=== PATIENT | female | born 1950 | race Caucasian/White ===

== ENCOUNTER → 2016-08-30 | Outpatient (CLI) | payer MEDICARE, BC ==
--- NOTE | 2016-08-30 15:27 | MR ---
EXAMINATION TYPE: MR brain wo con DATE OF EXAM: 08/30/2016 3:17 PM COMPARISON: NONE HISTORY: Lower extremity weakness T1-weighted sagittal, T2, FLAIR, and diffusion axial, and T2 coronal coronal views of the brain are s ubmitted. There is no evidence of acute ischemia. The ventricles, basal cisterns, and sulci overlying the conv exities are consistent with the patient's age. There is no mass effect. Craniocervical junction maintained. Partially empty sella turcica. No cerebellopontine angle mass. Ch anges of mild chronic sinusitis. There are faint areas of abnormal signal the periventricular white m atter nonspecific and most suggestive of minimal remote microvascular ischemia. IMPRESSION: 1. No acute intracranial process. Minimal nonspecific white matter changes.
== END | disposition home or self-care (01) ==
LOC: RADMRIMAIN 14:46
PROVIDERS: ATTEND Family Medicine
DX: R90.82 White matter disease, unspecified (principal); R53.1 Weakness; R53.83 Other fatigue; R41.0 Disorientation, unspecified; F29 Unspecified psychosis not due to a substance or known physiological condition; R41.840 Attention and concentration deficit
CPT/HCPCS: 70551

== ENCOUNTER → 2018-01-05 | Outpatient (CLI) | payer MEDICARE, BC ==
--- NOTE | 2018-01-05 14:35 | MR ---
EXAMINATION TYPE: MR lumbar spine wo con DATE OF EXAM: 01/05/2018 COMPARISON: None HISTORY: Low back pain / Right radiculopathy CONTRAST: 0 mL intravenous Gadavist. TECHNIQUE: Multiplanar, multisequence images of the lumbar spine were acquired. FINDINGS: L5-S1: There is mild narrowing of the disc space. Mild disc bulge is greater centrally and has mild a nterior thecal sac compression. No AP spinal canal stenosis present. Moderate facet hypertrophy is pr esent. Neural foramen are patent. L4-L5: There is loss of disc height. Minimal grade 1 spondylolisthesis of L4 and L5 is present. Disc uncovering is present which has mild anterior thecal sac compression. There is moderate bilateral for aminal stenosis. Moderate to severe bilateral facet hypertrophy is present. This doesn't some posteri or lateral thecal sac compression. L3-L4: Disc space narrowing is present. Mild facet hypertrophy is present. No spinal canal stenosis o r neural foraminal stenosis present. There is some asymmetric disc bulging into the right paracentral region with mild anterior thecal sac contact. This appears larger on the sagittal plane images. L2-L3: No significant disc bulge or disc herniation. No spinal canal stenosis. No foraminal stenosi s. Facet hypertrophy is present. L1-L2: No significant disc bulge or disc herniation. No spinal canal stenosis. No foraminal stenosi s. Some facet degenerative changes present.. T12-L1: No significant disc bulge or disc herniation. No spinal canal stenosis. No foraminal stenos is. . IMPRESSION: 1. Grade 1 spondylolisthesis of L4 anterior and L5. Disc uncovering is present with mild anterior the vel sac flattening. Several hypertrophy and disc uncovering is contributing to moderate bilateral for aminal stenosis. Correlate with radicular symptoms. 2. Central disc bulge present L5-S1 and mild right paracentral disc bulge at L3-4.
== END | disposition home or self-care (01) ==
LOC: RADMRIMAIN 10:27
PROVIDERS: ATTEND Orthopaedic Surgery
DX: M99.73 Connective tissue and disc stenosis of intervertebral foramina of lumbar region (principal); M51.17 Intervertebral disc disorders with radiculopathy, lumbosacral region; M43.16 Spondylolisthesis, lumbar region
CPT/HCPCS: 72148

== ENCOUNTER 2019-04-14 12:19 | Emergency (ER) | payer MEDICARE, BC ==
[2019-04-14 12:40] VITALS: RESP 18
[2019-04-14] MEDS ORDERED: KETOROLAC 30 MG/ML 1 ML VIAL IVP STA (13:10)
[2019-04-14] MEDS ORDERED: SODIUM CHLORIDE 0.9% 500 ML 500 ML IV STA (13:10)
[2019-04-14] MEDS ORDERED: DIAZEPAM 5 MG/ML 2 ML INJ IVP STA (13:11)
--- NOTE | 2019-04-14 13:12 | ED ---
General Adult HPI - General Source: patient, RN notes reviewed Mode of arrival: ambulatory Limitations: no limitations <Mark Figueroa - Last Filed: 04/14/19 15:31> <Julius Camp - Last Filed: 04/14/19 15:36> - General Chief complaint: Back Pain/Injury Stated complaint: Rt lumbar pain Time Seen by Provider: 04/14/19 12:55 - History of Present Illness Initial comments: 69-year-old female with a past medical history of chronic back pain, back surgery presents to the emergency department for acute on chronic back pain. States that her back pain worsened yesterday. States it is to the right side of her lumbar spine. States that lifting her right leg worsens this pain. Patient denies any injuries recently to her back. She states that she has compression deformities in her lumbar spine. Patient states that she has been taking her [place] for pain which she gets from pain management for her chronic back pain but it has not been helping. States that she feels like this could be pancreatitis as it has felt this way in the past. Denies fevers or chills. Denies weakness of the lower extremities. Denies numbness or tingling. Denies radiating back pain. States that the last time she had back injections was in November. No surgeries or injections since that time.Patient has no other complaints at this time including shortness of breath, chest pain, abdominal pain, nausea or vomiting, headache, or visual changes. (Mark Figueroa) - Related Data Home Medications Medication Instructions Recorded Confirmed ALPRAZolam [Xanax] 0.5 mg PO DAILY PRN 01/07/16 01/07/16 Adalimumab [Humira Crohn's] 40 mg SQ WEEKLY 01/07/16 01/07/16 Amitriptyline HCl [Elavil] 25 mg PO HS 01/07/16 01/07/16 Cetirizine HCl [Zyrtec] 10 mg PO DAILY 01/07/16 01/07/16 Cyclobenzaprine [Flexeril] 10 mg PO TID 01/07/16 01/07/16 Estrogens, Conjugated [Premarin] 0.625 mg PO DAILY 01/07/16 01/07/16 Folic Acid 5 mg PO DAILY 01/07/16 01/07/16 Hydrochlorothiazide [Hydrodiuril] 25 mg PO DAILY 01/07/16 01/07/16 Ibuprofen [Motrin] 800 mg PO PRN 01/07/16 Losartan Potassium 100 mg PO DAILY 01/07/16 01/07/16 Methotrexate Sodium [Methotrexate] 6 tab PO WEEKLY 01/07/16 01/07/16 Metoprolol Succinate (ER) [Toprol 100 mg PO DAILY 01/07/16 01/07/16 Xl] Pantoprazole Sodium [Protonix] 40 mg PO DAILY 01/07/16 01/07/16 Sertraline [Zoloft] 100 mg PO DAILY 01/07/16 01/07/16 Previous Rx's Medication Instructions Recorded Hydrocodone/Acetaminophen [[place] 1 each PO Q6HR PRN #30 tab 01/07/16 5-325] Allergies Allergy/AdvReac Type Severity Reaction Status Date / Time No Known Allergies Allergy Verified 04/14/19 12:40 Review of Systems ROS Other: All systems not noted in ROS Statement are negative. <Mark Figueroa - Last Filed: 04/14/19 15:31> ROS Other: All systems not noted in ROS Statement are negative. <Julius Camp - Last Filed: 04/14/19 15:36> ROS Statement: Those systems with pertinent positive or pertinent negative responses have been documented in the HPI. Past Medical History Past Medical History: Hypertension History of Any Multi-Drug Resistant Organisms: None Reported Past Surgical History: Appendectomy, Back Surgery, Bladder Surgery, Chol ecystectomy, Hysterectomy, Orthopedic Surgery Additional Past Surgical History / Comment(s): vein stripping Past Psychological History: Anxiety, Depression Smoking Status: Never smoker Past Alcohol Use History: None Reported Past Drug Use History: None Reported <Mark Figueroa - Last Filed: 04/14/19 15:31> General Exam Limitations: no limitations General appearance: alert, in no apparent distress Head exam: Present: atraumatic, normocephalic, normal inspection Eye exam: Present: normal appearance, PERRL, EOMI. Absent: scleral icterus, conjunctival injection, periorbital swelling ENT exam: Present: normal exam, mucous membranes moist Neck exam: Present: normal inspection. Absent: tenderness, meningismus, lymphadenopathy Respiratory exam: Present: normal lung sounds bilaterally. Absent: respiratory distress, wheezes, rales, rhonchi, stridor Cardiovascular Exam: Present: regular rate, normal rhythm, normal heart sounds. Absent: systolic murmur, diastolic murmur, rubs, gallop, clicks GI/Abdominal exam: Present: soft, normal bowel sounds. Absent: distended, tenderness, guarding, rebound, rigid Extremities exam: Present: normal capillary refill (cap refill less than 2 seconds, DP pulse 2+ in lower extremities bilaterally) <Mark Figueroa - Last Filed: 04/14/19 15:31> Course <Julius Camp - Last Filed: 04/14/19 15:36> Vital Signs 04/14/19 04/14/19 04/14/19 12:33 14:30 15:00 Temperature 97.5 F L Pulse Rate 59 L 74 89 Respiratory 18 18 18 Rate Blood Pressure 166/85 147/81 157/74 O2 Sat by Pulse 99 97 96 Oximetry - Reevaluation(s) Reevaluation #1: 04/14/19 15:36 PA supervision: I proceeded [id number] evaluation the patient did present with complaints of low back pain. She is feeling improved labs and imaging are unremarkable patient will be discharged I do agree with the assessment and plan. (Julius Camp) Medical Decision Making - Lab Data Result diagrams: 04/14/19 14:55 04/14/19 14:55 <Mark Figueroa - Last Filed: 04/14/19 15:31> - Lab Data Result diagrams: 04/14/19 14:55 04/14/19 14:55 <Julius Camp - Last Filed: 04/14/19 15:36> - Medical Decision Making Vitals are stable, neurovascular status intact in RLE. no red flag symptoms. CBC and CMP are unremarkable. Urine is negative for infection. Lumbar spine x- ray shows moderate to advanced degenerative disc disease without vertebral compression collapse. Grade 1 anterior listhesis at L4-L5 noted. Patient was given Toradol and Valium and had significant improvement in pain. She states she feels much better at this time. Patient will be discharged home to follow up with primary care. She will follow-up with pain management as well. She will also talk with her doctor about possibly starting Motrin. She'll return if she has any worsening symptoms. (Mark Figueroa) - Lab Data Lab Results 04/14/19 04/14/19 04/14/19 Range/Units 13:47 14:55 14:55 WBC 5.5 (3.8-10.6) k/uL RBC 4.37 (3.80-5.40) m/uL Hgb 13.7 (11.4-16.0) gm/dL Hct 41.4 (34.0-46.0) % MCV 94.7 (80.0-100.0) fL MCH 31.3 (25.0-35.0) pg MCHC 33.0 (31.0-37.0) g/dL RDW 15.5 (11.5-15.5) % Plt Count 245 (150-450) k/uL Neutrophils % 54 % Lymphocytes % 29 % Monocytes % 8 % Eosinophils % 4 % Basophils % 1 % Neutrophils # 3.0 (1.3-7.7) k/uL Lymphocytes # 1.6 (1.0-4.8) k/uL Monocytes # 0.5 (0-1.0) k/uL Eosinophils # 0.2 (0-0.7) k/uL Basophils # 0.0 (0-0.2) k/uL Sodium 141 (137-145) mmol/L Potassium 3.9 (3.5-5.1) mmol/L Chloride 105 (98-107) mmol/L Carbon Dioxide 27 (22-30) mmol/L Anion Gap 9 mmol/L BUN 18 H (7-17) mg/dL Creatinine 0.90 (0.52-1.04) mg/dL Est GFR (CKD-EPI)AfAm 75 (>60 ml/min/1.73 sqM) Est GFR (CKD-EPI)NonAf 65 (>60 ml/min/1.73 sqM) Glucose 78 (74-99) mg/dL Calcium 9.6 (8.4-10.2) mg/dL Total Bilirubin 0.5 (0.2-1.3) mg/dL AST 31 (14-36) U/L ALT 24 (4-34) U/L Alkaline Phosphatase 66 (38-126) U/L Total Protein 7.3 (6.3-8.2) g/dL Albumin 4.2 (3.5-5.0) g/dL Amylase 76 (30-110) U/L Lipase 206 (23-300) U/L Urine Color Light Yellow Urine Appearance Clear (Clear) Urine pH 7.0 (5.0-8.0) Ur Specific [place] 1.008 (1.001-1.035) Urine Protein Negative (Negative) Urine Glucose (UA) Negative (Negative) Urine Ketones Negative (Negative) Urine Blood Negative (Negative) Urine Nitrite Negative (Negative) Urine Bilirubin Negative (Negative) Urine Urobilinogen <2.0 (<2.0) mg/dL Ur Leukocyte Esterase Negative (Negative) Disposition Is patient prescribed a controlled substance at d/c from ED?: No Time of Disposition: 15:32 <Mark Figueroa - Last Filed: 04/14/19 15:31> <Julius Camp - Last Filed: 04/14/19 15:36> Clinical Impression: Mechanical back pain Disposition: HOME SELF-CARE Condition: Good Instructions (If sedation given, give patient instructions): Acute Low Back Pain (ED) Additional Instructions: Please continue to take her medications for pain. Please follow-up with your doctor in one to 2 days. Follow-up with pain management as well. Return to the emergency department if you have any worsening symptoms such as leg weakness, numbness or tingling in the lower extremities, difficulty walking, bladder or bowel changes, or fevers. Referrals: Marlon Eugene DO [Primary Care Provider] - 1-2 days
[2019-04-14] MEDS ORDERED: ONDANSETRON 4 MG/2 ML VIAL IVP STA (13:49)
--- NOTE | 2019-04-14 14:30 | XR ---
EXAMINATION TYPE: XR lumbar spine 2 or 3V DATE OF EXAM: 04/14/2019 Comparison: None Clinical History: 69-year-old female with pain Findings: Advanced hypertrophic facet arthropathy mid to lower lumbar spine. Degenerative thinning of the inter spinous ligaments with abutment near abutment of the spinous processes compatible with [place]'s dis ease. Moderate to advanced disc degenerative change particularly at L4-L5 and L5-S1. Vertebral body h eights are preserved. Grade 1 anterolisthesis at L4-L5. Impression: Advanced hypertrophic facet arthropathy with grade 1 anterolisthesis at L4-L5. Moderate to advanced d egenerative disc disease L4-L5 and L5-S1. No vertebral compression collapse.
[2019-04-14 14:34] LABS: Appearance,Urine Clear (Clear); Bilirubin,Urine Negative (Negative); Blood,Urine Negative (Negative); Color,Urine Light Yellow; Glucose,Urine (UA) Negative (Negative); Ketones,Urine Negative (Negative); Leukocyte Esterase,Urine Negative (Negative); Nitrite,Urine Negative (Negative); Protein,Urine Negative (Negative); Specific Gravity,Urine 1.008 (1.001-1.035); Urobilinogen,Urine <2.0 mg/dL (<2.0)
[2019-04-14 15:21] LABS: Basophils % (A) 1 %; Eosinophils # (A) 0.2 k/uL (0-0.7); Eosinophils % (A) 4 %; HCT 41.4 % (34.0-46.0); HGB 13.7 gm/dL (11.4-16.0); Lymphocytes # (A) 1.6 k/uL (1.0-4.8); Lymphocytes % (A) 29 %; MCH 31.3 pg (25.0-35.0); MCV 94.7 fL (80.0-100.0); Mean Platelet Volume 7.8; Monocytes # (A) 0.5 k/uL (0-1.0); Monocytes % (A) 8 %; Neutrophils % (A) 54 %; Platelet Count 245 k/uL (150-450); RBC 4.37 m/uL (3.80-5.40); RDW 15.5 % (11.5-15.5); WBC 5.5 k/uL (3.8-10.6)
[2019-04-14 15:24] LABS: Albumin 4.2 g/dL (3.5-5.0); Calcium 9.6 mg/dL (8.4-10.2); Potassium 3.9 mmol/L (3.5-5.1); Total Bilirubin 0.5 mg/dL (0.2-1.3); Total Protein 7.3 g/dL (6.3-8.2)
[2019-04-14 15:45] VITALS: BP 150/76; PULSE 71; TEMP 98.2
== END 2019-04-14 15:42 | disposition home or self-care (01) ==
LOC: EC 12:19
DX: M54.5 Low back pain (principal); M51.36 Other intervertebral disc degeneration, lumbar region; M43.16 Spondylolisthesis, lumbar region; M51.37 Other intervertebral disc degeneration, lumbosacral region; F41.9 Anxiety disorder, unspecified; F32.9 Major depressive disorder, single episode, unspecified; I10 Essential (primary) hypertension; Z79.899 Other long term (current) drug therapy
CPT/HCPCS: 36415; 72100; 80053; 81003; 82150; 83690; 85025; 96374; 96375; 99283

== ENCOUNTER → 2021-02-16 | Outpatient (CLI) | payer MEDICARE, BC ==
[~2021-02-16] MED LIST: REGADENOSON 0.4 MG/5 ML SYRINGE IV PRN
[2021-02-16 13:52] LABS: Anisocytosis Slight; HCT 38.7 % (34.0-46.0); HGB 11.7 gm/dL (11.4-16.0); Hypochromasia Moderate; MCHC 30.4 g/dL (31.0-37.0); MCV 92.4 fL (80.0-100.0); Mean Platelet Volume 7.4; Platelet Count 335 k/uL (150-450); RBC 4.18 m/uL (3.80-5.40); RDW 17.6 % (11.5-15.5); WBC 7.6 k/uL (3.8-10.6)
[2021-02-16 14:04] LABS: Calcium 9.5 mg/dL (8.4-10.2); Potassium 4.4 mmol/L (3.5-5.1)
--- NOTE | 2021-02-16 14:12 | NM ---
EXAMINATION TYPE: NM stress lexiscan cardiolite DATE OF EXAM: 02/16/2021 COMPARISON: NONE HISTORY: Dyspnea on exertion TECHNIQUE: After the intravenous administration of 9.8 mCi Tc 99m Sestamibi - Cardiolite resting SPE CT images acquired 45 minutes post injection. At peak stress 24.2 mCi Tc 99m Sestamibi - Stress images obtained 30 minutes post injection The patient was stressed with 0.4mg Lexiscan. FINDINGS: There is a moderate sized fixed defect along the lateral wall extending to the cardiac apex. This duyen ears matched between resting and stress SPECT images. Polar maps however suggest large degree of reve rsibility. Wall motion appears normal Ejection fraction is calculated to be 62 %. IMPRESSION: 1. Moderate to large defect along the lateral wall appears fixed on SPECT imaging but reversible on p olar maps. Correlate with EKG changes.
[2021-02-16 14:18] LABS: T4, Free (Free Thyroxine) 1.11 ng/dL (0.78-2.19)
--- NOTE | 2021-02-16 14:49 | EST ---
EXERCISE STRESS AGE: 71 SEX: F HT: 5'3" WT: 267 lbs PROTOCOL: Lexiscan STAGE: NA DURATION OF EXERCISE: NA HEART RATE REST: 66 BLOOD PRESSURE REST: 135/70 MAXIMUM HEART RATE ACHIEVED: 72 MAXIMUM BLOOD PRESSURE: 200/55 85% MPHR: 125 100% MPHR: 147 METS: NA INDICATIONS: Shortness of breath. CLINICAL INFORMATION: Baseline EKG shows atrial fibrillation with nonspecific ST-T wave changes. Patient was given intravenous Lexiscan as per protocol. Did not have chest pain or diagnostic ST- segment depression. CONCLUSIONS: 1. Inconclusive EKG part of the stress test baseline EKG abnormalities. 2. Cardiolite portion of the stress test will be reported separately. MMODL / IJN: [id number] /
== END | disposition home or self-care (01) ==
LOC: RADNMMAIN 09:10
PROVIDERS: ATTEND Family Medicine
DX: R06.02 Shortness of breath (principal); R06.09 Other forms of dyspnea
CPT/HCPCS: 93017; 84439; 80048; 83735; 84443; 85027; 78452; A9500; J2785

== ENCOUNTER 2021-03-01 06:43 | Day surgery (SDC) | payer MEDICARE, BC ==
[~2021-03-01 06:43] MED LIST changes: +ALPRAZolam 0.5 MG TAB PO PRN; +HEPARIN SODIUM,PORCINE 10,000 UNIT in SODIUM CHLORIDE 0.9% 1,000 ML IRRIGATION PRN; +HEPARIN SODIUM,PORCINE 2,500 UNIT in SODIUM CHLORIDE 0.9% 250 ML IRRIGATION PRN; +NITROGLYCERIN SL TABS 0.4 MG TAB SUBLINGUAL PRN; -REGADENOSON 0.4 MG/5 ML SYRINGE IV PRN; +SODIUM CHLORIDE 0.9% 1,000 ML in EMPTY BAG 1 BAG IV SCH
[2021-03-01] MEDS ORDERED: ASPIRIN 325 MG TAB PO ONE (07:00)
[2021-03-01] MEDS ORDERED: ALPRAZolam 0.25 MG TAB PO PRN (07:00)
[2021-03-01] MEDS ORDERED: SODIUM CHLORIDE 0.9% 1,000 ML IV ONE (07:15)
[2021-03-01 07:24] VITALS: TEMP 97.9
[2021-03-01] MEDS ORDERED: LIDOCAINE 1% INJ 10MG/ML (20 ML MDV) SQ ONE (07:44)
[2021-03-01] MEDS: MIDAZOLAM 2 MG/2 ML VIAL IV ONE ×2 (07:48→07:53)
[2021-03-01] MEDS ORDERED: HEPARIN SODIUM 1,000 UN/ML (10ML VL) IV ONE (07:49)
[2021-03-01] MEDS ORDERED: VERAPAMIL SYRINGE (5 MG/10 ML) INTRAARTER ONE (07:49)
[2021-03-01] MEDS ORDERED: fentaNYL (PF) 50 MCG/ML 2 ML AMP IV ONE (07:49)
[2021-03-01] MEDS ORDERED: RX INFO: IV CONTRAST WAS GIVEN 1 EACH MISC MISCELLANE PRN (08:40)
[2021-03-01] MEDS ORDERED: IOPAMIDOL-370 125ML BTL INJ ONE (08:43)
[2021-03-01 09:40] VITALS: RESP 16
--- NOTE | 2021-03-01 10:19 | CC ---
CARDIAC CATHETERIZATION REPORT INDICATION: Abnormal stress test showing ischemia involving the lateral wall. PROCEDURE NOTE: After obtaining informed consent, left heart catheterization and coronary angiogram were performed via the right radial artery using standard Ashley catheters. Left coronary artery was engaged using a size 4 Ashley catheter. Right coronary artery was engaged using an Amplatz 2 catheter. We used a 3 and half Ashley, 4 Ashley and Guillermo posterior unsuccessfully. The patient tolerated the procedure well without any obvious immediate complications. She received moderate conscious sedation. Total sedation time was 35 minutes. The hemostasis was accomplished at the end of the procedure using standard protocol with a TR band. Adequate hemostasis was noted and pulse ox was documented at 100% FINDINGS: HEMODYNAMICS: Left ventricular end-diastolic pressure is 20 mm. There is no significant gradient across the aortic valve. LEFT VENTRICULOGRAM: Left ventriculogram is not performed. ANGIOGRAPHIC DATA: LEFT MAIN CORONARY ARTERY: Left main coronary artery is a normal-sized vessel and is free of stenosis. Divides into left anterior descending coronary artery and circumflex coronary artery. CIRCUMFLEX CORONARY ARTERY is a nondominant vessel and is free of significant disease. LEFT ANTERIOR DESCENDING CORONARY ARTERY: LAD shows a 40-50 percent stenosis in the mid LAD region. RIGHT CORONARY ARTERY: Right coronary artery is a large dominant vessel that is free of significant stenosis. CONCLUSIONS: Right dominant circulation with a 40-50 percent stenosis involving LAD. PLAN: I reviewed angiographic data with the patient and told her that her management is going to be in the form of risk factor modification and optimal medical therapy. She has history of atrial fibrillation, currently in sinus rhythm. We will resume her Eliquis. She will follow up with me in the office in a week's time. MMODL / IJN: [id number] /
[2021-03-01 14:10] VITALS: BP 137/70; PULSE 88
== END 2021-03-01 15:39 | disposition home or self-care (01) ==
LOC: CATHCVL 06:43
PROVIDERS: ATTEND Internal Medicine Cardiovascular Disease
DX: I25.10 Atherosclerotic heart disease of native coronary artery without angina pectoris (principal); I48.91 Unspecified atrial fibrillation; Z20.822 Contact with and (suspected) exposure to COVID-19
CPT/HCPCS: 93458; 87635; J2250; J2001; J3010; J1644; Q9967

== ENCOUNTER → 2021-04-20 | Outpatient (CLI) | payer MEDICARE, BC ==
[2021-04-20 12:02] LABS: Anisocytosis Slight; HGB 10.6 gm/dL (11.4-16.0); Hypochromasia Marked; MCH 27.7 pg (25.0-35.0); MCHC 31.1 g/dL (31.0-37.0); Mean Platelet Volume 7.6; Platelet Count 285 k/uL (150-450); RBC 3.82 m/uL (3.80-5.40); RDW 17.3 % (11.5-15.5); WBC 6.7 k/uL (3.8-10.6)
[2021-04-20 12:14] LABS: Potassium 3.7 mmol/L (3.5-5.1)
== END | disposition home or self-care (01) ==
LOC: LABPAT 11:27
PROVIDERS: ATTEND Internal Medicine
DX: Z01.812 Encounter for preprocedural laboratory examination (principal); R94.39 Abnormal result of other cardiovascular function study
CPT/HCPCS: 80051; 82565; 84520; 85027; 36415; U0003; C9803; U0005

== ENCOUNTER 2021-04-24 05:55 | Day surgery (SDC) | payer MEDICARE, BC ==
[2021-04-19 10:24] VITALS: BMI 47.8
[2021-04-24] MEDS ORDERED: ASPIRIN 325 MG TAB PO STA (06:00)
[2021-04-24] MEDS ORDERED: SODIUM CHLORIDE 0.9% 1,000 ML in EMPTY BAG 1 BAG IV SCH (06:00)
[2021-04-24] MEDS ORDERED: NITROGLYCERIN SL TABS 0.4 MG TAB SUBLINGUAL PRN (06:00)
[2021-04-24] MEDS ORDERED: HEPARIN SODIUM,PORCINE 10,000 UNIT in SODIUM CHLORIDE 0.9% 1,000 ML IRRIGATION PRN (06:00)
[2021-04-24] MEDS ORDERED: ALPRAZolam 0.5 MG TAB PO PRN (06:00)
[2021-04-24] MEDS ORDERED: ALPRAZolam 0.25 MG TAB PO PRN (06:00)
[2021-04-24] MEDS ORDERED: HEPARIN SODIUM,PORCINE 2,500 UNIT in SODIUM CHLORIDE 0.9% 250 ML IRRIGATION PRN (06:00)
[2021-04-24] MEDS ORDERED: SODIUM CHLORIDE 0.9% 1,000 ML in EMPTY BAG 1 BAG IV ONE (06:00)
[2021-04-24 06:42] VITALS: TEMP 97.2
[2021-04-24] MEDS ORDERED: VERAPAMIL 2.5 MG/ML 2 ML AMP ONE (08:36)
[2021-04-24] MEDS ORDERED: LIDOCAINE 1% INJ 10MG/ML (20 ML MDV) ONE (08:36)
[2021-04-24] MEDS ORDERED: fentaNYL (PF) 50 MCG/ML 2 ML AMP ONE (08:37)
[2021-04-24] MEDS: fentaNYL (PF) 50 MCG/ML 2 ML AMP IV ONE ×2 (08:50→09:07)
[2021-04-24] MEDS ORDERED: MIDAZOLAM 2 MG/2 ML VIAL IV ONE ×2 (08:50)
[2021-04-24] MEDS ORDERED: SODIUM CHLORIDE 0.9% 1,000 ML IV ONE (08:51)
[2021-04-24] MEDS ORDERED: HEPARIN SODIUM 1,000 UN/ML (10ML VL) ONE (09:01)
[2021-04-24] MEDS ORDERED: VERAPAMIL SYRINGE (5 MG/10 ML) INTRAARTER ONE (09:05)
[2021-04-24] MEDS ORDERED: HEPARIN SODIUM 1,000 UN/ML (10ML VL) IV ONE (09:05)
[2021-04-24] MEDS ORDERED: IOPAMIDOL-370 125ML BTL INJ ONE (09:24)
--- NOTE | 2021-04-24 12:51 | P.CARDCATH ---
Description of Procedure: PROCEDURES PERFORMED: Left heart catheterization, bilateral coronary angiography, iFR of LAD INDICATION: Abnormal stress test, coronary artery disease, persistent angina- type symptoms HISTORY: Patient is a pleasant 71-year-old female who has been having persistent dyspnea with [id number] activity and had stress test performed which showed lateral ischemia and had a diagnostic heart catheterization which showed moderate LAD 50-60% stenosis however no significant disease in the circumflex or RCA. Given persistent symptoms without any other explanation I was asked to perform iFR of the LAD. CONSENT:I have discussed the risks, benefits and alternative therapies for the above-mentioned procedure and for both sedation/analgesia as well as necessary blood product administration, if indicated, as they pertain to this patient. The patient has indicated understanding and acceptance of the risks and procedures discussed. PROCEDURE: After the risks, benefits and alternatives of the above mentioned procedure explained in detail with the patient, informed consent was obtained. Patient was taken to the catheterization lab and prepped and draped in usual fashion. 1% lidocaine was used to anesthetize the right radial artery. A 6- Mexican sheath was placed in the right radial artery using modified Seldinger technique. Left coronary angiography was performed with a 6-Mexican CLS 4.0 catheter and right coronary angiography was performed with a 6-Mexican AR2 catheter in various views. A 6-Mexican AR2 catheter was inserted into the left ventricle and pressure measurements were obtained. Heparin was given to maintain ACT > 250. The 0.014 iFR wire was advanced into the left main and normalized. Next the iFR wire was advanced into the mid LAD and iFR was performed and was normal at 0.92. The right radial sheath was removed and a TR band was placed with hemostasis achieved. The patient tolerated the procedure well. Patient was transported back to the post catheterization holding area in stable condition. Conscious Sedation: Patient was monitored under the direct supervision of vision of myself for conscious sedation using Versed and fentanyl for a total duration of 30 minutes HEMODYNAMICS: Ao: 143/78 LV: 141/3, LVEDP 20mmHg SELECTIVE CORONARY ARTERIOGRAPHY: LEFT MAIN: The left main is a large caliber vessel which bifurcates into the LAD and circumflex. There is no significant stenosis. LEFT ANTERIOR DESCENDING CORONARY ARTERY: LAD is a large caliber vessel which wraps around to the apex. There is a mid LAD 50-60% stenosis and otherwise apears normal. LEFT CIRCUMFLEX CORONARY ARTERY: Left circumflex is a moderate caliber with mild luminal irregularities. RIGHT CORONARY ARTERY: The right coronary artery is a large caliber vessel which gives off a PDA and PLV branch and is the dominant vessel. There is a mid RCA 10-20% stenosis. FINAL IMPRESSION: 1. Mild to moderate CAD as described above with 10-20% RCA stenosis and 50-60% LAD stenosis, LAD lesion iFR normal at 0.92. 2. Mildly elevated left sided filling pressures PLAN: 1. Aggressive risk factor modification per most recent ACC/AHA guidelines. 2. Consider increasing diurectics and if no improvement would further workup for pulmonary source of GO. 3. Follow-up in the office in 1-2 weeks.
[2021-04-24 14:56] VITALS: BP 149/69; PULSE 74; RESP 18
== END 2021-04-24 13:55 | disposition home or self-care (01) ==
LOC: CATHCVL 05:55
PROVIDERS: ATTEND Internal Medicine
DX: I25.10 Atherosclerotic heart disease of native coronary artery without angina pectoris (principal); R94.39 Abnormal result of other cardiovascular function study; I10 Essential (primary) hypertension; I48.0 Paroxysmal atrial fibrillation; R93.1 Abnormal findings on diagnostic imaging of heart and coronary circulation; F41.9 Anxiety disorder, unspecified; I49.3 Ventricular premature depolarization; I35.1 Nonrheumatic aortic (valve) insufficiency; Z82.49 Family history of ischemic heart disease and other diseases of the circulatory system; Z79.01 Long term (current) use of anticoagulants; Z79.890 Hormone replacement therapy; Z79.899 Other long term (current) drug therapy
CPT/HCPCS: 93571; 93458; C1887; C1894; C1769 ×2; J2250; J3010; J1644; Q9967

== ENCOUNTER → 2021-06-30 | Outpatient (CLI) | payer MEDICARE, BC ==
--- NOTE | 2021-06-30 14:44 | MR ---
EXAMINATION TYPE: MR lumbar spine wo con DATE OF EXAM: 06/30/2021 COMPARISON: 01/05/2018 HISTORY: LBP, radiates down left leg. Multiplanar multiecho imaging of the lumbar spine without contrast. There is a first-degree L4-5 mild spondylolisthesis. There is moderate narrowing at L4-5 disc. There is a minimal spinal stenosis at L4-5 due to the subluxation deformity and facet arthropathy. There is some narrowing of the right-sided L4-5 neural foramen due to the disc space narrowing and subluxatio n. There is mild posterior disc bulging from L1 to L4. No spinal stenosis. There is degenerative disc sp jung narrowing throughout the lumbar spine. There is no lumbar compression fracture. There is no lumbar paraspinal mass. There are sacral cysts a t the S2 level. I see no focal bone destruction. IMPRESSION: Multilevel spondylotic changes. Degenerative first-degree L4-5 spondylolisthesis. There is a minimal relative spinal stenosis at L4-5. No acute bony abnormality. There is mild progression of the right s sarah L4-5 neural foraminal narrowing.
== END | disposition home or self-care (01) ==
LOC: RADMRIMAIN 11:57
PROVIDERS: ATTEND Anesthesiology
DX: M48.061 Spinal stenosis, lumbar region without neurogenic claudication (principal); M43.16 Spondylolisthesis, lumbar region; M99.73 Connective tissue and disc stenosis of intervertebral foramina of lumbar region; M47.26 Other spondylosis with radiculopathy, lumbar region
CPT/HCPCS: 72148

== ENCOUNTER 2021-11-07 16:41 | Emergency (ER) | payer MEDICARE, BC ==
[2021-11-07 17:04] VITALS: TEMP 99.4
[2021-11-07] MEDS ORDERED: HYDROmorphone 1 MG/ML 1 ML SYRINGE IVP STA (18:03)
[2021-11-07] MEDS ORDERED: ONDANSETRON 4 MG/2 ML VIAL IVP STA (18:03)
--- NOTE | 2021-11-07 18:21 | ED ---
General Adult HPI - General Chief complaint: Upper Respiratory Infection Stated complaint: sick Time Seen by Provider: 11/07/21 17:42 Source: patient Mode of arrival: ambulatory Limitations: no limitations - History of Present Illness Initial comments: My patient is 71-year-old female presents to the emergency room with complaints of cough, nausea without vomiting and generalized body aches. Preliminary to testing from triage revealed that she is colored positive. She reports that she has not taken COVID vaccinations due to advice of her primary care provider and her monitor worker as she is on methotrexate along with Humira for psoriatic arthritis. She also reports that she has chronic anemia which she is currently on iron infusions for him was due for her third infusion tomorrow. She denies any high fevers though she does have a low-grade fever here in the emergency room today of 99.4. She denies any shortness of breath, chills, d iarrhea, chest pain, abdominal pain, dizziness, altered mental status or other signs or symptoms of sepsis. She has a past medical history significant for atrial fibrillation, DVT and hypertension in addition to her psoriatic arthritis and chronic anemia. She denies any other complaints or concerns at this time. - Related Data Home Medications Medication Instructions Recorded Confirmed ALPRAZolam [Xanax] 0.5 mg PO DAILY PRN 01/07/16 04/24/21 Adalimumab [Humira Pen 40 mg SQ TU 01/07/16 04/24/21 Crohn's-Uc-Hs] Cetirizine HCl [Zyrtec] 10 mg PO HS 01/07/16 04/24/21 Folic Acid 5 mg PO DAILY 01/07/16 04/24/21 Metoprolol Succinate (ER) [Toprol 50 mg PO BID 01/07/16 04/24/21 XL] Pantoprazole Sodium [Protonix] 40 mg PO QAM 01/07/16 04/24/21 metHOTREXate sodium [Methotrexate] 6 tab PO FR 01/07/16 04/24/21 Apixaban [Eliquis] 5 mg PO BID 02/28/21 04/24/21 Cbd Oil 750 mg PO HS 02/28/21 04/24/21 DULoxetine HCL [Cymbalta] 90 mg PO DAILY 02/28/21 04/24/21 Gabapentin 300 mg PO TID 02/28/21 04/24/21 Multivitamins, Thera [Multivitamin 1 tab PO DAILY 02/28/21 04/24/21 (formulary)] Potassium Gluconate [Potassium 99 mg PO DAILY 02/28/21 04/24/21 Gluconate ER] estradioL [Estrace] 0.5 mg PO DAILY 02/28/21 04/24/21 Betamethasone Dipropionate 1 applic TOPICAL DAILY PRN 04/19/21 04/24/21 [Betamethasone Dipropionate 0.05%] Cholecalciferol (Vitamin D3) 125 mcg PO DAILY 04/19/21 04/24/21 [Vitamin D3 (125 MCG = 5,000 IU)] Hydrocortisone [Anusol-Hc] 1 applic RECTAL QID PRN 04/19/21 04/19/21 Losartan Potassium 50 mg PO BID 04/19/21 04/24/21 buPROPion [Wellbutrin] 75 mg PO DAILY 04/19/21 04/24/21 oxyCODONE HCL/ACETAMINOPHEN 1 tab PO HS 04/19/21 04/24/21 [oxyCODONE HCL/ACETAMINOPHEN 5-325] Previous Rx's Medication Instructions Recorded Furosemide [Lasix] 40 mg PO BID #90 tablet 04/24/21 Ondansetron Odt [Zofran Odt] 8 mg PO Q8HR PRN 7 Days #21 tab 11/07/21 Allergies Allergy/AdvReac Type Severity Reaction Status Date / Time adhesive AdvReac Rash/Hives Verified 11/07/21 17:04 Review of Systems ROS Statement: Those systems with pertinent positive or pertinent negative responses have been documented in the HPI. ROS Other: All systems not noted in ROS Statement are negative. Past Medical History Past Medical History: Atrial Fibrillation, Deep Vein Thrombosis (DVT), GERD/Reflux, Hypertension Additional Past Medical History / Comment(s): PSORIATIC ARTHRITIS. mammogram indicated small cyst to have procedure 05/01/21 History of Any Multi-Drug Resistant Organisms: None Reported Past Surgical History: Appendectomy, Back Surgery, Bladder Surgery, Cholecystectomy, Hysterectomy, Orthopedic Surgery Additional Past Surgical History / Comment(s): vein stripping. ORIF OF RIGHT ANKLE with plate and wire,joint replacement lt great toe with titanium screw . rhizotomy and steroid injections lumbar, millicent knee steroid injection Past Anesthesia/Blood Transfusion Reactions: Previous Problems w/ Anesthesia, Motion Sickness, Postoperative Nausea & Vomiting (PONV) Past Psychological History: Anxiety, Depression Smoking Status: Never smoker Past Alcohol Use History: None Reported Past Drug Use History: None Reported General Exam Limitations: no limitations General appearance: alert, in no apparent distress, obese Head exam: Present: atraumatic, normocephalic, normal inspection Eye exam: Present: normal appearance, PERRL, EOMI. Absent: scleral icterus, conjunctival injection, periorbital swelling ENT exam: Present: normal exam, mucous membranes moist Neck exam: Present: normal inspection. Absent: tenderness, meningismus, ly mphadenopathy Respiratory exam: Present: normal lung sounds bilaterally. Absent: respiratory distress, wheezes, rales, rhonchi, stridor Cardiovascular Exam: Present: regular rate, normal rhythm, normal heart sounds. Absent: systolic murmur, diastolic murmur GI/Abdominal exam: Present: soft, normal bowel sounds. Absent: distended, tenderness, guarding, rebound, rigid Rectal exam: Present: deferred Extremities exam: Present: normal inspection, full ROM, normal capillary refill. Absent: tenderness, pedal edema, joint swelling, calf tenderness Back exam: Present: normal inspection Neurological exam: Present: alert, oriented X3, CN II-XII intact Psychiatric exam: Present: normal affect, normal mood Skin exam: Present: warm, dry, intact, normal color. Absent: rash Course Vital Signs 11/07/21 17:02 Temperature 99.4 F Pulse Rate 116 H Respiratory 22 Rate Blood Pressure 151/66 O2 Sat by Pulse 95 Oximetry Medical Decision Making - Medical Decision Making Will check CBC CMP and lactic acid is lab stable will plan for antibody infusion and discharge home if hemodynamically stable or lab anomalies will plan for admission. Patient continues to remain hemodynamically stable and lab work overall is consistent for her chronic conditions show no reason for admission. Will give mild IV hydration with antibody infusion for slightly elevated BUN in the setting of nausea to prevent need for admission for dehydration at a later point. noted on labs chronic anemia noted. No significant leukocytosis and lactic acid level normal. Pain well controlled with Dilaudid nausea well controlled with Zofran. Patient has [place] to utilize at home for pain management once at home. Will prescribe Zofran ODT to take home for prescription upon discharge. Case discussed with Dr. John. - Lab Data Result diagrams: 11/07/21 18:18 11/07/21 18:18 Lab Results 11/07/21 11/07/21 11/07/21 Range/Units 17:12 17:12 18:18 WBC 4.9 (3.8-10.6) k/uL RBC 3.98 (3.80-5.40) m/uL Hgb 11.0 L (11.4-16.0) gm/dL Hct 35.2 (34.0-46.0) % MCV 88.6 (80.0-100.0) fL MCH 27.7 (25.0-35.0) pg MCHC 31.2 (31.0-37.0) g/dL RDW 22.6 H (11.5-15.5) % Plt Count 219 (150-450) k/uL MPV 7.5 Neutrophils % 72 % Lymphocytes % 9 % Monocytes % 15 % Eosinophils % 1 % Basophils % 0 % Neutrophils # 3.5 (1.3-7.7) k/uL Lymphocytes # 0.4 L (1.0-4.8) k/uL Monocytes # 0.7 (0-1.0) k/uL Eosinophils # 0.1 (0-0.7) k/uL Basophils # 0.0 (0-0.2) k/uL Hypochromasia Moderate Anisocytosis Moderate Macrocytosis Slight Sodium (137-145) mmol/L Potassium (3.5-5.1) mmol/L Chloride (98-107) mmol/L Carbon Dioxide (22-30) mmol/L Anion Gap mmol/L BUN (7-17) mg/dL Creatinine (0.52-1.04) mg/dL Est GFR (CKD-EPI)AfAm (>60 ml/min/1.73 sqM) Est GFR (CKD-EPI)NonAf (>60 ml/min/1.73 sqM) Glucose (74-99) mg/dL Plasma Lactic Acid Juan (0.7-2.0) mmol/L Calcium (8.4-10.2) mg/dL Total Bilirubin (0.2-1.3) mg/dL AST (14-36) U/L ALT (4-34) U/L Alkaline Phosphatase (38-126) U/L Total Protein (6.3-8.2) g/dL Albumin (3.5-5.0) g/dL Coronavirus (PCR) Detected A (Not Detectd) Influenza Type A RNA Not Detected (Not Detectd) Influenza Type B (PCR) Not Detected (Not Detectd) 11/07/21 11/07/21 Range/Units 18:18 18:18 WBC (3.8-10.6) k/uL RBC (3.80-5.40) m/uL Hgb (11.4-16.0) gm/dL Hct (34.0-46.0) % MCV (80.0-100.0) fL MCH (25.0-35.0) pg MCHC (31.0-37.0) g/dL RDW (11.5-15.5) % Plt Count (150-450) k/uL MPV Neutrophils % % Lymphocytes % % Monocytes % % Eosinophils % % Basophils % % Neutrophils # (1.3-7.7) k/uL Lymphocytes # (1.0-4.8) k/uL Monocytes # (0-1.0) k/uL Eosinophils # (0-0.7) k/uL Basophils # (0-0.2) k/uL Hypochromasia Anisocytosis Macrocytosis Sodium 135 L (137-145) mmol/L Potassium 3.8 (3.5-5.1) mmol/L Chloride 101 (98-107) mmol/L Carbon Dioxide 26 (22-30) mmol/L Anion Gap 8 mmol/L BUN 18 H (7-17) mg/dL Creatinine 1.15 H (0.52-1.04) mg/dL Est GFR (CKD-EPI)AfAm 55 (>60 ml/min/1.73 sqM) Est GFR (CKD-EPI)NonAf 47 (>60 ml/min/1.73 sqM) Glucose 107 H (74-99) mg/dL Plasma Lactic Acid Juan 1.2 (0.7-2.0) mmol/L Calcium 9.5 (8.4-10.2) mg/dL Total Bilirubin 0.3 (0.2-1.3) mg/dL AST 42 H (14-36) U/L ALT 30 (4-34) U/L Alkaline Phosphatase 71 (38-126) U/L Total Protein 7.0 (6.3-8.2) g/dL Albumin 4.3 (3.5-5.0) g/dL Coronavirus (PCR) (Not Detectd) Influenza Type A RNA (Not Detectd) Influenza Type B (PCR) (Not Detectd) Disposition Clinical Impression: COVID Disposition: HOME SELF-CARE Condition: Stable Instructions (If sedation given, give patient instructions): Acute Nausea and Vomiting (ED), COVID-19 (Coronavirus Disease 2019) (ED) Additional Instructions: You have received COVID antibody infusion and tested positive for COVID today. Please quarantine for the next 5 days and contact trace with anyone who had known exposure to self over the last 24 hours. Please drink plenty of fluids avoiding caffeine. Please utilize already prescribed pain medication to help with body aches. May alternate with Tylenol as needed. Utilize Zofran as prescribed for any nausea. Please follow-up with your primary care provider after quarantine. Please return to the Emergency Department if symptoms worsen or any other concerns. Prescriptions: Ondansetron Odt [Zofran Odt] 8 mg PO Q8HR PRN 7 Days #21 tab PRN Reason: Nausea Is patient prescribed a controlled substance at d/c from ED?: No Referrals: Marlon Eugene DO [Primary Care Provider] - 1-2 days Time of Disposition: 19:15
[2021-11-07 18:31] LABS: Albumin 4.3 g/dL (3.5-5.0); Calcium 9.5 mg/dL (8.4-10.2); Potassium 3.8 mmol/L (3.5-5.1); Total Bilirubin 0.3 mg/dL (0.2-1.3)
[2021-11-07 18:36] LABS: Anisocytosis Moderate; Basophils % (A) 0 %; Eosinophils # (A) 0.1 k/uL (0-0.7); Eosinophils % (A) 1 %; HCT 35.2 % (34.0-46.0); Hypochromasia Moderate; Lymphocytes # (A) 0.4 k/uL (1.0-4.8); Lymphocytes % (A) 9 %; MCH 27.7 pg (25.0-35.0); MCHC 31.2 g/dL (31.0-37.0); MCV 88.6 fL (80.0-100.0); Macrocytosis Slight; Mean Platelet Volume 7.5; Monocytes # (A) 0.7 k/uL (0-1.0); Monocytes % (A) 15 %; Neutrophils # (A) 3.5 k/uL (1.3-7.7); Neutrophils % (A) 72 %; Platelet Count 219 k/uL (150-450); RBC 3.98 m/uL (3.80-5.40); RDW 22.6 % (11.5-15.5); WBC 4.9 k/uL (3.8-10.6)
[2021-11-07] MEDS ORDERED: SODIUM CHLORIDE 0.9% 500 ML 500 ML IV STA (19:15)
[2021-11-07] MEDS ORDERED: BEBTELOVIMAB (EUA) 175 MG/2 ML VIAL IV ONE (20:00)
[2021-11-07 20:33] VITALS: BP 138/85; PULSE 98; RESP 16
== END 2021-11-07 20:53 | disposition home or self-care (01) ==
LOC: EC 16:41
DX: U07.1 COVID-19 (principal); I10 Essential (primary) hypertension; I48.91 Unspecified atrial fibrillation; K21.9 Gastro-esophageal reflux disease without esophagitis; Z91.09 Other allergy status, other than to drugs and biological substances; Z79.899 Other long term (current) drug therapy; Z79.01 Long term (current) use of anticoagulants
CPT/HCPCS: 36415; 80053; 83605; 85025; 87502; 87635; 99283; 96374; 96375; J2405; J1170; Q0222

== ENCOUNTER → 2022-11-28 | Outpatient (CLI) | payer MEDICARE, BC ==
[2022-11-28 10:36] LABS: African American GFR (CKD) 67 (>60 ml/min/1.73 sqM); Blood Urea Nitrogen 17 mg/dL (7-17); Non-African American GFR(CKD) 59 (>60 ml/min/1.73 sqM)
--- NOTE | 2022-11-29 08:14 | CT ---
EXAMINATION TYPE: CT ChestAbdPelvis w con DATE OF EXAM: 11/28/2022 INDICATION: Anemia COMPARISON: None CT DLP: 2759.80 mGycm CONTRAST: Performed with Oral Contrast and with IV Contrast, patient injected with 100 ml mL of Isovue 300. TECHNIQUE: Axial images at 5 mm thick sections. Reconstructed images in the coronal plane. Delayed images through the kidneys. FINDINGS: CT CHEST: Portion of the thyroid visualized is normal. There is some vague increased density within the posterior right midlung. More focal white density ar eas within the posterior right lung series 4 image 23. Follow-up is recommended. No enlarged mediastinal or hilar adenopathy is evident. Shotty lymphadenopathy is present. The ascending aorta diameter at the level of the main pulmonary artery is 4.0 cm. The main pulmonary artery diameter at the bifurcation is 2.3 cm. There is a large hiatal hernia. CT ABDOMEN: Liver: Moderate fatty infiltration of the liver. No discrete masses are evident. Spleen: Normal Pancreas: Normal Adrenal glands: The adrenal glands are normal. Gallbladder: Surgically absent Kidneys: No masses are evident. No hydronephrosis is present. No cysts are present. Delayed images were obtained through the kidneys, which remain unremarkable. Aorta: Vascular calcification is within the aorta. Inferior vena cava: Normal. CT PELVIS: Minimal enteric fat containing periumbilical hernia with an opening 0.9 cm. Loops of bowel within the abdomen and pelvis are normal. There are loops of bowel which are incom pletely distended or lack oral contrast limiting their evaluation. Appendix: Not visualized. No dilated tubular structure or inflammatory change is evident. Urinary bladder: Normal. Genitourinary structures: Uterus and ovaries are not identified. Osseous structures: No suspicious lytic or sclerotic lesions. IMPRESSIONS: 1. No suspicious acute changes CT Chest Abdomen Pelvis With. 2. Minimal periumbilical hernia with mesenteric fat. 3. Large hiatal hernia. 4. Moderate fatty infiltration liver. 5. Ascending thoracic aortic aneurysm of 4.0 cm. 6. Mild infiltrate posterior right lung. Subtle underlying nodule not excluded. Follow-up chest CT in 6 months recommended.
== END | disposition home or self-care (01) ==
LOC: RADCTMAIN 09:52
PROVIDERS: ATTEND Internal Medicine Hematology & Oncology
DX: I71.21 Aneurysm of the ascending aorta, without rupture (principal); D64.9 Anemia, unspecified; K42.9 Umbilical hernia without obstruction or gangrene; K44.9 Diaphragmatic hernia without obstruction or gangrene; K76.0 Fatty (change of) liver, not elsewhere classified; R91.8 Other nonspecific abnormal finding of lung field
CPT/HCPCS: 82565; 84520; 71260; 74177; 36415; Q9967

== ENCOUNTER 2023-01-07 00:45 | Emergency (ER) | payer MEDICARE, BC ==
[2023-01-07 00:59] VITALS: TEMP 98.1
[2023-01-07] MEDS ORDERED: KETOROLAC 15 MG/ML 1 ML VIAL IM STA (01:05)
[2023-01-07] MEDS ORDERED: LIDOCAINE 5% PATCH TOPICAL ONE (01:05)
[2023-01-07] MEDS ORDERED: MORPHINE SULFATE 4 MG/ML SYRINGE IM STA (01:05)
--- NOTE | 2023-01-07 01:10 | ED ---
Lower Extremity Injury HPI - General Chief Complaint: Extremity Injury, Lower Stated Complaint: RT HIP PAIN Time Seen by Provider: 01/07/23 00:51 Source: patient, family, RN notes reviewed Mode of arrival: wheelchair Limitations: no limitations - History of Present Illness Initial Comments: This is a 72-year-old female who presents to the emergency department for right hip pain. Patient fell from a standing position approximately one week ago and landed on her back and right side. Denies hitting her head or any LOC. She initially had some bruising and followed up with her primary care provider. They obtained x-rays of the back and hip, and no fractures or other irregularities were identified. However, her pain has since continued to worsen and she is now barely able to ambulate or get into the car as a result of her pain. She does take oxycodone, 10 mg 3 times daily at baseline. This has not been effectively helping her pain. She is not taking any additional medications for her symptoms and is unable to take NSAIDs. The pain does not go down the leg and remains localized to the right hip. Family is concerned that there may be fractures that were not identified on the x-ray. Denies any fevers, chills, sore throat, cough, dyspnea, chest pain, palpitations, abdominal pain, nausea, vomiting, diarrhea, or headaches. MD Complaint: hip injury Onset/Timin -: week(s) - Related Data Home Medications Medication Instructions Recorded Confirmed ALPRAZolam [Xanax] 0.5 mg PO DAILY PRN 01/07/16 04/24/21 Adalimumab [Humira Pen 40 mg SQ TU 01/07/16 04/24/21 Crohn's-Uc-Hs] Cetirizine HCl [Zyrtec] 10 mg PO HS 01/07/16 04/24/21 Folic Acid 5 mg PO DAILY 01/07/16 04/24/21 Metoprolol Succinate (ER) [Toprol 50 mg PO BID 01/07/16 04/24/21 XL] Pantoprazole Sodium [Protonix] 40 mg PO QAM 01/07/16 04/24/21 metHOTREXate sodium [Methotrexate] 6 tab PO FR 01/07/16 04/24/21 Apixaban [Eliquis] 5 mg PO BID 02/28/21 04/24/21 Cbd Oil 750 mg PO HS 02/28/21 04/24/21 DULoxetine HCL [Cymbalta] 90 mg PO DAILY 02/28/21 04/24/21 Gabapentin 300 mg PO TID 02/28/21 04/24/21 Multivitamins, Thera [Multivitamin 1 tab PO DAILY 02/28/21 04/24/21 (formulary)] Potassium Gluconate [Potassium 99 mg PO DAILY 02/28/21 04/24/21 Gluconate ER] estradioL [Estrace] 0.5 mg PO DAILY 02/28/21 04/24/21 Betamethasone Dipropionate 1 applic TOPICAL DAILY PRN 04/19/21 04/24/21 [Betamethasone Dipropionate 0.05%] Cholecalciferol (Vitamin D3) 125 mcg PO DAILY 04/19/21 04/24/21 [Vitamin D3 (125 MCG = 5,000 IU)] Hydrocortisone [Anusol-Hc] 1 applic RECTAL QID PRN 04/19/21 04/19/21 Losartan Potassium 50 mg PO BID 04/19/21 04/24/21 buPROPion [Wellbutrin] 75 mg PO DAILY 04/19/21 04/24/21 oxyCODONE HCL/ACETAMINOPHEN 1 tab PO HS 04/19/21 04/24/21 [oxyCODONE HCL/ACETAMINOPHEN 5-325] Previous Rx's Medication Instructions Recorded Furosemide [Lasix] 40 mg PO BID #90 tablet 04/24/21 Ondansetron Odt [Zofran Odt] 8 mg PO Q8HR PRN 7 Days #21 tab 11/07/21 Lidocaine 5% Patch [Lidoderm 5% 1 patch TOPICAL DAILY PRN #30 patch 01/07/23 Patch] methocarbamoL [Robaxin-750] 1,500 mg PO TID PRN #30 tab 01/07/23 predniSONE 50 mg PO DAILY 5 Days #5 tab 01/07/23 Allergies Allergy/AdvReac Type Severity Reaction Status Date / Time adhesive AdvReac Rash/Hives Verified 01/07/23 00:57 Review of Systems ROS Statement: Those systems with pertinent positive or pertinent negative responses have been documented in the HPI. ROS Other: All systems not noted in ROS Statement are negative. Past Medical History Past Medical History: Atrial Fibrillation, Deep Vein Thrombosis (DVT), GERD/Reflux, Hypertension Additional Past Medical History / Comment(s): PSORIATIC ARTHRITIS. mammogram indicated small cyst to have procedure 05/01/21 History of Any Multi-Drug Resistant Organisms: None Reported Past Surgical History: Appendectomy, Back Surgery, Bladder Surgery, Cholecystectomy, Hysterectomy, Orthopedic Surgery Additional Past Surgical History / Comment(s): vein stripping. ORIF OF RIGHT ANKLE with plate and wire,joint replacement lt great toe with titanium screw . rhizotomy and steroid injections lumbar, millicent knee steroid injection Past Anesthesia/Blood Transfusion Reactions: Previous Problems w/ Anesthesia, Motion Sickness, Postoperative Nausea & Vomiting (PONV) Past Psychological History: Anxiety, Depression Smoking Status: Never smoker Past Alcohol Use History: None Reported Past Drug Use History: None Reported General Exam Limitations: no limitations General appearance: alert, in distress Head exam: Present: atraumatic, normocephalic, normal inspection Respiratory exam: Present: normal lung sounds bilaterally. Absent: respiratory distress, wheezes, rales, rhonchi, stridor Cardiovascular Exam: Present: regular rate, normal rhythm, normal heart sounds. Absent: systolic murmur, diastolic murmur, rubs, gallop, clicks Extremities exam: Present: other (Tenderness to palpation over the right greater trochanter. Elevation of the leg induces pain. No overlying deformities. 2+ DP and PT pulses. Capillary refill less than 1 second.) Neurological exam: Present: alert, oriented X3, CN II-XII intact Psychiatric exam: Present: normal affect, normal mood Skin exam: Present: warm, dry, intact, normal color. Absent: rash Course Vital Signs 01/07/23 01/07/23 00:52 03:48 Temperature 98.1 F Pulse Rate 70 68 Respiratory 18 16 Rate Blood Pressure 124/71 93/58 O2 Sat by Pulse 97 96 Oximetry Medical Decision Making - Medical Decision Making This is a 72-year-old female who presents to the emergency department for right hip pain. Was pt. sent in by a medical professional or institution? @ -No Did you speak to anyone other than the patient for history? @ -No Did you review nursing and triage notes? @ -Yes, and I agree, it is accurate with regards to the patient's symptoms. Were old charts reviewed? @ -No Differential Diagnosis? @ -Differential Hip Pain: Fracture, contusion, dislocation, this is not meant to be an all-inclusive list. EKG interpreted by me (3pts min.)? @ -Not obtained X-rays interpreted by me (1pt min.)? @ -Not obtained CT interpreted by me (1pt min.)? @ -Computed tomography scan of the right hip obtained. My interpretation identifies no acute fractures. U/S interpreted by me (1pt. min.)? @ -Not obtained What testing was considered but not performed? (CT, X-rays, U/S, labs)? Why? @ -None What meds were considered but not given? Why? @ -None Did you discuss the management of the patient with other professionals? @ -No Did you reconcile home meds? @ -No Was smoking cessation discussed for >3mins.? @ -No Was critical care preformed (if so, how long)? @ -No Were there social determinants of health that impacted care today? How? (Homelessness, low income, unemployed, alcoholism, drug addiction, transportation, low edu. Level, literacy, decrease access to med. care, half-way, rehab)? @ -No Was there de-escalation of care discussed even if they declined? (Discuss DNR or withdrawal of care, Hospice)? @ -No What co-morbidities impacted this encounter? (DM, HTN, Smoking, COPD, CAD, Cancer, CVA, Hep., AIDS, mental health diagnosis, sleep apnea, morbid obesity)? @ -Morbid obesity Was patient admitted / discharged? @ -Discharged. Given that she had negative outpatient x-rays, we proceeded with a computed tomography scan of the right hip. Computed tomography scan of the hip did not identify any fractures. It did reveal a right perianal soft tissue fluid collection suggestive of hematoma versus phlegmon, with hematoma being favored given the recent injury. Her pain was controlled in the emergency department with Dilaudid and a lidocaine patch. Due to her comorbidities and current medications, patient states that she is unable to take other pain medication in the emergency department. When discussing medication options for disposition, patient is unable to take NSAIDs and is already on opioids. She is able to take steroids, and has not had problems with muscle relaxants in the past. She was subsequently given a prescription for a 5 day course of prednisone along with Robaxin and lidocaine patches. She is otherwise advised to follow up with her primary care provider for reevaluation. Undiagnosed new problem with uncertain prognosis? @ -None Drug Therapy requiring intensive monitoring for toxicity (Heparin, Nitro, Insulin, Cardizem)? @ -None Were any procedures done? @ -None Diagnosis/symptom? @ -Right hip contusion, fall, hematoma Acute, or Chronic, or Acute on Chronic? @ -Acute Uncomplicated (without systemic symptoms) or Complicated (systemic symptoms)? @ -Uncomplicated Side effects of treatment? @ -None Exacerbation, Progression, or Severe Exacerbation] @ -Not applicable Poses a threat to life or bodily function? @ -This is having an impact on her ability to ambulate. Return precautions reviewed in depth, the patient is instructed to return to the emergency department with any new, worsening, or concerning symptoms. Patient verbalized understanding. This case was discussed in detail with the attending ED physician, Dr. Hamilton. Presentation, findings, and treatment plan discussed in detail as well. - Radiology Data Radiology results: report reviewed, image reviewed Disposition Clinical Impression: Contusion of right hip, Hematoma, Fall Disposition: HOME SELF-CARE Instructions (If sedation given, give patient instructions): Hip Contusion (ED) Additional Instructions: Return to the emergency department with any new, worsening, or concerning symptoms. Take the prednisone daily for 5 days. You can use the muscle relaxant up to 3-4 times daily as needed. Be aware that this may make you drowsy. You can also apply the lidocaine patches daily. Follow up with your primary care provider in 1-2 days. Prescriptions: Lidocaine 5% Patch [Lidoderm 5% Patch] 1 patch TOPICAL DAILY PRN #30 patch PRN Reason: Pain predniSONE 50 mg PO DAILY 5 Days #5 tab methocarbamoL [Robaxin-750] 1,500 mg PO TID PRN #30 tab PRN Reason: Pain Is patient prescribed a controlled substance at d/c from ED?: No Referrals: None,Stated [REFERRING] - 1-2 days
[2023-01-07] MEDS ORDERED: HYDROmorphone 1 MG/ML 1 ML SYRINGE IM STA (01:15)
--- NOTE | 2023-01-07 03:00 | CT ---
EXAM: CT Right Lower Extremity Without Intravenous Contrast, Hip CLINICAL HISTORY: ITS.REASON CT Reason: Hip pain after fall TECHNIQUE: Axial computed tomography images of the right hip without intravenous contrast. CTDI is 60.7 mGy and DLP is 2250.6 mGy-cm. This CT exam was performed using one or more of the following dose reduction techniques: automated exposure control, adjustment of the mA and/or kV according to patient size, and/or use of iterative reconstruction technique. COMPARISON: No relevant prior studies available. FINDINGS: Bones/joints: No acute fracture or malalignment. No joint effusion at the right hip. Mild degenerative changes at the hip. Degenerative changes also present within the SI joints and lower lumbar spine. Soft tissues: Right perianal complex collection measuring 4.8 x 3.9 cm. Favored hematoma given indication of trauma. Phlegmon could have a similar appearance. IMPRESSION: No acute fracture or malalignment.
[2023-01-07] MEDS ORDERED: DEXAMETHASONE SOD PHOSPHATE 10 MG/ML 1 ML VIAL IM STA (03:29)
[2023-01-07] MEDS ORDERED: ORPHENADRINE 30 MG/ML 2 ML VIAL IM STA (03:29)
[2023-01-07 03:51] VITALS: BP 93/58; PULSE 68; RESP 16
== END 2023-01-07 03:57 | disposition home or self-care (01) ==
LOC: EC 00:45
DX: S70.01XA Contusion of right hip, initial encounter (principal); I48.91 Unspecified atrial fibrillation; I10 Essential (primary) hypertension; K21.9 Gastro-esophageal reflux disease without esophagitis; F41.9 Anxiety disorder, unspecified; F32.A Depression, unspecified; Z79.01 Long term (current) use of anticoagulants; Z79.899 Other long term (current) drug therapy; Z91.09 Other allergy status, other than to drugs and biological substances; Z90.49 Acquired absence of other specified parts of digestive tract; X58.XXXA Exposure to other specified factors, initial encounter
CPT/HCPCS: 73700; 99284; 96372 ×3; J1100; J2360; J1170

== ENCOUNTER 2023-05-22 12:19 | Emergency (ER) | payer MEDICARE, BC ==
--- NOTE | 2023-05-22 12:51 | ED ---
General Adult HPI - General Chief complaint: Fall Stated complaint: Fall Time Seen by Provider: 05/22/23 12:20 Source: patient, EMS, RN notes reviewed, old records reviewed Mode of arrival: EMS Limitations: no limitations - History of Present Illness Initial comments: This is a 73-year-old female who presents to the emergency department after she fell and hit her head. Patient states she is on Coumadin. Patient states she was walking and lost her balance and this happens often because she has bad knees. Patient states she fell hit her head did not lose consciousness and was not dazed. Patient states her forehead hurts but she denies a headache. Patient denies any neck pain. Patient denies any numbness weakness. Patient has any extremity pain. Patient denies any back or chest pain or abdominal pain. - Related Data Home Medications Medication Instructions Recorded Confirmed ALPRAZolam [Xanax] 0.5 mg PO DAILY PRN 01/07/16 04/24/21 Adalimumab [Humira Pen 40 mg SQ TU 01/07/16 04/24/21 Crohn's-Uc-Hs] Cetirizine HCl [Zyrtec] 10 mg PO HS 01/07/16 04/24/21 Folic Acid 5 mg PO DAILY 01/07/16 04/24/21 Metoprolol Succinate (ER) [Toprol 50 mg PO BID 01/07/16 04/24/21 XL] Pantoprazole Sodium [Protonix] 40 mg PO QAM 01/07/16 04/24/21 metHOTREXate sodium [Methotrexate] 6 tab PO FR 01/07/16 04/24/21 Apixaban [Eliquis] 5 mg PO BID 02/28/21 04/24/21 Cbd Oil 750 mg PO HS 02/28/21 04/24/21 DULoxetine HCL [Cymbalta] 90 mg PO DAILY 02/28/21 04/24/21 Gabapentin 300 mg PO TID 02/28/21 04/24/21 Multivitamins, Thera [Multivitamin 1 tab PO DAILY 02/28/21 04/24/21 (formulary)] Potassium Gluconate [Potassium 99 mg PO DAILY 02/28/21 04/24/21 Gluconate ER] estradioL [Estrace] 0.5 mg PO DAILY 02/28/21 04/24/21 Betamethasone Dipropionate 1 applic TOPICAL DAILY PRN 04/19/21 04/24/21 [Betamethasone Dipropionate 0.05%] Cholecalciferol (Vitamin D3) 125 mcg PO DAILY 04/19/21 04/24/21 [Vitamin D3 (125 MCG = 5,000 IU)] Hydrocortisone [Anusol-Hc] 1 applic RECTAL QID PRN 04/19/21 04/19/21 Losartan Potassium 50 mg PO BID 04/19/21 04/24/21 buPROPion [Wellbutrin] 75 mg PO DAILY 04/19/21 04/24/21 oxyCODONE HCL/ACETAMINOPHEN 1 tab PO HS 04/19/21 04/24/21 [oxyCODONE HCL/ACETAMINOPHEN 5-325] Previous Rx's Medication Instructions Recorded Furosemide [Lasix] 40 mg PO BID #90 tablet 04/24/21 Ondansetron Odt [Zofran Odt] 8 mg PO Q8HR PRN 7 Days #21 tab 11/07/21 Lidocaine 5% Patch [Lidoderm 5% 1 patch TOPICAL DAILY PRN #30 patch 01/07/23 Patch] methocarbamoL [Robaxin-750] 1,500 mg PO TID PRN #30 tab 01/07/23 predniSONE 50 mg PO DAILY 5 Days #5 tab 01/07/23 Allergies Allergy/AdvReac Type Severity Reaction Status Date / Time No Known Allergies Allergy Verified 05/22/23 12:31 Review of Systems ROS Statement: Those systems with pertinent positive or pertinent negative responses have been documented in the HPI. ROS Other: All systems not noted in ROS Statement are negative. Past Medical History Past Medical History: Atrial Fibrillation, Deep Vein Thrombosis (DVT), GERD/Reflux, Hypertension Additional Past Medical History / Comment(s): PSORIATIC ARTHRITIS. mammogram indicated small cyst to have procedure 05/01/21 History of Any Multi-Drug Resistant Organisms: None Reported Past Surgical History: Appendectomy, Back Surgery, Bladder Surgery, Cholecystectomy, Hysterectomy, Orthopedic Surgery Additional Past Surgical History / Comment(s): vein stripping. ORIF OF RIGHT ANKLE with plate and wire,joint replacement lt great toe with titanium screw . rhizotomy and steroid injections lumbar, millicent knee steroid injection Past Anesthesia/Blood Transfusion Reactions: Previous Problems w/ Anesthesia, Motion Sickness, Postoperative Nausea & Vomiting (PONV) Past Psychological History: Anxiety, Depression Smoking Status: Never smoker Past Alcohol Use History: None Reported Past Drug Use History: None Reported General Exam - General Exam Comments Initial Comments: GENERAL: Patient is well-developed and well-nourished. Patient is nontoxic and well- hydrated and is in no acute distress. ENT: Neck is soft and supple. Patient has contusion on the left side of her forehead. No significant lymphadenopathy is noted. Oropharynx is clear. Moist mucous membranes. Neck has full range of motion without eliciting any pain. EYES: The sclera were anicteric and conjunctiva were pink and moist. Extraocular movements were intact and pupils were equal round and reactive to light. Eyelids were unremarkable. PULMONARY: Unlabored respirations. Good breath sounds bilaterally. No audible rales rhonchi or wheezing was noted. CARDIOVASCULAR: There is a regular rate and rhythm without any murmurs gallops or rubs. ABDOMEN: Soft and nontender with normal bowel sounds. No palpable organomegaly was noted. There is no palpable pulsatile mass. SKIN: Skin is clear with no lesions or rashes and otherwise unremarkable. NEUROLOGIC: Patient is alert and oriented x3. Cranial nerves II through XII are grossly intact. Motor and sensory are also intact. Normal speech, volume and content. Symmetrical smile. MUSCULOSKELETAL: Normal extremities with adequate strength and full range of motion. No lower extremity swelling or edema. No calf tenderness. LYMPHATICS: No significant lymphadenopathy is noted PSYCHIATRIC: Normal psychiatric evaluation. Limitations: no limitations Course Vital Signs 05/22/23 12:22 Temperature 97.6 F Pulse Rate 69 Respiratory 18 Rate Blood Pressure 153/66 O2 Sat by Pulse 97 Oximetry Medical Decision Making - Medical Decision Making Was pt. sent in by a medical professional or institution (, PA, SENIOR RESEARCH SCIENTIST, urgent care, hospital, or penitentiary...) When possible be specific @ -No Did you speak to anyone other than the patient for history (EMS, parent, family, police, friend...)? What history was obtained from this source @ -No Did you review nursing and triage notes (agree or disagree)? Why? @ -I reviewed and agree with nursing and triage notes Were old charts reviewed (outside hosp., previous admission, EMS record, old EKG, old radiological studies, urgent care reports/EKG's, penitentiary records)? Report findings @ -No old charts were reviewed Differential Diagnosis (chest pain, altered mental status, abdominal pain women, abdominal pain men, vaginal bleeding, weakness, fever, dyspnea, syncope, headache, dizziness, GI bleed, back pain, seizure, CVA, palpatations, mental health, musculoskeletal)? @ -Cervical spine fracture, subarachnoid hemorrhage, intraparenchymal hemorrhage, skull fracture, subdural hemorrhage, this is not an all-inclusive list X-rays interpreted by me (1pt min.). @ -None done CT interpreted by me (1pt min.). @ -CT of the brain and CT of the C-spine show no acute abnormality U/S interpreted by me (1pt. min.). @ -None done What testing was considered but not performed or refused? (CT, X-rays, U/S, labs)? Why? @ -None What meds were considered but not given or refused? Why? @ -None Did you discuss the management of the patient with other professionals (professionals i.e. , PA, SENIOR RESEARCH SCIENTIST, lab, RT, psych nurse, medical social worker, finance professor, teacher, medical scientific officer, test case developer)? Give summary @ -No Was smoking cessation discussed for >3mins.? @ -No Was critical care preformed (if so, how long)? @ -No Were there social determinants of health that impacted care today? How? (Homelessness, low income, unemployed, alcoholism, drug addiction, transportation, low edu. Level, literacy, decrease access to med. care, correction, rehab)? @ -No Was there de-escalation of care discussed even if they declined (Discuss DNR or withdrawal of care, Hospice)? DNR status @ -No What co-morbidities impacted this encounter? (DM, HTN, Smoking, COPD, CAD, Cancer, CVA, ARF, Chemo, Hep., AIDS, mental health diagnosis, sleep apnea, morbid obesity)? @ -None Was patient admitted / discharged? Hospital course, mention meds given and route, prescriptions, significant lab abnormalities, going to OR and other pertinent info. @ -Patient's head CT and C-spine were normal. Undiagnosed new problem with uncertain prognosis? @ -No Drug Therapy requiring intensive monitoring for toxicity (Heparin, Nitro, Insulin, Cardizem)? @ -No Were any procedures done? @ -No Diagnosis/symptom? @ -Contusion forehead Acute, or Chronic, or Acute on Chronic? @ -Acute Uncomplicated (without systemic symptoms) or Complicated (systemic symptoms)? @ -Complicated Side effects of treatment? @ -No Exacerbation, Progression, or Severe Exacerbation? @ -No Poses a threat to life or bodily function? How? (Chest pain, [place], CA, pneumonia, PE, COPD, DKA, ARF, appy, cholecystitis, CVA, Diverticulitis, Homicidal, Suicidal, threat to staff... and all critical care pts) @ -No - Lab Data Lab Results 05/22/23 Range/Units 13:59 PT 23.7 H (10.0-12.5) sec INR 2.4 H (<1.2) APTT 33.1 H (22.0-30.0) sec Disposition Clinical Impression: Fall, Contusion of forehead Disposition: HOME SELF-CARE Condition: Good Instructions (If sedation given, give patient instructions): Fall Prevention for Older Adults (ED), Head Injury (ED) Is patient prescribed a controlled substance at d/c from ED?: No Referrals: Marlon Eugene DO [Primary Care Provider] - 1-2 days Time of Disposition: 14:38
[2023-05-22 13:01] VITALS: RESP 18
--- NOTE | 2023-05-22 13:30 | CT ---
EXAMINATION TYPE: CT brain melinda wo con DATE OF EXAM: 05/22/2023 COMPARISON: None HISTORY: fell hitting head, on thinners CT DLP: 1636.2 mGycm, Automated exposure control for dose reduction was used. CONTRAST: None CT of the brain is performed utilizing 3 mm thick sections through the posterior fossa and 3 mm thick sections through the remaining calvarium. Study is performed within 24 hours of arrival to the hospital. No abnormal hyperdensity is present to suggest an acute intracranial hemorrhage. No mass lesion is evident. No acute infarcts are evident. Mild hypodensities within the periventricular white matter, likely on the basis of chronic white matter ischemic changes. Ventricles and sulci are appropriate for the patient age. Paranasal sinuses and mastoid air cells within the [id number] are clear. IMPRESSIONS: 1. No acute intracranial process. Follow-up MRI can be performed as clinically indicated. 2. Mild chronic appearing periventricular white matter ischemic changes. CT cervical spine. COMPARISON: None CT of the cervical spine is performed in the axial plane at 2 mm thick sections. Reconstructed image s in the coronal, and sagittal plane are reviewed on the computer. No acute fractures are evident. There is some exaggeration of the cervical lordosis. Possible disc height is present at C3-4 C4-5 C5-6. Vertebral body spurring is present at these levels . Vertebral body heights are preserved. No spinal canal stenosis is evident. Aminal stenosis is present bilaterally C5-C6, C4-5, C3-4. This may be greatest at the left C4-5 level . Endplate spurring has left paracentral thecal sac impression. Correlate with radicular symptoms. IMPRESSION: 1. Endplate spurring left paracentral region C4-5. Correlate for left radicular symptoms. 2. Foraminal stenosis present bilaterally C3-4 through C5-6. Disc space level narrowing is at these l evels. 3. No acute osseous abnormality cervical spine.
[2023-05-22 14:25] LABS: INR 2.4 (<1.2); Partial Thromboplastin Time 33.1 sec (22.0-30.0); Prothrombin Time 23.7 sec (10.0-12.5)
[2023-05-22 15:16] VITALS: BP 149/88; PULSE 60; TEMP 97.5
== END 2023-05-22 15:25 | disposition home or self-care (01) ==
LOC: EC 12:19
DX: S00.83XA Contusion of other part of head, initial encounter (principal); I48.91 Unspecified atrial fibrillation; I10 Essential (primary) hypertension; K21.9 Gastro-esophageal reflux disease without esophagitis; F41.9 Anxiety disorder, unspecified; F32.A Depression, unspecified; Z79.899 Other long term (current) drug therapy; Z79.01 Long term (current) use of anticoagulants; W18.09XA Striking against other object with subsequent fall, initial encounter
CPT/HCPCS: 36415; 70450; 72125; 85610; 85730; 99285

== ENCOUNTER 2023-06-17 07:45 | Observation (INO) | payer MEDICARE, BC ==
--- NOTE | 2023-06-17 08:38 | ED ---
General Adult HPI - General Chief complaint: Weakness Stated complaint: weakness Time Seen by Provider: 06/17/23 08:12 Source: patient, EMS, RN notes reviewed, old records reviewed Mode of arrival: EMS Limitations: no limitations - History of Present Illness Initial comments: Patient is a 73-year-old female who presents with her over concern for altered mentation and confusion. Patient was recently started on Suboxone on Friday. Took Suboxone on Friday and Friday. Was held by her on Friday. Patient is usually performing all of their ADLs, taking care of herself. Was on oxycodone when she was recently weaned off of over the course of a few weeks. Normally pays her own bills, ambulates without issue and she has been more confused unable to take care of herself or eat over the last 2 days. Patient's is confused. She is on Coumadin. Denies any falls or injuries. Patient currently has no acute complaints. She is just slow to respond to some questions and seems conversationally confused at times. She denies any chest pain, abdominal pain, nausea, vomiting, fevers, chills, cough. No other acute complaints at this time. - Related Data Home Medications Medication Instructions Recorded Confirmed ALPRAZolam [Xanax] 0.5 mg PO DAILY PRN 01/07/16 06/17/23 Adalimumab [Humira Pen 40 mg SQ TU 01/07/16 06/17/23 Crohn's-Uc-Hs] Cetirizine HCl [Zyrtec] 10 mg PO HS 01/07/16 06/17/23 Folic Acid 5 mg PO DAILY 01/07/16 06/17/23 Metoprolol Succinate (ER) [Toprol 100 mg PO BID 01/07/16 06/17/23 XL] Pantoprazole Sodium [Protonix] 40 mg PO [id number] 01/07/16 06/17/23 metHOTREXate sodium [Methotrexate] 15 mg PO FR 01/07/16 06/17/23 Cbd Oil 1 dose PO HS 02/28/21 06/17/23 DULoxetine HCL [Cymbalta] 90 mg PO DAILY 02/28/21 06/17/23 Potassium Gluconate [Potassium 99 mg PO DAILY 02/28/21 06/17/23 Gluconate ER] estradioL [Estrace] 0.5 mg PO DAILY 02/28/21 06/17/23 Betamethasone Dipropionate 1 applic TOPICAL DAILY PRN 04/19/21 06/17/23 [Betamethasone Dipropionate 0.05%] Hydrocortisone [Anusol-Hc] 1 applic RECTAL QID PRN 04/19/21 06/17/23 Losartan Potassium 50 mg PO BID 04/19/21 06/17/23 Buprenorphine HCl/Naloxone HCl 1 film SUBLINGUAL BID PRN 06/17/23 06/17/23 [Suboxone 2 mg-0.5 mg Sl Film] Celecoxib [CeleBREX] 200 mg PO DAILY 06/17/23 06/17/23 Furosemide [Lasix] 20 mg PO DAILY 06/17/23 06/17/23 Gabapentin 800 mg PO TID 06/17/23 06/17/23 Lacosamide [Vimpat] 100 mg PO BID 06/17/23 06/17/23 Multivit-Min/FA/Lycopen/Lutein 1 tab PO DAILY 06/17/23 06/17/23 [Centrum Silver Tablet] Warfarin [Coumadin] 5 mg PO HS 06/17/23 06/17/23 Zolpidem Tartrate [Ambien] 5 mg PO HS PRN 06/17/23 06/17/23 buPROPion HCL [Wellbutrin XL] 150 mg PO DAILY 06/17/23 06/17/23 predniSONE See Taper PO DIRECTED 06/17/23 06/17/23 Allergies Allergy/AdvReac Type Severity Reaction Status Date / Time adhesive Allergy Rash/Hives Verified 06/17/23 11:28 Review of Systems ROS Statement: Those systems with pertinent positive or pertinent negative responses have been documented in the HPI. Review of Systems: CONST: Denies fever EYES: Denies blurry vision ENT: Denies nasal congestion C/V: Denies Chest pain RESP: Denies shortness of breath GI: Denies abdominal pain : Denies dysuria SKIN: Denies rash. MSK: Denies joint pain. NEURO: Denies headache ROS Other: All systems not noted in ROS Statement are negative. Past Medical History Past Medical History: Atrial Fibrillation, Deep Vein Thrombosis (DVT), GERD/Reflux, Hypertension Additional Past Medical History / Comment(s): PSORIATIC ARTHRITIS. mammogram indicated small cyst to have procedure 05/01/21 History of Any Multi-Drug Resistant Organisms: None Reported Past Surgical History: Appendectomy, Back Surgery, Bladder Surgery, Cholecystectomy, Hysterectomy, Orthopedic Surgery Additional Past Surgical History / Comment(s): vein stripping. ORIF OF RIGHT ANKLE with plate and wire,joint replacement lt great toe with titanium screw . rhizotomy and steroid injections lumbar, millicent knee steroid injection Past Anesthesia/Blood Transfusion Reactions: Previous Problems w/ Anesthesia, Motion Sickness, Postoperative Nausea & Vomiting (PONV) Past Psychological History: Anxiety, Depression Smoking Status: Never smoker Past Alcohol Use History: None Reported Past Drug Use History: None Reported General Exam - General Exam Comments Initial Comments: General: Appears in no acute distress. HEAD: Normal with no signs of head trauma. EYES: PERRLA, EOMI, conjunctiva normal, no discharge. Pupils are 3 to 4 mm and equal bilaterally. ENT: Hearing grossly intact, normal oropharynx. RESPIRATORY: Clear breath sounds bilaterally. No wheezes, rales, or rhonchi. C/V: Irregular rate and rhythm. S1 and S2 auscultated, peripheral pulses 2+ and intact throughout ABD: Abd is soft, nontender, nondistended EXT: Normal range of motion, no obvious deformity SKIN: No rashes or lesions observed on exposed skin. NEURO: Alert and oriented x 4 with conversational confusion and slow to respond to questions. No focal deficits. Moving all 4 extremities. GCS of 15. Limitations: no limitations Course Vital Signs 06/17/23 06/17/23 06/17/23 07:46 11:03 13:36 Temperature 97.5 F L 97.4 F L Pulse Rate 67 65 Pulse Rate [ 70 Pulse Oximetery ] Respiratory 18 18 18 Rate Blood Pressure 137/77 129/72 Blood Pressure 137/102 [Left Arm] O2 Sat by Pulse 100 100 97 Oximetry Medical Decision Making - Medical Decision Making Was pt. sent in by a medical professional or institution (, PA, AMBULATORY SERVICES REPRESENTATIVE, urgent care, hospital, or penitentiary...) When possible be specific @ -No Did you speak to anyone other than the patient for history (EMS, parent, family, police, friend...)? What history was obtained from this source @ -Patient's provides recent history of present illness Did you review nursing and triage notes (agree or disagree)? Why? @ -I reviewed and agree with nursing and triage notes Were old charts reviewed (outside hosp., previous admission, EMS record, old EKG, old radiological studies, urgent care reports/EKG's, penitentiary records)? Report findings @ -Old charts reviewed Differential Diagnosis (chest pain, altered mental status, abdominal pain women, abdominal pain men, vaginal bleeding, weakness, fever, dyspnea, syncope, headache, dizziness, GI bleed, back pain, seizure, CVA, palpatations, mental health, musculoskeletal)? @ -Differential Altered Mental Status: Hypoglycemia, DKA, hypercapnia, ETOH, overdose, CO poisoning, trauma, myxedema coma, HTN encephalopathy, infection, encephalitis, psychosis, intercranial hemorrhage, hepatic encephalopathy, meningitis, CVA, this is not meant to be an all-inclusive list EKG interpreted by me (3pts min.). @ -As above X-rays interpreted by me (1pt min.). @ -Chest x-ray reveals no obvious acute cardiopulmonary process. CT interpreted by me (1pt min.). @ -CT brain reveals no obvious acute intracranial process. U/S interpreted by me (1pt. min.). @ -None done What testing was considered but not performed or refused? (CT, X-rays, U/S, labs)? Why? @ -None What meds were considered but not given or refused? Why? @ -None Did you discuss the management of the patient with other professionals (nelson lindquist iMimieMimi Yousif, PA, AMBULATORY SERVICES REPRESENTATIVE, lab, RT, psych nurse, medical social worker, awning hanger helper, teacher, workplace rehabilitation officer, senior case manager)? Give summary @ - I spoke with the admitting physician, Dr. Fournier who accepted the admission. Neurology consulted. Was smoking cessation discussed for >3mins.? @ -No Was critical care preformed (if so, how long)? @ -No Were there social determinants of health that impacted care today? How? (Homelessness, low income, unemployed, alcoholism, drug addiction, transportation, low edu. Level, literacy, decrease access to med. care, nursing home, rehab)? @ -No Was there de-escalation of care discussed even if they declined (Discuss DNR or withdrawal of care, Hospice)? DNR status @ -No What co-morbidities impacted this encounter? (DM, HTN, Smoking, COPD, CAD, Cancer, CVA, ARF, Chemo, Hep., AIDS, mental health diagnosis, sleep apnea, morbid obesity)? @ -Recently started Suboxone, history of A-fib on Coumadin Was patient admitted / discharged? Hospital course, mention meds given and rou te, prescriptions, significant lab abnormalities, going to OR and other pertinent info. @ -Based on the patient's presentation and physical exam, she presents for increased altered mental status. Could be related to Suboxone which her suspects but is uncertain. Has no other acute complaints at this time other than some conversational confusion at this time as well as decline in her ADLs at home over the last few days. Recently started Suboxone. Denies taking any extra doses. Will obtain broad altered mental status workup. Vital signs currently within acceptable limits. Patient's in agreement this plan. Patient in agreement this plan. EKG shows known atrial fibrillation that is rate controlled.Imaging unremarkable. Patient's laboratory studies are also within acceptable limits except for lactic acidosis of 3.5 which is likely secondary to dehydration as she did not eat or drink anything yesterday. I discussed with the patient as well as her . She remains having conversational confusion at this time. I did recommend admission. Will hold Suboxone at this time. Patient was in agreement this plan. I spoke with the admitting physician, Dr. Fournier who accepted the admission. Neurology consulted. Undiagnosed new problem with uncertain prognosis? @ -No Drug Therapy requiring intensive monitoring for toxicity (Heparin, Nitro, Insulin, Cardizem)? @ -No Were any procedures done? @ -No Diagnosis/symptom? @ -Dehydration, confusion, possible medication side effect Acute, or Chronic, or Acute on Chronic? @ -Acute Uncomplicated (without systemic symptoms) or Complicated (systemic symptoms)? @ -Complicated Side effects of treatment? @ -None Exacerbation, Progression, or Severe Exacerbation] @ -No Poses a threat to life or bodily function? @ -Yes - Lab Data Result diagrams: 06/17/23 08:23 06/17/23 08:23 Lab Results 06/17/23 06/17/23 06/17/23 Range/Units 08:23 08:23 08:23 WBC 7.2 (3.8-10.6) k/uL RBC 4.35 (3.80-5.40) m/uL Hgb 12.8 (11.4-16.0) gm/dL Hct 40.7 (34.0-46.0) % MCV 93.6 (80.0-100.0) fL MCH 29.3 (25.0-35.0) pg MCHC 31.3 (31.0-37.0) g/dL RDW 17.6 H (11.5-15.5) % Plt Count 290 (150-450) k/uL MPV 7.8 Neutrophils % 74 % Lymphocytes % 17 % Monocytes % 6 % Eosinophils % 2 % Basophils % 0 % Neutrophils # 5.3 (1.3-7.7) k/uL Lymphocytes # 1.2 (1.0-4.8) k/uL Monocytes # 0.4 (0-1.0) k/uL Eosinophils # 0.1 (0-0.7) k/uL Basophils # 0.0 (0-0.2) k/uL Hypochromasia Moderate Anisocytosis Slight PT 17.3 H (10.0-12.5) sec INR 1.7 H (<1.2) APTT 25.6 (22.0-30.0) sec Sodium (137-145) mmol/L Potassium (3.5-5.1) mmol/L Chloride (98-107) mmol/L Carbon Dioxide (22-30) mmol/L Anion Gap mmol/L BUN (7-17) mg/dL Creatinine (0.52-1.04) mg/dL Est GFR (CKD-EPI)AfAm (>60 ml/min/1.73 sqM) Est GFR (CKD-EPI)NonAf (>60 ml/min/1.73 sqM) Glucose (74-99) mg/dL Lactic Ac Sepsis Rflx Plasma Lactic Acid Juan (0.7-2.0) mmol/L Calcium (8.4-10.2) mg/dL Total Bilirubin (0.2-1.3) mg/dL AST (14-36) U/L ALT (4-34) U/L Alkaline Phosphatase (38-126) U/L Ammonia (<30) umol/L Troponin I (0.000-0.034) ng/mL Total Protein (6.3-8.2) g/dL Albumin (3.5-5.0) g/dL Urine Color Colorless Urine Appearance Clear (Clear) Urine pH 6.5 (5.0-8.0) Ur Specific [place] 1.006 (1.001-1.035) Urine Protein Negative (Negative) Urine Glucose (UA) Negative (Negative) Urine Ketones Negative (Negative) Urine Blood Negative (Negative) Urine Nitrite Negative (Negative) Urine Bilirubin Negative (Negative) Urine Urobilinogen <2.0 (<2.0) mg/dL Ur Leukocyte Esterase Negative (Negative) Salicylates mg/dL Urine Opiates Screen (NotDetected) Ur Oxycodone Screen (NotDetected) Urine Methadone Screen (NotDetected) Acetaminophen ug/mL Ur Barbiturates Screen (NotDetected) U Tricyclic Antidepress (NotDetected) Ur Phencyclidine Scrn (NotDetected) Ur Amphetamines Screen (NotDetected) U Methamphetamines Scrn (NotDetected) U Benzodiazepines Scrn (NotDetected) Urine Cocaine Screen (NotDetected) U Marijuana (THC) Screen (NotDetected) Serum Alcohol mg/dL Influenza Type A (PCR) (Not Detectd) Influenza Type B (PCR) (Not Detectd) RSV (PCR) (Not Detectd) SARS-CoV-2 (PCR) (Not Detectd) 06/17/23 06/17/23 06/17/23 Range/Units 08:23 08:23 08:23 WBC (3.8-10.6) k/uL RBC (3.80-5.40) m/uL Hgb (11.4-16.0) gm/dL Hct (34.0-46.0) % MCV (80.0-100.0) fL MCH (25.0-35.0) pg MCHC (31.0-37.0) g/dL RDW (11.5-15.5) % Plt Count (150-450) k/uL MPV Neutrophils % % Lymphocytes % % Monocytes % % Eosinophils % % Basophils % % Neutrophils # (1.3-7.7) k/uL Lymphocytes # (1.0-4.8) k/uL Monocytes # (0-1.0) k/uL Eosinophils # (0-0.7) k/uL Basophils # (0-0.2) k/uL Hypochromasia Anisocytosis PT (10.0-12.5) sec INR (<1.2) APTT (22.0-30.0) sec Sodium 141 (137-145) mmol/L Potassium 4.0 (3.5-5.1) mmol/L Chloride 105 (98-107) mmol/L Carbon Dioxide 29 (22-30) mmol/L Anion Gap 7 mmol/L BUN 26 H (7-17) mg/dL Creatinine 1.06 H (0.52-1.04) mg/dL Est GFR (CKD-EPI)AfAm 60 (>60 ml/min/1.73 sqM) Est GFR (CKD-EPI)NonAf 52 (>60 ml/min/1.73 sqM) Glucose 144 H (74-99) mg/dL Lactic Ac Sepsis Rflx Plasma Lactic Acid Juan 3.5 H* (0.7-2.0) mmol/L Calcium 9.5 (8.4-10.2) mg/dL Total Bilirubin 0.5 (0.2-1.3) mg/dL AST 23 (14-36) U/L ALT 24 (4-34) U/L Alkaline Phosphatase 61 (38-126) U/L Ammonia <9 (<30) umol/L Troponin I <0.012 (0.000-0.034) ng/mL Total Protein 6.1 L (6.3-8.2) g/dL Albumin 3.7 (3.5-5.0) g/dL Urine Color Urine Appearance (Clear) Urine pH (5.0-8.0) Ur Specific [place] (1.001-1.035) Urine Protein (Negative) Urine Glucose (UA) (Negative) Urine Ketones (Negative) Urine Blood (Negative) Urine Nitrite (Negative) Urine Bilirubin (Negative) Urine Urobilinogen (<2.0) mg/dL Ur Leukocyte Esterase (Negative) Salicylates <1.0 mg/dL Urine Opiates Screen (NotDetected) Ur Oxycodone Screen (NotDetected) Urine Methadone Screen (NotDetected) Acetaminophen <10.0 ug/mL Ur Barbiturates Screen (NotDetected) U Tricyclic Antidepress (NotDetected) Ur Phencyclidine Scrn (NotDetected) Ur Amphetamines Screen (NotDetected) U Methamphetamines Scrn (NotDetected) U Benzodiazepines Scrn (NotDetected) Urine Cocaine Screen (NotDetected) U Marijuana (THC) Screen (NotDetected) Serum Alcohol <10 mg/dL Influenza Type A (PCR) (Not Detectd) Influenza Type B (PCR) (Not Detectd) RSV (PCR) (Not Detectd) SARS-CoV-2 (PCR) (Not Detectd) 06/17/23 06/17/23 06/17/23 Range/Units 08:23 08:29 09:19 WBC (3.8-10.6) k/uL RBC (3.80-5.40) m/uL Hgb (11.4-16.0) gm/dL Hct (34.0-46.0) % MCV (80.0-100.0) fL MCH (25.0-35.0) pg MCHC (31.0-37.0) g/dL RDW (11.5-15.5) % Plt Count (150-450) k/uL MPV Neutrophils % % Lymphocytes % % Monocytes % % Eosinophils % % Basophils % % Neutrophils # (1.3-7.7) k/uL Lymphocytes # (1.0-4.8) k/uL Monocytes # (0-1.0) k/uL Eosinophils # (0-0.7) k/uL Basophils # (0-0.2) k/uL Hypochromasia Anisocytosis PT (10.0-12.5) sec INR (<1.2) APTT (22.0-30.0) sec Sodium (137-145) mmol/L Potassium (3.5-5.1) mmol/L Chloride (98-107) mmol/L Carbon Dioxide (22-30) mmol/L Anion Gap mmol/L BUN (7-17) mg/dL Creatinine (0.52-1.04) mg/dL Est GFR (CKD-EPI)AfAm (>60 ml/min/1.73 sqM) Est GFR (CKD-EPI)NonAf (>60 ml/min/1.73 sqM) Glucose (74-99) mg/dL Lactic Ac Sepsis Rflx Y Plasma Lactic Acid Juan (0.7-2.0) mmol/L Calcium (8.4-10.2) mg/dL Total Bilirubin (0.2-1.3) mg/dL AST (14-36) U/L ALT (4-34) U/L Alkaline Phosphatase (38-126) U/L Ammonia (<30) umol/L Troponin I (0.000-0.034) ng/mL Total Protein (6.3-8.2) g/dL Albumin (3.5-5.0) g/dL Urine Color Urine Appearance (Clear) Urine pH (5.0-8.0) Ur Specific [place] (1.001-1.035) Urine Protein (Negative) Urine Glucose (UA) (Negative) Urine Ketones (Negative) Urine Blood (Negative) Urine Nitrite (Negative) Urine Bilirubin (Negative) Urine Urobilinogen (<2.0) mg/dL Ur Leukocyte Esterase (Negative) Salicylates mg/dL Urine Opiates Screen Not Detected (NotDetected) Ur Oxycodone Screen Not Detected (NotDetected) Urine Methadone Screen Not Detected (NotDetected) Acetaminophen ug/mL Ur Barbiturates Screen Not Detected (NotDetected) U Tricyclic Antidepress Not Detected (NotDetected) Ur Phencyclidine Scrn Not Detected (NotDetected) Ur Amphetamines Screen Not Detected (NotDetected) U Methamphetamines Scrn Not Detected (NotDetected) U Benzodiazepines Scrn Not Detected (NotDetected) Urine Cocaine Screen Not Detected (NotDetected) U Marijuana (THC) Screen Not Detected (NotDetected) Serum Alcohol mg/dL Influenza Type A (PCR) Not Detected (Not Detectd) Influenza Type B (PCR) Not Detected (Not Detectd) RSV (PCR) Not Detected (Not Detectd) SARS-CoV-2 (PCR) Not Detected (Not Detectd) - EKG Data -: EKG Interpreted by Me EKG Comments: 12-lead Electrocardiogram Interpretation Note EKG was reviewed and interpreted by myself. 12-lead ECG performed at 0826 is interpreted by me as revealing atrial fibrillation at a rate of 66 beats per minute. Barker is normal. QRS duration is 95 ms, QTc is 413 ms.. There were no ST or T wave abnormalities to suggest myocardial ischemia or injury. R wave progression across the precordium was satisfactory. By my interpretation this EKG is non-diagnostic for acute ischemia. Disposition Clinical Impression: Dehydration, Confusion, Medication side effect Disposition: ADMITTED IP TO THIS HOSP Condition: Stable Is patient prescribed a controlled substance at d/c from ED?: No Time of Disposition: 09:58
[2023-06-17 08:45] LABS: Anisocytosis Slight; Basophils % (A) 0 %; Eosinophils # (A) 0.1 k/uL (0-0.7); Eosinophils % (A) 2 %; HCT 40.7 % (34.0-46.0); HGB 12.8 gm/dL (11.4-16.0); Hypochromasia Moderate; Lymphocytes # (A) 1.2 k/uL (1.0-4.8); Lymphocytes % (A) 17 %; MCH 29.3 pg (25.0-35.0); MCHC 31.3 g/dL (31.0-37.0); MCV 93.6 fL (80.0-100.0); Mean Platelet Volume 7.8; Monocytes # (A) 0.4 k/uL (0-1.0); Monocytes % (A) 6 %; Neutrophils # (A) 5.3 k/uL (1.3-7.7); Neutrophils % (A) 74 %; Platelet Count 290 k/uL (150-450); RBC 4.35 m/uL (3.80-5.40); RDW 17.6 % (11.5-15.5); WBC 7.2 k/uL (3.8-10.6)
[2023-06-17 08:54] LABS: Appearance,Urine Clear (Clear); Bilirubin,Urine Negative (Negative); Blood,Urine Negative (Negative); Color,Urine Colorless; Glucose,Urine (UA) Negative (Negative); Ketones,Urine Negative (Negative); Leukocyte Esterase,Urine Negative (Negative); Nitrite,Urine Negative (Negative); PH, Urine 6.5 (5.0-8.0); Protein,Urine Negative (Negative); Specific Gravity,Urine 1.006 (1.001-1.035); Urobilinogen,Urine <2.0 mg/dL (<2.0)
[2023-06-17 09:00] LABS: INR 1.7 (<1.2); Partial Thromboplastin Time 25.6 sec (22.0-30.0); Prothrombin Time 17.3 sec (10.0-12.5)
[2023-06-17 09:04] LABS: Amphetamine Screen,Urine Not Detected (NotDetected); Barbiturate Screen,Urine Not Detected (NotDetected); Benzodiazepines Screen,Urine Not Detected (NotDetected); Cocaine Screen,Urine Not Detected (NotDetected); Methadone Screen, Urine Not Detected (NotDetected); Opiate Screen,Urine Not Detected (NotDetected); Oxycodone Screen, Urine Not Detected (NotDetected); Phencyclidine Screen,Urine Not Detected (NotDetected); Tricyclic Antidepressant,Urine Not Detected (NotDetected); Urn Cannabinoid Scrn Not Detected (NotDetected)
[2023-06-17 09:12] LABS: ALT 24 U/L (4-34); AST 23 U/L (14-36); Acetaminophen <10.0 ug/mL; African American GFR (CKD) 60 (>60 ml/min/1.73 sqM); Albumin 3.7 g/dL (3.5-5.0); Alcohol <10 mg/dL; Alkaline Phosphatase 61 U/L (38-126); Anion Gap 7 mmol/L; Blood Urea Nitrogen 26 mg/dL (7-17); Calcium 9.5 mg/dL (8.4-10.2); Carbon Dioxide 29 mmol/L (22-30); Chloride 105 mmol/L (98-107); Glucose 144 mg/dL (74-99); Non-African American GFR(CKD) 52 (>60 ml/min/1.73 sqM); Salicylate <1.0 mg/dL; Sodium 141 mmol/L (137-145); Total Bilirubin 0.5 mg/dL (0.2-1.3); Total Protein 6.1 g/dL (6.3-8.2)
--- NOTE | 2023-06-17 09:16 | CT ---
EXAMINATION TYPE: CT brain wo con DATE OF EXAM: 06/17/2023 COMPARISON: To 124 INDICATION: weakness, altered mental status DLP: 1124.4 mGycm, Automated exposure control for dose reduction was used. CONTRAST: None CT of the brain is performed utilizing 3 mm thick sections through the posterior fossa and 3 mm thick sections through the remaining calvarium. Study is performed within 24 hours of arrival to the hosp [place]. No abnormal hyperdensity is present to suggest an acute intracranial hemorrhage. No mass lesion is evident. No acute infarcts are evident. Minimal periventricular white matter hypodensity is present, likely on the basis of chronic white matter ischemic changes. Ventricles and sulci are prominent for the patient age. Paranasal sinuses and mastoid air cells within the [id number] are clear. IMPRESSION: 1. Mild atrophy with chronic appearing periventricular white matter ischemic type changes. 2. No acute intracranial process. Follow-up MRI can be performed as clinically indicated
[2023-06-17 09:19] LABS: Lactic Acid, Venous 3.5 mmol/L (0.7-2.0)
[2023-06-17] MEDS: SODIUM CHLORIDE 0.9% 1,000 ML IV STA ×2 (09:30→11:02)
--- NOTE | 2023-06-17 09:52 | XR ---
EXAMINATION TYPE: XR chest 2V DATE OF EXAM: 06/17/2023 COMPARISON: None HISTORY: 73-year-old female with weakness TECHNIQUE: AP and lateral views FINDINGS: Heart borderline in size. Aorta and pulmonary vasculature within normal limits. Mild interstitial pro minence probably technical related to AP technique and body habitus. Hazy lower lung densities relate d to overlying soft tissue. Accentuated mid thoracic kyphosis. No consolidation or pleural effusion. IMPRESSION: Borderline heart size. No definite acute process.
[2023-06-17] MEDS ORDERED: ACETAMINOPHEN TAB 325 MG TAB PO PRN (10:02)
[2023-06-17] MEDS ORDERED: NALOXONE 0.4 MG/ML 1 ML VIAL IV PRN (10:02)
--- NOTE | 2023-06-17 13:04 | P.CNNES ---
History of Present Illness Consult date: 06/17/23 Requesting physician: Stefan Cardona Reason for Consult: confusion, possible from new suboxone History of Present Illness: This is a 73-year-old woman sent to the emergency department because of the confusion. History was obtained from the patient's . Patient stated that the she's been confused since Friday afternoon. He does not feel she is the same and is very confused. He states that the she is accusing him of telling him that he did not go to work even though he went to work. Also she is accusing him of placing the squirrel and make him do the things to the squirrel in their backyard. He also stated she was on the toilet for a prolonged period time which is unusual for her. It seems the patient has a severe pain in her feet and the she was on Percocet which she was taken off a month ago. This seems on Friday as she was a seen by the pain clinic and she was placed on Suboxone. She was also had her gabapentin increased recently last week from 600 mg 1 tablet 3 times a day to 800 mg 1 tablet 3 times a day. Also last week she was placed on prednisone tapering unsure exact dose of the prednisone. Denies any fever. Denies any sick contacts. Today she recalls the conversation she told her . She denies of any headache. Denies any history of stroke or seizures. She does have history of A. fib on Coumadin and is compliant taking the medication. Denies any nausea any vomiting. Some of the work-up during this hospital visit consisted of: She is afebrile. Possible left acid vein is 3.5 but repeated was 1.1. Serum glucose is 104 4 Creatinine is 1.06 Ammonia is less than 9. CT of the brain is reported as mild atrophy with chronic appearing periventricular white matter ischemic type changes. No acute intracranial processes. Follow-up MRI can be performed as clinically indicated. I personally reviewed the CT head and I agree with the report. EKG is reported as atrial fibrillation. UDS is not detected. Review of Systems Review of system: The 12 point system was reviewed and apparent positive and negative per HPI. Past Medical History Past Medical History: Atrial Fibrillation, Deep Vein Thrombosis (DVT), GERD/Reflux, Hypertension Additional Past Medical History / Comment(s): PSORIATIC ARTHRITIS. mammogram indicated small cyst to have procedure 05/01/21 History of Any Multi-Drug Resistant Organisms: None Reported Past Surgical History: Appendectomy, Back Surgery, Bladder Surgery, Cho lecystectomy, Hysterectomy, Orthopedic Surgery Additional Past Surgical History / Comment(s): vein stripping. ORIF OF RIGHT ANKLE with plate and wire,joint replacement lt great toe with titanium screw . rhizotomy and steroid injections lumbar, millicent knee steroid injection Past Anesthesia/Blood Transfusion Reactions: Previous Problems w/ Anesthesia, Motion Sickness, Postoperative Nausea & Vomiting (PONV) Past Psychological History: Anxiety, Depression Smoking Status: Never smoker Past Alcohol Use History: None Reported Past Drug Use History: None Reported Medications and Allergies Home Medications Medication Instructions Recorded Confirmed Type ALPRAZolam [Xanax] 0.5 mg PO DAILY PRN 01/07/16 06/17/23 History Adalimumab [Humira Pen 40 mg SQ TU 01/07/16 06/17/23 History Crohn's-Uc-Hs] Cetirizine HCl [Zyrtec] 10 mg PO HS 01/07/16 06/17/23 History Folic Acid 5 mg PO DAILY 01/07/16 06/17/23 History Metoprolol Succinate (ER) [Toprol 100 mg PO BID 01/07/16 06/17/23 History XL] Pantoprazole Sodium [Protonix] 40 mg PO AC-BRKFST 01/07/16 06/17/23 History metHOTREXate sodium [Methotrexate] 15 mg PO FR 01/07/16 06/17/23 History Cbd Oil 1 dose PO HS 02/28/21 06/17/23 History DULoxetine HCL [Cymbalta] 90 mg PO DAILY 02/28/21 06/17/23 History Potassium Gluconate [Potassium 99 mg PO DAILY 02/28/21 06/17/23 History Gluconate ER] estradioL [Estrace] 0.5 mg PO DAILY 02/28/21 06/17/23 History Betamethasone Dipropionate 1 applic TOPICAL DAILY PRN 04/19/21 06/17/23 History [Betamethasone Dipropionate 0.05%] Hydrocortisone [Anusol-Hc] 1 applic RECTAL QID PRN 04/19/21 06/17/23 History Losartan Potassium 50 mg PO BID 04/19/21 06/17/23 History Buprenorphine HCl/Naloxone HCl 1 film SUBLINGUAL BID PRN 06/17/23 06/17/23 History [Suboxone 2 mg-0.5 mg Sl Film] Celecoxib [CeleBREX] 200 mg PO DAILY 06/17/23 06/17/23 History Furosemide [Lasix] 20 mg PO DAILY 06/17/23 06/17/23 History Gabapentin 800 mg PO TID 06/17/23 06/17/23 History Lacosamide [Vimpat] 100 mg PO BID 06/17/23 06/17/23 History Multivit-Min/FA/Lycopen/Lutein 1 tab PO DAILY 06/17/23 06/17/23 History [Centrum Silver Tablet] Warfarin [Coumadin] 5 mg PO HS 06/17/23 06/17/23 History Zolpidem Tartrate [Ambien] 5 mg PO HS PRN 06/17/23 06/17/23 History buPROPion HCL [Wellbutrin XL] 150 mg PO DAILY 06/17/23 06/17/23 History predniSONE See Taper PO DIRECTED 06/17/23 06/17/23 History Allergies Allergy/AdvReac Type Severity Reaction Status Date / Time adhesive Allergy Rash/Hives Verified 06/17/23 11:28 Physical Examination - Vital Signs Vital Signs: Vital Signs Temp Pulse Resp BP Pulse Ox 06/17/23 11:03 97.4 F L 65 18 129/72 100 06/17/23 07:46 97.5 F L 67 18 137/77 100 Intake and Output 06/16/23 06/17/23 06/17/23 22:59 06:59 14:59 Other: Weight 117.934 kg GENERAL: The patient is lying in bed and is not in acute distress. NEUROLOGICAL: Higher mental function: The patient is awake, alert, oriented to self, stated she is in [facility] but stated [facility]. She stated the month correctly but stated the year is 2003. She seems a bit agitated. Patient is following commands. No aphasia and no neglect. Cranial nerves: The pupils are round, equal and reactive to light . Visual hathaway are full to confrontation throughout. Extraocular movement is intact no nystagmus is noted. Facial sensation is normal to touch throughout. The facial strength is normal throughout. Hearing is normal bilaterally to hand rub. Tongue is midline and moved [id number] without any difficulty. No dysarthria is noted. Shoulder shrug is normal bilaterally. Motor: The strength is 5 over 5 throughout. Normal tone and bulk. Cerebellum: Normal finger to nose heel to chin bilaterally. Sensation: Sensation is normal to touch throughout. Reflexes (right/left): 2+ in uppers while lowers are 1+ Plantars are downgoing bilaterally. Results - Laboratory Findings CBC and BMP: 06/17/23 08:23 06/17/23 08:23 Abnormal Lab Findings: Abnormal Labs 06/17/23 06/17/23 06/17/23 08:23 08:23 08:23 RDW 17.6 H PT 17.3 H INR 1.7 H BUN 26 H Creatinine 1.06 H Glucose 144 H Plasma Lactic Acid Juan Total Protein 6.1 L 06/17/23 08:23 RDW PT INR BUN Creatinine Glucose Plasma Lactic Acid Juan 3.5 H* Total Protein Assessment and Plan Assessment: This is a 73-year-old women who presented emergency department because of confusion since this past Friday. This seems that she has severe pain in her feet and from the description she likely has neuropathy and she follows up with a assessment clinician as well as a pain specialist and she was a taken off of Percocet about a month ago. But the last week she was laced on Suboxone, gabapentin was increased from 600 the milligram 1 tablet 3 times a day to 800 mg 3 times a day and was placed on prednisone Medrol Dosepak. No fevers no focal weakness no nausea no vomiting and no headache. She recalls the conversation she had with her . Encephalopathy likely due to medication induced (Prednisone, Increase Gabapentin and Suboxone) Peripheral neuropathy History of atrial fibrillation on Coumadin. But INR is subtherapeutic of 1.7 Plan: I ordered a routine EEG to rule out any seizure or discharge which I feel is unlikely I ordered MRI of the brain to rule out any acute or subacute is ischemic stroke especially with a history of atrial fibrillation by feel is unlikely I ordered TSH, vitamin B12 and folate. Recommend if possible going down on gabapentin from 800 mg 1 tablet 3 times a day to her usual dose of 600 mg 1 tablet 3 times a day. If possible recommend avoiding prednisone and Suboxone. For INR recommend INR to be therapeutic within 2-3 for her history of atrial fibrillation to avoid any strokes and we'll defer the management to the primary team. We'll defer the rest of medical measure the primary team. The plan is discussed with patient and her . Thank you for the consultation. Time with Patient: Greater than 30
[2023-06-17] MEDS ORDERED: ALPRAZolam 0.5 MG TAB PO PRN (13:37)
[2023-06-17] MEDS ORDERED: HYDROCORTISONE 2.5% RECTAL CREAM 30 GM TUBE RECTAL PRN (13:37)
--- NOTE | 2023-06-17 14:20 | P.HPIM ---
History of Present Illness H&P Date: 06/17/23 Chief Complaint: Altered mentation This is a pleasant 73-year-old patient who follows with Dr. Roverto Eugene. Chronic stable medical conditions include atrial fibrillation, DVT, GERD, hypertension, psoriatic arthritis, osteoarthritis of multiple joints. Patient does use a cane for better balance. Patient's pain medications have been adjusted recently. On Friday she was started on Suboxone sublingual film. Took it on Friday and Friday. noticed her to be more tired and confused. Did not take the same yesterday. As confusion had only slightly impr poncho decided to bring her to the ER. Also recently patient's Neurontin was increased. Patient's pain is in her toes and other joints 2. Her pain is better controlled today. at the bedside. Denies any fever and chills. Patient is also constipation. In the past patient is also taking CBD oil that has helped her but I decided to stop it. Patient's home medication listed Vimpat but she does not take the same. confirms the same. Patient denied any focal symptoms. No change in speech no focal weakness. No change in swallowing. Review of systems: GEN.: Tired EYES: None HEENT: None NECK: None RESPIRATORY: None CARDIOVASCULAR: None GASTROINTESTINAL: [Constipation GENITOURINARY: None MUSCULOSKELETAL: [Joint pains LYMPHATICS: None HEMATOLOGICAL: None PSYCHIATRY: None NEUROLOGICAL: Does use a cane Social history: . Does not smoke or drink alcohol. Does use a cane Physical examination: VITAL SIGNS: 97.4, 65, 18, 129 x 72, 100% room air GENERAL: BMI 44.6, sitting at the edge of the bed, eating some for lunch. EYES: Pupils equal. Conjunctiva jermaine l. HEENT: External appearance of nose and ears normal, oral cavity grossly normal. NECK: JVD not raised; masses not palpable. HEART: First and second heart sounds are normal; no edema. LUNGS: Respiratory rate normal; clear to auscultation. ABDOMEN: Soft, nontender, liver spleen not palpable, no masses palpable. PSYCH: Patient is able to hold a conversation but intermittently slows down or forgetful l. MUSCULOSKELETAL:No Clubbing/cyanosis;muscles-grossly intact. OA NEUROLOGICAL: Cranial nerves grossly intact; no facial asymmetry, power and sensation grossly intact. LYMPHATICS: No lymph nodes palpable in the axilla and neck INVESTIGATIONS, reviewed in the clinical context: June 17: White count 7.2 hemoglobin 12.8 platelets 290 INR 1.7 sodium 141 potassium 4 BUN 26 creatinine 1.06 UA: Negative Influenza type A, type B, RSV, COVID-19: Negative not detected EKG tracing personally reviewed by me-atrial flutter fibrillation, rate 68 Chest x-ray film personally reviewed by me-borderline cardiomegaly CT brain without contrast: Mild atrophy with chronic changes. Assessment and plan: -Acute metabolic encephalopathy/delirium from patient being started on Suboxone. Also patient's gabapentin was increased very recently. Patient's last Suboxone was over 24 hours. Sensorium is improving. As per the at the bedside. Will keep the patient off Suboxone. -Chronic pain. This morning patient's pain is controlled. Her recent dose of Neurontin was increased. Will keep the same. Suboxone has been discontinued. Other medications to continue. Told the patient to follow-up with her family doctor regarding using CBD oil as needed which has helped the patient before. 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 Coumadin -Psoriatic arthritis Methotrexate. Humira -Chronic anxiety depression Wellbutrin XL. Cymbalta. Xanax as needed. Neurontin -Primary osteoarthritis Pain medications as needed -Peripheral neuropathy Continue Neurontin -GERD Protonix Care was discussed with the patient and at the bedside. Questions answered. Keep the patient off Suboxone. Patient does not take Vimpat at home. Patient was on a tapering dose of prednisone. At 3 mg we will continue the same. Past Medical History Past Medical History: Atrial Fibrillation, Deep Vein Thrombosis (DVT), GERD/Reflux, Hypertension Additional Past Medical History / Comment(s): PSORIATIC ARTHRITIS. mammogram indicated small cyst to have procedure 05/01/21 History of Any Multi-Drug Resistant Organisms: None Reported Past Surgical History: Appendectomy, Back Surgery, Bladder Surgery, Chol ecystectomy, Hysterectomy, Orthopedic Surgery Additional Past Surgical History / Comment(s): vein stripping. ORIF OF RIGHT ANKLE with plate and wire,joint replacement lt great toe with titanium screw . rhizotomy and steroid injections lumbar, millicent knee steroid injection Past Anesthesia/Blood Transfusion Reactions: Previous Problems w/ Anesthesia, M otion Sickness, Postoperative Nausea & Vomiting (PONV) Past Psychological History: Anxiety, Depression Smoking Status: Never smoker Past Alcohol Use History: None Reported Past Drug Use History: None Reported Medications and Allergies Home Medications Medication Instructions Recorded Confirmed Type ALPRAZolam [Xanax] 0.5 mg PO DAILY PRN 01/07/16 06/17/23 History Adalimumab [Humira Pen 40 mg SQ TU 01/07/16 06/17/23 History Crohn's-Uc-Hs] Cetirizine HCl [Zyrtec] 10 mg PO HS 01/07/16 06/17/23 History Folic Acid 5 mg PO DAILY 01/07/16 06/17/23 History Metoprolol Succinate (ER) [Toprol 100 mg PO BID 01/07/16 06/17/23 History XL] Pantoprazole Sodium [Protonix] 40 mg PO AC-BRKFST 01/07/16 06/17/23 History metHOTREXate sodium [Methotrexate] 15 mg PO FR 01/07/16 06/17/23 History Cbd Oil 1 dose PO HS 02/28/21 06/17/23 History DULoxetine HCL [Cymbalta] 90 mg PO DAILY 02/28/21 06/17/23 History Potassium Gluconate [Potassium 99 mg PO DAILY 02/28/21 06/17/23 History Gluconate ER] estradioL [Estrace] 0.5 mg PO DAILY 02/28/21 06/17/23 History Betamethasone Dipropionate 1 applic TOPICAL DAILY PRN 04/19/21 06/17/23 History [Betamethasone Dipropionate 0.05%] Hydrocortisone [Anusol-Hc] 1 applic RECTAL QID PRN 04/19/21 06/17/23 History Losartan Potassium 50 mg PO BID 04/19/21 06/17/23 History Buprenorphine HCl/Naloxone HCl 1 film SUBLINGUAL BID PRN 06/17/23 06/17/23 History [Suboxone 2 mg-0.5 mg Sl Film] Celecoxib [CeleBREX] 200 mg PO DAILY 06/17/23 06/17/23 History Furosemide [Lasix] 20 mg PO DAILY 06/17/23 06/17/23 History Gabapentin 800 mg PO TID 06/17/23 06/17/23 History Lacosamide [Vimpat] 100 mg PO BID 06/17/23 06/17/23 History Multivit-Min/FA/Lycopen/Lutein 1 tab PO DAILY 06/17/23 06/17/23 History [Centrum Silver Tablet] Warfarin [Coumadin] 5 mg PO HS 06/17/23 06/17/23 History Zolpidem Tartrate [Ambien] 5 mg PO HS PRN 06/17/23 06/17/23 History buPROPion HCL [Wellbutrin XL] 150 mg PO DAILY 06/17/23 06/17/23 History predniSONE See Taper PO DIRECTED 06/17/23 06/17/23 History Allergies Allergy/AdvReac Type Severity Reaction Status Date / Time adhesive Allergy Rash/Hives Verified 06/17/23 11:28 Physical Exam Vitals: Vital Signs Temp Pulse Pulse Resp BP BP Pulse Ox 06/17/23 13:36 70 18 137/102 97 06/17/23 11:03 97.4 F L 65 18 129/72 100 06/17/23 07:46 97.5 F L 67 18 137/77 100 Intake and Output 06/16/23 06/17/23 06/17/23 22:59 06:59 14:59 Other: Weight 117.934 kg Results CBC & Chem 7: 06/17/23 08:23 06/17/23 08:23 Labs: Abnormal Lab Results - Last 24 Hours (Table) 06/17/23 06/17/23 06/17/23 Range/Units 08:23 08:23 08:23 RDW 17.6 H (11.5-15.5) % PT 17.3 H (10.0-12.5) sec INR 1.7 H (<1.2) BUN 26 H (7-17) mg/dL Creatinine 1.06 H (0.52-1.04) mg/dL Glucose 144 H (74-99) mg/dL Plasma Lactic Acid Juan (0.7-2.0) mmol/L Total Protein 6.1 L (6.3-8.2) g/dL 06/17/23 Range/Units 08:23 RDW (11.5-15.5) % PT (10.0-12.5) sec INR (<1.2) BUN (7-17) mg/dL Creatinine (0.52-1.04) mg/dL Glucose (74-99) mg/dL Plasma Lactic Acid Juan 3.5 H* (0.7-2.0) mmol/L Total Protein (6.3-8.2) g/dL
[2023-06-17] MEDS: buPROPion XL 150 MG TAB.ER.24H PO SCH (15:24)
[2023-06-17] MEDS: predniSONE 1 MG TAB PO SCH (15:24)
[2023-06-17] MEDS: GABAPENTIN 400 MG CAP PO SCH (15:25)
[2023-06-17] MEDS: LOSARTAN 50 MG TAB PO SCH (20:42)
[2023-06-17] MEDS: METOPROLOL SUCCINATE (ER) 100 MG TAB.ER.24H PO SCH (20:42)
[2023-06-17 20:56] VITALS: RESP 16
[2023-06-17] MEDS: ZOLPIDEM 5 MG TAB PO PRN (21:33)
[2023-06-17] MEDS: WARFARIN 5 MG TAB PO ONE (21:33)
[2023-06-18 03:13] VITALS: TEMP 97.4
[2023-06-18] MEDS: PANTOPRAZOLE 40 MG TABLET PO SCH (06:29)
[2023-06-18 07:39] LABS: INR 1.9 (<1.2); Prothrombin Time 18.7 sec (10.0-12.5)
[2023-06-18 08:47] VITALS: BP 123/70; PULSE 63
[2023-06-18] MEDS: DULoxetine HCL 30 MG CAPSULE.DR PO SCH (10:28)
[2023-06-18] MEDS: FOLIC ACID 1 MG TAB PO SCH (10:31)
[2023-06-18] MEDS: MULTIVITAMINS, THERA 1 EACH TAB PO SCH (10:32)
--- NOTE | 2023-06-18 11:07 | MR ---
EXAMINATION TYPE: MR brain wo con DATE OF EXAM: 06/18/2023 9:24 AM CLINICAL INDICATION:Female, 73 years old with history of encephalopathy of unknown etiology; PHH, Enc ephalopathy of unknown etiology. COMPARISON: 06/17/2023. TECHNIQUE: Multi planar, multi sequence imaging was performed through the brain including: T1, T2, In version recovery, Diffusion weighted imaging, and gradient echo imaging. No gadolinium was given. FINDINGS: The haney-white junctions, ventricular system, basal cisterns appear unremarkable. Scattered foci of high T2 signal intensity are seen within the periventricular white matter. Midline structures show n o abnormality. Diffusion-weighted imaging shows no evidence of restricted diffusion. The susceptibili ty weighted images do not reveal any evidence for micro-hemorrhage. The bone marrow signal is within normal limits. Paranasal sinuses and mastoid air cells: No significant paranasal sinus disease. Visualized orbits: Orbital contents are intact. IMPRESSION: 1. No evidence of intracranial mass or acute/subacute infarct. 2. Nonspecific white matter changes, likely secondary to small vessel ischemic disease.
[2023-06-18 11:25] LABS: Basophils # (A) 0.04 X 10*3/uL (0.00-0.10); Basophils % (A) 0.4 %; Eosinophils # (A) 0.36 X 10*3/uL (0.04-0.35); Eosinophils % (A) 3.4 %; HCT 40.3 % (37.2-46.3); HGB 12.3 g/dL (12.0-15.0); Lymphocytes # (A) 3.45 X 10*3/uL (0.90-5.00); Lymphocytes % (A) 32.5 %; MCH 28.5 pg (27.0-32.0); MCHC 30.5 g/dL (32.0-37.0); MCV 93.5 FL (80.0-97.0); Mean Platelet Volume 10.1 FL (9.5-12.2); Monocytes # (A) 1.23 X 10*3/uL (0.20-1.00); Monocytes % (A) 11.6 %; NRBC Per 100 WBC 0.03 X 10*3/uL (0.00-0.01); Neutrophils # (A) 5.46 X 10*3/uL (1.80-7.70); Neutrophils % (A) 51.5 %; Platelet Count 323 X 10*3/uL (140-440); RBC 4.31 X 10*6/uL (4.10-5.20); RDW 19.2 % (11.5-14.5)
[2023-06-18 11:44] LABS: BUN/Creat Ratio 21.82 Ratio (12.00-20.00); Calcium 9.4 mg/dL (8.7-10.3); Carbon Dioxide 28.5 mmol/L (21.6-31.8); Chloride 105 mmol/L (96-109); Glucose 94 mg/dL (70-110); Potassium 4.1 mmol/L (3.5-5.5); Sodium 144 mmol/L (135-145)
--- NOTE | 2023-06-18 13:04 | P.PN ---
Subjective Progress Note Date: 06/18/23 I am follow-up with the patient and the she feels she is doing drastically better today. Her is at bedside and he feels she is back to baseline. Denies any new neurological issues. Objective - Vital Signs Vital signs: Vital Signs Temp 97.4 F L 06/18/23 07:00 Pulse 63 06/18/23 07:00 Resp 16 06/18/23 07:00 BP 123/70 06/18/23 07:00 Pulse Ox 99 06/18/23 07:00 FiO2 Intake & Output 06/17/23 06/18/23 06/18/23 18:59 06:59 18:59 Intake Total 118 Balance 118 Weight 117.934 kg Intake: Oral 118 Other: Voiding Method External Catheter Toilet # Voids 2 - Exam General: Lying in bed and is not in acute distress. Neuro: The patient is awake alert oriented to self place and time. She is following simple commands. No aphasia and no neglect. Pupils are round equal reactive to light. Pupils are round 3-4 mm bilaterally. Visual hathaway are full to confrontation. Extraocular movement is intact no nystagmus. No facial weakness. No dysarthria. Motor is she's lifting all extremities above gravity and appears symmetrical. Some of the work-up during this hospital visit consisted of: She is afebrile. Possible left acid vein is 3.5 but repeated was 1.1. Serum glucose is 104 4 Creatinine is 1.06 Ammonia is less than 9. Vitamin B12 is [address] of the brain is reported as mild atrophy with chronic appearing periv entricular white matter ischemic type changes. No acute intracranial processes. Follow-up MRI can be performed as clinically indicated. I personally reviewed the CT head and I agree with the report. EKG is reported as atrial fibrillation. UDS is not detected. MR the brain is reported as no evidence of intracranial mass or acute/subacute infarct. Nonspecific white matter changes, likely secondary due to small vessel ischemic disease. - Labs CBC & Chem 7: 06/18/23 06:39 06/18/23 06:39 Labs: Abnormal Lab Results - Last 24 Hours (Table) 06/18/23 06/18/23 06/18/23 Range/Units 06:39 06:39 06:39 WBC 10.60 H (4.50-10.00) X 10*3/uL MCHC 30.5 L (32.0-37.0) g/dL RDW 19.2 H (11.5-14.5) % Immature Gran # 0.06 H (0.00-0.04) X 10*3/uL Monocytes # 1.23 H (0.20-1.00) X 10*3/uL Eosinophils # 0.36 H (0.04-0.35) X 10*3/uL NRBC/100 WBC Diff 0.03 H (0.00-0.01) X 10*3/uL PT 18.7 H (10.0-12.5) sec INR 1.9 H (<1.2) Est GFR (CKD-EPI) 52 L (>=60) BUN/Creatinine Ratio 21.82 H (12.00-20.00) Ratio Assessment and Plan Assessment: This is a 73-year-old women who presented emergency department because of c onfusion since this past Friday. This seems that she has severe pain in her feet and from the description she likely has neuropathy and she follows up with a trench pipe layer helper as well as a pain specialist and she was a taken off of Percocet about a month ago. But the last week she was laced on Suboxone, gabapentin was increased from 600 the milligram 1 tablet 3 times a day to 800 mg 3 times a day and was placed on prednisone Medrol Dosepak. No fevers no focal weakness no nausea no vomiting and no headache. She recalls the conversation she had with her . Encephalopathy likely due to medication induced (Prednisone, Increase Gabapentin and Suboxone)--mentation improved and is back to baseline. MRI Brain is negative for acute/subacute process. Routine EEG is negative for seizure. Peripheral neuropathy History of atrial fibrillation on Coumadin. But INR is subtherapeutic of 1.7 Plan: Preliminary routine EEG is there is no seizure discharges MRI the brain is negative for any acute or subacute process and I personally reviewed the MRI and I agree with the report. Recommend if possible going down on gabapentin from 800 mg 1 tablet 3 times a day to her usual dose of 600 mg 1 tablet 3 times a day. If possible recommend avoiding prednisone and Suboxone. I commended to avoid adding too many medications at one time to assess which medication is a culprit of this. I'll defer that decision to her primary and pain specialist as an outpatient. For INR recommend INR to be therapeutic within 2-3 for her history of atrial fibrillation to avoid any strokes and we'll defer the management to the primary team. We'll defer the rest of medical measure the primary team. The plan is discussed with patient and her . There is no further neurological workup. We'll sign off. Please reconsult if needed. Time with Patient: Less than 30
[2023-06-18] MEDS: MELOXICAM 7.5 MG TAB PO SCH (14:21)
--- NOTE | 2023-06-18 17:31 | P.DS ---
Providers Date of admission: 06/17/23 10:04 Expected date of discharge: 06/18/23 Attending physician: Tom Fournier Consults: 06/17/23 10:02 Consult Physician Routine Consulting Provider: Abdi De Anda Consult Reason/Comments: confusion, possible from new suboxone Do you want consulting provider notified?: Yes Primary care physician: Marlon Eugene [facility] Course: Chief Complaint: Altered mentation This is a pleasant 73-year-old patient who follows with Dr. Roverto Eugene. Chronic stable medical conditions include atrial fibrillation, DVT, GERD, hypertension, psoriatic arthritis, osteoarthritis of multiple joints. Patient does use a cane for better balance. Patient's pain medications have been adjusted recently. On Friday she was started on Suboxone sublingual film. Took it on Friday and Friday. noticed her to be more tired and confused. Did not take the same yesterday. As confusion had only slightly improved decided to bring her to the ER. Also recently patient's Neurontin was increased. Patient's pain is in her toes and other joints 2. Her pain is better controlled today. at the bedside. Denies any fever and chills. Patient is also constipation. In the past patient is also taking CBD oil that has helped her but I decided to stop it. Patient's home medication listed Vimpat but she does not take the same. confirms the same. Patient denied any focal symptoms. No change in speech no focal weakness. No change in swallowing. June 18: MRI of the brain showed nonspecific changes. Patient back to baseline. Pain management discussed in detail with the patient and . Patient not to take Suboxone until follow-up with her pain management physician. Her pain is well-controlled with the current medications. She may consider CBD oil that she has used in the past in conjunction with her pain management team. Patient does not take Vimpat at home. Patient completed prednisone taper for arthritis. Discussion and discharge planning more than 35 minutes Social history: . Does not smoke or drink alcohol. Does use a cane Physical examination: VITAL SIGNS: 97.4, 63, 16, 123 x 70, 99% room air GENERAL: Reclining in bed, comfortable EYES: Pupils equal. Conjunctiva jermaine l. HEENT: External appearance of nose and ears normal, oral cavity grossly normal. NECK: JVD not raised; masses not palpable. HEART: First and second heart sounds are normal; no edema. LUNGS: Respiratory rate normal; clear to auscultation. ABDOMEN: Soft, nontender, liver spleen not palpable, no masses palpable. PSYCH: Patient is able to hold a conversation but intermittently slows down or forgetful l. MUSCULOSKELETAL:No Clubbing/cyanosis;muscles-grossly intact. OA INVESTIGATIONS, reviewed in the clinical context: June 18: White count 10.6 hemoglobin 12.3 INR 1.9 potassium 4.1 creatinine 1.1 June 17: White count 7.2 hemoglobin 12.8 platelets 290 INR 1.7 sodium 141 potassium 4 BUN 26 creatinine 1.06 UA: Negative Influenza type A, type B, RSV, COVID-19: Negative not detected EKG tracing personally reviewed by me-atrial flutter fibrillation, rate 68 Chest x-ray film personally reviewed by me-borderline cardiomegaly CT brain without contrast: Mild atrophy with chronic changes. Assessment and plan: -Acute metabolic encephalopathy/delirium from patient being started on Suboxone. Also patient's gabapentin was increased very recently. Patient's last Suboxone was over 24 hours. Sensorium is improving. As per the at the bedside. Will keep the patient off Suboxone.: Improved -Chronic pain.: Better controlled Continue current dose of medications except Suboxone. Follow-up with the pain specialist. 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 Coumadin -Psoriatic arthritis Methotrexate. Humira -Chronic anxiety depression Wellbutrin XL. Cymbalta. Xanax as needed. Neurontin -Primary osteoarthritis Pain medications as needed -Peripheral neuropathy Continue Neurontin -GERD Protonix Disposition: Home Past Medical History Past Medical History: Atrial Fibrillation, Deep Vein Thrombosis (DVT), GERD/Reflux, Hypertension Additional Past Medical History / Comment(s): PSORIATIC ARTHRITIS. mammogram indicated small cyst to have procedure 05/01/21 History of Any Multi-Drug Resistant Organisms: None Reported Past Surgical History: Appendectomy, Back Surgery, Bladder Surgery, Cholecystectomy, Hysterectomy, Orthopedic Surgery Additional Past Surgical History / Comment(s): vein stripping. ORIF OF RIGHT AN KLE with plate and wire,joint replacement lt great toe with titanium screw . rhizotomy and steroid injections lumbar, millicent knee steroid injection Past Anesthesia/Blood Transfusion Reactions: Previous Problems w/ Anesthesia, Motion Sickness, Postoperative Nausea & Vomiting (PONV) Past Psychological History: Anxiety, Depression Smoking Status: Never smoker Past Alcohol Use History: None Reported Past Drug Use History: None Reported Plan - Discharge Summary New Discharge Prescriptions: Continue ALPRAZolam [Xanax] 0.5 mg PO DAILY PRN PRN Reason: Anxiety Folic Acid 5 mg PO DAILY Metoprolol Succinate (ER) [Toprol XL] 100 mg PO BID Pantoprazole Sodium [Protonix] 40 mg PO AC-BRKFST metHOTREXate sodium [Methotrexate] 15 mg PO FR Adalimumab [Humira Pen Crohn's-Uc-Hs] 40 mg SQ TU estradioL [Estrace] 0.5 mg PO DAILY Potassium Gluconate [Potassium Gluconate ER] 99 mg PO DAILY Hydrocortisone [Anusol-Hc] 1 applic RECTAL QID PRN PRN Reason: Hemorrhoids Multivit-Min/FA/Lycopen/Lutein [Centrum Silver Tablet] 1 tab PO DAILY Gabapentin 800 mg PO TID Celecoxib [CeleBREX] 200 mg PO DAILY Warfarin [Coumadin] 5 mg PO HS DULoxetine HCL [Cymbalta] 90 mg PO DAILY Betamethasone Dipropionate [Betamethasone Dipropionate 0.05%] 1 applic TOPICAL DAILY PRN PRN Reason: psoriasis Losartan Potassium 50 mg PO BID predniSONE See Taper PO DIRECTED Zolpidem Tartrate [Ambien] 5 mg PO HS PRN PRN Reason: Insomnia buPROPion HCL [Wellbutrin XL] 150 mg PO DAILY Furosemide [Lasix] 20 mg PO DAILY Discontinued Cetirizine HCl [Zyrtec] 10 mg PO HS Lacosamide [Vimpat] 100 mg PO BID Buprenorphine HCl/Naloxone HCl [Suboxone 2 mg-0.5 mg Sl Film] 1 film SUBLINGUAL BID PRN PRN Reason: Pain No Action Cbd Oil 1 dose PO HS Discharge Medication List ALPRAZolam [Xanax] 0.5 mg PO DAILY PRN 01/07/16 [History] Adalimumab [Humira Pen Crohn's-Uc-Hs] 40 mg SQ TU 01/07/16 [History] Folic Acid 5 mg PO DAILY 01/07/16 [History] Metoprolol Succinate (ER) [Toprol XL] 100 mg PO BID 01/07/16 [History] Pantoprazole Sodium [Protonix] 40 mg PO AC-BRKFST 01/07/16 [History] metHOTREXate sodium [Methotrexate] 15 mg PO FR 01/07/16 [History] Cbd Oil 1 dose PO HS 02/28/21 [History] DULoxetine HCL [Cymbalta] 90 mg PO DAILY 02/28/21 [History] Potassium Gluconate [Potassium Gluconate ER] 99 mg PO DAILY 02/28/21 [History] estradioL [Estrace] 0.5 mg PO DAILY 02/28/21 [History] Betamethasone Dipropionate [Betamethasone Dipropionate 0.05%] 1 applic TOPICAL DAILY PRN 04/19/21 [History] Hydrocortisone [Anusol-Hc] 1 applic RECTAL QID PRN 04/19/21 [History] Losartan Potassium 50 mg PO BID 04/19/21 [History] Celecoxib [CeleBREX] 200 mg PO DAILY 06/17/23 [History] Furosemide [Lasix] 20 mg PO DAILY 06/17/23 [History] Gabapentin 800 mg PO TID 06/17/23 [History] Multivit-Min/FA/Lycopen/Lutein [Centrum Silver Tablet] 1 tab PO DAILY 06/17/23 [History] Warfarin [Coumadin] 5 mg PO HS 06/17/23 [History] Zolpidem Tartrate [Ambien] 5 mg PO HS PRN 06/17/23 [History] buPROPion HCL [Wellbutrin XL] 150 mg PO DAILY 06/17/23 [History] predniSONE See Taper PO DIRECTED 06/17/23 [History] Follow up Appointment(s)/Referral(s): pain-dr danielle [Other] - 1 Week Marlon Eugene DO [Primary Care Provider] - 1-2 days Patient Instructions/Handouts: Dehydration (DC) Discharge Disposition: HOME SELF-CARE
[2023-06-18] MEDS ORDERED: WARFARIN 5 MG TAB PO SCH (21:00)
--- NOTE | 2023-06-19 01:43 | EEG ---
ELECTROENCEPHALOGRAM REPORT CLINICAL HISTORY: This is a 73-year-old woman with altered mental status. The video EEG is obtained to evaluate for seizure epileptiform activity. RELEVANT MEDICATIONS: Gabapentin, prednisone, Wellbutrin, and Xanax. EEG TYPE: A routine 21-channel EEG with video using the 10/20 electrode placement system. DESCRIPTION: Wakefulness is obtained. The posterior dominant rhythm consists of [id number] voltage of 9 to 9.5 hertz activity that is well modulated, well sustained. There is no physiological stage 2 sleep architecture. There is no focal slowing. Interictal and ictal is none. ACTIVATION PROCEDURE: Photic stimulation did not evoke a posterior driving response. There is no abnormality during the photic stimulation. Hyperventilation is not performed. CLINICAL INTERPRETATION: This is a normal routine EEG. There is no focal slowing, epileptiform discharge, or seizure on the EEG. A normal routine EEG does not rule out underlying epilepsy. Clinical correlation is recommended. GILMAR / MODE: [id number] /
[2023-06-20] MEDS ORDERED: metHOTREXate sodium 2.5 MG TAB PO SCH (09:00)
== END 2023-06-18 15:08 | disposition home or self-care (01) ==
LOC: EC 07:45 → 6NMEDSUR 10:04
PROVIDERS: ADMIT Hospitalist; ATTEND Hospitalist
DX: G92.8 Other toxic encephalopathy (principal); T50.995A Adverse effect of other drugs, medicaments and biological substances, initial encounter; E86.0 Dehydration; G89.29 Other chronic pain; R26.9 Unspecified abnormalities of gait and mobility; L40.50 Arthropathic psoriasis, unspecified; I48.91 Unspecified atrial fibrillation; K21.9 Gastro-esophageal reflux disease without esophagitis; I10 Essential (primary) hypertension; F32.A Depression, unspecified; F41.9 Anxiety disorder, unspecified; G62.9 Polyneuropathy, unspecified; M19.91 Primary osteoarthritis, unspecified site; Z86.718 Personal history of other venous thrombosis and embolism; Z79.1 Long term (current) use of non-steroidal anti-inflammatories (NSAID); Z79.01 Long term (current) use of anticoagulants; Z79.899 Other long term (current) drug therapy
CPT/HCPCS: 96360; 96361; 99285; 36415; 95816; 93005; 80053; 80048; 84443; 82607; 82140; 82746; 83605; 84484; 85025 ×2; 85610 ×2; 85730; 81003; 80306; 80143; 87636; 80179; 71046; 70450; 70551; G0378 ×2; G0480; J7512; 80320

== ENCOUNTER → 2023-07-18 | Outpatient (CLI) | payer MEDICARE, BC ==
[2023-07-18 19:59] LABS: INR 1.65 sec (0.93-1.11); Prothrombin Time 17.2 sec (9.9-11.9)
== END | disposition home or self-care (01) ==
LOC: LABWHC1 11:20
PROVIDERS: ATTEND Internal Medicine Cardiovascular Disease
DX: I48.0 Paroxysmal atrial fibrillation (principal)
CPT/HCPCS: 36415; 85610

== ENCOUNTER → 2023-07-25 | Outpatient (CLI) | payer MEDICARE, BC ==
[2023-07-25 17:39] LABS: African American GFR (CKD) 44 (>60 ml/min/1.73 sqM); Blood Urea Nitrogen 20 mg/dL (7-17); Non-African American GFR(CKD) 38 (>60 ml/min/1.73 sqM)
--- NOTE | 2023-07-27 14:41 | CT ---
EXAMINATION TYPE: CT chest wo con CT DLP: 865.9 mGycm, Automated exposure control for dose reduction was used. DATE OF EXAM: 07/25/2023 6:05 PM COMPARISON: CT chest dated 11/28/2022 CLINICAL INDICATION:Female, 73 years old with history of D64.9 ANEMIA; PHH, anemia and weakness TECHNIQUE: Multiple axial images were obtained through the chest. Sagittal and coronal reformats were created for review. Contrast used: mL of (None if empty) Oral contrast used: (None if empty) FINDINGS: Some limitations by artifacts created by the patient's arms folded over the chest. LUNGS/ PLEURA: Small subpleural infiltrative appearing opacity in the superior segment right lower lo be images 25-27 appears stable from the prior exam. The subtly nodular appearance in this region befo re is not clearly redemonstrated. No new or enlarging nodule, mass, or airspace consolidation seen. M ild bibasilar scarring or atelectasis. No pleural effusion or pneumothorax. AIRWAY: Central airways are patent. Borderline mild bronchiectasis in the lower lobes. LOWER NECK: No significant findings. MEDIASTINUM: No enlarged mediastinal nodes are seen. No hilar adenopathy, in the limits of unenhanced exam. Large hiatal hernia again seen. HEART: Heart size upper normal. Moderate coronary artery calcification and/or stents. Small calcifica tion in the central heart appears likely related to the mitral valve. No pericardial effusion. VASCULATURE: Moderate atherosclerotic calcifications of the aorta and branches. Ascending aorta is s table at 4 CM, descending is 3 CM. Pulmonary trunk measures 2.9 cm, considered normal in size. Vessels otherwise not further assessed wi thout contrast. SOFT TISSUES/LYMPH NODES: Unremarkable soft tissues. No axillary adenopathy. UPPER ABDOMEN: No significant findings. MUSCULOSKELETAL: No acute osseous abnormalities. Moderate disc degeneration changes are present throu ghout the thoracolumbar spine with exaggerated thoracic kyphosis and moderate apex right scoliosis. D egenerative changes of the shoulders also seen. Partially seen right wrist shows degenerative changes greatest at the basal joint of the thumb. IMPRESSION: 1. No acute abnormality in the chest. 2. Unchanged small infiltrative opacity in the superior segment right lower lobe. The previous subtl y nodular appearance is not redemonstrated. For conservative measures, 12 month follow-up CT is recom mended to ensure ongoing stability. 3. Moderate aortic and coronary artery calcifications. 4. Stable 4 cm fusiform dilatation of the ascending aorta.
== END | disposition home or self-care (01) ==
LOC: RADCTMAIN 16:31
PROVIDERS: ATTEND Internal Medicine Hematology & Oncology
DX: I25.10 Atherosclerotic heart disease of native coronary artery without angina pectoris (principal); I77.810 Thoracic aortic ectasia; D64.9 Anemia, unspecified; F32.A Depression, unspecified; R53.1 Weakness; R91.8 Other nonspecific abnormal finding of lung field; Z71.3 Dietary counseling and surveillance
CPT/HCPCS: 36415; 71250; 82565; 84520

== ENCOUNTER 2023-10-23 01:08 | Emergency (ER) | payer MEDICARE, BC ==
[2023-10-23 03:32] LABS: African American GFR (CKD) 48 (>60 ml/min/1.73 sqM); Alcohol <10 mg/dL; Anion Gap 4 mmol/L; Blood Urea Nitrogen 21 mg/dL (7-17); Calcium 9.2 mg/dL (8.4-10.2); Carbon Dioxide 28 mmol/L (22-30); Chloride 105 mmol/L (98-107); Glucose 102 mg/dL (74-99); Non-African American GFR(CKD) 41 (>60 ml/min/1.73 sqM); Potassium 3.5 mmol/L (3.5-5.1); Sodium 137 mmol/L (137-145)
[2023-10-23 03:36] LABS: Anisocytosis Moderate; Basophils % (A) 1 %; Eosinophils # (A) 0.3 k/uL (0-0.7); Eosinophils % (A) 6 %; HCT 35.7 % (34.0-46.0); HGB 10.5 gm/dL (11.4-16.0); Hypochromasia Moderate; Lymphocytes # (A) 1.8 k/uL (1.0-4.8); Lymphocytes % (A) 34 %; MCH 26.3 pg (25.0-35.0); MCHC 29.4 g/dL (31.0-37.0); MCV 89.5 fL (80.0-100.0); Mean Platelet Volume 8.1; Monocytes # (A) 0.6 k/uL (0-1.0); Monocytes % (A) 12 %; Neutrophils # (A) 2.3 k/uL (1.3-7.7); Neutrophils % (A) 44 %; Platelet Count 253 k/uL (150-450); RBC 3.98 m/uL (3.80-5.40); RDW 20.1 % (11.5-15.5); WBC 5.2 k/uL (3.8-10.6)
[2023-10-23 04:36] LABS: Amphetamine Screen,Urine Not Detected (NotDetected); Barbiturate Screen,Urine Not Detected (NotDetected); Benzodiazepines Screen,Urine Detected (NotDetected); Cocaine Screen,Urine Not Detected (NotDetected); Methadone Screen, Urine Not Detected (NotDetected); Opiate Screen,Urine Not Detected (NotDetected); Oxycodone Screen, Urine Not Detected (NotDetected); Phencyclidine Screen,Urine Not Detected (NotDetected); Tricyclic Antidepressant,Urine Not Detected (NotDetected); Urn Cannabinoid Scrn Detected (NotDetected)
--- NOTE | 2023-10-23 04:40 | ED ---
General Adult HPI - General Source: patient, EMS, RN notes reviewed, old records reviewed Mode of arrival: EMS Limitations: no limitations, altered mental status <Stefan Cardona - Last Filed: 10/23/23 04:36> <Julius Jett - Last Filed: 10/23/23 11:43> - General Chief complaint: Psychiatric Symptoms Stated complaint: SI Time Seen by Provider: 10/23/23 03:30 - History of Present Illness Initial comments: Patient is a 73-year-old female who presents emergency department for psychiatric evaluation. She has a history of atrial fibrillation, GERD. Was making statements that were suicidal and homicidal in nature to her . Patient was petition by her . Petition states "was upset, locked herself in the bathroom, threatened to take pills, kill herself, threatened to stab me with a knife. She also admitted to police that she made suicidal statements." Patient currently denies these thoughts but states she was upset earlier due to an argument with her . Has no other acute complaints at this time. Presents for further evaluation. (Stefan Cardona) - Related Data Home Medications Medication Instructions Recorded Confirmed ALPRAZolam [Xanax] 0.5 mg PO DAILY PRN 01/07/16 06/17/23 Adalimumab [Humira Pen 40 mg SQ TU 01/07/16 06/17/23 Crohn's-Uc-Hs] Folic Acid 5 mg PO DAILY 01/07/16 06/17/23 Metoprolol Succinate (ER) [Toprol 100 mg PO BID 01/07/16 06/17/23 XL] Pantoprazole Sodium [Protonix] 40 mg PO AC-BRKFST 01/07/16 06/17/23 metHOTREXate sodium [Methotrexate] 15 mg PO FR 01/07/16 06/17/23 Cbd Oil 1 dose PO HS 02/28/21 06/17/23 DULoxetine HCL [Cymbalta] 90 mg PO DAILY 02/28/21 06/17/23 Potassium Gluconate [Potassium 99 mg PO DAILY 02/28/21 06/17/23 Gluconate ER] estradioL [Estrace] 0.5 mg PO DAILY 02/28/21 06/17/23 Betamethasone Dipropionate 1 applic TOPICAL DAILY PRN 04/19/21 06/17/23 [Betamethasone Dipropionate 0.05%] Hydrocortisone [Anusol-Hc] 1 applic RECTAL QID PRN 04/19/21 06/17/23 Losartan Potassium 50 mg PO BID 04/19/21 06/17/23 Celecoxib [CeleBREX] 200 mg PO DAILY 06/17/23 06/17/23 Furosemide [Lasix] 20 mg PO DAILY 06/17/23 06/17/23 Gabapentin 800 mg PO TID 06/17/23 06/17/23 Multivit-Min/FA/Lycopen/Lutein 1 tab PO DAILY 06/17/23 06/17/23 [Centrum Silver Tablet] Warfarin [Coumadin] 5 mg PO HS 06/17/23 06/17/23 Zolpidem Tartrate [Ambien] 5 mg PO HS PRN 06/17/23 06/17/23 buPROPion HCL [Wellbutrin XL] 150 mg PO DAILY 06/17/23 06/17/23 predniSONE See Taper PO DIRECTED 06/17/23 06/17/23 Allergies Allergy/AdvReac Type Severity Reaction Status Date / Time adhesive Allergy Rash/Hives Verified 06/17/23 11:28 Review of Systems ROS Other: All systems not noted in ROS Statement are negative. <Stefan Cardona - Last Filed: 10/23/23 04:36> ROS Other: All systems not noted in ROS Statement are negative. <Julius Jett - Last Filed: 10/23/23 11:43> ROS Statement: Those systems with pertinent positive or pertinent negative responses have been documented in the HPI. Review of Systems: CONST: Denies fever EYES: Denies blurry vision ENT: Denies nasal congestion C/V: Denies Chest pain RESP: Denies shortness of breath GI: Denies abdominal pain : Denies dysuria SKIN: Denies rash. MSK: Denies joint pain. NEURO: Denies headache (Stefan Cardona) Past Medical History Past Medical History: Atrial Fibrillation, Deep Vein Thrombosis (DVT), GERD/Reflux, Hypertension Additional Past Medical History / Comment(s): PSORIATIC ARTHRITIS. mammogram indicated small cyst to have procedure 05/01/21 History of Any Multi-Drug Resistant Organisms: None Reported Past Surgical History: Appendectomy, Back Surgery, Bladder Surgery, Cholecystectomy, Hysterectomy, Orthopedic Surgery Additional Past Surgical History / Comment(s): vein stripping. ORIF OF RIGHT ANKLE with plate and wire,joint replacement lt great toe with titanium screw . rhizotomy and steroid injections lumbar, millicent knee steroid injection Past Anesthesia/Blood Transfusion Reactions: Previous Problems w/ Anesthesia, Motion Sickness, Postoperative Nausea & Vomiting (PONV) Past Psychological History: Anxiety, Depression Smoking Status: Never smoker Past Alcohol Use History: None Reported Past Drug Use History: None Reported <Stefan Cardona - Last Filed: 10/23/23 04:36> General Exam Limitations: no limitations, altered mental status <Stefan Cardona - Last Filed: 10/23/23 04:36> - General Exam Comments Initial Comments: General: Appears in no acute distress. HEAD: Normal with no signs of head trauma. EYES: PERRLA, EOMI, conjunctiva normal, no discharge. ENT: Hearing grossly intact, normal oropharynx. RESPIRATORY: Clear breath sounds bilaterally. No wheezes, rales, or rhonchi. C/V: Regular rate and rhythm. S1 and S2 auscultated, no edema, peripheral pulses 2+ and intact throughout ABD: Abd is soft, nontender, nondistended EXT: Normal range of motion, no obvious deformity SKIN: No rashes or lesions observed on exposed skin. NEURO: Alert and oriented x 4 (Stefan Cardona) Course Vital Signs 10/23/23 10/23/23 10/23/23 01:12 03:43 10:57 Temperature 97.1 F L Pulse Rate 77 87 67 Respiratory 18 18 18 Rate Blood Pressure 114/104 111/79 134/99 O2 Sat by Pulse 99 96 98 Oximetry Medical Decision Making - Lab Data Result diagrams: 10/23/23 02:33 10/23/23 02:33 - EKG Data -: EKG Interpreted by Me <Stefan Cardona - Last Filed: 10/23/23 04:36> - Lab Data Result diagrams: 10/23/23 02:33 10/23/23 02:33 <Julius Jett - Last Filed: 10/23/23 11:43> - Medical Decision Making Was pt. sent in by a medical professional or institution (, PA, [employer], urgent care, hospital, or half-way...) When possible be specific @ -No Did you speak to anyone other than the patient for history (EMS, parent, family, police, friend...)? What history was obtained from this source @ -No Did you review nursing and triage notes (agree or disagree)? Why? @ -I reviewed and agree with nursing and triage notes Were old charts reviewed (outside hosp., previous admission, EMS record, old EKG, old radiological studies, urgent care reports/EKG's, half-way records)? Report findings @ -Petition reviewed. Per minute the patient suicidal and homicidal statements made at home to her . Differential Diagnosis (chest pain, altered mental status, abdominal pain women, abdominal pain men, vaginal bleeding, weakness, fever, dyspnea, syncope, headache, dizziness, GI bleed, back pain, seizure, CVA, palpatations, mental health, musculoskeletal)? @ -Differential Mental Health Depression, anxiety, bipolar, psychosis, schizophrenia, borderline personality, situational depression, adjustment disorder, behavioral disorder, brain tumor, malingering, substance abuse, encephalopathy, medication reaction, dementia, hypothyroidism, degenerative neurologic disorder, lupus.... This is not meant to be all-inclusive list EKG interpreted by me (3pts min.). @ -As above X-rays interpreted by me (1pt min.). @ -None done CT interpreted by me (1pt min.). @ -None done U/S interpreted by me (1pt. min.). @ -None done What testing was considered but not performed or refused? (CT, X-rays, U/S, labs )? Why? @ -None What meds were considered but not given or refused? Why? @ -None Did you discuss the management of the patient with other professionals (professionals i.e. , PA, [employer], lab, RT, psych nurse, social security benefits interviewer, manager technical training, teacher, radio division officer, sample case porter)? Give summary @ -EPS notified of the consult Was smoking cessation discussed for >3mins.? @ -No Was critical care preformed (if so, how long)? @ -No Were there social determinants of health that impacted care today? How? (Home lessness, low income, unemployed, alcoholism, drug addiction, transportation, low edu. Level, literacy, decrease access to med. care, long term, rehab)? @ -No Was there de-escalation of care discussed even if they declined (Discuss DNR or withdrawal of care, Hospice)? DNR status @ -No What co-morbidities impacted this encounter? (DM, HTN, Smoking, COPD, CAD, Cancer, CVA, ARF, Chemo, Hep., AIDS, mental health diagnosis, sleep apnea, morbid obesity)? @ -None Was patient admitted / discharged? Hospital course, mention meds given and route, prescriptions, significant lab abnormalities, going to OR and other pertinent info. @ -Based on the patient's presentation and physical exam, presents emergency department complaining of being petition for suicidal and homicidal statements. Suicide precautions placed. Sitter ordered. Will obtain basic labs. BAT is 0. Patient was in agreement this plan. [place] studies unremarkable. Vital signs within acceptable limits. EKG shows no signs of acute ischemia. At this time, patient is medically cleared for evaluation by psychiatry. Disposition pending psychiatric evaluation. EPS notified of the consult. Undiagnosed new problem with uncertain prognosis? @ -No Drug Therapy requiring intensive monitoring for toxicity (Heparin, Nitro, Insulin, Cardizem)? @ -No Were any procedures done? @ -No (Stefan Cardona) Patient care was signed out at shift change. Patient was evaluated by EPS and felt to require inpatient psychiatric care. I was able to evaluate the patient. She does appear delusional and has had suicidal thoughts. I feel she will benefit from inpatient psychiatric evaluation and treatment. I completed a clinical certification on this patient. (Julius Jett) - Lab Data Lab Results 10/23/23 10/23/23 10/23/23 Range/Units 02:33 02:33 03:39 WBC 5.2 (3.8-10.6) k/uL RBC 3.98 (3.80-5.40) m/uL Hgb 10.5 L (11.4-16.0) gm/dL Hct 35.7 (34.0-46.0) % MCV 89.5 (80.0-100.0) fL MCH 26.3 (25.0-35.0) pg MCHC 29.4 L (31.0-37.0) g/dL RDW 20.1 H (11.5-15.5) % Plt Count 253 (150-450) k/uL MPV 8.1 Neutrophils % 44 % Lymphocytes % 34 % Monocytes % 12 % Eosinophils % 6 % Basophils % 1 % Neutrophils # 2.3 (1.3-7.7) k/uL Lymphocytes # 1.8 (1.0-4.8) k/uL Monocytes # 0.6 (0-1.0) k/uL Eosinophils # 0.3 (0-0.7) k/uL Basophils # 0.0 (0-0.2) k/uL Hypochromasia Moderate Anisocytosis Moderate Sodium 137 (137-145) mmol/L Potassium 3.5 (3.5-5.1) mmol/L Chloride 105 (98-107) mmol/L Carbon Dioxide 28 (22-30) mmol/L Anion Gap 4 mmol/L BUN 21 H (7-17) mg/dL Creatinine 1.27 H (0.52-1.04) mg/dL Est GFR (CKD-EPI)AfAm 48 (>60 ml/min/1.73 sqM) Est GFR (CKD-EPI)NonAf 41 (>60 ml/min/1.73 sqM) Glucose 102 H (74-99) mg/dL Calcium 9.2 (8.4-10.2) mg/dL Urine Color Urine Appearance (Clear) Urine pH (5.0-8.0) Ur Specific [place] (1.001-1.035) Urine Protein (Negative) Urine Glucose (UA) (Negative) Urine Ketones (Negative) Urine Blood (Negative) Urine Nitrite (Negative) Urine Bilirubin (Negative) Urine Urobilinogen (<2.0) mg/dL Ur Leukocyte Esterase (Negative) Urine Opiates Screen Not Detected (NotDetected) Ur Oxycodone Screen Not Detected (NotDetected) Urine Methadone Screen Not Detected (NotDetected) Ur Barbiturates Screen Not Detected (NotDetected) U Tricyclic Antidepress Not Detected (NotDetected) Ur Phencyclidine Scrn Not Detected (NotDetected) Ur Amphetamines Screen Not Detected (NotDetected) U Methamphetamines Scrn Not Detected (NotDetected) U Benzodiazepines Scrn Detected H (NotDetected) Urine Cocaine Screen Not Detected (NotDetected) U Marijuana (THC) Screen Detected H (NotDetected) Serum Alcohol <10 mg/dL 10/23/23 Range/Units 03:39 WBC (3.8-10.6) k/uL RBC (3.80-5.40) m/uL Hgb (11.4-16.0) gm/dL Hct (34.0-46.0) % MCV (80.0-100.0) fL MCH (25.0-35.0) pg MCHC (31.0-37.0) g/dL RDW (11.5-15.5) % Plt Count (150-450) k/uL MPV Neutrophils % % Lymphocytes % % Monocytes % % Eosinophils % % Basophils % % Neutrophils # (1.3-7.7) k/uL Lymphocytes # (1.0-4.8) k/uL Monocytes # (0-1.0) k/uL Eosinophils # (0-0.7) k/uL Basophils # (0-0.2) k/uL Hypochromasia Anisocytosis Sodium (137-145) mmol/L Potassium (3.5-5.1) mmol/L Chloride (98-107) mmol/L Carbon Dioxide (22-30) mmol/L Anion Gap mmol/L BUN (7-17) mg/dL Creatinine (0.52-1.04) mg/dL Est GFR (CKD-EPI)AfAm (>60 ml/min/1.73 sqM) Est GFR (CKD-EPI)NonAf (>60 ml/min/1.73 sqM) Glucose (74-99) mg/dL Calcium (8.4-10.2) mg/dL Urine Color Colorless Urine Appearance Clear (Clear) Urine pH 6.5 (5.0-8.0) Ur Specific [place] 1.008 (1.001-1.035) Urine Protein Negative (Negative) Urine Glucose (UA) Negative (Negative) Urine Ketones Negative (Negative) Urine Blood Negative (Negative) Urine Nitrite Negative (Negative) Urine Bilirubin Negative (Negative) Urine Urobilinogen <2.0 (<2.0) mg/dL Ur Leukocyte Esterase Negative (Negative) Urine Opiates Screen (NotDetected) Ur Oxycodone Screen (NotDetected) Urine Methadone Screen (NotDetected) Ur Barbiturates Screen (NotDetected) U Tricyclic Antidepress (NotDetected) Ur Phencyclidine Scrn (NotDetected) Ur Amphetamines Screen (NotDetected) U Methamphetamines Scrn (NotDetected) U Benzodiazepines Scrn (NotDetected) Urine Cocaine Screen (NotDetected) U Marijuana (THC) Screen (NotDetected) Serum Alcohol mg/dL - EKG Data EKG Comments: 12-lead Electrocardiogram Interpretation Note EKG was reviewed and interpreted by myself. 12-lead ECG performed at 0232 is interpreted by me as revealing atrial fibrillation at a rate of 80 beats per minute. [place] is normal. QRS duration is 92 ms, QTc is 447 ms.. There were no ST or T wave abnormalities to suggest myocardial ischemia or injury. R wave progression across the precordium was satisfactory. By my interpretation this EKG is non-diagnostic for acute ischemia. (Stefan Cardona) Disposition <Stefan Cardona - Last Filed: 10/23/23 04:36> Is patient prescribed a controlled substance at d/c from ED?: No Time of Disposition: 11:43 - Out of Hospital Transfer - Req. Specs Out of Hospital Transfer - Requested Specifics: Psychiatric Non-ICU (Transferred for geriatric psychiatric care) <Julius Jett - Last Filed: 10/23/23 11:43> Clinical Impression: Psychosis, Suicidal ideation Disposition: OTHER INSTITUTION NOT DEFINED Condition: Stable Referrals: Marlon Eugene DO [Primary Care Provider] - 1-2 days
[2023-10-23 06:04] LABS: Appearance,Urine Clear (Clear); Bilirubin,Urine Negative (Negative); Blood,Urine Negative (Negative); Color,Urine Colorless; Glucose,Urine (UA) Negative (Negative); Ketones,Urine Negative (Negative); Leukocyte Esterase,Urine Negative (Negative); Nitrite,Urine Negative (Negative); PH, Urine 6.5 (5.0-8.0); Protein,Urine Negative (Negative); Specific Gravity,Urine 1.008 (1.001-1.035); Urobilinogen,Urine <2.0 mg/dL (<2.0)
[2023-10-23] MEDS ORDERED: BETAMETHASONE DIPROPIONATE 0.05% OINTMENT 45 GM TUBE TOPICAL PRN (16:32)
[2023-10-23] MEDS: traMADol 50 MG TAB PO PRN (17:48)
[2023-10-23] MEDS: WARFARIN 5 MG TAB PO SCH (17:53)
[2023-10-23 19:03] LABS: Prothrombin Time 29.2 sec (10.0-12.5)
[2023-10-24] MEDS: METOPROLOL SUCCINATE (ER) 100 MG TAB.ER.24H PO SCH (00:16)
[2023-10-24] MEDS: LOSARTAN 50 MG TAB PO SCH (00:17)
[2023-10-24] MEDS: LACOSAMIDE 50 MG TABLET PO SCH (00:17)
[2023-10-24] MEDS: ZOLPIDEM 5 MG TAB PO PRN (00:17)
[2023-10-24] MEDS: GABAPENTIN 400 MG CAP PO SCH (00:17)
[2023-10-24] MEDS: ALPRAZolam 0.5 MG TAB PO PRN (00:18)
[2023-10-24] MEDS: WARFARIN 0.5 MG TAB PO ONE (02:21)
[2023-10-24] MEDS: PANTOPRAZOLE 40 MG TABLET PO SCH (07:33)
[2023-10-24 07:43] VITALS: BP 108/56; PULSE 63; RESP 18; TEMP 97.3
[2023-10-24] MEDS ORDERED: MELOXICAM 7.5 MG TAB PO SCH (09:00)
[2023-10-24] MEDS ORDERED: buPROPion XL 150 MG TAB.ER.24H PO SCH (09:00)
[2023-10-24] MEDS ORDERED: DULoxetine HCL 30 MG CAPSULE.DR PO SCH (09:00)
[2023-10-24] MEDS ORDERED: FUROSEMIDE 20 MG TAB PO SCH (09:00)
[2023-10-24] MEDS ORDERED: LORATADINE 10 MG TAB PO SCH (09:00)
[2023-10-24] MEDS ORDERED: ADALIMUMAB 40 MG/0.8 ML SQ SCH (16:32)
[2023-10-24] MEDS ORDERED: metHOTREXate sodium 2.5 MG TAB PO SCH (16:32)
[2023-10-24] MEDS ORDERED: WARFARIN 5 MG TAB PO SCH (16:32)
== END 2023-10-24 08:09 | disposition other institution (70) ==
LOC: EC 01:08
DX: F29 Unspecified psychosis not due to a substance or known physiological condition (principal); R45.851 Suicidal ideations; Z91.048 Other nonmedicinal substance allergy status; Z90.49 Acquired absence of other specified parts of digestive tract
CPT/HCPCS: 82075; 36415; 93005; 80048; 85025; 85610; 81003; 80306; 87635; 99285; G0480; 80320

== ENCOUNTER 2023-11-05 14:15 | Inpatient (IN) | payer MEDICARE, BC ==
--- NOTE | 2023-11-05 14:55 | XR ---
EXAMINATION TYPE: XR chest 2V DATE OF EXAM: 11/05/2023 COMPARISON: INDICATION: TECHNIQUE: Frontal and lateral views of the chest are obtained. FINDINGS: The heart size is normal. The pulmonary vasculature is normal. The lungs are clear. Moderately large hiatal hernia is present with an air-fluid level. IMPRESSION: 1. No acute pulmonary process. 2. Hiatal hernia
[2023-11-05 15:05] LABS: ALT 19 U/L (4-34); AST 25 U/L (14-36); African American GFR (CKD) 63 (>60 ml/min/1.73 sqM); Albumin 3.3 g/dL (3.5-5.0); Alkaline Phosphatase 40 U/L (38-126); Anion Gap 5 mmol/L; Blood Urea Nitrogen 48 mg/dL (7-17); Calcium 10.3 mg/dL (8.4-10.2); Carbon Dioxide 28 mmol/L (22-30); Chloride 106 mmol/L (98-107); Glucose 106 mg/dL (74-99); Magnesium 1.6 mg/dL (1.6-2.3); Non-African American GFR(CKD) 54 (>60 ml/min/1.73 sqM); Potassium 4.5 mmol/L (3.5-5.1); Sodium 139 mmol/L (137-145); Total Bilirubin 0.3 mg/dL (0.2-1.3); Total Protein 5.5 g/dL (6.3-8.2)
[2023-11-05 15:06] LABS: Anisocytosis Slight; Basophils # (A) 0.1 k/uL (0-0.2); Basophils % (A) 1 %; Eosinophils # (A) 0.2 k/uL (0-0.7); Eosinophils % (A) 3 %; HCT 29.3 % (34.0-46.0); HGB 9.1 gm/dL (11.4-16.0); Hypochromasia Marked; Lymphocytes # (A) 1.2 k/uL (1.0-4.8); Lymphocytes % (A) 16 %; MCH 28.1 pg (25.0-35.0); MCHC 31.1 g/dL (31.0-37.0); MCV 90.6 fL (80.0-100.0); Mean Platelet Volume 8.7; Monocytes # (A) 0.6 k/uL (0-1.0); Monocytes % (A) 8 %; Neutrophils # (A) 5.3 k/uL (1.3-7.7); Neutrophils % (A) 70 %; Platelet Count 293 k/uL (150-450); RBC 3.23 m/uL (3.80-5.40); RDW 19.8 % (11.5-15.5); WBC 7.5 k/uL (3.8-10.6)
[2023-11-05] MEDS: SODIUM CHLORIDE 0.9% 1,000 ML IV ONE (17:01)
[2023-11-05 17:19] LABS: INR 2.6 (<1.2); Prothrombin Time 25.3 sec (10.0-12.5)
[2023-11-05] MEDS: FAMOTIDINE 20 MG/2 ML VIAL IV STA (17:54)
[2023-11-05] MEDS: MORPHINE SULFATE 4 MG/ML SYRINGE IVP STA (17:55)
[2023-11-05] MEDS: MAG HYDROX/AL HYDROX/SIMETH 30 ML, HYOSCYAMINE ELIXIR 10 ML, LIDOCAINE VISCOUS 2% 10 ML PO STA (17:55)
--- NOTE | 2023-11-05 18:05 | CT ---
EXAMINATION TYPE: CT abdomen pelvis w con CT DLP: 2322.6 mGycm, Automated exposure control for dose reduction was used. DATE OF EXAM: 11/05/2023 5:27 PM COMPARISON: CT 11/28/2022 CLINICAL INDICATION:Female, 73 years old with history of abd pain; weakness and back pain TECHNIQUE: Axial CT abdomen pelvis w con;Sagittal and coronal reformats were created on a separate w orkstation. Contrast used:80 mL of Isovue 300 with IV Contrast, (none if empty) Oral contrast used: without Oral Contrast (none if empty) FINDINGS: LOWER CHEST: Unremarkable ABDOMEN LIVER: Unremarkable GALLBLADDER AND BILE DUCTS: The gallbladder is surgically absent. PANCREAS: Unremarkable. SPLEEN: Unremarkable. ADRENAL GLANDS: Unremarkable. KIDNEYS AND URETERS: No evidence of hydronephrosis or renal calculus. The ureters are unremarkable. PELVIS BLADDER: Unremarkable REPRODUCTIVE: The uterus is surgically absent. ABDOMEN & PELVIS STOMACH AND BOWEL: No evidence of bowel obstruction. Large hiatal hernia with ingested contents. PERITONEUM/RETROPERITONEUM: No evidence of pneumoperitoneum or free fluid. Scattered colonic divertic luciana. VASCULATURE: No evidence of aortic aneurysm. MUSCULOSKELETAL: No acute osseous abnormalities. Severe disc degeneration changes are present through out the thoracolumbar spine with grade 1 anterolisthesis of L4 and L5 with facet joint arthropathy, v acuum disc phenomenon and osteophyte formation. This at least moderate L4-L5 spinal canal stenosis. T here is moderate bilateral neural foraminal stenosis also present. Severe atherosclerosis of the spin ous processes. Pseudoarthrosis of the L5 transverse process ligaments to the iliac bones bilaterally LYMPH NODES: No gross evidence for lymphadenopathy. SOFT TISSUE/ABDOMINAL WALL: Fat-containing umbilical hernia. IMPRESSION: 1. No evidence for acute abdominal process. 2. Moderate to severe degeneration changes of the spine with Grade 1 anterolisthesis of L4 on L5 wit h bilateral moderate neural foraminal stenosis and at least moderate spinal canal stenosis. 3. 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 4. Large hiatal hernia with ingested contents. 5. Scattered colonic diverticulosis.
--- NOTE | 2023-11-05 18:09 | ED ---
Weakness HPI - General Chief complaint: Weakness Stated complaint: SOB Time Seen by Provider: 11/05/23 14:22 Source: patient, EMS Mode of arrival: EMS - History of Present Illness Initial comments: 73-year-old female with past medical history of A-fib who presents the emergency department complaining of shortness of breath and generalized weakness. EMS were called to the scene where the patient states that she felt short of breath. Her oxygen was 98%. They did place her on 2 L for comfort. Upon arrival to the hospital the patient states her symptoms have been going on for 2 days. She reports that she felt like she "could not talk". She felt like her reflux was acting up as she has had a "sour stomach". Patient has a history of A-fib and is currently in A-fib with a controlled rate. She denies any sick contacts. No chest pain. Patient does not wear oxygen. She originally denied any abdominal pain but does admit later in the evaluation that she does have some abdominal discomfort. She does admit to low back pain which is also chronic. Patient's is unable to supplement any history. He states that she was complaining of back pain which is chronic. She was just recently hospitalized at a psychiatric facility for homicidal ideations. No reported fevers. No falls. She takes Coumadin for her A-fib. Patient ambulates with a cane. No other alleviating, precipitating or modifying factors - Related Data Home Medications Medication Instructions Recorded Confirmed ALPRAZolam [Xanax] 0.5 mg PO DAILY PRN 01/07/16 11/05/23 Adalimumab [Humira Pen 40 mg SQ TU 01/07/16 11/05/23 Crohn's-Uc-Hs] Folic Acid 1 mg PO DAILY 01/07/16 11/05/23 Metoprolol Succinate (ER) [Toprol 100 mg PO BID 01/07/16 11/05/23 XL] Pantoprazole Sodium [Protonix] 40 mg PO AC-BRKFST 01/07/16 11/05/23 metHOTREXate sodium [Methotrexate] 15 mg PO FR 01/07/16 11/05/23 Cbd Oil 1 dose PO HS 02/28/21 11/05/23 DULoxetine HCL [Cymbalta] 90 mg PO DAILY 02/28/21 11/05/23 Potassium Gluconate [Potassium 99 mg PO DAILY 02/28/21 11/05/23 Gluconate ER] Betamethasone Dipropionate 1 applic TOPICAL BID 04/19/21 11/05/23 [Betamethasone Dipropionate 0.05%] Losartan Potassium 50 mg PO BID 04/19/21 11/05/23 Celecoxib [CeleBREX] 200 mg PO DAILY 06/17/23 11/05/23 Furosemide [Lasix] 20 mg PO DAILY 06/17/23 11/05/23 Gabapentin 800 mg PO TID 06/17/23 11/05/23 Multivit-Min/FA/Lycopen/Lutein 1 tab PO DAILY 06/17/23 11/05/23 [Centrum Silver Tablet] buPROPion HCL [Wellbutrin XL] 150 mg PO DAILY 06/17/23 11/05/23 Cetirizine HCl [Zyrtec] 10 mg PO DAILY 10/23/23 11/05/23 Glycopyrrolate [Robinul Forte] 2 mg PO BID 10/23/23 11/05/23 Warfarin [Coumadin] 5 mg PO HS 10/23/23 11/05/23 Zolpidem [Ambien] 10 mg PO HS 10/23/23 11/05/23 Hydrocortisone [Anusol-Hc] 1 applic RECTAL QID 11/05/23 11/05/23 Ponaris Nasal Emollient 1 - 2 drops EA NOSTRIL BID PRN 11/05/23 11/05/23 Vitamin D3(Unknown Dose) 1 tab PO DAILY 11/05/23 11/05/23 estradioL [Estrace] 0.5 mg PO DAILY 11/05/23 11/05/23 Allergies Allergy/AdvReac Type Severity Reaction Status Date / Time adhesive Allergy Rash/Hives Verified 10/23/23 15:08 Review of Systems ROS Statement: Those systems with pertinent positive or pertinent negative responses have been documented in the HPI. ROS Other: All systems not noted in ROS Statement are negative. Past Medical History Past Medical History: Atrial Fibrillation, Deep Vein Thrombosis (DVT), GERD/Reflux, Hypertension Additional Past Medical History / Comment(s): PSORIATIC ARTHRITIS. mammogram in dicated small cyst to have procedure 05/01/21 History of Any Multi-Drug Resistant Organisms: None Reported Past Surgical History: Appendectomy, Back Surgery, Bladder Surgery, Cholecystectomy, Hysterectomy, Orthopedic Surgery Additional Past Surgical History / Comment(s): vein stripping. ORIF OF RIGHT ANKLE with plate and wire,joint replacement lt great toe with titanium screw . rhizotomy and steroid injections lumbar, millicent knee steroid injection Past Anesthesia/Blood Transfusion Reactions: Previous Problems w/ Anesthesia, Motion Sickness, Postoperative Nausea & Vomiting (PONV) Past Psychological History: Anxiety, Depression Smoking Status: Never smoker Past Alcohol Use History: None Reported Past Drug Use History: None Reported General Exam Limitations: no limitations General appearance: anxious Head exam: Present: atraumatic, normocephalic, normal inspection Eye exam: Present: normal appearance, PERRL, EOMI. Absent: scleral icterus, conjunctival injection, periorbital swelling Respiratory exam: Present: normal lung sounds bilaterally. Absent: respiratory distress, wheezes, rales, rhonchi, stridor Cardiovascular Exam: Present: tachycardia, irregular rhythm GI/Abdominal exam: Present: soft, normal bowel sounds. Absent: distended, tenderness, guarding, rebound, rigid Extremities exam: Present: normal inspection, full ROM, normal capillary refill. Absent: tenderness, pedal edema, joint swelling, calf tenderness Neurological exam: Present: alert, oriented X3, CN II-XII intact Psychiatric exam: Present: anxious Course Vital Signs 11/05/23 11/05/23 11/05/23 14:19 15:46 20:00 Temperature 97.8 F Pulse Rate 82 108 H 100 Respiratory 16 18 18 Rate Blood Pressure 103/67 100/86 133/70 O2 Sat by Pulse 97 98 99 Oximetry 11/05/23 11/06/23 11/06/23 23:03 01:08 04:00 Temperature Pulse Rate 90 82 90 Respiratory 18 18 20 Rate Blood Pressure 116/98 100/80 120/72 O2 Sat by Pulse 96 98 96 Oximetry 11/06/23 11/06/23 11/06/23 07:43 08:54 10:02 Temperature 97.6 F Pulse Rate 89 89 82 Respiratory 20 24 18 Rate Blood Pressure 118/72 109/60 111/71 O2 Sat by Pulse 96 95 96 Oximetry 11/06/23 11/06/23 11/06/23 10:36 12:00 13:48 Temperature 97.6 F Pulse Rate 87 82 91 Respiratory 18 18 26 H Rate Blood Pressure 112/61 130/76 O2 Sat by Pulse 96 95 98 Oximetry 07/18/24 14:25 Temperature Pulse Rate 105 H Respiratory 26 H Rate Blood Pressure 107/73 O2 Sat by Pulse 96 Oximetry Medical Decision Making - Medical Decision Making Was pt. sent in by a medical professional or institution ([facility] Yousif, [employer], urgent care, hospital, or snf...) When possible be specific @ -No Did you speak to anyone other than the patient for history (EMS, parent, family, police, friend...)? What history was obtained from this source @ -I spoke with EMS for history -they state that the patient's oxygen has been 98% Did you review nursing and triage notes (agree or disagree)? Why? @ -I reviewed and agree with nursing and triage notes Were old charts reviewed (outside hosp., previous admission, EMS record, old EKG, old radiological studies, urgent care reports/EKG's, snf records)? Report findings @ -I reviewed patient's ED visit from October 22 when she was hospitalized for homicidal ideations Differential Diagnosis (chest pain, altered mental status, abdominal pain women, abdominal pain men, vaginal bleeding, weakness, fever, dyspnea, syncope, headache, dizziness, GI bleed, back pain, seizure, CVA, palpatations, mental health, musculoskeletal)? @ -Differential Weakness: Hypoglycemia, shock, sepsis, hyponatremia, anemia, infection, [place], ETOH, adverse medicine reaction, overdose, stroke, this is not meant to be an all-inclusive list. EKG interpreted by me (3pts min.). @ -Yes and demonstrates A-fib with rate of 85. QRS 84. QTc 410. No acute ST segment elevations or depressions X-rays interpreted by me (1pt min.). @ -Yes and demonstrates no acute intrathoracic process CT interpreted by me (1pt min.). @ -Yes and does not demonstrate any intra-abdominal process U/S interpreted by me (1pt. min.). @ -None done What testing was considered but not performed or refused? (CT, X-rays, U/S, labs)? Why? @ -None What meds were considered but not given or refused? Why? @ -None Did you discuss the management of the patient with other professionals (professionals i.e. ANDREW Yousif, SH[employer] MECHANIC, lab, RT, psych nurse, secondary social studies teacher, assistant store director, teacher, compliance review officer, case investigator)? Give summary @ -Discussed case with Kailash from [facility] Was smoking cessation discussed for >3mins.? @ -No Was critical care preformed (if so, how long)? @ -No Were there social determinants of health that impacted care today? How? (Homelessness, low income, unemployed, alcoholism, drug addiction, transpor tation, low edu. Level, literacy, decrease access to med. care, half-way, rehab)? @ -No Was there de-escalation of care discussed even if they declined (Discuss DNR or withdrawal of care, Hospice)? DNR status @ -No What co-morbidities impacted this encounter? (DM, HTN, Smoking, COPD, CAD, Cancer, CVA, ARF, Chemo, Hep., AIDS, mental health diagnosis, sleep apnea, morbid obesity)? @ -A-fib Was patient admitted / discharged? Hospital course, mention meds given and route, prescriptions, significant lab abnormalities, going to OR and other pertinent info. @ -Upon arrival patient seen and evaluated in trauma 1. Thorough history and physical exam was obtained from the patient. Patient has stable vital signs. She is on 2 L of oxygen. She originally denies abdominal pain but later on does report to some abdominal pain. Laboratory studies are conducted. Chest x-ray was performed. CT of the patient's abdomen was performed. She remains in stable condition throughout her stay in the emergency department. Patient continues to report to weakness, chronic back pain and "just not feeling right". Patient is unable to get up and ambulate. Due to her reported symptoms I did offer admission for further evaluation of her symptoms for which she was agreeable. Spoke with Kailash from [facility] for admission Undiagnosed new problem with uncertain prognosis? @ -Yes Drug Therapy requiring intensive monitoring for toxicity (Heparin, Nitro, Insulin, Cardizem)? @ -No Were any procedures done? @ -No Diagnosis/symptom? @ -Acute respiratory insufficiency, acute nausea, weakness, chronic back pain Acute, or Chronic, or Acute on Chronic? @ -Acute on chronic Uncomplicated (without systemic symptoms) or Complicated (systemic symptoms)? @ -Complicated Side effects of treatment? @ -No Exacerbation, Progression, or Severe Exacerbation? @ -No Poses a threat to life or bodily function? How? (Chest pain, [place], FL, pneumonia, PE, COPD, DKA, ARF, appy, cholecystitis, CVA, Diverticulitis, Homicidal, Suicidal, threat to staff... and all critical care pts) @ -No - Lab Data Result diagrams: 11/06/23 06:53 11/06/23 06:53 Lab Results 11/05/23 11/05/23 11/05/23 Range/Units 14:32 14:32 14:32 WBC 7.5 (3.8-10.6) k/uL RBC 3.23 L (3.80-5.40) m/uL Hgb 9.1 L (11.4-16.0) gm/dL Hct 29.3 L (34.0-46.0) % MCV 90.6 (80.0-100.0) fL MCH 28.1 (25.0-35.0) pg MCHC 31.1 (31.0-37.0) g/dL RDW 19.8 H (11.5-15.5) % Plt Count 293 (150-450) k/uL MPV 8.7 Neutrophils % 70 % Lymphocytes % 16 % Monocytes % 8 % Eosinophils % 3 % Basophils % 1 % Neutrophils # 5.3 (1.3-7.7) k/uL Lymphocytes # 1.2 (1.0-4.8) k/uL Monocytes # 0.6 (0-1.0) k/uL Eosinophils # 0.2 (0-0.7) k/uL Basophils # 0.1 (0-0.2) k/uL Manual Slide Review Performed Hypochromasia Marked Anisocytosis Slight PT (10.0-12.5) sec INR (<1.2) Sodium 139 (137-145) mmol/L Potassium 4.5 (3.5-5.1) mmol/L Chloride 106 (98-107) mmol/L Carbon Dioxide 28 (22-30) mmol/L Anion Gap 5 mmol/L BUN 48 H (7-17) mg/dL Creatinine 1.02 (0.52-1.04) mg/dL Est GFR (CKD-EPI)AfAm 63 (>60 ml/min/1.73 sqM) Est GFR (CKD-EPI)NonAf 54 (>60 ml/min/1.73 sqM) Glucose 106 H (74-99) mg/dL Plasma Lactic Acid Juan 1.8 (0.7-2.0) mmol/L Calcium 10.3 H (8.4-10.2) mg/dL Magnesium 1.6 (1.6-2.3) mg/dL Total Bilirubin 0.3 (0.2-1.3) mg/dL AST 25 (14-36) U/L ALT 19 (4-34) U/L Alkaline Phosphatase 40 (38-126) U/L Troponin I (0.000-0.034) ng/mL Total Protein 5.5 L (6.3-8.2) g/dL Albumin 3.3 L (3.5-5.0) g/dL Urine Color Urine Appearance (Clear) Urine pH (5.0-8.0) Ur Specific [place] (1.001-1.035) Urine Protein (Negative) Urine Glucose (UA) (Negative) Urine Ketones (Negative) Urine Blood (Negative) Urine Nitrite (Negative) Urine Bilirubin (Negative) Urine Urobilinogen (<2.0) mg/dL Ur Leukocyte Esterase (Negative) Urine RBC (0-5) /hpf Urine WBC (0-5) /hpf Ur Squamous Epith Cells (0-4) /hpf Urine Bacteria (None) /hpf Urine Mucus (None) /hpf Influenza Type A (PCR) (Not Detectd) Influenza Type B (PCR) (Not Detectd) RSV (PCR) (Not Detectd) SARS-CoV-2 (PCR) (Not Detectd) 11/05/23 11/05/23 11/05/23 Range/Units 14:32 14:36 16:58 WBC (3.8-10.6) k/uL RBC (3.80-5.40) m/uL Hgb (11.4-16.0) gm/dL Hct (34.0-46.0) % MCV (80.0-100.0) fL MCH (25.0-35.0) pg MCHC (31.0-37.0) g/dL RDW (11.5-15.5) % Plt Count (150-450) k/uL MPV Neutrophils % % Lymphocytes % % Monocytes % % Eosinophils % % Basophils % % Neutrophils # (1.3-7.7) k/uL Lymphocytes # (1.0-4.8) k/uL Monocytes # (0-1.0) k/uL Eosinophils # (0-0.7) k/uL Basophils # (0-0.2) k/uL Manual Slide Review Hypochromasia Anisocytosis PT 25.3 H (10.0-12.5) sec INR 2.6 H (<1.2) Sodium (137-145) mmol/L Potassium (3.5-5.1) mmol/L Chloride (98-107) mmol/L Carbon Dioxide (22-30) mmol/L Anion Gap mmol/L BUN (7-17) mg/dL Creatinine (0.52-1.04) mg/dL Est GFR (CKD-EPI)AfAm (>60 ml/min/1.73 sqM) Est GFR (CKD-EPI)NonAf (>60 ml/min/1.73 sqM) Glucose (74-99) mg/dL Plasma Lactic Acid Juan (0.7-2.0) mmol/L Calcium (8.4-10.2) mg/dL Magnesium (1.6-2.3) mg/dL Total Bilirubin (0.2-1.3) mg/dL AST (14-36) U/L ALT (4-34) U/L Alkaline Phosphatase (38-126) U/L Troponin I <0.012 (0.000-0.034) ng/mL Total Protein (6.3-8.2) g/dL Albumin (3.5-5.0) g/dL Urine Color Urine Appearance (Clear) Urine pH (5.0-8.0) Ur Specific [place] (1.001-1.035) Urine Protein (Negative) Urine Glucose (UA) (Negative) Urine Ketones (Negative) Urine Blood (Negative) Urine Nitrite (Negative) Urine Bilirubin (Negative) Urine Urobilinogen (<2.0) mg/dL Ur Leukocyte Esterase (Negative) Urine RBC (0-5) /hpf Urine WBC (0-5) /hpf Ur Squamous Epith Cells (0-4) /hpf Urine Bacteria (None) /hpf Urine Mucus (None) /hpf Influenza Type A (PCR) Not Detected (Not Detectd) Influenza Type B (PCR) Not Detected (Not Detectd) RSV (PCR) Not Detected (Not Detectd) SARS-CoV-2 (PCR) Not Detected (Not Detectd) 11/05/23 Range/Units 18:10 WBC (3.8-10.6) k/uL RBC (3.80-5.40) m/uL Hgb (11.4-16.0) gm/dL Hct (34.0-46.0) % MCV (80.0-100.0) fL MCH (25.0-35.0) pg MCHC (31.0-37.0) g/dL RDW (11.5-15.5) % Plt Count (150-450) k/uL MPV Neutrophils % % Lymphocytes % % Monocytes % % Eosinophils % % Basophils % % Neutrophils # (1.3-7.7) k/uL Lymphocytes # (1.0-4.8) k/uL Monocytes # (0-1.0) k/uL Eosinophils # (0-0.7) k/uL Basophils # (0-0.2) k/uL Manual Slide Review Hypochromasia Anisocytosis PT (10.0-12.5) sec INR (<1.2) Sodium (137-145) mmol/L Potassium (3.5-5.1) mmol/L Chloride (98-107) mmol/L Carbon Dioxide (22-30) mmol/L Anion Gap mmol/L BUN (7-17) mg/dL Creatinine (0.52-1.04) mg/dL Est GFR (CKD-EPI)AfAm (>60 ml/min/1.73 sqM) Est GFR (CKD-EPI)NonAf (>60 ml/min/1.73 sqM) Glucose (74-99) mg/dL Plasma Lactic Acid Juan (0.7-2.0) mmol/L Calcium (8.4-10.2) mg/dL Magnesium (1.6-2.3) mg/dL Total Bilirubin (0.2-1.3) mg/dL AST (14-36) U/L ALT (4-34) U/L Alkaline Phosphatase (38-126) U/L Troponin I (0.000-0.034) ng/mL Total Protein (6.3-8.2) g/dL Albumin (3.5-5.0) g/dL Urine Color Colorless Urine Appearance Cloudy H (Clear) Urine pH 7.0 (5.0-8.0) Ur Specific [place]idelity 1.039 H (1.001-1.035) Urine Protein Negative (Negative) Urine Glucose (UA) Negative (Negative) Urine Ketones Trace H (Negative) Urine Blood Negative (Negative) Urine Nitrite Negative (Negative) Urine Bilirubin Negative (Negative) Urine Urobilinogen <2.0 (<2.0) mg/dL Ur Leukocyte Esterase Small H (Negative) Urine RBC <1 (0-5) /hpf Urine WBC 5 (0-5) /hpf Ur Squamous Epith Cells 24 H (0-4) /hpf Urine Bacteria Rare H (None) /hpf Urine Mucus Rare H (None) /hpf Influenza Type A (PCR) (Not Detectd) Influenza Type B (PCR) (Not Detectd) RSV (PCR) (Not Detectd) SARS-CoV-2 (PCR) (Not Detectd) Disposition Clinical Impression: Nausea and vomiting, Abdominal pain, Weakness Disposition: ADMITTED IP TO THIS HOSP Condition: Stable Is patient prescribed a controlled substance at d/c from ED?: No Time of Disposition: 20:37 Decision to Admit Reason: Admit from EC Decision Date: 11/05/23 Decision Time: 20:37
[2023-11-05 18:26] LABS: Appearance,Urine Cloudy (Clear); Bacteria,Urine Rare /hpf; Bilirubin,Urine Negative (Negative); Blood,Urine Negative (Negative); Color,Urine Colorless; Glucose,Urine (UA) Negative (Negative); Ketones,Urine Trace (Negative); Leukocyte Esterase,Urine Small (Negative); Mucus,Urine Rare /hpf; Nitrite,Urine Negative (Negative); Protein,Urine Negative (Negative); RBC,Urine <1 /hpf (0-5); Specific Gravity,Urine 1.039 (1.001-1.035); Squamous Epithelial Cell,Urine 24 /hpf (0-4); Urobilinogen,Urine <2.0 mg/dL (<2.0); WBC,Urine 5 /hpf (0-5)
[2023-11-05] MEDS ORDERED: NALOXONE 0.4 MG/ML 1 ML VIAL IV PRN (20:39)
[2023-11-05] MEDS: SODIUM CHLORIDE 0.9% 1,000 ML IV SCH (21:13)
[2023-11-06] MEDS: GABAPENTIN 400 MG CAP PO SCH ×2 (00:59→10:15)
[2023-11-06] MEDS: ZOLPIDEM 5 MG TAB PO SCH (01:00)
[2023-11-06] MEDS: QUEtiapine 50 MG TAB PO STA (04:01)
[2023-11-06] MEDS ORDERED: ALPRAZolam 0.5 MG TAB PO PRN (08:42)
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
[2023-11-06] MEDS: PANTOPRAZOLE 40 MG/10 ML VIAL IVP SCH (10:03)
[2023-11-06] MEDS: LORATADINE 10 MG TAB PO SCH (10:04)
[2023-11-06] MEDS: DULoxetine HCL 30 MG CAPSULE.DR PO SCH (10:04)
[2023-11-06] MEDS: METOPROLOL SUCCINATE (ER) 100 MG TAB.ER.24H PO SCH (10:04)
[2023-11-06] MEDS: buPROPion XL 150 MG TAB.ER.24H PO SCH (10:04)
[2023-11-06] MEDS: FUROSEMIDE 20 MG TAB PO SCH (10:04)
[2023-11-06] MEDS: FOLIC ACID 1 MG TAB PO SCH (10:04)
--- NOTE | 2023-11-06 10:07 | CT ---
EXAMINATION TYPE: CT brain wo con CT DLP: 1154.4 mGycm, Automated exposure control for dose reduction was used. DATE OF EXAM: 11/06/2023 10:02 AM COMPARISON: MR brain 06/10/2023, CT brain 06/17/2023, 05/22/2023. CLINICAL INDICATION:Female, 73 years old with history of confusion, Confusion, AMS TECHNIQUE: Brain: Multiple axial CT images of the brain were obtained without IV contrast. . Coronal and sagitta l reformats reviewed. FINDINGS: Brain: Extra-axial spaces: No abnormal extra-axial fluid collections. Ventricular system: Within normal limits Cerebral parenchyma: No acute intraparenchymal hemorrhage or mass effect. The haney-white junction is well differentiated. Scattered hypoattenuating areas are seen within the periventricular white matte r. Cerebellum: Unremarkable. Mass effect: No evidence of midline shift. Intracranial vasculature: Atherosclerotic calcifications of the intracranial vessels. Soft tissues: Normal. Calvarium/osseous structures: No depressed skull fracture. Paranasal sinuses and mastoid air cells: Clear Visualized orbits: Orbital contents are intact. IMPRESSION: 1. No acute intracranial process. 2. Nonspecific white matter changes, likely secondary to chronic small vessel ischemic disease.
[2023-11-06 10:29] LABS: INR 2.4 (<1.2); Prothrombin Time 23.7 sec (10.0-12.5)
[2023-11-06 10:32] LABS: Basophils # (A) 0.03 X 10*3/uL (0.00-0.10); Basophils % (A) 0.3 %; Eosinophils # (A) 0.01 X 10*3/uL (0.04-0.35); Eosinophils % (A) 0.1 %; HCT 25.8 % (37.2-46.3); HGB 7.4 g/dL (12.0-15.0); MCH 26.1 pg (27.0-32.0); MCHC 28.7 g/dL (32.0-37.0); MCV 90.8 FL (80.0-97.0); Mean Platelet Volume 10.4 FL (9.5-12.2); Monocytes % (A) 10.3 %; NRBC Per 100 WBC 0.06 X 10*3/uL (0.00-0.01); Neutrophils % (A) 74.9 %; Platelet Count 279 X 10*3/uL (140-440); RBC 2.84 X 10*6/uL (4.10-5.20); RDW 20.9 % (11.5-14.5); WBC 10.68 X 10*3/uL (4.50-10.00)
[2023-11-06 10:43] LABS: BUN/Creat Ratio 58.45 Ratio (12.00-20.00); Blood Urea Nitrogen 64.3 mg/dL (9.0-27.0); Carbon Dioxide 20.6 mmol/L (21.6-31.8); Chloride 108 mmol/L (96-109); Glucose 132 mg/dL (70-110); Potassium 4.5 mmol/L (3.5-5.5); Sodium 139 mmol/L (135-145)
[2023-11-06 13:48] LABS: % Iron Saturation 6.44 (12.00-45.00); Ferritin 22.1 ng/mL (10.0-291.0)
[2023-11-06] MEDS: METOPROLOL TARTRATE 5 MG/5 ML VIAL IVP STA (15:00)
[2023-11-06] MEDS: LORazepam 2 MG/ML INJ IV STA (15:00)
--- NOTE | 2023-11-06 15:12 | P.CONS ---
History of Present Illness - Reason for Consult Consult date: 11/06/23 Anemia, nausea and abdominal pain Requesting physician: Akash E Sheet - Chief Complaint Shortness of breath and generalized weakness - History of Present Illness This is a 73-year-old female who is currently very confused. Gastroenterology consulted for abdominal pain, nausea and anemia. HPI obtained from patient's chart. Apparently patient presented to the emergency department complaining of shortness of breath and generalized weakness, she was brought in by EMS. Also reported that she felt like she could not breathe that she was having some reflux and sour stomach. She has a history of atrial fibrillation on Coumadin, deep vein thrombosis, GERD, hypertension, and psychiatric disorder who was recently hospitalized inpatient psychiatric facility for homicidal ideations. She had a CT of the abdomen and pelvis reporting no evidence for acute abdominal process. There is a large hiatal hernia with ingested contents and scattered colonic diverticulosis. Patient apparently was given Ambien yesterday evening and has been confused since then according to nursing. She has a sitter at the bedside. Patient is unable to answer any questions. On admission had a hemoglobin of 9.9 with a repeat today of 7.4 hematocrit 25 platelet count 279,000 INR 2.4 sodium 139 potassium 4.5 BUN 64 creatinine 1.1 iron 23 TIBC 357 saturation 6.4 ferritin 22 vitamin B12 456 folate 26.90 Review of Systems ROS unobtainable: due to mental status Past Medical History Past Medical History: Atrial Fibrillation, Deep Vein Thrombosis (DVT), GERD/Reflux, Hypertension Additional Past Medical History / Comment(s): PSORIATIC ARTHRITIS. mammogram indicated small cyst to have procedure 05/01/21 History of Any Multi-Drug Resistant Organisms: None Reported Past Surgical History: Appendectomy, Back Surgery, Bladder Surgery, Cholecystectomy, Hysterectomy, Orthopedic Surgery Additional Past Surgical History / Comment(s): vein stripping. ORIF OF RIGHT ANKLE with plate and wire,joint replacement lt great toe with titanium screw . rhizotomy and steroid injections lumbar, millicent knee steroid injection Past Anesthesia/Blood Transfusion Reactions: Previous Problems w/ Anesthesia, Motion Sickness, Postoperative Nausea & Vomiting (PONV) Past Psychological History: Anxiety, Depression Smoking Status: Never smoker Past Alcohol Use History: None Reported Past Drug Use History: None Reported Medications and Allergies Home Medications Medication Instructions Recorded Confirmed Type ALPRAZolam [Xanax] 0.5 mg PO DAILY PRN 01/07/16 11/05/23 History Adalimumab [Humira Pen 40 mg SQ TU 01/07/16 11/05/23 History Crohn's-Uc-Hs] Folic Acid 1 mg PO DAILY 01/07/16 11/05/23 History Metoprolol Succinate (ER) [Toprol 100 mg PO BID 01/07/16 11/05/23 History XL] Pantoprazole Sodium [Protonix] 40 mg PO AC-BRKFST 01/07/16 11/05/23 History metHOTREXate sodium [Methotrexate] 15 mg PO FR 01/07/16 11/05/23 History Cbd Oil 1 dose PO HS 02/28/21 11/05/23 History DULoxetine HCL [Cymbalta] 90 mg PO DAILY 02/28/21 11/05/23 History Potassium Gluconate [Potassium 99 mg PO DAILY 02/28/21 11/05/23 History Gluconate ER] Betamethasone Dipropionate 1 applic TOPICAL BID 04/19/21 11/05/23 History [Betamethasone Dipropionate 0.05%] Losartan Potassium 50 mg PO BID 04/19/21 11/05/23 History Celecoxib [CeleBREX] 200 mg PO DAILY 06/17/23 11/05/23 History Furosemide [Lasix] 20 mg PO DAILY 06/17/23 11/05/23 History Gabapentin 800 mg PO TID 06/17/23 11/05/23 History Multivit-Min/FA/Lycopen/Lutein 1 tab PO DAILY 06/17/23 11/05/23 History [Centrum Silver Tablet] buPROPion HCL [Wellbutrin XL] 150 mg PO DAILY 06/17/23 11/05/23 History Cetirizine HCl [Zyrtec] 10 mg PO DAILY 10/23/23 11/05/23 History Glycopyrrolate [Robinul Forte] 2 mg PO BID 10/23/23 11/05/23 History Warfarin [Coumadin] 5 mg PO HS 10/23/23 11/05/23 History Zolpidem [Ambien] 10 mg PO HS 10/23/23 11/05/23 History Hydrocortisone [Anusol-Hc] 1 applic RECTAL QID 11/05/23 11/05/23 History Ponaris Nasal Emollient 1 - 2 drops EA NOSTRIL BID PRN 11/05/23 11/05/23 History Vitamin D3(Unknown Dose) 1 tab PO DAILY 11/05/23 11/05/23 History estradioL [Estrace] 0.5 mg PO DAILY 11/05/23 11/05/23 History Allergies Allergy/AdvReac Type Severity Reaction Status Date / Time adhesive Allergy Rash/Hives Verified 10/23/23 15:08 Physical Exam Vitals: Vital Signs Temp Pulse Resp BP Pulse Ox 11/06/23 14:25 105 H 26 H 107/73 96 11/06/23 13:48 91 26 H 130/76 98 11/06/23 12:00 97.6 F 82 18 112/61 95 11/06/23 10:36 87 18 96 11/06/23 10:02 82 18 111/71 96 11/06/23 08:54 89 24 109/60 95 11/06/23 07:43 97.6 F 89 20 118/72 96 11/06/23 04:00 90 20 120/72 96 11/06/23 01:08 82 18 100/80 98 11/05/23 23:03 90 18 116/98 96 11/05/23 20:00 100 18 133/70 99 11/05/23 15:46 108 H 18 100/86 98 Intake and Output 11/05/23 11/06/23 11/06/23 22:59 06:59 14:59 Output Total 700 Balance -700 Output: Urine 700 Uretheral ([place]) 700 General appearance: The patient is confused, sitter at bedside. HET: Head is normocephalic and atraumatic. Conjunctiva pink. Sclera anicteric. Neck: Supple without lymphadenopathy. Trachea midline. Heart: Regular. Lungs: Equal expansion, normal respiratory effort. Abdomen: Soft, nontender, nondistended. Skin: No rashes. No jaundice. Extremities: Normal skin color and turgor. No pedal edema. Neurological: Patient alert but confused. Results CBC & Chem 7: 11/06/23 06:53 11/06/23 06:53 Labs: Abnormal Lab Results - Last 24 Hours (Table) 11/05/23 11/05/23 11/05/23 Range/Units 14:32 14:32 16:58 WBC (4.50-10.00) X 10*3/uL RBC 3.23 L (3.80-5.40) m/uL Hgb 9.1 L (11.4-16.0) gm/dL Hct 29.3 L (34.0-46.0) % MCH (27.0-32.0) pg MCHC (32.0-37.0) g/dL RDW 19.8 H (11.5-15.5) % Neutrophils # (1.80-7.70) X 10*3/uL Monocytes # (0.20-1.00) X 10*3/uL Eosinophils # (0.04-0.35) X 10*3/uL NRBC/100 WBC Diff (0.00-0.01) X 10*3/uL PT 25.3 H (10.0-12.5) sec INR 2.6 H (<1.2) Carbon Dioxide (21.6-31.8) mmol/L BUN 48 H (7-17) mg/dL Est GFR (CKD-EPI) (>=60) BUN/Creatinine Ratio (12.00-20.00) Ratio Glucose 106 H (74-99) mg/dL Calcium 10.3 H (8.4-10.2) mg/dL Iron (50-170) UG/DL % Saturation (12.00-45.00) Total Protein 5.5 L (6.3-8.2) g/dL Albumin 3.3 L (3.5-5.0) g/dL Urine Appearance (Clear) Ur Specific [place] (1.001-1.035) Urine Ketones (Negative) Ur Leukocyte Esterase (Negative) Ur Squamous Epith Cells (0-4) /hpf Urine Bacteria (None) /hpf Urine Mucus (None) /hpf 11/05/23 11/06/23 11/06/23 Range/Units 18:10 06:53 06:53 WBC 10.68 H (4.50-10.00) X 10*3/uL RBC 2.84 L (3.80-5.40) m/uL Hgb 7.4 L (11.4-16.0) gm/dL Hct 25.8 L (34.0-46.0) % MCH 26.1 L (27.0-32.0) pg MCHC 28.7 L (32.0-37.0) g/dL RDW 20.9 H (11.5-15.5) % Neutrophils # 8.00 H (1.80-7.70) X 10*3/uL Monocytes # 1.10 H (0.20-1.00) X 10*3/uL Eosinophils # 0.01 L (0.04-0.35) X 10*3/uL NRBC/100 WBC Diff 0.06 H (0.00-0.01) X 10*3/uL PT (10.0-12.5) sec INR (<1.2) Carbon Dioxide 20.6 L (21.6-31.8) mmol/L BUN 64.3 H (7-17) mg/dL Est GFR (CKD-EPI) 52 L (>=60) BUN/Creatinine Ratio 58.45 H (12.00-20.00) Ratio Glucose 132 H (74-99) mg/dL Calcium (8.4-10.2) mg/dL Iron (50-170) UG/DL % Saturation (12.00-45.00) Total Protein (6.3-8.2) g/dL Albumin (3.5-5.0) g/dL Urine Appearance Cloudy H (Clear) Ur Specific [place] 1.039 H (1.001-1.035) Urine Ketones Trace H (Negative) Ur Leukocyte Esterase Small H (Negative) Ur Squamous Epith Cells 24 H (0-4) /hpf Urine Bacteria Rare H (None) /hpf Urine Mucus Rare H (None) /hpf 24 11/06/23 Range/Units 08:45 10:00 WBC (4.50-10.00) X 10*3/uL RBC (3.80-5.40) m/uL Hgb (11.4-16.0) gm/dL Hct (34.0-46.0) % MCH (27.0-32.0) pg MCHC (32.0-37.0) g/dL RDW (11.5-15.5) % Neutrophils # (1.80-7.70) X 10*3/uL Monocytes # (0.20-1.00) X 10*3/uL Eosinophils # (0.04-0.35) X 10*3/uL NRBC/100 WBC Diff (0.00-0.01) X 10*3/uL PT 23.7 H (10.0-12.5) sec INR 2.4 H (<1.2) Carbon Dioxide (21.6-31.8) mmol/L BUN (7-17) mg/dL Est GFR (CKD-EPI) (>=60) BUN/Creatinine Ratio (12.00-20.00) Ratio Glucose (74-99) mg/dL Calcium (8.4-10.2) mg/dL Iron 23 L (50-170) UG/DL % Saturation 6.44 L (12.00-45.00) Total Protein (6.3-8.2) g/dL Albumin (3.5-5.0) g/dL Urine Appearance (Clear) Ur Specific [place] (1.001-1.035) Urine Ketones (Negative) Ur Leukocyte Esterase (Negative) Ur Squamous Epith Cells (0-4) /hpf Urine Bacteria (None) /hpf Urine Mucus (None) /hpf Comments: CT abdomen and pelvis with contrast reports no evidence for acute abdominal process. Moderate to severe degeneration changes of the spine with grade 1 anterolisthesis of L4 on L5 with bilateral moderate neural forearm middle stenosis and at least moderate spinal canal stenosis. 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 Large hiatal hernia with ingested contents. Scattered colonic diverticulosis. Brain CT reports no acute intracranial process. Nonspecific white matter changes, likely secondary to chronic small vessel ischemic disease Assessment and Plan (1) Anemia Narrative/Plan: 73-year-old female with multiple comorbidities including atrial fibrillation and history of DVT on anticoagulation with Coumadin presented reportedly for shortness of breath. Apparently also had some complaints of abdominal pain was noted to have drop in her hemoglobin from previous admission which showed some mild anemia. Unclear etiology, no reported signs of GI bleed However need to consider possible GI bleed especially in setting of chronic anticoagulation use. Iron studies consistent with iron deficiency anemia. Will treat medically at this time as patient is very confused. No records of any EGD or colonoscopy available for review. Recommend holding anticoagulation as patient had 2 g drop in hemoglobin from yesterday although this could be dilutional Current Visit: Yes Status: Acute Code(s): D64.9 - ANEMIA, UNSPECIFIED SNOMED Code(s): 910832389 (2) Abdominal pain Narrative/Plan: Abdominal pain and nausea and vomiting could be secondary to gastroparesis as there was large amount of retained food noted in patient's large hiatal hernia. Recommend small portions, chewing up food really good before swallowing. Current Visit: Yes Status: Acute Code(s): R10.9 - UNSPECIFIED ABDOMINAL PAIN SNOMED Code(s): 10137321 (3) Confusion Current Visit: No Status: Acute Code(s): R41.0 - DISORIENTATION, UNSPECIFIED SNOMED Code(s): 196254066 Plan: 1. Continue symptomatic and supportive care 2. Newly CBC, transfuse for hemoglobin less than 7 3. Hold anticoagulation for now 4. Protonix 40 mg twice daily 5. Parental iron ordered 6. Patient may have regular diet, recommend small portions 7. No plans at this time for endoscopic evaluation due to patient's mentation 8. Rest of medical management per primary medical team Thank you for this consultation, we will continue to follow. Dr. Luigi Junior I agree with the dictator's note, documented as a scribe by Elli Alas.
[2023-11-06] MEDS: HALOPERIDOL LACTATE 5 MG/ML 1 ML VIAL IVP ONE ×2 (15:19→16:18)
[2023-11-06 15:43] LABS: Anisocytosis Moderate; HCT 21.9 % (34.0-46.0); Hypochromasia Marked; MCH 27.8 pg (25.0-35.0); MCHC 31.1 g/dL (31.0-37.0); MCV 89.5 fL (80.0-100.0); Mean Platelet Volume 8.6; Platelet Count 273 k/uL (150-450); RBC 2.45 m/uL (3.80-5.40); RDW 20.9 % (11.5-15.5); WBC 10.1 k/uL (3.8-10.6)
[2023-11-06 15:46] LABS: HGB 6.8 gm/dL (11.4-16.0)
[2023-11-06] MEDS: SODIUM FERRIC GLUCONAT-SUCROSE 125 MG in SODIUM CHLORIDE 0.9% 100 ML IVPB ONE (16:20)
[2023-11-06] MEDS: SODIUM CHLORIDE 0.9% 500 ML 500 ML IV ONE (16:20)
[2023-11-06] MEDS: PHYTONADIONE 2 MG in SODIUM CHLORIDE 0.9% 50 ML IVPB STA (17:58)
[2023-11-06] MEDS: HALOPERIDOL LACTATE 5 MG/ML 1 ML VIAL IVP PRN (18:08)
[2023-11-06 20:13] LABS: Appearance,Urine Clear (Clear); Bilirubin,Urine Negative (Negative); Blood,Urine Small (Negative); Color,Urine Light Yellow; Glucose,Urine (UA) Negative (Negative); Ketones,Urine Negative (Negative); Leukocyte Esterase,Urine Moderate (Negative); Mucus,Urine Rare /hpf; Nitrite,Urine Negative (Negative); Protein,Urine Negative (Negative); RBC,Urine 4 /hpf (0-5); Specific Gravity,Urine 1.025 (1.001-1.035); Urobilinogen,Urine <2.0 mg/dL (<2.0); WBC,Urine 15 /hpf (0-5)
[2023-11-06] MEDS ORDERED: WARFARIN 5 MG TAB PO SCH (21:00)
[2023-11-06] MEDS: HALOPERIDOL LACTATE 5 MG/ML 1 ML VIAL IVP STA (21:06)
[2023-11-07] MEDS: DILTIAZEM 125 MG in SODIUM CHLORIDE 0.9% 100 ML IV SCH (05:49)
[2023-11-07 06:59] LABS: Anisocytosis Moderate; Basophils % (A) 0 %; Eosinophils % (A) 0 %; HCT 24.5 % (34.0-46.0); HGB 7.6 gm/dL (11.4-16.0); Hypochromasia Marked; Lymphocytes % (A) 5 %; MCH 27.7 pg (25.0-35.0); MCHC 30.9 g/dL (31.0-37.0); MCV 89.7 fL (80.0-100.0); Mean Platelet Volume 8.6; Monocytes # (A) 1.3 k/uL (0-1.0); Monocytes % (A) 7 %; Neutrophils # (A) 16.3 k/uL (1.3-7.7); Neutrophils % (A) 86 %; Platelet Count 287 k/uL (150-450); Poikilocytosis Moderate; RBC 2.73 m/uL (3.80-5.40); RDW 20.1 % (11.5-15.5); WBC 18.9 k/uL (3.8-10.6)
[2023-11-07 07:06] LABS: INR 1.6 (<1.2); Prothrombin Time 16.8 sec (10.0-12.5)
[2023-11-07 07:21] LABS: African American GFR (CKD) 59 (>60 ml/min/1.73 sqM); Albumin 2.7 g/dL (3.5-5.0); Anion Gap 4 mmol/L; Blood Urea Nitrogen 64 mg/dL (7-17); Calcium 8.6 mg/dL (8.4-10.2); Carbon Dioxide 20 mmol/L (22-30); Chloride 117 mmol/L (98-107); Glucose 131 mg/dL (74-99); Non-African American GFR(CKD) 51 (>60 ml/min/1.73 sqM); Potassium 3.7 mmol/L (3.5-5.1); Sodium 141 mmol/L (137-145); Total Bilirubin 0.4 mg/dL (0.2-1.3); Total Protein 4.8 g/dL (6.3-8.2)
[2023-11-07 07:23] LABS: ALT 19 U/L (4-34); AST 26 U/L (14-36); Alkaline Phosphatase 41 U/L (38-126); Bilirubin, Delta 0.2 mg/dL (0.0-0.2); Bilirubin,Unconjugated 0.2 mg/dL (0.0-1.1)
[2023-11-07] MEDS: ACETAMINOPHEN TAB 325 MG TAB PO PRN (08:22)
[2023-11-07] MEDS: SODIUM FERRIC GLUCONAT-SUCROSE 125 MG in SODIUM CHLORIDE 0.9% 100 ML IVPB SCH (09:48)
--- NOTE | 2023-11-07 12:11 | P.PN ---
Subjective Progress Note Date: 11/07/23 Principal diagnosis: Anemia This is a 73-year-old female who is currently very confused. Gastroenterology consulted for abdominal pain, nausea and anemia. HPI obtained from patient's chart. Apparently patient presented to the emergency department complaining of shortness of breath and generalized weakness, she was brought in by EMS. Also reported that she felt like she could not breathe that she was having some reflux and sour stomach. She has a history of atrial fibrillation on Coumadin, deep vein thrombosis, GERD, hypertension, and psychiatric disorder who was rece ntly hospitalized inpatient psychiatric facility for homicidal ideations. She had a CT of the abdomen and pelvis reporting no evidence for acute abdominal process. There is a large hiatal hernia with ingested contents and scattered colonic diverticulosis. Patient apparently was given Ambien yesterday evening and has been confused since then according to nursing. She has a sitter at the bedside. Patient is unable to answer any questions. On admission had a hemoglobin of 9.9 with a repeat today of 7.4 hematocrit 25 platelet count 279,000 INR 2.4 sodium 139 potassium 4.5 BUN 64 creatinine 1.1 iron 23 TIBC 357 saturation 6.4 ferritin 22 vitamin B12 456 folate 26.90 11/07/2023 Patient seen and examined today as a follow-up. She remains confused with a sitter at the bedside and is in soft restraints. She states that she has pain everywhere in her body. She keeps stating that she has to go P but she has a [place] catheter in place.she is status post 1 unit of blood transfusion with a repeat hemoglobin today is 7.6. No reported bloody bowel movements, nausea or vomiting. Objective - Vital Signs Vital signs: Vital Signs Temp 97.9 F 11/06/23 23:00 Pulse 139 H 11/07/23 04:00 Resp 20 11/07/23 04:00 BP 139/63 11/07/23 04:00 Pulse Ox 98 11/07/23 04:00 FiO2 Intake & Output 11/06/23 11/07/23 11/07/23 18:59 06:59 18:59 Intake Total 0 550 Output Total 1050 Balance -1050 550 Weight 125 kg Intake: Oral 240 Blood Product 0 310 Rc As-1 Unit 0 310 [id number] Output: Urine 1050 Uretheral ([place]) 1050 Other: Voiding Method Indwelling Catheter - Exam General appearance: The patient is alert, disoriented, confused. HET: Head is normocephalic and atraumatic. Conjunctiva pink. Sclera anicteric. Neck: Supple without lymphadenopathy. Abdomen: Soft,diffuse tenderness, nondistended. Extremities: Normal skin color and turgor. No pedal edema Skin: No rashes, no jaundice Neurological: disoriented and confused. - Labs CBC & Chem 7: 11/07/23 06:44 11/07/23 06:44 Labs: Abnormal Lab Results - Last 24 Hours (Table) 11/06/23 11/06/23 11/06/23 Range/Units 06:53 06:53 08:45 WBC 10.68 H (4.50-10.00) X 10*3/uL RBC 2.84 L (4.10-5.20) X 10*6/uL Hgb 7.4 L (12.0-15.0) g/dL Hct 25.8 L (37.2-46.3) % MCH 26.1 L (27.0-32.0) pg MCHC 28.7 L (32.0-37.0) g/dL RDW 20.9 H (11.5-14.5) % Neutrophils # 8.00 H (1.80-7.70) X 10*3/uL Monocytes # 1.10 H (0.20-1.00) X 10*3/uL Eosinophils # 0.01 L (0.04-0.35) X 10*3/uL NRBC/100 WBC Diff 0.06 H (0.00-0.01) X 10*3/uL PT (10.0-12.5) sec INR (<1.2) Carbon Dioxide 20.6 L (21.6-31.8) mmol/L BUN 64.3 H (9.0-27.0) mg/dL Est GFR (CKD-EPI) 52 L (>=60) BUN/Creatinine Ratio 58.45 H (12.00-20.00) Ratio Glucose 132 H (70-110) mg/dL Iron 23 L (50-170) UG/DL % Saturation 6.44 L (12.00-45.00) Urine Blood (Negative) Ur Leukocyte Esterase (Negative) Urine WBC (0-5) /hpf Urine Mucus (None) /hpf Crossmatch 11/06/23 11/06/23 11/06/23 Range/Units 10:00 15:15 15:20 WBC (4.50-10.00) X 10*3/uL RBC 2.45 L (4.10-5.20) X 10*6/uL Hgb 6.8 L* D (12.0-15.0) g/dL Hct 21.9 L (37.2-46.3) % MCH (27.0-32.0) pg MCHC (32.0-37.0) g/dL RDW 20.9 H (11.5-14.5) % Neutrophils # (1.80-7.70) X 10*3/uL Monocytes # (0.20-1.00) X 10*3/uL Eosinophils # (0.04-0.35) X 10*3/uL NRBC/100 WBC Diff (0.00-0.01) X 10*3/uL PT 23.7 H (10.0-12.5) sec INR 2.4 H (<1.2) Carbon Dioxide (21.6-31.8) mmol/L BUN (9.0-27.0) mg/dL Est GFR (CKD-EPI) (>=60) BUN/Creatinine Ratio (12.00-20.00) Ratio Glucose (70-110) mg/dL Iron (50-170) UG/DL % Saturation (12.00-45.00) Urine Blood (Negative) Ur Leukocyte Esterase (Negative) Urine WBC (0-5) /hpf Urine Mucus (None) /hpf Crossmatch See Detail 11/06/23 11/07/23 11/07/23 Range/Units 19:41 06:44 06:44 WBC 18.9 H (4.50-10.00) X 10*3/uL RBC 2.73 L (4.10-5.20) X 10*6/uL Hgb 7.6 L (12.0-15.0) g/dL Hct 24.5 L (37.2-46.3) % MCH (27.0-32.0) pg MCHC 30.9 L (32.0-37.0) g/dL RDW 20.1 H (11.5-14.5) % Neutrophils # 16.3 H (1.80-7.70) X 10*3/uL Monocytes # 1.3 H (0.20-1.00) X 10*3/uL Eosinophils # (0.04-0.35) X 10*3/uL NRBC/100 WBC Diff (0.00-0.01) X 10*3/uL PT 16.8 H (10.0-12.5) sec INR 1.6 H (<1.2) Carbon Dioxide (21.6-31.8) mmol/L BUN (9.0-27.0) mg/dL Est GFR (CKD-EPI) (>=60) BUN/Creatinine Ratio (12.00-20.00) Ratio Glucose (70-110) mg/dL Iron (50-170) UG/DL % Saturation (12.00-45.00) Urine Blood Small H (Negative) Ur Leukocyte Esterase Moderate H (Negative) Urine WBC 15 H (0-5) /hpf Urine Mucus Rare H (None) /hpf Crossmatch Assessment and Plan (1) Anemia Narrative/Plan: 73-year-old female with multiple comorbidities including atrial fibrillation and history of DVT on anticoagulation with Coumadin presented reportedly for shortness of breath. Apparently also had some complaints of abdominal pain was noted to have drop in her hemoglobin from previous admission which showed some mild anemia. Unclear etiology, no reported signs of GI bleed However need to consider possible GI bleed especially in setting of chronic anticoagulation use. Iron studies consistent with iron deficiency anemia. Will treat medically at this time as patient is very confused. No records of any EGD or colonoscopy available for review. Recommend holding anticoagulation as patient had 2 g drop in hemoglobin from yesterday although this could be dilutional Current Visit: Yes Status: Acute Code(s): D64.9 - ANEMIA, UNSPECIFIED SNOMED Code(s): 590043633 (2) Abdominal pain Narrative/Plan: Abdominal pain and nausea and vomiting could be secondary to gastroparesis as there was large amount of retained food noted in patient's large hiatal hernia. Recommend small portions, chewing up food really good before swallowing. Current Visit: Yes Status: Acute Code(s): R10.9 - UNSPECIFIED ABDOMINAL PAIN SNOMED Code(s): 29809938 (3) Confusion Current Visit: No Status: Acute Code(s): R41.0 - DISORIENTATION, UNSPECIFIED SNOMED Code(s): 667309527 Plan: 1. Continue symptomatic and supportive care 2. May resume anticoagulationat the discretion of primary provider 3. Protonix 40 mg twice daily 4. Parental iron ordered 5. Patient may have regular diet, recommend small portions 6. No plans at this time for endoscopic evaluation. consider outpatient follow- up and possible endoscopic evaluation at that time 7. Rest of medical management per primary medical team Thank you for allowing us to participate in the care of the patient, the GI service will sign off, gastroenterology will not be available at the hospital this weekend and through next week. If further evaluation by gastroenterology is required the patient will need transfer as per the primary team's discretion. Dr. Luigi Junior I agree with the dictator's note, documented as a scribe by Elli Alas.
[2023-11-07 12:39] LABS: Anisocytosis Moderate; HCT 24.1 % (34.0-46.0); HGB 7.2 gm/dL (11.4-16.0); Hypochromasia Marked; MCH 27.6 pg (25.0-35.0); MCHC 29.8 g/dL (31.0-37.0); MCV 92.7 fL (80.0-100.0); Macrocytosis Slight; Mean Platelet Volume 8.5; Platelet Count 279 k/uL (150-450); Poikilocytosis Slight; RDW 20.3 % (11.5-15.5); WBC 25.3 k/uL (3.8-10.6)
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
[2023-11-08 07:55] LABS: Anisocytosis Moderate; HCT 22.2 % (34.0-46.0); Hypochromasia Marked; MCH 29.3 pg (25.0-35.0); MCHC 31.5 g/dL (31.0-37.0); MCV 93.1 fL (80.0-100.0); Macrocytosis Slight; Mean Platelet Volume 10.4; Platelet Count 244 k/uL (150-450); Poikilocytosis Moderate; RBC 2.39 m/uL (3.80-5.40)
[2023-11-08 08:06] LABS: INR 1.2 (<1.2); Prothrombin Time 12.8 sec (10.0-12.5)
[2023-11-08 08:24] LABS: Neutrophils % (M) 87 %; Nucleated Red Blood Cells 1 /100 WBC (0-0); Total Cells Counted 100
[2023-11-08 08:25] LABS: Lymphocytes # (M) 1.75 k/uL (1.0-4.8); Neutrophils # (M) 21.75 k/uL (1.3-7.7); Polychromasia Present
[2023-11-08 08:29] LABS: African American GFR (CKD) 65 (>60 ml/min/1.73 sqM); Anion Gap 4 mmol/L; Blood Urea Nitrogen 53 mg/dL (7-17); Calcium 9.1 mg/dL (8.4-10.2); Carbon Dioxide 18 mmol/L (22-30); Chloride 122 mmol/L (98-107); Glucose 144 mg/dL (74-99); Non-African American GFR(CKD) 57 (>60 ml/min/1.73 sqM); Sodium 144 mmol/L (137-145)
[2023-11-08 08:39] LABS: Potassium 4.5 mmol/L (3.5-5.1)
[2023-11-08] MEDS ORDERED: SODIUM FERRIC GLUCONAT-SUCROSE 125 MG in SODIUM CHLORIDE 0.9% 100 ML IVPB SCH (11:30)
--- NOTE | 2023-11-08 12:51 | P.CRDCN ---
History of Present Illness History of present illness: HISTORY OF PRESENT ILLNESS: This is a 73-year-old female with a past medical history significant for hypertension, mild coronary artery disease, paroxysmal atrial fibrillation, and morbid obesity. Patient follows in the office with Dr. Junior. We have been asked to see the patient in consultation for A-fib with RVR. Patient examined at the bedside. Patient was brought to the emergency room with a reported chief complaint of shortness of breath and generalized weakness. The patient was found to have anemia and was evaluated by GI services with no plans for endoscopy. Hemoglobin today 7.0. Patient was transfused 1 unit packed RBCs during her hospitalization. Patient remains in atrial fibrillation with a heart rate in the 90s. She remains on IV Cardizem at 10 mg an hour. Her anticoagulation has since been discontinued. DIAGNOSTICS: - Laboratory data: WBC 25.0. Hemoglobin 7.0. Platelet count 10.4. Sodium 144. Potassium 4.5. BUN 53. Creatinine 0.98. - Current home cardiac medications include Coumadin 5 mg at night, metoprolol succinate 100 mg twice a day, Lasix 20 mg daily. - Most recent echocardiogram obtained in February 2021 revealed ejection fraction 55%, mild MR, mild TR - Cardiac catheterization history: April 2021 revealed mild to moderate CAD with 10 to 20% RCA stenosis, 50 to 60% LAD stenosis, LAD lesion IFR normal at 0.92. REVIEW OF SYSTEMS: At the time of my exam: CONSTITUTIONAL: Denies fever or chills. HEENT: Denies blurred vision, vision changes, or eye pain. Denies hemoptysis CARDIOVASCULAR: Denies chest pain. Denies orthopnea. Denies PND. Denies palpitations RESPIRATORY: Denies shortness of breath. GASTROINTESTINAL: Denies abdominal pain. Denies nausea or vomiting. HEMATOLOGIC: Denies bleeding disorders. GENITOURINARY: Denies any blood in urine. SKIN: Denies pruitis. Denies rash. PHYSICAL EXAM: VITAL SIGNS: Reviewed. GENERAL: Well-developed in no acute distress. HEENT: Head is normocephalic. Pupils are equal, round. Sclerae anicteric. Mucous membranes of the mouth are moist. Neck supple. No JVD or thyromegaly LUNGS: Respirations even and unlabored. Lungs essentially clear to auscultation bilaterally. HEART: Irregular rate and rhythm. S1 and S2 heard. ABDOMEN: Soft. Nondistended. Nontender. EXTREMITIES: Normal range of motion. No clubbing or cyanosis. Peripheral pulses intact. No lower extremity edema NEUROLOGIC: Lethargic ASSESSMENT: Mental status Anemia, status post 1 unit RBC transfusion Paroxysmal atrial fibrillation, on Coumadin outpatient Hypertension Mild nonobstructive CAD PLAN: Recommend holding anticoagulation at this time. Can be reassessed on an outpatient basis Increase metoprolol succinate to 150 mg twice a day Decrease Cardizem drip 5 mg an hour. Wean off if heart rate will tolerate Continue telemetry monitoring Further recommendations pending patient course Nurse practitioner note has been reviewed by physician. Signing provider agrees with the documented findings, assessment, and plan of care documented by CASH MANAGER as a scribe. Past Medical History Past Medical History: Atrial Fibrillation, Dementia, Deep Vein Thrombosis (DVT), GERD/Reflux, Hypertension Additional Past Medical History / Comment(s): PSORIATIC ARTHRITIS. mammogram indicated small cyst to have procedure 05/01/21 History of Any Multi-Drug Resistant Organisms: None Reported Past Surgical History: Appendectomy, Back Surgery, Bladder Surgery, Cholecystectomy, Hysterectomy, Orthopedic Surgery Additional Past Surgical History / Comment(s): vein stripping. ORIF OF RIGHT ANKLE with plate and wire,joint replacement lt great toe with titanium screw . rhizotomy and steroid injections lumbar, millicent knee steroid injection Past Anesthesia/Blood Transfusion Reactions: Previous Problems w/ Anesthesia, Motion Sickness, Postoperative Nausea & Vomiting (PONV) Past Psychological History: Anxiety, Depression Smoking Status: Never smoker Past Alcohol Use History: None Reported Past Drug Use History: None Reported Additional Drug Use History / Comment(s): cbd oil Medications and Allergies Home Medications Medication Instructions Recorded Confirmed Type ALPRAZolam [Xanax] 0.5 mg PO DAILY PRN 01/07/16 11/05/23 History Adalimumab [Humira Pen 40 mg SQ TU 01/07/16 11/05/23 History Crohn's-Uc-Hs] Folic Acid 1 mg PO DAILY 01/07/16 11/05/23 History Metoprolol Succinate (ER) [Toprol 100 mg PO BID 01/07/16 11/05/23 History XL] Pantoprazole Sodium [Protonix] 40 mg PO [id number] 01/07/16 11/05/23 History metHOTREXate sodium [Methotrexate] 15 mg PO FR 01/07/16 11/05/23 History Cbd Oil 1 dose PO HS 02/28/21 11/05/23 History DULoxetine HCL [Cymbalta] 90 mg PO DAILY 02/28/21 11/05/23 History Potassium Gluconate [Potassium 99 mg PO DAILY 02/28/21 11/05/23 History Gluconate ER] Betamethasone Dipropionate 1 applic TOPICAL BID 04/19/21 11/05/23 History [Betamethasone Dipropionate 0.05%] Losartan Potassium 50 mg PO BID 04/19/21 11/05/23 History Celecoxib [CeleBREX] 200 mg PO DAILY 06/17/23 11/05/23 History Furosemide [Lasix] 20 mg PO DAILY 06/17/23 11/05/23 History Gabapentin 800 mg PO TID 06/17/23 11/05/23 History Multivit-Min/FA/Lycopen/Lutein 1 tab PO DAILY 06/17/23 11/05/23 History [Centrum Silver Tablet] buPROPion HCL [Wellbutrin XL] 150 mg PO DAILY 06/17/23 11/05/23 History Cetirizine HCl [Zyrtec] 10 mg PO DAILY 10/23/23 11/05/23 History Glycopyrrolate [Robinul Forte] 2 mg PO BID 10/23/23 11/05/23 History Warfarin [Coumadin] 5 mg PO HS 10/23/23 11/05/23 History Zolpidem [Ambien] 10 mg PO HS 10/23/23 11/05/23 History Hydrocortisone [Anusol-Hc] 1 applic RECTAL QID 11/05/23 11/05/23 History Ponaris Nasal Emollient 1 - 2 drops EA NOSTRIL BID PRN 11/05/23 11/05/23 History Vitamin D3(Unknown Dose) 1 tab PO DAILY 11/05/23 11/05/23 History estradioL [Estrace] 0.5 mg PO DAILY 11/05/23 11/05/23 History Allergies Allergy/AdvReac Type Severity Reaction Status Date / Time adhesive Allergy Rash/Hives Verified 10/23/23 15:08 Physical Exam Vitals: Vital Signs Temp Pulse Resp BP Pulse Ox 11/08/23 08:15 97.5 F L 91 17 141/65 97 11/08/23 02:00 84 16 137/75 96 11/07/23 20:00 97.4 F L 81 20 134/74 98 11/07/23 15:11 98.2 F 96 18 154/79 97 Intake and Output 11/07/23 11/08/23 11/08/23 22:59 06:59 14:59 Intake Total 696.667 352.167 Output Total 600 250 Balance 96.667 102.167 Intake: Intake, IV Titration 96.667 112.167 Amount Diltiazem 125 mg In 96.667 112.167 Sodium Chloride 0.9% 100 ml @ 10 MG/HR 10 mls/hr IV .[id number] [facility] Rx#: [id number] Oral 600 240 Output: Urine 600 250 Uretheral ([place]) 350 Other: Voiding Method Indwelling Catheter Indwelling Catheter Results 11/08/23 07:46 11/08/23 07:46 Coagulation 11/08/23 Range/Units 07:46 PT 12.8 H (10.0-12.5) sec CBC 11/08/23 Range/Units 07:46 WBC 25.0 H (3.8-10.6) k/uL RBC 2.39 L (3.80-5.40) m/uL Hgb 7.0 L (11.4-16.0) gm/dL Hct 22.2 L (34.0-46.0) % Plt Count 244 (150-450) k/uL Comprehensive Metabolic Panel 11/08/23 Range/Units 07:46 Sodium 144 (137-145) mmol/L Potassium 4.5 (3.5-5.1) mmol/L Chloride 122 H (98-107) mmol/L Carbon Dioxide 18 L (22-30) mmol/L BUN 53 H (7-17) mg/dL Creatinine 0.98 (0.52-1.04) mg/dL Glucose 144 H (74-99) mg/dL Calcium 9.1 (8.4-10.2) mg/dL Current Medications Generic Name Dose Route Start Last Admin Trade Name Freq PRN Reason Stop Dose Admin Acetaminophen 650 mg 11/05/23 20:39 11/08/23 02:41 Acetaminophen Tab 325 Mg Tab PO 650 mg Q6HR PRN Administration Mild Pain or Fever > 100.5 Bupropion HCl 150 mg 11/06/23 09:00 11/06/23 10:14 Bupropion Xl 150 Mg Tab.Er.24h PO Not Given DAILY [facility] Duloxetine HCl 90 mg 11/06/23 09:00 11/08/23 10:10 Duloxetine Hcl 30 Mg Capsule.Dr PO 90 mg DAILY [facility] Administration Folic Acid 1 mg 11/06/23 09:00 11/08/23 10:09 Folic Acid 1 Mg Tab PO 1 mg DAILY [facility] Administration Gabapentin 800 mg 11/06/23 09:00 11/08/23 10:10 Gabapentin 400 Mg Cap PO 800 mg TID [facility] Administration Haloperidol Lactate 2 mg 11/06/23 17:52 11/07/23 17:51 Haloperidol Lactate 5 Mg/Ml 1 Ml Vial IVP 2 mg Q4HR PRN Administration Agitation or Acute Psychosis Sodium Chloride 1,000 mls @ 75 mls/hr 11/05/23 20:45 11/08/23 02:41 Saline 0.9% IV 75 mls/hr .[id number] [facility] Administration Ferric Sodium Gluconate 125 mg 110 mls @ 100 mls/hr 11/07/23 09:00 11/07/23 09:48 / Sodium Chloride IVPB 100 mls/hr DAILY [facility] Administration Ceftriaxone Sodium 2 gm/ 50 mls @ 100 mls/hr 11/06/23 19:30 11/08/23 10:08 Sodium Chloride IVPB 100 mls/hr Q24HR [facility] Administration Protocol Diltiazem HCl 125 mg/ Sodium 125 mls @ 5 mls/hr 11/07/23 06:00 11/08/23 02:42 Chloride IV 10 mg/hr .Q24H [facility] 10 mls/hr Administration 5 MG/HR Loratadine 10 mg 11/06/23 09:00 11/08/23 10:09 Loratadine 10 Mg Tab PO 10 mg DAILY [facility] Administration Metoprolol Succinate 150 mg 11/08/23 21:00 Metoprolol Succinate (Er) 100 Mg Tab.Er.24h PO BID [facility] Naloxone HCl 0.2 mg 11/05/23 20:39 Naloxone 0.4 Mg/Ml 1 Ml Vial IV Q2M PRN Opioid Reversal Pantoprazole Sodium 40 mg 11/06/23 09:00 11/08/23 10:09 Pantoprazole 40 Mg/10 Ml Vial IVP 40 mg BID [facility] Administration Intake and Output 11/07/23 11/08/23 11/08/23 22:59 06:59 14:59 Intake Total 696.667 352.167 Output Total 600 250 Balance 96.667 102.167 Intake: Intake, IV Titration 96.667 112.167 Amount Diltiazem 125 mg In 96.667 112.167 Sodium Chloride 0.9% 100 ml @ 10 MG/HR 10 mls/hr IV .[id number] [facility] Rx#: [id number] Oral 600 240 Output: Urine 600 250 Uretheral ([place]) 350 Other: Voiding Method Indwelling Catheter Indwelling Catheter 11/08/23 07:46 11/08/23 07:46
[2023-11-08] MEDS: METOPROLOL SUCCINATE (ER) 50 MG TAB.ER.24H PO STA (14:31)
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
[2023-11-08] MEDS: PIPERACILLIN-TAZOBACTAM 3.375 GM in SODIUM CHLORIDE 0.9% 100 ML IVPB SCH (18:43)
[2023-11-08] MEDS: METOPROLOL SUCCINATE (ER) 100 MG TAB.ER.24H PO SCH (20:55)
[2023-11-08 22:06] LABS: Glucose,Whole Blood 183 mg/dL (70-110)
[2023-11-08] MEDS: FUROSEMIDE 10 MG/ML 2 ML VIAL IV ONE (22:12)
[2023-11-08 22:43] LABS: Glucose,Whole Blood 233 mg/dL (70-110)
[2023-11-08 23:05] LABS: Glucose,Whole Blood 215 mg/dL (70-110)
--- NOTE | 2023-11-08 23:09 | XR ---
EXAM: XR Chest, 1 View CLINICAL HISTORY: ITS.REASON XR Reason: Respiratory distress TECHNIQUE: Frontal view of the chest. COMPARISON: 11/05/23 FINDINGS: Lungs: Reduced lung volumes. No consolidation. Bibasilar subsegmental atelectasis. Pleural space: Unremarkable. No pleural effusion or pneumothorax. Heart: Unremarkable. No cardiomegaly or pulmonary vascular congestion. Mediastinum: Large hiatal hernia. Bones/joints: No acute fracture. No dislocation. IMPRESSION: 1. Large hiatal hernia. 2. Reduced lung volumes. No consolidation. Bibasilar subsegmental atelectasis.
[2023-11-08 23:16] LABS: ABG Base Excess -10.1 mmol/L; ABG HCO3 16 mmol/L (21-25); ABG Oxygen Saturation 101.1 % (94-97); ABG PCO2 32 mmHg (35-45); ABG PH 7.29 (7.35-7.45); ABG PO2 390 mmHg (83-108); ABG TCO2 17 mmol/L (19-24); Allen Test Performed? Yes
[2023-11-08 23:51] LABS: ALT 21 U/L (4-34); AST 28 U/L (14-36); African American GFR (CKD) 36 (>60 ml/min/1.73 sqM); Albumin 2.8 g/dL (3.5-5.0); Alkaline Phosphatase 46 U/L (38-126); Anion Gap 11 mmol/L; Blood Urea Nitrogen 58 mg/dL (7-17); Calcium 9.2 mg/dL (8.4-10.2); Carbon Dioxide 15 mmol/L (22-30); Chloride 119 mmol/L (98-107); Glucose 170 mg/dL (74-99); Magnesium 2.4 mg/dL (1.6-2.3); Non-African American GFR(CKD) 31 (>60 ml/min/1.73 sqM); Potassium 3.7 mmol/L (3.5-5.1); Sodium 145 mmol/L (137-145); Total Bilirubin 0.3 mg/dL (0.2-1.3); Total Protein 4.8 g/dL (6.3-8.2)
[2023-11-09] MEDS: NOREPINEPHRINE 4 MG in SODIUM CHLORIDE 0.9% 250 ML IV SCH (00:24)
[2023-11-09 00:28] LABS: Anisocytosis Moderate; HCT 21.8 % (34.0-46.0); Hypochromasia Marked; MCH 28.2 pg (25.0-35.0); MCHC 29.2 g/dL (31.0-37.0); MCV 96.9 fL (80.0-100.0); Macrocytosis Moderate; Mean Platelet Volume 9.4; Platelet Count 309 k/uL (150-450); Poikilocytosis Moderate; RBC 2.25 m/uL (3.80-5.40); RDW 22.5 % (11.5-15.5)
[2023-11-09 00:35] LABS: HGB 6.3 gm/dL (11.4-16.0)
[2023-11-09] MEDS ORDERED: Potassium Replacement Protocol 1 EACH MISC MISCELLANE PRN (00:54)
[2023-11-09] MEDS: POTASSIUM CHLORIDE 10 MEQ in WATER FOR INJECTION 1 100ML.BAG IVPB SCH (01:23)
[2023-11-09 01:27] LABS: Metamyelocytes # (M) 0.18 k/uL (0); Metamyelocytes % 1 %; Monocytes # (M) 0.55 k/uL (0-1.0); Myelocytes # (M) 0.18 k/uL (0); Myelocytes % 1 %; Neutrophils # (M) 15.65 k/uL (1.3-7.7); Neutrophils % (M) 86 %; Nucleated Red Blood Cells 19 /100 WBC (0-0); Polychromasia Present; Total Cells Counted 200; WBC 18.2 k/uL (3.8-10.6)
[2023-11-09 06:34] LABS: Anisocytosis Moderate; HCT 26.2 % (34.0-46.0); Hypochromasia Marked; MCH 28.7 pg (25.0-35.0); MCHC 30.2 g/dL (31.0-37.0); Macrocytosis Slight; Mean Platelet Volume 9.3; Platelet Count 324 k/uL (150-450); Poikilocytosis Slight; RBC 2.76 m/uL (3.80-5.40); RDW 20.6 % (11.5-15.5)
[2023-11-09 06:48] LABS: African American GFR (CKD) 28 (>60 ml/min/1.73 sqM); Anion Gap 6 mmol/L; Blood Urea Nitrogen 67 mg/dL (7-17); Calcium 9.2 mg/dL (8.4-10.2); Carbon Dioxide 20 mmol/L (22-30); Chloride 118 mmol/L (98-107); Glucose 103 mg/dL (74-99); Non-African American GFR(CKD) 24 (>60 ml/min/1.73 sqM); Potassium 4.1 mmol/L (3.5-5.1); Sodium 144 mmol/L (137-145)
[2023-11-09 06:58] LABS: INR 1.2 (<1.2); Prothrombin Time 12.4 sec (10.0-12.5)
--- NOTE | 2023-11-09 07:09 | P.CONS ---
History of Present Illness - Reason for Consult Consult date: 11/08/23 Leukocytosis Requesting physician: Kpi Rosa - Chief Complaint Abdominal pain x 2 days on admission - History of Present Illness Patient is a 73-year-old female with a past medical history significant for atrial fibrillation hypertension reflux DVT and dementia patient presenting to the hospital 3 days ago for evaluation of shortness of breath and generalized weakness apparently the patient symptom has been going on for 2 days before presentation the hospital did have complaint of sore stomach no clear documentation of any nausea and vomiting patient on presentation to the hospital was afebrile did have a low-grade fever 100 degrees Fahrenheit yesterday morning, patient did have a normal white count admission however the white count has been trending up and is up to 25.3 this morning that has prompted this consultation patient did have a normal creatinine lactic acid was elevated liver enzymes are normal urine has been negative stool for occult blood was positive influenza RSV COVID testing was negative blood culture has been negative urine so far negative patient did have a chest x-ray which shows no acute pulmonary process and hiatal hernia patient did have a abdominal pelvis CT lower chest was unremarkable no evidence for acute abdominal process moderate to severe degenerative changes of the spine large hiatal hernia with ingested contents patient has been evaluated by admitting and GI services on admission with worsening of the white count infectious disease was consulted today most information has been obtained from review the chart as the patient was unable to provide any history and no family member at the bedside Review of Systems Positive points has been mentioned in HPI complete review could not be obtained because of his underlying mental status Past Medical History Past Medical History: Atrial Fibrillation, Dementia, Deep Vein Thrombosis (DVT), GERD/Reflux, Hypertension Additional Past Medical History / Comment(s): PSORIATIC ARTHRITIS. mammogram indicated small cyst to have procedure 05/01/21 History of Any Multi-Drug Resistant Organisms: None Reported Past Surgical History: Appendectomy, Back Surgery, Bladder Surgery, Cholecystectomy, Hysterectomy, Orthopedic Surgery Additional Past Surgical History / Comment(s): vein stripping. ORIF OF RIGHT ANKLE with plate and wire,joint replacement lt great toe with titanium screw . rhizotomy and steroid injections lumbar, millicent knee steroid injection Past Anesthesia/Blood Transfusion Reactions: Previous Problems w/ Anesthesia, Motion Sickness, Postoperative Nausea & Vomiting (PONV) Past Psychological History: Anxiety, Depression Smoking Status: Never smoker Past Alcohol Use History: None Reported Past Drug Use History: None Reported Additional Drug Use History / Comment(s): cbd oil Medications and Allergies Home Medications Medication Instructions Recorded Confirmed Type ALPRAZolam [Xanax] 0.5 mg PO DAILY PRN 01/07/16 11/05/23 History Adalimumab [Humira Pen 40 mg SQ TU 01/07/16 11/05/23 History Crohn's-Uc-Hs] Folic Acid 1 mg PO DAILY 01/07/16 11/05/23 History Metoprolol Succinate (ER) [Toprol 100 mg PO BID 01/07/16 11/05/23 History XL] Pantoprazole Sodium [Protonix] 40 mg PO AC-BRKFST 01/07/16 11/05/23 History metHOTREXate sodium [Methotrexate] 15 mg PO FR 01/07/16 11/05/23 History Cbd Oil 1 dose PO HS 02/28/21 11/05/23 History DULoxetine HCL [Cymbalta] 90 mg PO DAILY 02/28/21 11/05/23 History Potassium Gluconate [Potassium 99 mg PO DAILY 02/28/21 11/05/23 History Gluconate ER] Betamethasone Dipropionate 1 applic TOPICAL BID 04/19/21 11/05/23 History [Betamethasone Dipropionate 0.05%] Losartan Potassium 50 mg PO BID 04/19/21 11/05/23 History Celecoxib [CeleBREX] 200 mg PO DAILY 06/17/23 11/05/23 History Furosemide [Lasix] 20 mg PO DAILY 06/17/23 11/05/23 History Gabapentin 800 mg PO TID 06/17/23 11/05/23 History Multivit-Min/FA/Lycopen/Lutein 1 tab PO DAILY 06/17/23 11/05/23 History [Centrum Silver Tablet] buPROPion HCL [Wellbutrin XL] 150 mg PO DAILY 06/17/23 11/05/23 History Cetirizine HCl [Zyrtec] 10 mg PO DAILY 10/23/23 11/05/23 History Glycopyrrolate [Robinul Forte] 2 mg PO BID 10/23/23 11/05/23 History Warfarin [Coumadin] 5 mg PO HS 10/23/23 11/05/23 History Zolpidem [Ambien] 10 mg PO HS 10/23/23 11/05/23 History Hydrocortisone [Anusol-Hc] 1 applic RECTAL QID 11/05/23 11/05/23 History Ponaris Nasal Emollient 1 - 2 drops EA NOSTRIL BID PRN 11/05/23 11/05/23 History Vitamin D3(Unknown Dose) 1 tab PO DAILY 11/05/23 11/05/23 History estradioL [Estrace] 0.5 mg PO DAILY 11/05/23 11/05/23 History Allergies Allergy/AdvReac Type Severity Reaction Status Date / Time adhesive Allergy Rash/Hives Verified 10/23/23 15:08 Physical Exam Vitals: Vital Signs Temp Pulse Resp BP Pulse Ox 11/08/23 08:15 97.5 F L 91 17 141/65 97 11/08/23 02:00 84 16 137/75 96 11/07/23 20:00 97.4 F L 81 20 134/74 98 11/07/23 15:11 98.2 F 96 18 154/79 97 Intake and Output 11/07/23 11/08/23 11/08/23 22:59 06:59 14:59 Intake Total 696.667 352.167 Output Total 600 250 Balance 96.667 102.167 Intake: Intake, IV Titration 96.667 112.167 Amount Diltiazem 125 mg In 96.667 112.167 Sodium Chloride 0.9% 100 ml @ 10 MG/HR 10 mls/hr IV .[id number] [facility] Rx#: [id number] Oral 600 240 Output: Urine 600 250 Uretheral (Beach) 350 Other: Voiding Method Indwelling Catheter Indwelling Catheter GENERAL DESCRIPTION: Elderly female sergio in bed, no distress. No tachypnea or accessory muscle of respiration use. HEENT: Shows Pallor , no scleral icterus. Oral mucous membrane is dry. NECK: Trachea central, no thyromegaly. LUNGS: Unlabored breathing. Decreased breath sound the base HEART: S1, S2, regular rate and rhythm. No loud murmur ABDOMEN: Soft, mildly distended EXTREMITIES: No edema of feet. SKIN: No rash, no masses palpable. NEUROLOGICAL: The patient is awake, confused nonverbal mood and affect could not be determined Results CBC & Chem 7: 11/08/23 23:26 11/09/23 05:55 Labs: Abnormal Lab Results - Last 24 Hours (Table) 07/11/07/23 11/07/23 Range/Units 12:08 12:08 15:26 WBC 25.3 H (3.8-10.6) k/uL RBC 2.60 L (3.80-5.40) m/uL Hgb 7.2 L (11.4-16.0) gm/dL Hct 24.1 L (34.0-46.0) % MCHC 29.8 L (31.0-37.0) g/dL RDW 20.3 H (11.5-15.5) % Neutrophils # (Manual) (1.3-7.7) k/uL Monocytes # (Manual) (0-1.0) k/uL Nucleated RBCs (0-0) /100 WBC PT (10.0-12.5) sec INR (<1.2) Chloride (98-107) mmol/L Carbon Dioxide (22-30) mmol/L BUN (7-17) mg/dL Glucose (74-99) mg/dL Plasma Lactic Acid Juan 3.4 H* 2.5 H* (0.7-2.0) mmol/L 11/07/23 11/08/23 11/08/23 Range/Units 18:00 07:46 07:46 WBC 25.0 H (3.8-10.6) k/uL RBC 2.39 L (3.80-5.40) m/uL Hgb 7.0 L (11.4-16.0) gm/dL Hct 22.2 L (34.0-46.0) % MCHC (31.0-37.0) g/dL RDW 22.0 H (11.5-15.5) % Neutrophils # (Manual) 21.75 H (1.3-7.7) k/uL Monocytes # (Manual) 1.50 H (0-1.0) k/uL Nucleated RBCs 1 H (0-0) /100 WBC PT (10.0-12.5) sec INR (<1.2) Chloride 122 H (98-107) mmol/L Carbon Dioxide 18 L (22-30) mmol/L BUN 53 H (7-17) mg/dL Glucose 144 H (74-99) mg/dL Plasma Lactic Acid Juan 2.6 H* (0.7-2.0) mmol/L 07/20/24 Range/Units 07:46 WBC (3.8-10.6) k/uL RBC (3.80-5.40) m/uL Hgb (11.4-16.0) gm/dL Hct (34.0-46.0) % MCHC (31.0-37.0) g/dL RDW (11.5-15.5) % Neutrophils # (Manual) (1.3-7.7) k/uL Monocytes # (Manual) (0-1.0) k/uL Nucleated RBCs (0-0) /100 WBC PT 12.8 H (10.0-12.5) sec INR 1.2 H (<1.2) Chloride (98-107) mmol/L Carbon Dioxide (22-30) mmol/L BUN (7-17) mg/dL Glucose (74-99) mg/dL Plasma Lactic Acid Juan (0.7-2.0) mmol/L Microbiology - Last 24 Hours (Table) 11/06/23 20:50 Blood Culture - Preliminary Blood 11/06/23 19:41 Urine Culture - Final Urine,Voided Assessment and Plan (1) Leukocytosis Current Visit: Yes Status: Acute Code(s): D72.829 - ELEVATED WHITE BLOOD CELL COUNT, UNSPECIFIED SNOMED Code(s): 180814619 Plan: 1patient with elevated white count of 25,000 and this patient presented to the hospital with abdominal pain patient did have a elevated lactic acid CT abdominal pelvis was done but apparently without any oral contrast that will decrease the sensitivity concern is likely for abdominal source with a question of diverticulitis versus ischemic bowel with elevated lactic acid chest x-ray was reported negative however the patient did have a large lateral hernia with gastric content and high risk of aspiration 2-blood cultures will be repeated and check inflammatory markers 3-patient benefit from repeat CT abdominal pelvis with oral contrast for better definition of intra-abdominal organ once the patient is cooperating and will drink contrast 4-discontinue Rocephin 5-start the patient on Zosyn 3.375 g every 8 hours We will follow on clinical condition and cultures to further adjust medication if needed Thank you for this consultation we will follow the patient along with you Dictation was produced using Epic Playgroundation software. please excuse any grammatical, word or spelling errors. Time with Patient: Greater than 30
[2023-11-09 07:14] LABS: HGB 7.9 gm/dL (11.4-16.0)
[2023-11-09 07:43] LABS: Lymphocytes # (M) 2.55 k/uL (1.0-4.8); Monocytes # (M) 1.82 k/uL (0-1.0); Neutrophils # (M) 13.83 k/uL (1.3-7.7); Neutrophils % (M) 76 %; Nucleated Red Blood Cells 14 /100 WBC (0-0); Total Cells Counted 100; WBC 18.2 k/uL (3.8-10.6)
[2023-11-09 07:44] LABS: Polychromasia Present
[2023-11-09 07:45] LABS: Hypersegmented Neutrophils Present
--- NOTE | 2023-11-09 10:25 | P.PN ---
Subjective HISTORY OF PRESENT ILLNESS: This is a 73-year-old female with a past medical history significant for hypertension, mild coronary artery disease, paroxysmal atrial fibrillation, and morbid obesity. Patient follows in the office with Dr. Junior. We have been asked to see the patient in consultation for A-fib with RVR. Patient examined at the bedside. Patient was brought to the emergency room with a reported chief complaint of shortness of breath and generalized weakness. The patient was found to have anemia and was evaluated by GI services with no plans for endoscopy. Hemoglobin today 7.0. Patient was transfused 1 unit packed RBCs during her hospitalization. Patient remains in atrial fibrillation with a heart rate in the 90s. She remains on IV Cardizem at 10 mg an hour. Her anticoagulation has since been discontinued. DIAGNOSTICS: - Laboratory data: WBC 25.0. Hemoglobin 7.0. Platelet count 10.4. Sodium 144. Potassium 4.5. BUN 53. Creatinine 0.98. - Current home cardiac medications include Coumadin 5 mg at night, metoprolol succinate 100 mg twice a day, Lasix 20 mg daily. - Most recent echocardiogram obtained in February 2021 revealed ejection fraction 55%, mild MR, mild TR - Cardiac catheterization history: April 2021 revealed mild to moderate CAD with 10 to 20% RCA stenosis, 50 to 60% LAD stenosis, LAD lesion IFR normal at 0.92. 11/09/2023 Yesterday evening patient developed respiratory distress with decreased level of consciousness. An 18 was called and the patient was transferred to the intensive care unit. Patient is examined this morning in the ICU. She is lethargic at the time of examination. She remains on BiPAP 12/6 with 50% Fio2. Bedside telemetry reveals atrial fibrillation with heart rate in the 80s. Her Cardizem drip has been weaned off. Blood pressure stable. PHYSICAL EXAM: VITAL SIGNS: Reviewed. GENERAL: Well-developed in no acute distress. HEENT: Head is normocephalic. Pupils are equal, round. Sclerae anicteric. Mucous membranes of the mouth are moist. Neck supple. No JVD or thyromegaly LUNGS: Respirations even and unlabored. Lungs with bilateral rhonchi. HEART: Irregular rate and rhythm. S1 and S2 heard. ABDOMEN: Soft. Nondistended. Nontender. EXTREMITIES: Normal range of motion. No clubbing or cyanosis. Peripheral pulses intact. No lower extremity edema NEUROLOGIC: Lethargic ASSESSMENT: Altered mental status Acute hypoxic respiratory failure requiring BiPAP support Anemia, status post 1 unit RBC transfusion Paroxysmal atrial fibrillation, on Coumadin outpatient Hypertension Mild nonobstructive CAD PLAN: Recommend continuing to hold anticoagulation at this time due to anemia. Can be reassessed on an outpatient basis Continue current dose of metoprolol succinate 150 mg twice a day Continue telemetry monitoring Further recommendations pending patient course Nurse practitioner note has been reviewed by physician. Signing provider agrees with the documented findings, assessment, and plan of care documented by [employer] OPERATOR as a scribe. Objective - Vital Signs Vital signs: Vital Signs Temp 97.9 F 11/09/23 08:00 Pulse 78 11/09/23 10:00 Resp 25 H 11/09/23 10:00 BP 123/71 11/09/23 10:00 Pulse Ox 96 11/09/23 10:00 FiO2 4 11/09/23 09:00 Intake & Output 11/08/23 11/09/23 11/09/23 18:59 06:59 18:59 Intake Total 633 2323.333 240 Output Total 400 170 125 Balance 233 2153.333 115 Weight 132.1 kg Intake: IV 380 240 KVO 0.9 NS 80 40 Piperacillin-Tazobactam 3 100 100 .375 gm In Sodium Chloride 0.9% 100 ml @ 25 mls/hr IVPB Q8HR [facility] Rx# :[id number] Potassium Chloride 10 meq 200 In Water For Injection 1 100ml.bag @ 100 mls/hr IVPB Q1H [facility] Rx#: [id number] Sodium Ferric Gluconat- 100 Sucrose 125 mg In Sodium Chloride 0.9% 100 ml @ 100 mls/hr IVPB DAILY [facility] Rx#:[id number] Intake, IV Titration 275 13.333 Amount Diltiazem 125 mg In 125 13.333 Sodium Chloride 0.9% 100 ml @ 5 MG/HR 5 mls/hr IV .Q24H [facility] Rx#:[id number] Sodium Ferric Gluconat- 100 Sucrose 125 mg In Sodium Chloride 0.9% 100 ml @ 100 mls/hr IVPB DAILY [facility] Rx#:[id number] cefTRIAXone 2 gm In 50 Sodium Chloride 0.9% 50 ml @ 100 mls/hr IVPB Q24HR [facility] Rx#:[id number] Oral 358 1620 Blood Product 310 Rc Irr As1 Unit 310 [id number] Output: Urine 400 170 125 Uretheral ([place]ach) 400 Other: Voiding Method Indwelling Catheter Indwelling Catheter Indwelling Catheter - Labs CBC & Chem 7: 11/09/23 05:55 11/09/23 05:55 Labs: Abnormal Lab Results - Last 24 Hours (Table) 11/06/23 11/08/23 11/08/23 Range/Units 15:20 22:05 22:41 WBC (3.8-10.6) k/uL RBC (3.80-5.40) m/uL Hgb (11.4-16.0) gm/dL Hct (34.0-46.0) % MCHC (31.0-37.0) g/dL RDW (11.5-15.5) % Neutrophils # (Manual) (1.3-7.7) k/uL Monocytes # (Manual) (0-1.0) k/uL Metamyelocytes # (Man) (0) k/uL Myelocytes # (Manual) (0) k/uL Nucleated RBCs (0-0) /100 WBC INR (<1.2) ABG pH (7.35-7.45) ABG pCO2 (35-45) mmHg ABG pO2 (83-108) mmHg ABG HCO3 (21-25) mmol/L ABG Total CO2 (19-24) mmol/L ABG O2 Saturation (94-97) % Chloride (98-107) mmol/L Carbon Dioxide (22-30) mmol/L BUN (7-17) mg/dL Creatinine (0.52-1.04) mg/dL Glucose (74-99) mg/dL POC Glucose (mg/dL) 183 H 233 H (70-110) mg/dL Magnesium (1.6-2.3) mg/dL Total Protein (6.3-8.2) g/dL Albumin (3.5-5.0) g/dL Stool Occult Blood (Negative) Crossmatch See Detail 11/08/23 11/08/23 11/08/23 Range/Units 23:04 23:14 23:26 WBC 18.2 H (3.8-10.6) k/uL RBC 2.25 L (3.80-5.40) m/uL Hgb 6.3 L* (11.4-16.0) gm/dL Hct 21.8 L (34.0-46.0) % MCHC 29.2 L (31.0-37.0) g/dL RDW 22.5 H (11.5-15.5) % Neutrophils # (Manual) 15.65 H (1.3-7.7) k/uL Monocytes # (Manual) (0-1.0) k/uL Metamyelocytes # (Man) 0.18 H (0) k/uL Myelocytes # (Manual) 0.18 H (0) k/uL Nucleated RBCs 19 H (0-0) /100 WBC INR (<1.2) ABG pH 7.29 L (7.35-7.45) ABG pCO2 32 L (35-45) mmHg ABG pO2 390 H (83-108) mmHg ABG HCO3 16 L (21-25) mmol/L ABG Total CO2 17 L (19-24) mmol/L ABG O2 Saturation 101.1 H (94-97) % Chloride (98-107) mmol/L Carbon Dioxide (22-30) mmol/L BUN (7-17) mg/dL Creatinine (0.52-1.04) mg/dL Glucose (74-99) mg/dL POC Glucose (mg/dL) 215 H (70-110) mg/dL Magnesium (1.6-2.3) mg/dL Total Protein (6.3-8.2) g/dL Albumin (3.5-5.0) g/dL Stool Occult Blood (Negative) Crossmatch 11/08/23 11/09/23 11/09/23 Range/Units 23:26 04:30 05:55 WBC 18.2 H (3.8-10.6) k/uL RBC 2.76 L (3.80-5.40) m/uL Hgb 7.9 L D (11.4-16.0) gm/dL Hct 26.2 L (34.0-46.0) % MCHC 30.2 L (31.0-37.0) g/dL RDW 20.6 H (11.5-15.5) % Neutrophils # (Manual) 13.83 H (1.3-7.7) k/uL Monocytes # (Manual) 1.82 H (0-1.0) k/uL Metamyelocytes # (Man) (0) k/uL Myelocytes # (Manual) (0) k/uL Nucleated RBCs 14 H (0-0) /100 WBC INR (<1.2) ABG pH (7.35-7.45) ABG pCO2 (35-45) mmHg ABG pO2 (83-108) mmHg ABG HCO3 (21-25) mmol/L ABG Total CO2 (19-24) mmol/L ABG O2 Saturation (94-97) % Chloride 119 H (98-107) mmol/L Carbon Dioxide 15 L (22-30) mmol/L BUN 58 H (7-17) mg/dL Creatinine 1.60 H (0.52-1.04) mg/dL Glucose 170 H (74-99) mg/dL POC Glucose (mg/dL) (70-110) mg/dL Magnesium 2.4 H (1.6-2.3) mg/dL Total Protein 4.8 L (6.3-8.2) g/dL Albumin 2.8 L (3.5-5.0) g/dL Stool Occult Blood Positive H (Negative) Crossmatch 11/09/23 11/09/23 Range/Units 05:55 05:55 WBC (3.8-10.6) k/uL RBC (3.80-5.40) m/uL Hgb (11.4-16.0) gm/dL Hct (34.0-46.0) % MCHC (31.0-37.0) g/dL RDW (11.5-15.5) % Neutrophils # (Manual) (1.3-7.7) k/uL Monocytes # (Manual) (0-1.0) k/uL Metamyelocytes # (Man) (0) k/uL Myelocytes # (Manual) (0) k/uL Nucleated RBCs (0-0) /100 WBC INR 1.2 H (<1.2) ABG pH (7.35-7.45) ABG pCO2 (35-45) mmHg ABG pO2 (83-108) mmHg ABG HCO3 (21-25) mmol/L ABG Total CO2 (19-24) mmol/L ABG O2 Saturation (94-97) % Chloride 118 H (98-107) mmol/L Carbon Dioxide 20 L (22-30) mmol/L BUN 67 H (7-17) mg/dL Creatinine 1.99 H (0.52-1.04) mg/dL Glucose 103 H (74-99) mg/dL POC Glucose (mg/dL) (70-110) mg/dL Magnesium (1.6-2.3) mg/dL Total Protein (6.3-8.2) g/dL Albumin (3.5-5.0) g/dL Stool Occult Blood (Negative) Crossmatch Microbiology - Last 24 Hours (Table) 11/06/23 20:50 Blood Culture - Preliminary Blood 11/07/23 08:11 Blood Culture - Preliminary Blood
--- NOTE | 2023-11-09 10:33 | P.CNPUL ---
History of Present Illness Consult date: 11/09/23 Requesting physician: Akash Spence Reason for consult: hypoxemia, other Chief complaint: Respiratory failure. History of present illness: Pulmonary consult dated November 09, 2023. 73-year-old female brought to the emergency room on November 04 by EMS, for weakness and shortness of breath. The patient apparently had adequate saturations on room air, but was placed on oxygen at 2 L for comfort. He apparently has not been feeling well for about 2 days prior to mission, beginning on November 02. Anyw ay, the patient was admitted to the hospital, with a diagnosis of nausea, respiratory insufficiency, and weakness. Last night, there was a rapid response called on this patient, and I was notified. The patient apparently had some mental status changes, worsening respiratory status, and required BiPAP. We agreed to transfer the patient down to the intensive care unit. In addition, her hemoglobin was 6.3 and she received 1 unit of packed red blood cells. Her hemoglobin this morning was 7.9. She was on norepinephrine for about 30 minutes. She was also on BiPAP for respiratory insufficiency, at 12/6, and 40%. The patient continues on Zosyn. Currently she is on 4 L nasal cannula, and davey ine at 20 cc an hour. According to the nurses, she looks much better this morning than she did look last night. In addition, the nurse that I spoke to her last night thought that we would have to end up intubating this patient, but that never happened. Current labs include a white count 18.2, hemoglobin 7.9, hematocrit 26.2, and a platelet count that is normal. Sodium 144, potassium 4.1, chlorides 118, CO2 20, BUN 67, creatinine 1.99. This electrolyte profile is consistent with a nonanion gap metabolic acidosis. Is a hyperchloremic metabolic acidosis. Blood gases show pO2 of 390, pCO2 of 32, pH of 7.29, again showing the metabolic acidosis. The rest of the labs look okay. Stools were positive for occult blood. Cultures are currently negative. Chest x-ray shows a large hiatal hernia, and bibasilar atelectasis. Review of Systems REVIEW OF SYSTEMS: CONSTITUTIONAL: [Negative.] NEUROLOGIC: [ Negative.] HEENT: [ Negative.] CARDIAC: Transient hypotension. PULMONARY: Respiratory insufficiency. GI: [Negative.] : [Negative.] RHEUMATOLOGIC: [ Negative.] IMMUNOLOGIC: [ Negative.] ENDOCRINE: [Negative. ] DERMATOLOGIC: [Negative.] Past Medical History Past Medical History: Atrial Fibrillation, Dementia, Deep Vein Thrombosis (DVT), GERD/Reflux, Hypertension Additional Past Medical History / Comment(s): PSORIATIC ARTHRITIS. mammogram indicated small cyst to have procedure 05/01/21 History of Any Multi-Drug Resistant Organisms: None Reported Past Surgical History: Appendectomy, Back Surgery, Bladder Surgery, Cholecystectomy, Hysterectomy, Orthopedic Surgery Additional Past Surgical History / Comment(s): vein stripping. ORIF OF RIGHT ANKLE with plate and wire,joint replacement lt great toe with titanium screw . rhizotomy and steroid injections lumbar, millicent knee steroid injection Past Anesthesia/Blood Transfusion Reactions: Previous Problems w/ Anesthesia, Motion Sickness, Postoperative Nausea & Vomiting (PONV) Past Psychological History: Anxiety, Depression Smoking Status: Never smoker Past Alcohol Use History: None Reported Past Drug Use History: None Reported Additional Drug Use History / Comment(s): cbd oil Medications and Allergies Home Medications Medication Instructions Recorded Confirmed Type ALPRAZolam [Xanax] 0.5 mg PO DAILY PRN 01/07/16 11/05/23 History Adalimumab [Humira Pen 40 mg SQ TU 01/07/16 11/05/23 History Crohn's-Uc-Hs] Folic Acid 1 mg PO DAILY 01/07/16 11/05/23 History Metoprolol Succinate (ER) [Toprol 100 mg PO BID 01/07/16 11/05/23 History XL] Pantoprazole Sodium [Protonix] 40 mg PO AC-BRKFST 01/07/16 11/05/23 History metHOTREXate sodium [Methotrexate] 15 mg PO FR 01/07/16 11/05/23 History Cbd Oil 1 dose PO HS 02/28/21 11/05/23 History DULoxetine HCL [Cymbalta] 90 mg PO DAILY 02/28/21 11/05/23 History Potassium Gluconate [Potassium 99 mg PO DAILY 02/28/21 11/05/23 History Gluconate ER] Betamethasone Dipropionate 1 applic TOPICAL BID 04/19/21 11/05/23 History [Betamethasone Dipropionate 0.05%] Losartan Potassium 50 mg PO BID 04/19/21 11/05/23 History Celecoxib [CeleBREX] 200 mg PO DAILY 06/17/23 11/05/23 History Furosemide [Lasix] 20 mg PO DAILY 06/17/23 11/05/23 History Gabapentin 800 mg PO TID 06/17/23 11/05/23 History Multivit-Min/FA/Lycopen/Lutein 1 tab PO DAILY 06/17/23 11/05/23 History [Centrum Silver Tablet] buPROPion HCL [Wellbutrin XL] 150 mg PO DAILY 06/17/23 11/05/23 History Cetirizine HCl [Zyrtec] 10 mg PO DAILY 10/23/23 11/05/23 History Glycopyrrolate [Robinul Forte] 2 mg PO BID 10/23/23 11/05/23 History Warfarin [Coumadin] 5 mg PO HS 10/23/23 11/05/23 History Zolpidem [Ambien] 10 mg PO HS 10/23/23 11/05/23 History Hydrocortisone [Anusol-Hc] 1 applic RECTAL QID 11/05/23 11/05/23 History Ponaris Nasal Emollient 1 - 2 drops EA NOSTRIL BID PRN 11/05/23 11/05/23 History Vitamin D3(Unknown Dose) 1 tab PO DAILY 11/05/23 11/05/23 History estradioL [Estrace] 0.5 mg PO DAILY 11/05/23 11/05/23 History Allergies Allergy/AdvReac Type Severity Reaction Status Date / Time adhesive Allergy Rash/Hives Verified 10/23/23 15:08 Physical Exam Osteopathic Statement: *. No significant issues noted on an osteopathic structural exam other than those noted in the History and Physical/Consult. Vitals: Vital Signs Temp Pulse Pulse Resp BP BP Pulse Ox 11/09/23 10:00 78 25 H 123/71 96 11/09/23 09:00 81 21 129/57 100 11/09/23 08:53 11/09/23 08:00 97.9 F 80 19 132/67 100 11/09/23 07:00 83 18 117/61 100 11/09/23 06:45 80 21 134/67 100 11/09/23 06:30 81 18 117/65 100 11/09/23 06:15 68 20 134/67 100 11/09/23 06:00 74 21 126/68 100 11/09/23 05:45 71 20 129/58 100 07/21/24 05:30 68 22 120/65 100 11/09/23 05:24 78 20 120/65 100 11/09/23 05:15 70 19 132/77 100 11/09/23 05:00 75 20 121/57 100 11/09/23 04:45 78 22 110/78 99 11/09/23 04:30 82 18 112/81 99 11/09/23 04:15 86 30 H 109/70 100 11/09/23 04:05 98.2 F 82 33 H 109/70 100 11/09/23 04:00 98.2 F 84 28 H 95/43 100 11/09/23 03:45 85 30 H 95/43 100 11/09/23 03:37 97.7 F 85 26 H 104/56 100 11/09/23 03:30 86 36 H 104/56 100 11/09/23 03:26 11/09/23 03:15 91 22 115/42 100 11/09/23 03:00 95 32 H 98/52 100 11/09/23 02:45 71 24 114/51 99 11/09/23 02:30 79 23 112/55 98 11/09/23 02:15 80 25 H 111/62 100 11/09/23 02:00 81 26 H 101/52 98 11/09/23 01:45 77 26 H 105/56 100 11/09/23 01:30 85 28 H 101/51 100 11/09/23 01:15 82 27 H 105/55 100 11/09/23 01:00 85 30 H 118/43 100 11/09/23 00:45 90 33 H 115/47 100 11/09/23 00:30 95 36 H 154/112 100 11/09/23 00:15 87 37 H 142/99 100 11/09/23 00:00 89 36 H 120/68 96 11/08/23 23:45 87 35 H 112/75 100 11/08/23 23:30 94 33 H 115/104 99 11/08/23 23:19 11/08/23 23:15 98.5 F 86 30 H 122/82 98 11/08/23 23:05 11/08/23 22:45 58/31 11/08/23 20:00 97.5 F L 112 H 24 122/62 97 11/08/23 16:10 97.7 F 96 20 131/84 97 11/08/23 14:00 91 17 11/08/23 12:10 98.2 F 108 H 19 139/67 97 FiO2 11/09/23 10:00 11/09/23 09:00 4 11/09/23 08:53 40 11/09/23 08:00 50 11/09/23 07:00 11/09/23 06:45 11/09/23 06:30 11/09/23 06:15 11/09/23 06:00 11/09/23 05:45 11/09/23 05:30 11/09/23 05:24 11/09/23 05:15 11/09/23 05:00 11/09/23 04:45 11/09/23 04:30 11/09/23 04:15 11/09/23 04:05 11/09/23 04:00 50 11/09/23 03:45 11/09/23 03:37 11/09/23 03:30 11/09/23 03:26 50 11/09/23 03:15 11/09/23 03:00 11/09/23 02:45 11/09/23 02:30 11/09/23 02:15 11/09/23 02:00 11/09/23 01:45 11/09/23 01:30 11/09/23 01:15 11/09/23 01:00 11/09/23 00:45 11/09/23 00:30 11/09/23 00:15 11/09/23 00:00 11/08/23 23:45 11/08/23 23:30 11/08/23 23:19 50 11/08/23 23:15 50 11/08/23 23:05 100 11/08/23 22:45 11/08/23 20:00 11/08/23 16:10 11/08/23 14:00 11/08/23 12:10 Intake and Output 11/08/23 11/09/23 11/09/23 22:59 06:59 14:59 Intake Total 1876.333 690 240 Output Total 400 170 125 Balance 1476.333 520 115 Intake: IV 380 240 KVO 0.9 NS 80 40 Piperacillin-Tazobactam 3 100 100 .375 gm In Sodium Chloride 0.9% 100 ml @ 25 mls/hr IVPB Q8HR [facility] Rx# :[id number] Potassium Chloride 10 meq 200 In Water For Injection 1 100ml.bag @ 100 mls/hr IVPB Q1H [facility] Rx#: [id number] Sodium Ferric Gluconat- 100 Sucrose 125 mg In Sodium Chloride 0.9% 100 ml @ 100 mls/hr IVPB DAILY [facility] Rx#:[id number] Intake, IV Titration 138.333 Amount Diltiazem 125 mg In 138.333 Sodium Chloride 0.9% 100 ml @ 5 MG/HR 5 mls/hr IV .Q24H [facility] Rx#:[id number] Oral 1738 Blood Product 310 Rc Irr As1 Unit 310 [id number] Output: Urine 400 170 125 Uretheral ([place]) 400 Other: Voiding Method Indwelling Catheter Indwelling Catheter Indwelling Catheter Weight 132.1 kg No acute distress, oriented 3. Currently on 4 L nasal cannula. No respiratory distress. HEENT examination is grossly unremarkable. Mucous membranes are moist. No oral lesions. Neck supple. Full range of motion. No adenopathy thyromegaly or neck vein distention. Cardiovascular examination reveals regular rhythm rate. S1-S2 normal. No S3 or S4. No discernible murmur noted. Heart sounds are distant. Heart rate is 78 bpm. Lungs reveal mild scattered rhonchi. No wheezes or crackles. 4 L saturation is 100%. Breath sounds are equal bilaterally. Abdomen soft bowel sounds are heard. No masses or tenderness. Extremities are intact. No cyanosis clubbing or edema. Skin is without rash or lesion. Neurologic examination is brief but nonfocal. Results - Laboratory Findings CBC and BMP: 11/09/23 05:55 11/09/23 05:55 ABG ABG pH 7.29 (7.35-7.45) L 11/08/23 23:14 ABG pCO2 32 mmHg (35-45) L 11/08/23 23:14 ABG pO2 390 mmHg (83-108) H 11/08/23 23:14 ABG O2 Saturation 101.1 % (94-97) H 11/08/23 23:14 PT/INR, D-dimer PT 12.4 sec (10.0-12.5) 11/09/23 05:55 INR 1.2 (<1.2) H 11/09/23 05:55 Abnormal lab findings: Abnormal Labs 11/05/23 11/05/23 11/05/23 14:32 14:32 16:58 WBC RBC 3.23 L Hgb 9.1 L Hct 29.3 L MCH MCHC RDW 19.8 H Neutrophils # Neutrophils # (Manual) Monocytes # Monocytes # (Manual) Eosinophils # Metamyelocytes # (Man) Myelocytes # (Manual) Nucleated RBCs NRBC/100 WBC Diff PT 25.3 H INR 2.6 H ABG pH ABG pCO2 ABG pO2 ABG HCO3 ABG Total CO2 ABG O2 Saturation Chloride Carbon Dioxide BUN 48 H Creatinine Est GFR (CKD-EPI) BUN/Creatinine Ratio Glucose 106 H POC Glucose (mg/dL) Plasma Lactic Acid Juan Calcium 10.3 H Magnesium Iron % Saturation Total Protein 5.5 L Albumin 3.3 L Procalcitonin Urine Appearance Ur Specific [place] Urine Ketones Urine Blood Ur Leukocyte Esterase Urine WBC Ur Squamous Epith Cells Urine Bacteria Urine Mucus Stool Occult Blood Crossmatch 11/05/23 11/06/23 11/06/23 18:10 06:53 06:53 WBC 10.68 H RBC 2.84 L Hgb 7.4 L Hct 25.8 L MCH 26.1 L MCHC 28.7 L RDW 20.9 H Neutrophils # 8.00 H Neutrophils # (Manual) Monocytes # 1.10 H Monocytes # (Manual) Eosinophils # 0.01 L Metamyelocytes # (Man) Myelocytes # (Manual) Nucleated RBCs NRBC/100 WBC Diff 0.06 H PT INR ABG pH ABG pCO2 ABG pO2 ABG HCO3 ABG Total CO2 ABG O2 Saturation Chloride Carbon Dioxide 20.6 L BUN 64.3 H Creatinine Est GFR (CKD-EPI) 52 L BUN/Creatinine Ratio 58.45 H Glucose 132 H POC Glucose (mg/dL) Plasma Lactic Acid Juan Calcium Magnesium Iron % Saturation Total Protein Albumin Procalcitonin Urine Appearance Cloudy H Ur Specific [place] 1.039 H Urine Ketones Trace H Urine Blood Ur Leukocyte Esterase Small H Urine WBC Ur Squamous Epith Cells 24 H Urine Bacteria Rare H Urine Mucus Rare H Stool Occult Blood Crossmatch 11/06/23 11/06/23 11/06/23 08:45 10:00 15:15 WBC RBC 2.45 L Hgb 6.8 L* D Hct 21.9 L MCH MCHC RDW 20.9 H Neutrophils # Neutrophils # (Manual) Monocytes # Monocytes # (Manual) Eosinophils # Metamyelocytes # (Man) Myelocytes # (Manual) Nucleated RBCs NRBC/100 WBC Diff PT 23.7 H INR 2.4 H ABG pH ABG pCO2 ABG pO2 ABG HCO3 ABG Total CO2 ABG O2 Saturation Chloride Carbon Dioxide BUN Creatinine Est GFR (CKD-EPI) BUN/Creatinine Ratio Glucose POC Glucose (mg/dL) Plasma Lactic Acid Juan Calcium Magnesium Iron 23 L % Saturation 6.44 L Total Protein Albumin Procalcitonin Urine Appearance Ur Specific [place] Urine Ketones Urine Blood Ur Leukocyte Esterase Urine WBC Ur Squamous Epith Cells Urine Bacteria Urine Mucus Stool Occult Blood Crossmatch 11/06/23 11/06/23 11/07/23 15:20 19:41 06:44 WBC RBC Hgb Hct MCH MCHC RDW Neutrophils # Neutrophils # (Manual) Monocytes # Monocytes # (Manual) Eosinophils # Metamyelocytes # (Man) Myelocytes # (Manual) Nucleated RBCs NRBC/100 WBC Diff PT 16.8 H INR 1.6 H ABG pH ABG pCO2 ABG pO2 ABG HCO3 ABG Total CO2 ABG O2 Saturation Chloride Carbon Dioxide BUN Creatinine Est GFR (CKD-EPI) BUN/Creatinine Ratio Glucose POC Glucose (mg/dL) Plasma Lactic Acid Juan Calcium Magnesium Iron % Saturation Total Protein Albumin Procalcitonin Urine Appearance Ur Specific [place] Urine Ketones Urine Blood Small H Ur Leukocyte Esterase Moderate H Urine WBC 15 H Ur Squamous Epith Cells Urine Bacteria Urine Mucus Rare H Stool Occult Blood Crossmatch See Detail 11/07/23 11/07/23 11/07/23 06:44 06:44 06:44 WBC 18.9 H RBC 2.73 L Hgb 7.6 L Hct 24.5 L MCH MCHC 30.9 L RDW 20.1 H Neutrophils # 16.3 H Neutrophils # (Manual) Monocytes # 1.3 H Monocytes # (Manual) Eosinophils # Metamyelocytes # (Man) Myelocytes # (Manual) Nucleated RBCs NRBC/100 WBC Diff PT INR ABG pH ABG pCO2 ABG pO2 ABG HCO3 ABG Total CO2 ABG O2 Saturation Chloride Carbon Dioxide BUN Creatinine Est GFR (CKD-EPI) BUN/Creatinine Ratio Glucose POC Glucose (mg/dL) Plasma Lactic Acid Juan 2.7 H* Calcium Magnesium Iron % Saturation Total Protein Albumin Procalcitonin 0.81 H Urine Appearance Ur Specific [place] Urine Ketones Urine Blood Ur Leukocyte Esterase Urine WBC Ur Squamous Epith Cells Urine Bacteria Urine Mucus Stool Occult Blood Crossmatch 11/07/23 11/07/23 11/07/23 06:44 12:08 12:08 WBC 25.3 H RBC 2.60 L Hgb 7.2 L Hct 24.1 L MCH MCHC 29.8 L RDW 20.3 H Neutrophils # Neutrophils # (Manual) Monocytes # Monocytes # (Manual) Eosinophils # Metamyelocytes # (Man) Myelocytes # (Manual) Nucleated RBCs NRBC/100 WBC Diff PT INR ABG pH ABG pCO2 ABG pO2 ABG HCO3 ABG Total CO2 ABG O2 Saturation Chloride 117 H Carbon Dioxide 20 L BUN 64 H Creatinine 1.07 H Est GFR (CKD-EPI) BUN/Creatinine Ratio Glucose 131 H POC Glucose (mg/dL) Plasma Lactic Acid Juan 3.4 H* Calcium Magnesium Iron % Saturation Total Protein 4.8 L Albumin 2.7 L Procalcitonin Urine Appearance Ur Specific [place] Urine Ketones Urine Blood Ur Leukocyte Esterase Urine WBC Ur Squamous Epith Cells Urine Bacteria Urine Mucus Stool Occult Blood Crossmatch 11/07/23 11/07/23 11/08/23 15:26 18:00 07:46 WBC 25.0 H RBC 2.39 L Hgb 7.0 L Hct 22.2 L MCH MCHC RDW 22.0 H Neutrophils # Neutrophils # (Manual) 21.75 H Monocytes # Monocytes # (Manual) 1.50 H Eosinophils # Metamyelocytes # (Man) Myelocytes # (Manual) Nucleated RBCs 1 H NRBC/100 WBC Diff PT INR ABG pH ABG pCO2 ABG pO2 ABG HCO3 ABG Total CO2 ABG O2 Saturation Chloride Carbon Dioxide BUN Creatinine Est GFR (CKD-EPI) BUN/Creatinine Ratio Glucose POC Glucose (mg/dL) Plasma Lactic Acid Juan 2.5 H* 2.6 H* Calcium Magnesium Iron % Saturation Total Protein Albumin Procalcitonin Urine Appearance Ur Specific [place] Urine Ketones Urine Blood Ur Leukocyte Esterase Urine WBC Ur Squamous Epith Cells Urine Bacteria Urine Mucus Stool Occult Blood Crossmatch 11/08/23 11/08/23 11/08/23 07:46 07:46 22:05 WBC RBC Hgb Hct MCH MCHC RDW Neutrophils # Neutrophils # (Manual) Monocytes # Monocytes # (Manual) Eosinophils # Metamyelocytes # (Man) Myelocytes # (Manual) Nucleated RBCs NRBC/100 WBC Diff PT 12.8 H INR 1.2 H ABG pH ABG pCO2 ABG pO2 ABG HCO3 ABG Total CO2 ABG O2 Saturation Chloride 122 H Carbon Dioxide 18 L BUN 53 H Creatinine Est GFR (CKD-EPI) BUN/Creatinine Ratio Glucose 144 H POC Glucose (mg/dL) 183 H Plasma Lactic Acid Juan Calcium Magnesium Iron % Saturation Total Protein Albumin Procalcitonin Urine Appearance Ur Specific [place] Urine Ketones Urine Blood Ur Leukocyte Esterase Urine WBC Ur Squamous Epith Cells Urine Bacteria Urine Mucus Stool Occult Blood Crossmatch 11/08/23 11/08/23 11/08/23 22:41 23:04 23:14 WBC RBC Hgb Hct MCH MCHC RDW Neutrophils # Neutrophils # (Manual) Monocytes # Monocytes # (Manual) Eosinophils # Metamyelocytes # (Man) Myelocytes # (Manual) Nucleated RBCs NRBC/100 WBC Diff PT INR ABG pH 7.29 L ABG pCO2 32 L ABG pO2 390 H ABG HCO3 16 L ABG Total CO2 17 L ABG O2 Saturation 101.1 H Chloride Carbon Dioxide BUN Creatinine Est GFR (CKD-EPI) BUN/Creatinine Ratio Glucose POC Glucose (mg/dL) 233 H 215 H Plasma Lactic Acid Juan Calcium Magnesium Iron % Saturation Total Protein Albumin Procalcitonin Urine Appearance Ur Specific [place] Urine Ketones Urine Blood Ur Leukocyte Esterase Urine WBC Ur Squamous Epith Cells Urine Bacteria Urine Mucus Stool Occult Blood Crossmatch 11/08/23 11/08/23 11/09/23 23:26 23:26 04:30 WBC 18.2 H RBC 2.25 L Hgb 6.3 L* Hct 21.8 L MCH MCHC 29.2 L RDW 22.5 H Neutrophils # Neutrophils # (Manual) 15.65 H Monocytes # Monocytes # (Manual) Eosinophils # Metamyelocytes # (Man) 0.18 H Myelocytes # (Manual) 0.18 H Nucleated RBCs 19 H NRBC/100 WBC Diff PT INR ABG pH ABG pCO2 ABG pO2 ABG HCO3 ABG Total CO2 ABG O2 Saturation Chloride 119 H Carbon Dioxide 15 L BUN 58 H Creatinine 1.60 H Est GFR (CKD-EPI) BUN/Creatinine Ratio Glucose 170 H POC Glucose (mg/dL) Plasma Lactic Acid Juan Calcium Magnesium 2.4 H Iron % Saturation Total Protein 4.8 L Albumin 2.8 L Procalcitonin Urine Appearance Ur Specific [place] Urine Ketones Urine Blood Ur Leukocyte Esterase Urine WBC Ur Squamous Epith Cells Urine Bacteria Urine Mucus Stool Occult Blood Positive H Crossmatch 11/09/23 11/09/23 11/09/23 05:55 05:55 05:55 WBC 18.2 H RBC 2.76 L Hgb 7.9 L D Hct 26.2 L MCH MCHC 30.2 L RDW 20.6 H Neutrophils # Neutrophils # (Manual) 13.83 H Monocytes # Monocytes # (Manual) 1.82 H Eosinophils # Metamyelocytes # (Man) Myelocytes # (Manual) Nucleated RBCs 14 H NRBC/100 WBC Diff PT INR 1.2 H ABG pH ABG pCO2 ABG pO2 ABG HCO3 ABG Total CO2 ABG O2 Saturation Chloride 118 H Carbon Dioxide 20 L BUN 67 H Creatinine 1.99 H Est GFR (CKD-EPI) BUN/Creatinine Ratio Glucose 103 H POC Glucose (mg/dL) Plasma Lactic Acid Juan Calcium Magnesium Iron % Saturation Total Protein Albumin Procalcitonin Urine Appearance Ur Specific [place] Urine Ketones Urine Blood Ur Leukocyte Esterase Urine WBC Ur Squamous Epith Cells Urine Bacteria Urine Mucus Stool Occult Blood Crossmatch - Diagnostic Findings Chest x-ray: image reviewed Assessment and Plan Assessment: Transient respiratory insufficiency, of unclear etiology, requiring BiPAP, and n ow nasal O2. Transient hypotension, which required epinephrine for a brief period of time. Anemia, S/P 1 unit of blood last night, and 2 units total. History of atrial fibrillation. History of deep vein thrombosis. History of gastroesophageal reflux disease. History of hypertension. History of psoriatic arthritis. Plan: Plan dated November 09, 2023. It is not very clear as to exactly what happened to this patient last night. She apparently was attempting to have a bowel movement, and may have had a vasovagal episode. The patient did not lose consciousness. She was found to be hypotensive, with some respiratory distress. Initially at 1 point, the charge nurse thought that she would have to be intubated. The patient was transferred down to the intensive care unit for further monitoring and management. She was placed on BiPAP, with settings of 12/6 and 40%. In addition, the patient was on norepinephrine for a brief period of time. She also received 1 unit of blood for hemoglobin of 6.3. Today she looks completely back to baseline. She herself does not know exactly what happened. We will continue to monitor the patient closely. Time with Patient: Greater than 30
[2023-11-09 13:20] LABS: % Iron Saturation 26.94 (12.00-45.00)
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
[2023-11-09 17:10] LABS: Glucose,Whole Blood 95 mg/dL (70-110)
[2023-11-09 17:32] LABS: Anisocytosis Moderate; HCT 25.1 % (34.0-46.0); HGB 7.6 gm/dL (11.4-16.0); Hypochromasia Marked; MCH 28.8 pg (25.0-35.0); MCHC 30.4 g/dL (31.0-37.0); Macrocytosis Slight; Mean Platelet Volume 7.7; Platelet Count 291 k/uL (150-450); Poikilocytosis Moderate; RBC 2.64 m/uL (3.80-5.40); RDW 21.4 % (11.5-15.5); WBC 19.6 k/uL (3.8-10.6)
[2023-11-09 17:42] LABS: African American GFR (CKD) 33 (>60 ml/min/1.73 sqM); Anion Gap 8 mmol/L; Blood Urea Nitrogen 62 mg/dL (7-17); Carbon Dioxide 15 mmol/L (22-30); Chloride 120 mmol/L (98-107); Glucose 89 mg/dL (74-99); Non-African American GFR(CKD) 29 (>60 ml/min/1.73 sqM); Potassium 4.1 mmol/L (3.5-5.1); Sodium 143 mmol/L (137-145)
--- NOTE | 2023-11-09 19:58 | P.PN ---
Subjective Progress Note Date: 11/09/23 Principal diagnosis: Reason for follow-up is leukocytosis Patient is a 73-year-old female with a past medical history significant for atrial fibrillation hypertension reflux DVT and dementia with initially presented to the hospital with shortness of breath abdominal pain weakness did have a CT abdominal pelvis reported negative did have worsening of the white prompting this consultation. On today's evaluation that is 11/09/2023,the patient did have less responsiven ess hypotension and drop in hemoglobin prompting transfer to the ICU did require pressor support for short duration currently although pressor patient is more awake and alert today and denies any fever or any chills, patient is breathing comfortably on 4 L nasal oxygen no chest pain no cough and no diarrhea has been reported. Patient white count is down to 18.2 hemoglobin is 7.9 creatinine is 1.99 Objective - Vital Signs Vital signs: Vital Signs Temp 97.9 F 11/09/23 08:00 Pulse 81 11/09/23 09:00 Resp 21 11/09/23 09:00 BP 129/57 11/09/23 09:00 Pulse Ox 100 11/09/23 09:00 FiO2 4 11/09/23 09:00 Intake & Output 11/08/23 11/09/23 11/09/23 18:59 06:59 18:59 Intake Total 633 2323.333 Output Total 400 170 Balance 233 2153.333 Weight 132.1 kg Intake: IV 380 KVO 0.9 NS 80 Piperacillin-Tazobactam 3 100 .375 gm In Sodium Chloride 0.9% 100 ml @ 25 mls/hr IVPB Q8HR [facility] Rx# :[id number] Potassium Chloride 10 meq 200 In Water For Injection 1 100ml.bag @ 100 mls/hr IVPB Q1H [facility] Rx#: [id number] Intake, IV Titration 275 13.333 Amount Diltiazem 125 mg In 125 13.333 Sodium Chloride 0.9% 100 ml @ 5 MG/HR 5 mls/hr IV .Q24H [facility] Rx#:[id number] Sodium Ferric Gluconat- 100 Sucrose 125 mg In Sodium Chloride 0.9% 100 ml @ 100 mls/hr IVPB DAILY [facility] Rx#:[id number] cefTRIAXone 2 gm In 50 Sodium Chloride 0.9% 50 ml @ 100 mls/hr IVPB Q24HR [facility] Rx#:[id number] Oral 358 1620 Blood Product 310 Rc Irr As1 Unit 310 [id number] Output: Urine 400 170 Uretheral ([place]) 400 Other: Voiding Method Indwelling Catheter Indwelling Catheter Indwelling Catheter - Exam GENERAL DESCRIPTION: An elderly female lying in bed in no distress RESPIRATORY SYSTEM: Unlabored breathing , decreased breath sounds at bases HEART: S1 S2 regular rate and rhythm , ABDOMEN: Soft , mild distention but no tenderness EXTREMITIES: No edema feet - Labs CBC & Chem 7: 11/09/23 17:18 11/09/23 17:18 Labs: Abnormal Lab Results - Last 24 Hours (Table) 11/06/23 11/08/23 11/08/23 Range/Units 15:20 22:05 22:41 WBC (3.8-10.6) k/uL RBC (3.80-5.40) m/uL Hgb (11.4-16.0) gm/dL Hct (34.0-46.0) % MCHC (31.0-37.0) g/dL RDW (11.5-15.5) % Neutrophils # (Manual) (1.3-7.7) k/uL Monocytes # (Manual) (0-1.0) k/uL Metamyelocytes # (Man) (0) k/uL Myelocytes # (Manual) (0) k/uL Nucleated RBCs (0-0) /100 WBC INR (<1.2) ABG pH (7.35-7.45) ABG pCO2 (35-45) mmHg ABG pO2 (83-108) mmHg ABG HCO3 (21-25) mmol/L ABG Total CO2 (19-24) mmol/L ABG O2 Saturation (94-97) % Chloride (98-107) mmol/L Carbon Dioxide (22-30) mmol/L BUN (7-17) mg/dL Creatinine (0.52-1.04) mg/dL Glucose (74-99) mg/dL POC Glucose (mg/dL) 183 H 233 H (70-110) mg/dL Magnesium (1.6-2.3) mg/dL Total Protein (6.3-8.2) g/dL Albumin (3.5-5.0) g/dL Stool Occult Blood (Negative) Crossmatch See Detail 11/08/23 11/08/2324 Range/Units 23:04 23:14 23:26 WBC 18.2 H (3.8-10.6) k/uL RBC 2.25 L (3.80-5.40) m/uL Hgb 6.3 L* (11.4-16.0) gm/dL Hct 21.8 L (34.0-46.0) % MCHC 29.2 L (31.0-37.0) g/dL RDW 22.5 H (11.5-15.5) % Neutrophils # (Manual) 15.65 H (1.3-7.7) k/uL Monocytes # (Manual) (0-1.0) k/uL Metamyelocytes # (Man) 0.18 H (0) k/uL Myelocytes # (Manual) 0.18 H (0) k/uL Nucleated RBCs 19 H (0-0) /100 WBC INR (<1.2) ABG pH 7.29 L (7.35-7.45) ABG pCO2 32 L (35-45) mmHg ABG pO2 390 H (83-108) mmHg ABG HCO3 16 L (21-25) mmol/L ABG Total CO2 17 L (19-24) mmol/L ABG O2 Saturation 101.1 H (94-97) % Chloride (98-107) mmol/L Carbon Dioxide (22-30) mmol/L BUN (7-17) mg/dL Creatinine (0.52-1.04) mg/dL Glucose (74-99) mg/dL POC Glucose (mg/dL) 215 H (70-110) mg/dL Magnesium (1.6-2.3) mg/dL Total Protein (6.3-8.2) g/dL Albumin (3.5-5.0) g/dL Stool Occult Blood (Negative) Crossmatch 11/08/23 11/09/23 11/09/23 Range/Units 23:26 04:30 05:55 WBC 18.2 H (3.8-10.6) k/uL RBC 2.76 L (3.80-5.40) m/uL Hgb 7.9 L D (11.4-16.0) gm/dL Hct 26.2 L (34.0-46.0) % MCHC 30.2 L (31.0-37.0) g/dL RDW 20.6 H (11.5-15.5) % Neutrophils # (Manual) 13.83 H (1.3-7.7) k/uL Monocytes # (Manual) 1.82 H (0-1.0) k/uL Metamyelocytes # (Man) (0) k/uL Myelocytes # (Manual) (0) k/uL Nucleated RBCs 14 H (0-0) /100 WBC INR (<1.2) ABG pH (7.35-7.45) ABG pCO2 (35-45) mmHg ABG pO2 (83-108) mmHg ABG HCO3 (21-25) mmol/L ABG Total CO2 (19-24) mmol/L ABG O2 Saturation (94-97) % Chloride 119 H (98-107) mmol/L Carbon Dioxide 15 L (22-30) mmol/L BUN 58 H (7-17) mg/dL Creatinine 1.60 H (0.52-1.04) mg/dL Glucose 170 H (74-99) mg/dL POC Glucose (mg/dL) (70-110) mg/dL Magnesium 2.4 H (1.6-2.3) mg/dL Total Protein 4.8 L (6.3-8.2) g/dL Albumin 2.8 L (3.5-5.0) g/dL Stool Occult Blood Positive H (Negative) Crossmatch 11/09/23 11/09/23 Range/Units 05:55 05:55 WBC (3.8-10.6) k/uL RBC (3.80-5.40) m/uL Hgb (11.4-16.0) gm/dL Hct (34.0-46.0) % MCHC (31.0-37.0) g/dL RDW (11.5-15.5) % Neutrophils # (Manual) (1.3-7.7) k/uL Monocytes # (Manual) (0-1.0) k/uL Metamyelocytes # (Man) (0) k/uL Myelocytes # (Manual) (0) k/uL Nucleated RBCs (0-0) /100 WBC INR 1.2 H (<1.2) ABG pH (7.35-7.45) ABG pCO2 (35-45) mmHg ABG pO2 (83-108) mmHg ABG HCO3 (21-25) mmol/L ABG Total CO2 (19-24) mmol/L ABG O2 Saturation (94-97) % Chloride 118 H (98-107) mmol/L Carbon Dioxide 20 L (22-30) mmol/L BUN 67 H (7-17) mg/dL Creatinine 1.99 H (0.52-1.04) mg/dL Glucose 103 H (74-99) mg/dL POC Glucose (mg/dL) (70-110) mg/dL Magnesium (1.6-2.3) mg/dL Total Protein (6.3-8.2) g/dL Albumin (3.5-5.0) g/dL Stool Occult Blood (Negative) Crossmatch Microbiology - Last 24 Hours (Table) 11/06/23 20:50 Blood Culture - Preliminary Blood 11/07/23 08:11 Blood Culture - Preliminary Blood Assessment and Plan (1) Leukocytosis Current Visit: Yes Status: Acute Code(s): D72.829 - ELEVATED WHITE BLOOD CE LL COUNT, UNSPECIFIED SNOMED Code(s): 296951234 Plan: 1patient with elevated white count of 25,000 and this patient presented to the hospital with abdominal pain patient did have a elevated lactic acid CT abdominal pelvis was done but apparently without any oral contrast that will decrease the sensitivity concern is likely for abdominal source with a question of diverticulitis versus ischemic bowel with elevated lactic acid chest x-ray w as reported negative however the patient did have a large lateral hernia with gastric content and high risk of aspiration 2-blood cultures has been repeated and check inflammatory markers 3-patient seems to be slightly more awake alert today we will order CT abdominal pelvis with oral contrast for better definition of intra-abdominal pathology especially with the drop in hemoglobin 4-patient white count is trending will continue with Zosyn 3.375 g every 8 hours Dictation was produced using [employer] dictation software. please excuse any grammatical, word or spelling errors. Time with Patient: Less than 30
[2023-11-09] MEDS: IOPAMIDOL CONTRAST (ORAL USE) VIAL PO PRN (21:39)
[2023-11-09 23:38] LABS: Anisocytosis Moderate; HCT 22.2 % (34.0-46.0); Hypochromasia Marked; MCHC 30.2 g/dL (31.0-37.0); MCV 95.9 fL (80.0-100.0); Macrocytosis Slight; Mean Platelet Volume 8.6; Platelet Count 299 k/uL (150-450); Poikilocytosis Moderate; RBC 2.31 m/uL (3.80-5.40); RDW 21.5 % (11.5-15.5); WBC 16.1 k/uL (3.8-10.6)
[2023-11-09 23:45] LABS: HGB 6.7 gm/dL (11.4-16.0)
[2023-11-10] MEDS: LACTATED RINGERS 1,000 ML IV SCH (00:50)
--- NOTE | 2023-11-10 07:41 | P.PN ---
Subjective Progress Note Date: 11/10/23 This is a 73-year-old female patient with morbid obesity as well as multiple comorbid conditions who reconsulted for atrial fibrillation with RVR. She was receiving Coumadin as an outpatient. November 10, 2023 The patient was seen and evaluated this morning. She is in atrial fibrillation with controlled heart rate otherwise the pressure has been stable. She did have anemia currently under under investigation and she received 1 unit of packed RBC but the hemoglobin continues to be low at 6.7 but she is in process having another unit of packed RBC. She is on anticoagulation but that is on hold at this point. The examination is remarkable for morbidly obese lady with change in mental status/lethargy as well as bilateral lower extremities edema Assessment Atrial fibrillation with controlled heart rate Anemia currently under investigation Multiple comorbid conditions Plan Continue the current medical regimen Continue the investigation regarding the anemia Blood transfusion Objective - Vital Signs Vital signs: Vital Signs Temp 98.1 F 11/10/23 06:49 Pulse 67 11/10/23 07:00 Resp 15 11/10/23 07:00 BP 122/63 11/10/23 07:00 Pulse Ox 100 11/10/23 07:00 FiO2 40 11/10/23 04:00 Intake & Output 11/09/23 11/10/23 11/10/23 18:59 06:59 18:59 Intake Total 2490 1370 Output Total 475 615 Balance 2014 75 Weight 129.9 kg Intake: IV 490 750 KVO 0.9 NS 190 200 Lactated Ringers 1,000 ml 450 @ 75 mls/hr IV .[id number] [facility] Rx#:[id number] Piperacillin-Tazobactam 3 200 100 .375 gm In Sodium Chloride 0.9% 100 ml @ 25 mls/hr IVPB Q8HR [facility] Rx# :[id number] Sodium Ferric Gluconat- 100 Sucrose 125 mg In Sodium Chloride 0.9% 100 ml @ 100 mls/hr IVPB DAILY [facility] Rx#:[id number] Oral 2000 Blood Product 620 Rc Irr As1 Unit 310 [id number] Output: Urine 475 615 Other: Voiding Method Indwelling Catheter Indwelling Catheter - Labs CBC & Chem 7: 11/09/23 23:12 11/09/23 17:18 Labs: Abnormal Lab Results - Last 24 Hours (Table) 11/06/23 11/09/23 11/09/23 Range/Units 15:20 05:55 17:18 WBC 18.2 H 19.6 H (3.8-10.6) k/uL RBC 2.64 L (3.80-5.40) m/uL Hgb 7.6 L (11.4-16.0) gm/dL Hct 25.1 L (34.0-46.0) % MCHC 30.4 L (31.0-37.0) g/dL RDW 21.4 H (11.5-15.5) % Neutrophils # (Manual) 13.83 H (1.3-7.7) k/uL Monocytes # (Manual) 1.82 H (0-1.0) k/uL Nucleated RBCs 14 H (0-0) /100 WBC Chloride (98-107) mmol/L Carbon Dioxide (22-30) mmol/L BUN (7-17) mg/dL Creatinine (0.52-1.04) mg/dL Crossmatch See Detail 11/09/23 11/09/23 11/10/23 Range/Units 17:18 23:12 02:05 WBC 16.1 H (3.8-10.6) k/uL RBC 2.31 L (3.80-5.40) m/uL Hgb 6.7 L* (11.4-16.0) gm/dL Hct 22.2 L (34.0-46.0) % MCHC 30.2 L (31.0-37.0) g/dL RDW 21.5 H (11.5-15.5) % Neutrophils # (Manual) (1.3-7.7) k/uL Monocytes # (Manual) (0-1.0) k/uL Nucleated RBCs (0-0) /100 WBC Chloride 120 H (98-107) mmol/L Carbon Dioxide 15 L (22-30) mmol/L BUN 62 H (7-17) mg/dL Creatinine 1.71 H (0.52-1.04) mg/dL Crossmatch See Detail Microbiology - Last 24 Hours (Table) 11/06/23 20:50 Blood Culture - Preliminary Blood 11/08/23 14:53 Blood Culture - Preliminary Blood 11/07/23 08:11 Blood Culture - Preliminary Blood
[2023-11-10 08:49] LABS: Anisocytosis Moderate; HCT 23.3 % (34.0-46.0); HGB 7.2 gm/dL (11.4-16.0); Hypochromasia Marked; MCH 28.8 pg (25.0-35.0); MCHC 30.9 g/dL (31.0-37.0); MCV 93.4 fL (80.0-100.0); Macrocytosis Slight; Mean Platelet Volume 8.3; Platelet Count 287 k/uL (150-450); Poikilocytosis Moderate; RDW 21.4 % (11.5-15.5)
--- NOTE | 2023-11-10 08:50 | CT ---
EXAMINATION TYPE: CT abdomen pelvis wo con DATE OF EXAM: 11/10/2023 COMPARISON: 11/05/2023 HISTORY: sepsis , abd pain CT DLP: 1853.9 mGycm Examination of the solid and hollow viscera is limited given the lack of contrast. FINDINGS: LUNG BASES: No evidence for nodule. No evidence for infiltrate. Moderate fixed hiatal hernia noted. M ild left basilar compressive atelectasis. LIVER/GB: The gallbladder surgically absent. No space-occupying hepatic lesion. PANCREAS: No pancreatic mass identified. No inflammatory process seen. SPLEEN: No evidence for splenomegaly. No intrasplenic lesions seen. ADRENALS: No adrenal nodules identified. No evidence for thickening. KIDNEYS: No evidence for renal mass. No nephrolithiasis. No hydronephrosis. BOWEL: Rectal catheter appears to be in place. Correlate clinically. At least moderate fecal stasis r ectosigmoid region and mild wall thickening. Correlate for proctocolitis . Minimal perirectal strandi ng suggested. The remainder of the colon demonstrates distention up to 8 cm with scattered air-fluid level seen. Small bowel is of normal caliber. No evidence for free air or abscess. Lymph nodes: No evidence for adenopathy greater than 1 cm. Abdominal aorta: Atheromatous changes seen. No evidence for aneurysm. Genital organs: No significant abnormality. Other: No significant abnormality. IMPRESSION: 1.At least moderate fecal stasis rectosigmoid region and mild wall thickening. Correlate for proctoco litis. Minimal perirectal stranding suggested. The remainder of the colon demonstrates distention up to 8 cm with scattered air-fluid level seen.
[2023-11-10 08:58] LABS: African American GFR (CKD) 45 (>60 ml/min/1.73 sqM); Anion Gap 2 mmol/L; Blood Urea Nitrogen 50 mg/dL (7-17); Calcium 8.4 mg/dL (8.4-10.2); Carbon Dioxide 20 mmol/L (22-30); Chloride 120 mmol/L (98-107); Glucose 87 mg/dL (74-99); Non-African American GFR(CKD) 39 (>60 ml/min/1.73 sqM); Potassium 3.7 mmol/L (3.5-5.1); Sodium 142 mmol/L (137-145)
[2023-11-10] MEDS: POTASSIUM CHLORIDE 20 MEQ in WATER FOR INJECTION 1 100ML.BAG IVPB STA (09:58)
[2023-11-10 10:16] LABS: Neutrophils % (M) 73 %; Nucleated Red Blood Cells 6 /100 WBC (0-0); Total Cells Counted 200
[2023-11-10 10:17] LABS: Lymphocytes # (M) 2.06 k/uL (1.0-4.8); Monocytes # (M) 1.55 k/uL (0-1.0); Neutrophils # (M) 9.42 k/uL (1.3-7.7); WBC 12.9 k/uL (3.8-10.6)
[2023-11-10 10:18] LABS: Polychromasia Present
--- NOTE | 2023-11-10 11:04 | P.PN ---
Subjective Progress Note Date: 11/10/23 Principal diagnosis: Respiratory distress. Pulmonary consult dated November 09, 2023. 73-year-old female brought to the emergency room on November 04 by EMS, for weakness and shortness of breath. The patient apparently had adequate saturations on room air, but was placed on oxygen at 2 L for comfort. He apparently has not been feeling well for about 2 days prior to mission, beginning on November 02. Anyway, the patient was admitted to the hospital, with a diagnosis of nausea, respiratory insufficiency, and weakness. Last night, there was a rapid response called on this patient, and I was notified. The patient apparently had some mental status changes, worsening respiratory status, and required BiPAP. We agreed to transfer the patient down to the intensive care unit. In addition, her hemoglobin was 6.3 and she received 1 unit of packed red blood cells. Her hemoglobin this morning was 7.9. She was on norepinephrine for about 30 minutes. She was also on BiPAP for respiratory insufficiency, at 12/6, and 40%. The patient continues on Zosyn. Currently she is on 4 L nasal cannula, and saline at 20 cc an hour. According to the nurses, she looks much better this morning than she did look last night. In addition, the nurse that I spoke to her last night thought that we would have to end up intubating this patient, but that never happened. Current labs include a white count 18.2, hemoglobin 7.9, hematocrit 26.2, and a platelet count that is normal. Sodium 144, potassium 4.1, chlorides 118, CO2 20, BUN 67, creatinine 1.99. This electrolyte profile is consistent with a nonanion gap metabolic acidosis. Is a hyperchloremic metabolic acidosis. Blood gases show pO2 of 390, pCO2 of 32, pH of 7.29, again showing the metabolic acidosis. The rest of the labs look okay. Stools were positive for occult blood. Cultures are currently negative. Chest x-ray shows a large hiatal hernia, and bibasilar atelectasis. Progress note dated November 10, 2023. 73-year-old female seen in consultation yesterday. Please see my note above. The patient has a history of multiple medical problems, but was brought to the intensive care unit, because of hypotension, and respiratory failure. She required norepinephrine for short period of time, and BiPAP. Currently she is on 2 L. She did use BiPAP last night with settings of 12/6, and 40%. She is getting lactated Ringer's at 75 cc an hour, and saline at KVO. Clinically, she is feeling much better. White count is 12.9, hemoglobin 7.2, hematocrit 23.3, with a normal platelet count. Sodium 142, potassium 3.7, chlorides 120, CO2 20, BUN 50, and creatinine 1.35. Calcium is 8.4. Glucose is 87. Blood cultures are negative are pending. CT of the abdomen shows evidence of possible proctocolitis, and colonic distention. Objective - Vital Signs Vital signs: Vital Signs Temp 98.1 F 11/10/23 08:00 Pulse 77 11/10/23 10:00 Resp 22 11/10/23 10:00 BP 111/51 11/10/23 10:00 Pulse Ox 93 L 11/10/23 10:00 FiO2 40 11/10/23 07:57 Intake & Output 11/09/23 11/10/23 11/10/23 18:59 06:59 18:59 Intake Total 2490 1370 485 Output Total 475 615 155 Balance 2014 755 330 Weight 129.9 kg Intake: IV 490 750 485 KVO 0.9 NS 190 200 60 Lactated Ringers 1,000 ml 450 225 @ 75 mls/hr IV .[id number] [facility] Rx#:[id number] Piperacillin-Tazobactam 3 200 100 100 .375 gm In Sodium Chloride 0.9% 100 ml @ 25 mls/hr IVPB Q8HR [facility] Rx# :[id number] Sodium Ferric Gluconat- 100 100 Sucrose 125 mg In Sodium Chloride 0.9% 100 ml @ 100 mls/hr IVPB DAILY [facility] Rx#:[id number] Oral 2000 Blood Product 620 Rc Irr As1 Unit 310 [id number] Output: Urine 475 615 155 Other: Voiding Method Indwelling Catheter Indwelling Catheter Indwelling Catheter - Exam No acute distress, oriented 3. Currently on 2 L nasal cannula. No respiratory distress. HEENT examination is grossly unremarkable. Mucous membranes are moist. No oral lesions. Neck supple. Full range of motion. No adenopathy thyromegaly or neck vein distention. Cardiovascular examination reveals regular rhythm rate. S1-S2 normal. No S3 or S4. No discernible murmur noted. Heart sounds are distant. Heart rate is 77 bpm. Lungs reveal mild scattered rhonchi. No wheezes or crackles. 2L saturation is 99%. Breath sounds are equal bilaterally. Abdomen soft bowel sounds are heard. No masses or tenderness. Extremities are intact. No cyanosis clubbing or edema. Skin is without rash or lesion. Neurologic examination is brief but nonfocal. - Labs CBC & Chem 7: 11/10/23 08:41 11/10/23 08:41 Labs: Abnormal Lab Results - Last 24 Hours (Table) 11/06/23 11/09/23 11/09/23 Range/Units 15:20 17:18 17:18 WBC 19.6 H (3.8-10.6) k/uL RBC 2.64 L (3.80-5.40) m/uL Hgb 7.6 L (11.4-16.0) gm/dL Hct 25.1 L (34.0-46.0) % MCHC 30.4 L (31.0-37.0) g/dL RDW 21.4 H (11.5-15.5) % Neutrophils # (Manual) (1.3-7.7) k/uL Monocytes # (Manual) (0-1.0) k/uL Nucleated RBCs (0-0) /100 WBC Chloride 120 H (98-107) mmol/L Carbon Dioxide 15 L (22-30) mmol/L BUN 62 H (7-17) mg/dL Creatinine 1.71 H (0.52-1.04) mg/dL Crossmatch See Detail 11/09/23 11/10/23 11/10/23 Range/Units 23:12 02:05 08:41 WBC 16.1 H 12.9 H (3.8-10.6) k/uL RBC 2.31 L 2.50 L (3.80-5.40) m/uL Hgb 6.7 L* 7.2 L (11.4-16.0) gm/dL Hct 22.2 L 23.3 L (34.0-46.0) % MCHC 30.2 L 30.9 L (31.0-37.0) g/dL RDW 21.5 H 21.4 H (11.5-15.5) % Neutrophils # (Manual) 9.42 H (1.3-7.7) k/uL Monocytes # (Manual) 1.55 H (0-1.0) k/uL Nucleated RBCs 6 H (0-0) /100 WBC Chloride (98-107) mmol/L Carbon Dioxide (22-30) mmol/L BUN (7-17) mg/dL Creatinine (0.52-1.04) mg/dL Crossmatch See Detail 11/10/23 Range/Units 08:41 WBC (3.8-10.6) k/uL RBC (3.80-5.40) m/uL Hgb (11.4-16.0) gm/dL Hct (34.0-46.0) % MCHC (31.0-37.0) g/dL RDW (11.5-15.5) % Neutrophils # (Manual) (1.3-7.7) k/uL Monocytes # (Manual) (0-1.0) k/uL Nucleated RBCs (0-0) /100 WBC Chloride 120 H (98-107) mmol/L Carbon Dioxide 20 L (22-30) mmol/L BUN 50 H (7-17) mg/dL Creatinine 1.35 H (0.52-1.04) mg/dL Crossmatch Microbiology - Last 24 Hours (Table) 11/06/23 20:50 Blood Culture - Preliminary Blood 11/08/23 14:53 Blood Culture - Preliminary Blood 11/07/23 08:11 Blood Culture - Preliminary Blood Assessment and Plan Assessment: Transient respiratory insufficiency, of unclear etiology, requiring BiPAP, and now nasal O2. Transient hypotension, which required norepinephrine for a brief period of time. Anemia, S/P 1 unit of blood last night, and 3 units total. History of atrial fibrillation. History of deep vein thrombosis. History of gastroesophageal reflux disease. History of hypertension. History of psoriatic arthritis. Plan: Plan dated November 09, 2023. It is not very clear as to exactly what happened to this patient last night. She apparently was attempting to have a bowel movement, and may have had a vasovagal episode. The patient did not lose consciousness. She was found to be hypotensive, with some respiratory distress. Initially at 1 point, the charge nurse thought that she would have to be intubated. The patient was transferred down to the intensive care unit for further monitoring and management. She was placed on BiPAP, with settings of 12/6 and 40%. In addition, the patient was on norepinephrine for a brief period of time. She also received 1 unit of blood for hemoglobin of 6.3. Today she looks completely back to baseline. She herself does not know exactly what happened. We will continue to monitor the jesika bautista closely. Plan dated November 10, 2023. The patient is seen today in room 267. She is currently on 2 L of oxygen. The patient did use a BiPAP device last night, with settings of 12/6, 40%. The p atient is getting lactated Ringer's at 75 cc an hour. Labs, x-rays, and all medications are reviewed. We will continue to follow the patient, make recommendations along the way. I told the nurses that if she is stable for the better part of the day, she can be transferred out later today. We will continue to follow make recommendations. Prognosis is guarded. CT scan of the abdomen reveals proctocolitis, and possible bowel obstruction. Time with Patient: Less than 30
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
[2023-11-10 16:09] LABS: Anisocytosis Moderate; HGB 7.5 gm/dL (11.4-16.0); Hypochromasia Marked; MCH 29.5 pg (25.0-35.0); MCHC 30.2 g/dL (31.0-37.0); MCV 97.7 fL (80.0-100.0); Macrocytosis Moderate; Mean Platelet Volume 8.4; Platelet Count 262 k/uL (150-450); Poikilocytosis Moderate; RBC 2.55 m/uL (3.80-5.40); RDW 22.2 % (11.5-15.5)
--- NOTE | 2023-11-11 10:58 | P.PN ---
Subjective Progress Note Date: 11/11/23 Principal diagnosis: Respiratory distress. Pulmonary consult dated November 09, 2023. 73-year-old female brought to the emergency room on November 04 by EMS, for weakness and shortness of breath. The patient apparently had adequate saturations on room air, but was placed on oxygen at 2 L for comfort. He apparently has not been feeling well for about 2 days prior to mission, beginning on November 02. Anyway, the patient was admitted to the hospital, with a diagnosis of nausea, respiratory insufficiency, and weakness. Last night, there was a rapid response called on this patient, and I was notified. The patient apparently had some mental status changes, worsening respiratory status, and required BiPAP. We agreed to transfer the patient down to the intensive care unit. In addition, her hemoglobin was 6.3 and she received 1 unit of packed red blood cells. Her hemoglobin this morning was 7.9. She was on norepinephrine for about 30 minutes. She was also on BiPAP for respiratory insufficiency, at 12/6, and 40%. The patient continues on Zosyn. Currently she is on 4 L nasal cannula, and saline at 20 cc an hour. According to the nurses, she looks much better this morning than she did look last night. In addition, the nurse that I spoke to her last night thought that we would have to end up intubating this patient, but that never happened. Current labs include a white count 18.2, hemoglobin 7.9, hematocrit 26.2, and a platelet count that is normal. Sodium 144, potassium 4.1, chlorides 118, CO2 20, BUN 67, creatinine 1.99. This electrolyte profile is consistent with a nonanion gap metabolic acidosis. Is a hyperchloremic metabolic acidosis. Blood gases show pO2 of 390, pCO2 of 32, pH of 7.29, again showing the metabolic acidosis. The rest of the labs look okay. Stools were positive for occult blood. Cultures are currently negative. Chest x-ray shows a large hiatal hernia, and bibasilar atelectasis. Progress note dated November 10, 2023. 73-year-old female seen in consultation yesterday. Please see my note above. The patient has a history of multiple medical problems, but was brought to the intensive care unit, because of hypotension, and respiratory failure. She required norepinephrine for short period of time, and BiPAP. Currently she is on 2 L. She did use BiPAP last night with settings of 12/6, and 40%. She is getting lactated Ringer's at 75 cc an hour, and saline at KVO. Clinically, she is feeling much better. White count is 12.9, hemoglobin 7.2, hematocrit 23.3, with a normal platelet count. Sodium 142, potassium 3.7, chlorides 120, CO2 20, BUN 50, and creatinine 1.35. Calcium is 8.4. Glucose is 87. Blood cultures are negative are pending. CT of the abdomen shows evidence of possible proctocolitis, and colonic distention. Progress note dated November 11, 2023. 73-year-old female seen in consultation 2 days ago. She was transferred out of the intensive care unit yesterday. She is seen today in room 367. She is on 2 L of oxygen. No IV fluids. She is receiving iron infusion. She is feeling much better. She came to the unit with hypotension, and respiratory distress. For a period of time she did need BiPAP. She is not using it currently. No labs from today as yet. Blood and urine cultures are currently negative or pending. Objective - Vital Signs Vital signs: Vital Signs Temp 97.9 F 11/11/23 04:00 Pulse 60 11/11/23 04:00 Resp 14 11/11/23 04:00 BP 95/64 11/11/23 04:00 Pulse Ox 95 11/11/23 04:00 FiO2 40 11/10/23 07:57 Intake & Output 11/10/23 11/11/23 11/11/23 18:59 06:59 18:59 Intake Total 1345 240 Output Total 655 300 500 Balance 690 -300 -260 Weight 132 kg Intake: IV 1345 KVO 0.9 NS 220 Lactated Ringers 1,000 ml 825 @ 75 mls/hr IV .[id number] [facility] Rx#:[id number] Piperacillin-Tazobactam 3 200 .375 gm In Sodium Chloride 0.9% 100 ml @ 25 mls/hr IVPB Q8HR [facility] Rx# :[id number] Sodium Ferric Gluconat- 100 Sucrose 125 mg In Sodium Chloride 0.9% 100 ml @ 100 mls/hr IVPB DAILY [facility] Rx#:[id number] Oral 240 Output: Urine 655 300 500 Other: Voiding Method Indwelling Catheter Indwelling Catheter # Bowel Movements 1 - Exam No acute distress, oriented 3. Currently on 2 L nasal cannula. No respiratory distress. HEENT examination is grossly unremarkable. Mucous membranes are moist. No oral lesions. Neck supple. Full range of motion. No adenopathy thyromegaly or neck vein distention. Cardiovascular examination reveals regular rhythm rate. S1-S2 normal. No S3 or S4. No discernible murmur noted. Heart sounds are distant. Heart rate is 71 bpm. Lungs reveal mild scattered rhonchi. No wheezes or crackles. 2L saturation is 96 %. Breath sounds are equal bilaterally. Abdomen soft bowel sounds are heard. No masses or tenderness. Extremities are intact. No cyanosis clubbing or edema. Skin is without rash or lesion. Neurologic examination is brief but nonfocal. - Labs CBC & Chem 7: 11/10/23 15:34 11/10/23 08:41 Labs: Abnormal Lab Results - Last 24 Hours (Table) 11/10/23 Range/Units 15:34 WBC 14.0 H (3.8-10.6) k/uL RBC 2.55 L (3.80-5.40) m/uL Hgb 7.5 L (11.4-16.0) gm/dL Hct 25.0 L (34.0-46.0) % MCHC 30.2 L (31.0-37.0) g/dL RDW 22.2 H (11.5-15.5) % Microbiology - Last 24 Hours (Table) 11/08/23 14:53 Blood Culture - Preliminary Blood 11/07/23 08:11 Blood Culture - Preliminary Blood Assessment and Plan Assessment: Transient respiratory insufficiency, of unclear etiology, requiring BiPAP, and now nasal O2. Transient hypotension, which required norepinephrine for a brief period of time. Anemia, S/P 1 unit of blood last night, and 3 units total. History of atrial fibrillation. History of deep vein thrombosis. History of gastroesophageal reflux disease. History of hypertension. History of psoriatic arthritis. Plan: Plan dated November 09, 2023. It is not very clear as to exactly what happened to this patient last night. She apparently was attempting to have a bowel movement, and may have had a vasovagal episode. The patient did not lose consciousness. She was found to be hypotensive, with some respiratory distress. Initially at 1 point, the charge nurse thought that she would have to be intubated. The patient was transferred down to the intensive care unit for further monitoring and management. She was placed on BiPAP, with settings of 12/6 and 40%. In addition, the patient was on norepinephrine for a brief period of time. She also received 1 unit of blood for hemoglobin of 6.3. Today she looks completely back to baseline. She herself does not know exactly what happened. We will continue to monitor the patient closely. Plan dated November 10, 2023. The patient is seen today in room 267. She is currently on 2 L of oxygen. The patient did use a BiPAP device last night, with settings of 12/6, 40%. The patient is getting lactated Ringer's at 75 cc an hour. Labs, x-rays, and all medications are reviewed. We will continue to follow the patient, make recommendations along the way. I told the nurses that if she is stable for the better part of the day, she can be transferred out later today. We will continue to follow make recommendations. Prognosis is guarded. CT scan of the abdomen reveals proctocolitis, and possible bowel obstruction. Plan dated November 11, 2023. The patient was transferred out of the intensive care unit yesterday. She is now seen in room 367. She came to the unit with hypotension and respiratory distress. At one point, my charge nurse thought the patient might need to be intubated. The patient was placed on BiPAP, and the patient did well. The patient is currently on 2 L. No IV fluids are running. Labs, x-rays, medica tions are all reviewed. We will continue to follow for the short-term. Prognosis is guarded. Time with Patient: Less than 30
--- NOTE | 2023-11-11 11:45 | P.PN ---
Subjective HISTORY OF PRESENT ILLNESS: This is a 73-year-old female with a past medical history significant for hypertension, mild coronary artery disease, paroxysmal atrial fibrillation, and morbid obesity. Patient follows in the office with Dr. Junior. We have been asked to see the patient in consultation for A-fib with RVR. Patient examined at the bedside. Patient was brought to the emergency room with a reported chief complaint of shortness of breath and generalized weakness. The patient was found to have anemia and was evaluated by GI services with no plans for endoscopy. Hemoglobin today 7.0. Patient was transfused 1 unit packed RBCs during her hospitalization. Patient remains in atrial fibrillation with a heart rate in the 90s. She remains on IV Cardizem at 10 mg an hour. Her anticoagulation has since been discontinued. DIAGNOSTICS: - Laboratory data: WBC 25.0. Hemoglobin 7.0. Platelet count 10.4. Sodium 144. Potassium 4.5. BUN 53. Creatinine 0.98. - Current home cardiac medications include Coumadin 5 mg at night, metoprolol succinate 100 mg twice a day, Lasix 20 mg daily. - Most recent echocardiogram obtained in February 2021 revealed ejection fraction 55%, mild MR, mild TR - Cardiac catheterization history: April 2021 revealed mild to moderate CAD with 10 to 20% RCA stenosis, 50 to 60% LAD stenosis, LAD lesion IFR normal at 0.92. 11/09/2023 Yesterday evening patient developed respiratory distress with decreased level of consciousness. An 18 was called and the patient was transferred to the intensive care unit. Patient is examined this morning in the ICU. She is lethargic at the time of examination. She remains on BiPAP 03/26 with 50% Fio2. Bedside telemetry reveals atrial fibrillation with heart rate in the 80s. Her Cardizem drip has been weaned off. Blood pressure stable. 11/11/2023 Patient examined this morning at bedside. Patient states she is feeling better this morning. She denies chest pain or pressure. Telemetry reveals atrial fibrillation with controlled ventricular rate. Blood pressure stable. PHYSICAL EXAM: VITAL SIGNS: Reviewed. GENERAL: Well-developed in no acute distress. HEENT: Head is normocephalic. Pupils are equal, round. Sclerae anicteric. Mucous membranes of the mouth are moist. Neck supple. No JVD or thyromegaly LUNGS: Respirations even and unlabored. Lungs with bilateral rhonchi. HEART: Irregular rate and rhythm. S1 and S2 heard. ABDOMEN: Soft. Nondistended. Nontender. EXTREMITIES: Normal range of motion. No clubbing or cyanosis. Peripheral pulses intact. No lower extremity edema NEUROLOGIC: Awake and alert ASSESSMENT: Altered mental status Acute hypoxic respiratory failure requiring BiPAP support Anemia, status post 1 unit RBC transfusion Paroxysmal atrial fibrillation, on Coumadin outpatient Hypertension Mild nonobstructive CAD PLAN: Recommend continuing to hold anticoagulation at this time due to anemia. Can be reassessed on an outpatient basis Continue current dose of metoprolol succinate 150 mg twice a day Continue telemetry monitoring No further inpatient recommendations from a cardiac standpoint We will sign off. Please reconsult if needed. Nurse practitioner note has been reviewed by physician. Signing provider agrees with the documented findings, assessment, and plan of care documented by [employer] as a scribe. Objective - Vital Signs Vital signs: Vital Signs Temp 97.9 F 11/11/23 04:00 Pulse 60 11/11/23 04:00 Resp 14 11/11/23 04:00 BP 95/64 11/11/23 04:00 Pulse Ox 95 11/11/23 04:00 FiO2 40 11/10/23 07:57 Intake & Output 11/10/23 11/11/23 11/11/23 18:59 06:59 18:59 Intake Total 1345 240 Output Total 655 300 500 Balance 690 -300 -260 Weight 132 kg Intake: IV 1345 KVO 0.9 NS 220 Lactated Ringers 1,000 ml 825 @ 75 mls/hr IV .[id number] [facility] Rx#:[id number] Piperacillin-Tazobactam 3 200 .375 gm In Sodium Chloride 0.9% 100 ml @ 25 mls/hr IVPB Q8HR [facility] Rx# :[id number] Sodium Ferric Gluconat- 100 Sucrose 125 mg In Sodium Chloride 0.9% 100 ml @ 100 mls/hr IVPB DAILY [facility] Rx#:[id number] Oral 240 Output: Urine 655 300 500 Other: Voiding Method Indwelling Catheter Indwelling Catheter # Bowel Movements 1 - Labs CBC & Chem 7: 11/10/23 15:34 11/10/23 08:41 Labs: Abnormal Lab Results - Last 24 Hours (Table) 11/10/23 Range/Units 15:34 WBC 14.0 H (3.8-10.6) k/uL RBC 2.55 L (3.80-5.40) m/uL Hgb 7.5 L (11.4-16.0) gm/dL Hct 25.0 L (34.0-46.0) % MCHC 30.2 L (31.0-37.0) g/dL RDW 22.2 H (11.5-15.5) % Microbiology - Last 24 Hours (Table) 11/08/23 14:53 Blood Culture - Preliminary Blood 11/07/23 08:11 Blood Culture - Preliminary Blood
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
--- NOTE | 2023-11-11 15:23 | P.PN ---
Subjective Progress Note Date: 11/10/23 Principal diagnosis: Reason for follow-up is leukocytosis Patient is a 73-year-old female with a past medical history significant for atrial fibrillation hypertension reflux DVT and dementia with initially presented to the hospital with shortness of breath abdominal pain weakness did have a CT abdominal pelvis reported negative did have worsening of the white prompting this consultation. On today's evaluation that is 11/10/2023,the patient remains to be afebrile, p atient is on 2 L nasal cannula supplemental oxygen and denies any shortness of breath no chest pain or cough.Patient denies having any nausea or vomiting, no abdominal pain and no diarrhea has been reported Patient white count is down to 12.9 creatinine is 1.35 blood culture negative Objective - Vital Signs Vital signs: Vital Signs Temp 98.1 F 11/10/23 08:00 Pulse 77 11/10/23 10:00 Resp 22 11/10/23 10:00 BP 111/51 11/10/23 10:00 Pulse Ox 93 L 11/10/23 10:00 FiO2 40 11/10/23 07:57 Intake & Output 11/09/23 11/10/23 11/10/23 18:59 06:59 18:59 Intake Total 2490 1370 485 Output Total 475 615 155 Balance 2014 755 330 Weight 129.9 kg Intake: IV 490 750 485 KVO 0.9 NS 190 200 60 Lactated Ringers 1,000 ml 450 225 @ 75 mls/hr IV .[id number] [facility] Rx#:[id number] Piperacillin-Tazobactam 3 200 100 100 .375 gm In Sodium Chloride 0.9% 100 ml @ 25 mls/hr IVPB Q8HR [facility] Rx# :[id number] Sodium Ferric Gluconat- 100 100 Sucrose 125 mg In Sodium Chloride 0.9% 100 ml @ 100 mls/hr IVPB DAILY [facility] Rx#:[id number] Oral 2000 Blood Product 620 Rc Irr As1 Unit 310 [id number] Output: Urine 475 615 155 Other: Voiding Method Indwelling Catheter Indwelling Catheter Indwelling Catheter - Exam GENERAL DESCRIPTION: An elderly female lying in bed in no distress RESPIRATORY SYSTEM: Unlabored breathing , decreased breath sounds at bases HEART: S1 S2 regular rate and rhythm , ABDOMEN: Soft , mild distention but no tenderness EXTREMITIES: No edema feet - Labs CBC & Chem 7: 11/10/23 15:34 11/10/23 08:41 Labs: Abnormal Lab Results - Last 24 Hours (Table) 11/06/23 11/09/23 11/09/23 Range/Units 15:20 17:18 17:18 WBC 19.6 H (3.8-10.6) k/uL RBC 2.64 L (3.80-5.40) m/uL Hgb 7.6 L (11.4-16.0) gm/dL Hct 25.1 L (34.0-46.0) % MCHC 30.4 L (31.0-37.0) g/dL RDW 21.4 H (11.5-15.5) % Neutrophils # (Manual) (1.3-7.7) k/uL Monocytes # (Manual) (0-1.0) k/uL Nucleated RBCs (0-0) /100 WBC Chloride 120 H (98-107) mmol/L Carbon Dioxide 15 L (22-30) mmol/L BUN 62 H (7-17) mg/dL Creatinine 1.71 H (0.52-1.04) mg/dL Crossmatch See Detail 11/09/23 11/10/23 11/10/23 Range/Units 23:12 02:05 08:41 WBC 16.1 H 12.9 H (3.8-10.6) k/uL RBC 2.31 L 2.50 L (3.80-5.40) m/uL Hgb 6.7 L* 7.2 L (11.4-16.0) gm/dL Hct 22.2 L 23.3 L (34.0-46.0) % MCHC 30.2 L 30.9 L (31.0-37.0) g/dL RDW 21.5 H 21.4 H (11.5-15.5) % Neutrophils # (Manual) 9.42 H (1.3-7.7) k/uL Monocytes # (Manual) 1.55 H (0-1.0) k/uL Nucleated RBCs 6 H (0-0) /100 WBC Chloride (98-107) mmol/L Carbon Dioxide (22-30) mmol/L BUN (7-17) mg/dL Creatinine (0.52-1.04) mg/dL Crossmatch See Detail 11/10/23 Range/Units 08:41 WBC (3.8-10.6) k/uL RBC (3.80-5.40) m/uL Hgb (11.4-16.0) gm/dL Hct (34.0-46.0) % MCHC (31.0-37.0) g/dL RDW (11.5-15.5) % Neutrophils # (Manual) (1.3-7.7) k/uL Monocytes # (Manual) (0-1.0) k/uL Nucleated RBCs (0-0) /100 WBC Chloride 120 H (98-107) mmol/L Carbon Dioxide 20 L (22-30) mmol/L BUN 50 H (7-17) mg/dL Creatinine 1.35 H (0.52-1.04) mg/dL Crossmatch Microbiology - Last 24 Hours (Table) 11/06/23 20:50 Blood Culture - Preliminary Blood 11/08/23 14:53 Blood Culture - Preliminary Blood 11/07/23 08:11 Blood Culture - Preliminary Blood Assessment and Plan (1) Leukocytosis Current Visit: Yes Status: Acute Code(s): D72.829 - ELEVATED WHITE BLOOD CELL COUNT, UNSPECIFIED SNOMED Code(s): 930569197 (2) Proctocolitis Current Visit: Yes Status: Acute Code(s): K52.9 - NONINFECTIVE GASTROENTERITIS AND COLITIS, UNSPECIFIED SNOMED Code(s): 072050274 Plan: 1patient with elevated white count of 25,000 and this patient presented to the hospital with abdominal pain patient did have a elevated lactic acid CT abdominal pelvis was done but apparently without any oral contrast that will decrease the sensitivity concern is likely for abdominal source with a question of diverticulitis versus ischemic bowel with elevated lactic acid chest x-ray was reported negative however the patient did have a large lateral hernia with gastric content and high risk of aspiration 2-blood cultures has been negative so far 3-patient repeat CT did shows evidence of fecal status rectosigmoid region with mild thickening correlate for proctocolitis 4-patient white count is trending will continue with Zosyn 3.375 g every 8 hours and monitor clinical course closely Dictation was produced using [employer] software. please excuse any grammatical, word or spelling errors. Time with Patient: Less than 30
--- NOTE | 2023-11-11 15:24 | P.PN ---
Subjective Progress Note Date: 11/11/23 Principal diagnosis: Reason for follow-up is leukocytosis Patient is a 73-year-old female with a past medical history significant for atrial fibrillation hypertension reflux DVT and dementia with initially presented to the hospital with shortness of breath abdominal pain weakness did have a CT abdominal pelvis reported negative did have worsening of the white prompting this consultation. On today's evaluation that is 11/11/2023, the patient continues to be afebrile, the patient is on 2 L nasal cannula oxygen and breathing comfortably, the Pt denies having any chest pain or cough, the patient denies having any abdominal pain no vomiting or any diarrhea has been reported. Patient did not have any lab draw today Objective - Vital Signs Vital signs: Vital Signs Temp 97.7 F 11/11/23 08:00 Pulse 86 11/11/23 08:00 Resp 20 11/11/23 08:00 BP 130/60 11/11/23 08:00 Pulse Ox 98 11/11/23 08:00 FiO2 40 11/10/23 07:57 Intake & Output 11/10/23 11/11/23 11/11/23 18:59 06:59 18:59 Intake Total 1345 240 Output Total 655 300 500 Balance 690 -300 -260 Weight 132 kg Intake: IV 1345 KVO 0.9 NS 220 Lactated Ringers 1,000 ml 825 @ 75 mls/hr IV .[id number] [facility] Rx#:[id number] Piperacillin-Tazobactam 3 200 .375 gm In Sodium Chloride 0.9% 100 ml @ 25 mls/hr IVPB Q8HR [facility] Rx# :[id number] Sodium Ferric Gluconat- 100 Sucrose 125 mg In Sodium Chloride 0.9% 100 ml @ 100 mls/hr IVPB DAILY [facility] Rx#:[id number] Oral 240 Output: Urine 655 300 500 Other: Voiding Method Indwelling Catheter Indwelling Catheter Indwelling Catheter # Bowel Movements 1 - Exam GENERAL DESCRIPTION: An elderly female lying in bed in no distress RESPIRATORY SYSTEM: Unlabored breathing , decreased breath sounds at bases HEART: S1 S2 regular rate and rhythm , ABDOMEN: Soft , mild distention but no tenderness EXTREMITIES: No edema feet - Labs CBC & Chem 7: 11/10/23 15:34 11/10/23 08:41 Labs: Abnormal Lab Results - Last 24 Hours (Table) 11/10/23 Range/Units 15:34 WBC 14.0 H (3.8-10.6) k/uL RBC 2.55 L (3.80-5.40) m/uL Hgb 7.5 L (11.4-16.0) gm/dL Hct 25.0 L (34.0-46.0) % MCHC 30.2 L (31.0-37.0) g/dL RDW 22.2 H (11.5-15.5) % Microbiology - Last 24 Hours (Table) 11/08/23 14:53 Blood Culture - Preliminary Blood 11/07/23 08:11 Blood Culture - Preliminary Blood Assessment and Plan (1) Leukocytosis Current Visit: Yes Status: Acute Code(s): D72.829 - ELEVATED WHITE BLOOD CELL COUNT, UNSPECIFIED SNOMED Code(s): 364068489 (2) Proctocolitis Current Visit: Yes Status: Acute Code(s): K52.9 - NONINFECTIVE GASTROENTERITIS AND COLITIS, UNSPECIFIED SNOMED Code(s): 178335096 Plan: 1patient with elevated white count of 25,000 and this patient presented to the hospital with abdominal pain patient did have a elevated lactic acid CT abdominal pelvis was done but apparently without any oral contrast that will decrease the sensitivity concern is likely for abdominal source with a question of diverticulitis versus ischemic bowel with elevated lactic acid chest x-ray wa s reported negative however the patient did have a large lateral hernia with gastric content and high risk of aspiration 2-blood cultures has been negative so far 3-patient repeat CT did shows evidence of fecal status rectosigmoid region with mild thickening correlate for proctocolitis 4-patient white count is trending and the patient seem to have some clinical improvement, will continue with Zosyn 3.375 g every 8 hours and transition to oral antibiotics on discharge Dictation was produced using [employer] dictation software. please excuse any grammatical, word or spelling errors. Time with Patient: Less than 30
[2023-11-11 19:53] LABS: Glucose,Whole Blood 121 mg/dL (70-110)
[2023-11-12 06:17] LABS: Glucose,Whole Blood 103 mg/dL (70-110)
[2023-11-12 10:07] LABS: Anisocytosis Moderate; HCT 25.5 % (34.0-46.0); HGB 7.8 gm/dL (11.4-16.0); Hypochromasia Marked; MCH 29.6 pg (25.0-35.0); MCHC 30.5 g/dL (31.0-37.0); MCV 97.2 fL (80.0-100.0); Macrocytosis Moderate; Mean Platelet Volume 7.8; Platelet Count 258 k/uL (150-450); Poikilocytosis Moderate; RBC 2.62 m/uL (3.80-5.40); RDW 23.9 % (11.5-15.5)
[2023-11-12 10:46] LABS: ALT 48 U/L (4-34); AST 49 U/L (14-36); African American GFR (CKD) 63 (>60 ml/min/1.73 sqM); Albumin 2.6 g/dL (3.5-5.0); Alkaline Phosphatase 68 U/L (38-126); Anion Gap 7 mmol/L; Blood Urea Nitrogen 23 mg/dL (7-17); Calcium 8.5 mg/dL (8.4-10.2); Carbon Dioxide 16 mmol/L (22-30); Chloride 119 mmol/L (98-107); Glucose 131 mg/dL (74-99); Non-African American GFR(CKD) 55 (>60 ml/min/1.73 sqM); Potassium 3.6 mmol/L (3.5-5.1); Sodium 142 mmol/L (137-145); Total Bilirubin 0.4 mg/dL (0.2-1.3); Total Protein 4.7 g/dL (6.3-8.2)
--- NOTE | 2023-11-12 11:33 | P.PN ---
Subjective Progress Note Date: 11/12/23 Principal diagnosis: Respiratory distress. Pulmonary consult dated November 09, 2023. 73-year-old female brought to the emergency room on November 04 by EMS, for weakness and shortness of breath. The patient apparently had adequate saturations on room air, but was placed on oxygen at 2 L for comfort. He apparently has not been feeling well for about 2 days prior to mission, beginning on November 02. Anyway, the patient was admitted to the hospital, with a diagnosis of nausea, respiratory insufficiency, and weakness. Last night, there was a rapid response called on this patient, and I was notified. The patient apparently had some mental status changes, worsening respiratory status, and required BiPAP. We agreed to transfer the patient down to the intensive care unit. In addition, her hemoglobin was 6.3 and she received 1 unit of packed red blood cells. Her hemoglobin this morning was 7.9. She was on norepinephrine for about 30 minutes. She was also on BiPAP for respiratory insufficiency, at 12/6, and 40%. The patient continues on Zosyn. Currently she is on 4 L nasal cannula, and saline at 20 cc an hour. According to the nurses, she looks much better this morning than she did look last night. In addition, the nurse that I spoke to her last night thought that we would have to end up intubating this patient, but that never happened. Current labs include a white count 18.2, hemoglobin 7.9, hematocrit 26.2, and a platelet count that is normal. Sodium 144, potassium 4.1, chlorides 118, CO2 20, BUN 67, creatinine 1.99. This electrolyte profile is consistent with a nonanion gap metabolic acidosis. Is a hyperchloremic metabolic acidosis. Blood gases show pO2 of 390, pCO2 of 32, pH of 7.29, again showing the metabolic acidosis. The rest of the labs look okay. Stools were positive for occult blood. Cultures are currently negative. Chest x-ray shows a large hiatal hernia, and bibasilar atelectasis. Progress note dated November 10, 2023. 73-year-old female seen in consultation yesterday. Please see my note above. The patient has a history of multiple medical problems, but was brought to the intensive care unit, because of hypotension, and respiratory failure. She required norepinephrine for short period of time, and BiPAP. Currently she is on 2 L. She did use BiPAP last night with settings of 12/6, and 40%. She is getting lactated Ringer's at 75 cc an hour, and saline at KVO. Clinically, she is feeling much better. White count is 12.9, hemoglobin 7.2, hematocrit 23.3, with a normal platelet count. Sodium 142, potassium 3.7, chlorides 120, CO2 20, BUN 50, and creatinine 1.35. Calcium is 8.4. Glucose is 87. Blood cultures are negative are pending. CT of the abdomen shows evidence of possible proctocolitis, and colonic distention. Progress note dated November 11, 2023. 73-year-old female seen in consultation 2 days ago. She was transferred out of the intensive care unit yesterday. She is seen today in room 367. She is on 2 L of oxygen. No IV fluids. She is receiving iron infusion. She is feeling much better. She came to the unit with hypotension, and respiratory distress. For a period of time she did need BiPAP. She is not using it currently. No labs from today as yet. Blood and urine cultures are currently negative or pending. Progress note dated November 12, 2023. 73-year-old female seen again in room 367. She is sitting in the chair next to her hospital bed. She is very comfortable. She denies any shortness of breath, cough, wheezing, chest tightness or phlegm production. The patient is not rec eiving any supplemental oxygen. The patient is not on any IV fluids. Current labs include a white count 8.1, hemoglobin 7.8, hematocrit 25.5, and a platelet count of 258,000. Sodium 142, potassium 3.6, chlorides 119, CO2 16, BUN 23, and creatinine 1.01. AST is 49. ALT is 48. Culture data so thus far negative. No new x-rays to report. Objective - Vital Signs Vital signs: Vital Signs Temp 97.5 F L 11/12/23 08:00 Pulse 66 11/12/23 08:00 Resp 18 11/12/23 08:00 BP 132/60 11/12/23 08:00 Pulse Ox 97 11/12/23 08:00 FiO2 40 11/10/23 07:57 Intake & Output 11/11/23 11/12/23 11/12/23 18:59 06:59 18:59 Intake Total 240 Output Total 850 250 Balance -610 -250 Weight 137.5 kg Intake: Oral 240 Output: Urine 850 250 Other: Voiding Method Indwelling Catheter Indwelling Catheter Indwelling Catheter # Bowel Movements 1 - Exam No acute distress, oriented 3. Currently on room air. No respiratory dist ress. HEENT examination is grossly unremarkable. Mucous membranes are moist. No oral lesions. Neck supple. Full range of motion. No adenopathy thyromegaly or neck vein distention. Cardiovascular examination reveals regular rhythm rate. S1-S2 normal. No S3 or S4. No discernible murmur noted. Heart sounds are distant. Heart rate is 66 bpm. Lungs reveal mild scattered rhonchi. No wheezes or crackles. Breath sounds are equal bilaterally. Room air saturation is 97%. Abdomen soft bowel sounds are heard. No masses or tenderness. Extremities are intact. No cyanosis clubbing or edema. Skin is without rash or lesion. Neurologic examination is brief but nonfocal. - Labs CBC & Chem 7: 11/12/23 09:18 11/12/23 09:18 Labs: Abnormal Lab Results - Last 24 Hours (Table) 11/11/23 11/12/23 11/12/23 Range/Units 19:52 09:18 09:18 RBC 2.62 L (3.80-5.40) m/uL Hgb 7.8 L (11.4-16.0) gm/dL Hct 25.5 L (34.0-46.0) % MCHC 30.5 L (31.0-37.0) g/dL RDW 23.9 H (11.5-15.5) % Chloride 119 H (98-107) mmol/L Carbon Dioxide 16 L (22-30) mmol/L BUN 23 H (7-17) mg/dL Glucose 131 H (74-99) mg/dL POC Glucose (mg/dL) 121 H (70-110) mg/dL AST 49 H (14-36) U/L ALT 48 H (4-34) U/L Total Protein 4.7 L (6.3-8.2) g/dL Albumin 2.6 L (3.5-5.0) g/dL Microbiology - Last 24 Hours (Table) 11/06/23 20:50 Blood Culture - Final Blood 11/08/23 14:53 Blood Culture - Preliminary Blood Assessment and Plan Assessment: Transient respiratory insufficiency, of unclear etiology, requiring BiPAP, and now nasal O2/room air. Transient hypotension, which required norepinephrine for a brief period of time. Anemia, S/P 1 unit of blood last night, and 3 units total. History of atrial fibrillation. History of deep vein thrombosis. History of gastroesophageal reflux disease. History of hypertension. History of psoriatic arthritis. Plan: Plan dated November 09, 2023. It is not very clear as to exactly what happened to this patient last night. She apparently was attempting to have a bowel movement, and may have had a vasovagal episode. The patient did not lose consciousness. She was found to be hypotensive, with some respiratory distress. Initially at 1 point, the charge nurse thought that she would have to be intubated. The patient was transferred down to the intensive care unit for further monitoring and management. She was placed on BiPAP, with settings of 12/6 and 40%. In addition, the patient was on norepinephrine for a brief period of time. She also received 1 unit of blood for hemoglobin of 6.3. Today she looks completely back to baseline. She herself does not know exactly what happened. We will continue to monitor the patient closely. Plan dated November 10, 2023. The patient is seen today in room 267. She is currently on 2 L of oxygen. The patient did use a BiPAP device last night, with settings of 12/6, 40%. The patient is getting lactated Ringer's at 75 cc an hour. Labs, x-rays, and all medications are reviewed. We will continue to follow the patient, make recommendations along the way. I told the nurses that if she is stable for the better part of the day, she can be transferred out later today. We will continue to follow make recommendations. Prognosis is guarded. CT scan of the abdomen reveals proctocolitis, and possible bowel obstruction. Plan dated November 11, 2023. The patient was transferred out of the intensive care unit yesterday. She is now seen in room 367. She came to the unit with hypotension and respiratory distress. At one point, my charge nurse thought the patient might need to be intubated. The patient was placed on BiPAP, and the patient did well. The patient is currently on 2 L. No IV fluids are running. Labs, x-rays, medications are all reviewed. We will continue to follow for the short-term. Prognosis is guarded. Plan dated November 12, 2023. The patient is seen today in room 367. She is on room air. No IV fluids. Labs, x-rays, and all medications are reviewed. Clinically, she is doing much better. Do not have a clear understanding as to exactly what happened to her during the rapid response team evaluation of this patient. At one point, the ICU charge nurse was thinking that this patient will require intubation and mechanical ventilation. She seemed to turn around with the transient amount of norepinephrine, and BiPAP. Additional recommendations and suggestions are forthcoming. Time with Patient: Less than 30
[2023-11-12 12:01] LABS: Glucose,Whole Blood 118 mg/dL (70-110)
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
[2023-11-12 14:18] LABS: Band Neutrophils % 1 %; Eosinophils # (M) 0.15 k/uL (0-0.7); Metamyelocytes # (M) 0.08 k/uL (0); Metamyelocytes % 1 %; Monocytes # (M) 0.85 k/uL (0-1.0); Myelocytes # (M) 0.08 k/uL (0); Myelocytes % 1 %; Neutrophils % (M) 73 %; Nucleated Red Blood Cells 5 /100 WBC (0-0); Total Cells Counted 200; WBC 7.7 k/uL (3.8-10.6)
[2023-11-12 14:19] LABS: Polychromasia Present
[2023-11-12 16:53] LABS: Glucose,Whole Blood 93 mg/dL (70-110)
[2023-11-12] MEDS: POTASSIUM CHLORIDE ER 20 MEQ TAB.ER PO SCH (17:09)
[2023-11-13 07:42] LABS: African American GFR (CKD) 73 (>60 ml/min/1.73 sqM); Anion Gap 5 mmol/L; Blood Urea Nitrogen 16 mg/dL (7-17); Calcium 8.4 mg/dL (8.4-10.2); Carbon Dioxide 18 mmol/L (22-30); Chloride 120 mmol/L (98-107); Glucose 81 mg/dL (74-99); Non-African American GFR(CKD) 64 (>60 ml/min/1.73 sqM); Potassium 3.8 mmol/L (3.5-5.1); Sodium 143 mmol/L (137-145)
[2023-11-13 07:49] LABS: Anisocytosis Marked; HCT 24.8 % (34.0-46.0); HGB 7.8 gm/dL (11.4-16.0); Hypochromasia Marked; MCH 29.9 pg (25.0-35.0); MCHC 31.5 g/dL (31.0-37.0); MCV 94.9 fL (80.0-100.0); Macrocytosis Moderate; Platelet Count 227 k/uL (150-450); Poikilocytosis Moderate; RBC 2.61 m/uL (3.80-5.40); RDW 24.2 % (11.5-15.5); WBC 7.4 k/uL (3.8-10.6)
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
--- NOTE | 2023-11-13 13:27 | P.PN ---
Subjective Progress Note Date: 11/13/23 Principal diagnosis: Respiratory distress. Pulmonary consult dated November 09, 2023. 73-year-old female brought to the emergency room on November 04 by EMS, for weakness and shortness of breath. The patient apparently had adequate saturations on room air, but was placed on oxygen at 2 L for comfort. He apparently has not been feeling well for about 2 days prior to mission, beginning on November 02. Anyway, the patient was admitted to the hospital, with a diagnosis of nausea, respiratory insufficiency, and weakness. Last night, there was a rapid response called on this patient, and I was notified. The patient apparently had some mental status changes, worsening respiratory status, and required BiPAP. We agreed to transfer the patient down to the intensive care unit. In addition, her hemoglobin was 6.3 and she received 1 unit of packed red blood cells. Her hemoglobin this morning was 7.9. She was on norepinephrine for about 30 minutes. She was also on BiPAP for respiratory insufficiency, at 12/6, and 40%. The patient continues on Zosyn. Currently she is on 4 L nasal cannula, and saline at 20 cc an hour. According to the nurses, she looks much better this morning than she did look last night. In addition, the nurse that I spoke to her last night thought that we would have to end up intubating this patient, but that never happened. Current labs include a white count 18.2, hemoglobin 7.9, hematocrit 26.2, and a platelet count that is normal. Sodium 144, potassium 4.1, chlorides 118, CO2 20, BUN 67, creatinine 1.99. This electrolyte profile is consistent with a nonanion gap metabolic acidosis. Is a hyperchloremic metabolic acidosis. Blood gases show pO2 of 390, pCO2 of 32, pH of 7.29, again showing the metabolic acidosis. The rest of the labs look okay. Stools were positive for occult blood. Cultures are currently negative. Chest x-ray shows a large hiatal hernia, and bibasilar atelectasis. Progress note dated November 10, 2023. 73-year-old female seen in consultation yesterday. Please see my note above. The patient has a history of multiple medical problems, but was brought to the intensive care unit, because of hypotension, and respiratory failure. She required norepinephrine for short period of time, and BiPAP. Currently she is on 2 L. She did use BiPAP last night with settings of 12/6, and 40%. She is getting lactated Ringer's at 75 cc an hour, and saline at KVO. Clinically, she is feeling much better. White count is 12.9, hemoglobin 7.2, hematocrit 23.3, with a normal platelet count. Sodium 142, potassium 3.7, chlorides 120, CO2 20, BUN 50, and creatinine 1.35. Calcium is 8.4. Glucose is 87. Blood cultures are negative are pending. CT of the abdomen shows evidence of possible proctocolitis, and colonic distention. Progress note dated November 11, 2023. 73-year-old female seen in consultation 2 days ago. She was transferred out of the intensive care unit yesterday. She is seen today in room 367. She is on 2 L of oxygen. No IV fluids. She is receiving iron infusion. She is feeling much better. She came to the unit with hypotension, and respiratory distress. For a period of time she did need BiPAP. She is not using it currently. No labs from today as yet. Blood and urine cultures are currently negative or pending. Progress note dated November 12, 2023. 73-year-old female seen again in room 367. She is sitting in the chair next to her hospital bed. She is very comfortable. She denies any shortness of breath, cough, wheezing, chest tightness or phlegm production. The patient is not rec eiving any supplemental oxygen. The patient is not on any IV fluids. Current labs include a white count 8.1, hemoglobin 7.8, hematocrit 25.5, and a platelet count of 258,000. Sodium 142, potassium 3.6, chlorides 119, CO2 16, BUN 23, and creatinine 1.01. AST is 49. ALT is 48. Culture data so thus far negative. No new x-rays to report. Progress note dated November 13, 2023. 73-year-old female seen again in room 367. The patient is on room air. The patient is getting saline at 10 cc an hour. She has no specific complaints. Labs, x-rays, and all medications have been reviewed. White count of 7.4, hemoglobin 7.8, hematocrit 24.8, platelet count 327,000. Sodium 143, potassium 3.8, chlorides 120, CO2 18, BUN 16, creatinine 0.89. Calcium is 8.4. Blood and urine cultures are currently negative. Objective - Vital Signs Vital signs: Vital Signs Temp 97.9 F 11/13/23 12:30 Pulse 83 11/13/23 12:30 Resp 17 11/13/23 12:30 BP 124/53 11/13/23 12:30 Pulse Ox 98 11/13/23 12:30 FiO2 40 11/10/23 07:57 Intake & Output 11/12/23 11/13/23 11/13/23 18:59 06:59 18:59 Intake Total 240 120 Output Total 600 200 Balance -360 -200 120 Weight 137.5 kg Intake: Oral 240 120 Output: Urine 600 200 Other: Voiding Method Indwelling Catheter Indwelling Catheter Indwelling Catheter # Bowel Movements 1 - Exam No acute distress, oriented 3. Currently on room air. No respiratory distress. HEENT examination is grossly unremarkable. Mucous membranes are moist. No oral lesions. Neck supple. Full range of motion. No adenopathy thyromegaly or neck vein distention. Cardiovascular examination reveals regular rhythm rate. S1-S2 normal. No S3 or S4. No discernible murmur noted. Heart sounds are distant. Heart rate is 71 bpm. Lungs reveal mild scattered rhonchi. No wheezes or crackles. Breath sounds are equal bilaterally. Room air saturation is 98%. Abdomen soft bowel sounds are heard. No masses or tenderness. Extremities are intact. No cyanosis clubbing or edema. Skin is without rash or lesion. Neurologic examination is brief but nonfocal. - Labs CBC & Chem 7: 11/13/23 06:32 11/13/23 06:32 Labs: Abnormal Lab Results - Last 24 Hours (Table) 11/12/23 11/13/23 11/13/23 Range/Units 09:18 06:32 06:32 RBC 2.61 L (3.80-5.40) m/uL Hgb 7.8 L (11.4-16.0) gm/dL Hct 24.8 L (34.0-46.0) % RDW 24.2 H (11.5-15.5) % Metamyelocytes # (Man) 0.08 H (0) k/uL Myelocytes # (Manual) 0.08 H (0) k/uL Nucleated RBCs 5 H (0-0) /100 WBC Chloride 120 H (98-107) mmol/L Carbon Dioxide 18 L (22-30) mmol/L Microbiology - Last 24 Hours (Table) 11/07/23 08:11 Blood Culture - Final Blood Assessment and Plan Assessment: Transient respiratory insufficiency, of unclear etiology, requiring BiPAP, and now nasal O2/room air. Transient hypotension, which required norepinephrine for a brief period of time. Anemia, S/P 1 unit of blood last night, and 3 units total. History of atrial fibrillation. History of deep vein thrombosis. History of gastroesophageal reflux disease. History of hypertension. History of psoriatic arthritis. Plan: Plan dated November 09, 2023. It is not very clear as to exactly what happened to this patient last night. She apparently was attempting to have a bowel movement, and may have had a vasovagal episode. The patient did not lose consciousness. She was found to be hypotensive, with some respiratory distress. Initially at 1 point, the charge nurse thought that she would have to be intubated. The patient was transferred down to the intensive care unit for further monitoring and management. She was placed on BiPAP, with settings of 12/6 and 40%. In addition, the patient was on norepinephrine for a brief period of time. She also received 1 unit of blood for hemoglobin of 6.3. Today she looks completely back to baseline. She herself does not know exactly what happened. We will continue to monitor the patient closely. Plan dated November 10, 2023. The patient is seen today in room 267. She is currently on 2 L of oxygen. The patient did use a BiPAP device last night, with settings of 12/6, 40%. The patient is getting lactated Ringer's at 75 cc an hour. Labs, x-rays, and all medications are reviewed. We will continue to follow the patient, make recommendations along the way. I told the nurses that if she is stable for the better part of the day, she can be transferred out later today. We will continue to follow make recommendations. Prognosis is guarded. CT scan of the abdomen reveals proctocolitis, and possible bowel obstruction. Plan dated November 11, 2023. The patient was transferred out of the intensive care unit yesterday. She is now seen in room 367. She came to the unit with hypotension and respiratory distress. At one point, my charge nurse thought the patient might need to be intubated. The patient was placed on BiPAP, and the patient did well. The patient is currently on 2 L. No IV fluids are running. Labs, x-rays, medications are all reviewed. We will continue to follow for the short-term. Prognosis is guarded. Plan dated November 12, 2023. The patient is seen today in room 367. She is on room air. No IV fluids. Labs, x-rays, and all medications are reviewed. Clinically, she is doing much better. Do not have a clear understanding as to exactly what happened to her during the rapid response team evaluation of this patient. At one point, the ICU charge nurse was thinking that this patient will require intubation and mechanical ventilation. She seemed to turn around with the transient amount of norepinephrine, and BiPAP. Additional recommendations and suggestions are forthcoming. Plan dated November 13, 2019. Patient is doing very well. No specific issues overnight. She is on room air. The patient is getting saline at 10 cc an hour. Labs, x-rays, and medications are reviewed. Clinically, the patient is without complaints. She denies any shortness of breath, cough, wheezing, chest tightness, or phlegm production. She also denies any chest pain or pressure. She had an uneventful night. Prognosis is guarded. Time with Patient: Less than 30
--- NOTE | 2023-11-13 16:05 | P.PN ---
Subjective Progress Note Date: 11/12/23 Principal diagnosis: Reason for follow-up is leukocytosis Patient is a 73-year-old female with a past medical history significant for atrial fibrillation hypertension reflux DVT and dementia with initially presented to the hospital with shortness of breath abdominal pain weakness did have a CT abdominal pelvis reported negative did have worsening of the white prompting this consultation. On today's evaluation that is 11/12/2023, Patient is afebrile patient is curre ntly on room air and denies having any shortness of breath, the patient denies any chest pain or cough, the patient denies any nausea vomiting did not have any abdominal pain and no diarrhea, mention feeling better. Patient white count 7.7, creatinine 1.01 Objective - Vital Signs Vital signs: Vital Signs Temp 97.5 F L 11/12/23 08:00 Pulse 66 11/12/23 08:00 Resp 18 11/12/23 08:00 BP 132/60 11/12/23 08:00 Pulse Ox 97 11/12/23 08:00 FiO2 40 11/10/23 07:57 Intake & Output 11/11/23 11/12/23 11/12/23 18:59 06:59 18:59 Intake Total 240 120 Output Total 850 250 Balance -610 -250 120 Weight 137.5 kg Intake: Oral 240 120 Output: Urine 850 250 Other: Voiding Method Indwelling Catheter Indwelling Catheter Indwelling Catheter # Bowel Movements 1 1 - Exam GENERAL DESCRIPTION: An elderly female lying in bed in no distress RESPIRATORY SYSTEM: Unlabored breathing , decreased breath sounds at bases HEART: S1 S2 regular rate and rhythm , ABDOMEN: Soft , mild distention but no tenderness EXTREMITIES: No edema feet - Labs CBC & Chem 7: 11/13/23 06:32 11/13/23 06:32 Labs: Abnormal Lab Results - Last 24 Hours (Table) 11/11/23 11/12/23 11/12/23 Range/Units 19:52 09:18 09:18 RBC 2.62 L (3.80-5.40) m/uL Hgb 7.8 L (11.4-16.0) gm/dL Hct 25.5 L (34.0-46.0) % MCHC 30.5 L (31.0-37.0) g/dL RDW 23.9 H (11.5-15.5) % Chloride 119 H (98-107) mmol/L Carbon Dioxide 16 L (22-30) mmol/L BUN 23 H (7-17) mg/dL Glucose 131 H (74-99) mg/dL POC Glucose (mg/dL) 121 H (70-110) mg/dL AST 49 H (14-36) U/L ALT 48 H (4-34) U/L Total Protein 4.7 L (6.3-8.2) g/dL Albumin 2.6 L (3.5-5.0) g/dL 11/12/23 Range/Units 11:59 RBC (3.80-5.40) m/uL Hgb (11.4-16.0) gm/dL Hct (34.0-46.0) % MCHC (31.0-37.0) g/dL RDW (11.5-15.5) % Chloride (98-107) mmol/L Carbon Dioxide (22-30) mmol/L BUN (7-17) mg/dL Glucose (74-99) mg/dL POC Glucose (mg/dL) 118 H (70-110) mg/dL AST (14-36) U/L ALT (4-34) U/L Total Protein (6.3-8.2) g/dL Albumin (3.5-5.0) g/dL Microbiology - Last 24 Hours (Table) 11/06/23 20:50 Blood Culture - Final Blood 11/08/23 14:53 Blood Culture - Preliminary Blood Assessment and Plan (1) Leukocytosis Current Visit: Yes Status: Acute Code(s): D72.829 - ELEVATED WHITE BLOOD CELL COUNT, UNSPECIFIED SNOMED Code(s): 444106921 (2) Proctocolitis Current Visit: Yes Status: Acute Code(s): K52.9 - NONINFECTIVE GASTROENTERITIS AND COLITIS, UNSPECIFIED SNOMED Code(s): 650000922 Plan: 1patient with elevated white count of 25,000 and this patient presented to the hospital with abdominal pain patient did have a elevated lactic acid CT abdominal pelvis was done but apparently without any oral contrast that will decrease the sensitivity concern is likely for abdominal source with a question of diverticulitis versus ischemic bowel with elevated lactic acid chest x-ray was reported negative however the patient did have a large lateral hernia with gastric content and high risk of aspiration 2-blood cultures has been negative so far 3-patient repeat CT did shows evidence of fecal status rectosigmoid region with mild thickening correlate for proctocolitis 4-patient white count has normalized and blood culture has been negative so far, patient to Zosyn 3.375 g every 8 hours and monitor clinical course closely Dictation was produced using [employer] dictation software. please excuse any grammatical, word or spelling errors. Time with Patient: Less than 30
--- NOTE | 2023-11-13 16:06 | P.PN ---
Subjective Progress Note Date: 11/13/23 Principal diagnosis: Reason for follow-up is leukocytosis Patient is a 73-year-old female with a past medical history significant for atrial fibrillation hypertension reflux DVT and dementia with initially presented to the hospital with shortness of breath abdominal pain weakness did have a CT abdominal pelvis reported negative did have worsening of the white prompting this consultation. On today's evaluation that is 11/13/2023, patient has been afebrile, patient is breathing comfortably and is currently on room air, patient denies having any significant cough no chest pain shortness of breath, patient denies nausea vomiting or abdominal pain, did have some dark tarry slightly loose stool as reported by the nursing staff. Patient white count is 7.4, creatinine 0.89 Objective - Vital Signs Vital signs: Vital Signs Temp 97.8 F 11/13/23 14:00 Pulse 70 11/13/23 14:00 Resp 17 11/13/23 14:17 BP 107/69 11/13/23 14:00 Pulse Ox 99 11/13/23 14:00 FiO2 40 11/10/23 07:57 Intake & Output 11/12/23 11/13/23 11/13/23 18:59 06:59 18:59 Intake Total 240 120 Output Total 600 200 Balance -360 -200 120 Weight 137.5 kg Intake: Oral 240 120 Output: Urine 600 200 Other: Voiding Method Indwelling Catheter Indwelling Catheter Indwelling Catheter # Bowel Movements 1 - Exam GENERAL DESCRIPTION: An elderly female lying in bed in no distress RESPIRATORY SYSTEM: Unlabored breathing , decreased breath sounds at bases HEART: S1 S2 regular rate and rhythm , ABDOMEN: Soft , mild distention but no tenderness EXTREMITIES: No edema feet - Labs CBC & Chem 7: 11/13/23 06:32 11/13/23 06:32 Labs: Abnormal Lab Results - Last 24 Hours (Table) 11/13/23 11/13/23 Range/Units 06:32 06:32 RBC 2.61 L (3.80-5.40) m/uL Hgb 7.8 L (11.4-16.0) gm/dL Hct 24.8 L (34.0-46.0) % RDW 24.2 H (11.5-15.5) % Chloride 120 H (98-107) mmol/L Carbon Dioxide 18 L (22-30) mmol/L Microbiology - Last 24 Hours (Table) 11/07/23 08:11 Blood Culture - Final Blood Assessment and Plan (1) Leukocytosis Current Visit: Yes Status: Acute Code(s): D72.829 - ELEVATED WHITE BLOOD CELL COUNT, UNSPECIFIED SNOMED Code(s): 713715804 (2) Proctocolitis Current Visit: Yes Status: Acute Code(s): K52.9 - NONINFECTIVE GASTROENTERITIS AND COLITIS, UNSPECIFIED SNOMED Code(s): 239383353 Plan: 1patient with elevated white count of 25,000 and this patient presented to the hospital with abdominal pain patient did have a elevated lactic acid CT abdominal pelvis was done but apparently without any oral contrast that will decrease the sensitivity concern is likely for abdominal source with a question of diverticulitis versus ischemic bowel with elevated lactic acid chest x-ray was reported negative however the patient did have a large lateral hernia with gastric content and high risk of aspiration 2-blood cultures has been negative so far 3-patient repeat CT did shows evidence of fecal status rectosigmoid region with mild thickening correlate for proctocolitis 4-patient white count has normalized and blood culture has been negative so far, 5-patient to Zosyn 3.375 g every 8 hours and monitor clinical course closely Dictation was produced using [employer] dictation software. please excuse any grammatical, word or spelling errors. Time with Patient: Less than 30
[2023-11-13] MEDS: PIPERACILLIN-TAZOBACTAM 3.375 GM in SODIUM CHLORIDE 0.9% 100 ML IVPB SCH (18:12)
[2023-11-14] MEDS ORDERED: PIPERACILLIN-TAZOBACTAM 3.375 GM in SODIUM CHLORIDE 0.9% 100 ML IVPB SCH
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
--- NOTE | 2023-11-14 11:58 | P.PN ---
Subjective Progress Note Date: 11/14/23 73-year-old female brought to the emergency room on November 04 by EMS, for weakness and shortness of breath. The patient apparently had adequate saturations on room air, but was placed on oxygen at 2 L for comfort. He apparently has not been feeling well for about 2 days prior to mission, beginning on November 02. Anyway, the patient was admitted to the hospital, with a diagnosis of nausea, respiratory insufficiency, and weakness. Last night, there was a rapid response called on this patient, and I was notified. The patient apparently had some mental status changes, worsening respiratory status, and required BiPAP. We agreed to transfer the patient down to the intensive care unit. In addition, her hemoglobin was 6.3 and she received 1 unit of packed red blood cells. Her hemoglobin this morning was 7.9. She was on norepinephrine for about 30 minutes. She was also on BiPAP for respiratory insufficiency, at 12/6, and 40%. The patient continues on Zosyn. Currently she is on 4 L nasal cannula, and saline at 20 cc an hour. According to the nurses, she looks much better this morning than she did look last night. In addition, the nurse that I spoke to her last night thought that we would have to end up intubating this patient, but that never happened. Current labs include a white count 18.2, hemoglobin 7.9, hematocrit 26.2, and a platelet count that is normal. Sodium 144, potassium 4.1, chlorides 118, CO2 20, BUN 67, creatinine 1.99. This electrolyte profile is consistent with a nonanion gap metabolic acidosis. Is a hyperchloremic metabolic acidosis. Blood gases show pO2 of 390, pCO2 of 32, pH of 7.29, again showing the metabolic acidosis. The rest of the labs look okay. Stools were positive for occult blood. Cultures are currently negative. Chest x-ray shows a large hiatal hernia, and bibasilar atelectasis. Progress note dated November 10, 2023. 73-year-old female seen in consultation yesterday. Please see my note above. The patient has a history of multiple medical problems, but was brought to the intensive care unit, because of hypotension, and respiratory failure. She required norepinephrine for short period of time, and BiPAP. Currently she is on 2 L. She did use BiPAP last night with settings of 12/6, and 40%. She is getting lactated Ringer's at 75 cc an hour, and saline at KVO. Clinically, she is feeling much better. White count is 12.9, hemoglobin 7.2, hematocrit 23.3, with a normal platelet count. Sodium 142, potassium 3.7, chlorides 120, CO2 20, BUN 50, and creatinine 1.35. Calcium is 8.4. Glucose is 87. Blood cultures are negative are pending. CT of the abdomen shows evidence of possible proctocolitis, and colonic distention. Progress note dated November 11, 2023. 73-year-old female seen in consultation 2 days ago. She was transferred out of the intensive care unit yesterday. She is seen today in room 367. She is on 2 L of oxygen. No IV fluids. She is receiving iron infusion. She is feeling much better. She came to the unit with hypotension, and respiratory distress. For a period of time she did need BiPAP. She is not using it currently. No labs from today as yet. Blood and urine cultures are currently negative or pending. Progress note dated November 12, 2023. 73-year-old female seen again in room 367. She is sitting in the chair next to her hospital bed. She is very comfortable. She denies any shortness of breath, cough, wheezing, chest tightness or phlegm production. The patient is not receiving any supplemental oxygen. The patient is not on any IV fluids. Current labs include a white count 8.1, hemoglobin 7.8, hematocrit 25.5, and a platelet count of 258,000. Sodium 142, potassium 3.6, chlorides 119, CO2 16, BUN 23, and creatinine 1.01. AST is 49. ALT is 48. Culture data so thus far negative. No new x-rays to report. Progress note dated November 13, 2023. 73-year-old female seen again in room 367. The patient is on room air. The patient is getting saline at 10 cc an hour. She has no specific complaints. Labs, x-rays, and all medications have been reviewed. White count of 7.4, hemoglobin 7.8, hematocrit 24.8, platelet count 327,000. Sodium 143, potassium 3.8, chlorides 120, CO2 18, BUN 16, creatinine 0.89. Calcium is 8.4. Blood and urine cultures are currently negative. The patient is seen today November 14, 2023 in follow-up on the regular medical floor. She is currently sitting up in a chair at the bedside. Awake and alert in no acute distress. Maintaining O2 saturations in the 90s on room air. Normal saline at KVO. She is status post 3 units of packed red blood cells this admission. Current hemoglobin 7.8. She is continued on iron supplements. Antibiotics in the form of Zosyn. Objective - Vital Signs Vital signs: Vital Signs Temp 97.7 F 11/14/23 07:36 Pulse 87 11/14/23 07:36 Resp 18 11/14/23 07:36 BP 119/78 11/14/23 07:36 Pulse Ox 100 11/14/23 08:28 FiO2 40 11/10/23 07:57 Intake & Output 11/13/23 11/14/23 11/14/23 18:59 06:59 18:59 Intake Total 120 Output Total 300 200 Balance -180 -200 Weight 137.5 kg Intake: Oral 120 Output: Urine 300 200 Uretheral (Beach) 200 Other: Voiding Method Indwelling Catheter Indwelling Catheter # Bowel Movements 1 - Exam GENERAL EXAM: Alert, pleasant 73-year-old obese female, up in a chair, on room air, comfortable in no apparent distress. HEAD: Normocephalic. EYES: Normal reaction of pupils, equal size. NOSE: Clear with pink turbinates. THROAT: No erythema or exudates. NECK: No masses, no JVD. CHEST: No chest wall deformity. LUNGS: Equal air entry with no crackles, wheeze, rhonchi or dullness. CVS: S1 and S2 normal with no audible murmur, regular rhythm. ABDOMEN: No hepatosplenomegaly, normal bowel sounds, no guarding or rigidity. SPINE: No scoliosis or deformity SKIN: No rashes CENTRAL NERVOUS SYSTEM: No focal deficits, tone is normal in all 4 extremities. EXTREMITIES: There is no peripheral edema. No clubbing, no cyanosis. Peripheral pulses are intact. - Labs CBC & Chem 7: 11/13/23 06:32 11/13/23 06:32 Labs: Microbiology - Last 24 Hours (Table) 11/08/23 14:53 Blood Culture - Final Blood Assessment and Plan Assessment: Transient respiratory insufficiency, of unclear etiology, requiring BiPAP, recovered and on room air Transient hypotension, which required norepinephrine for a brief period of time Anemia, S/P 3 units total, current hemoglobin 7.8 History of atrial fibrillation, warfarin on hold due to anemia History of deep vein thrombosis History of gastroesophageal reflux disease History of hypertension History of psoriatic arthritis Plan: The patient was seen and evaluated Medications reviewed Stable and on room air We will see as needed Plan is for [facility] at discharge I have personally seen and examined the patient, performed the documentation and the assessment and plan as written. Number of minutes spent on the visit: 10.
--- NOTE | 2023-11-14 15:53 | P.PN ---
Subjective Progress Note Date: 11/14/23 Principal diagnosis: Reason for follow-up is leukocytosis Patient is a 73-year-old female with a past medical history significant for atrial fibrillation hypertension reflux DVT and dementia with initially presented to the hospital with shortness of breath abdominal pain weakness did have a CT abdominal pelvis reported negative did have worsening of the white prompting this consultation. On today's evaluation that is 11/14/2023, Patient is afebrile this morning pat ient denies having any chest pain shortness of breath or cough, the patient is breathing comfortably and currently on room air, patient denies any abdominal pain no diarrhea no nausea no vomiting mention feeling better. Patient white count 7.4, creatinine 0.89 Objective - Vital Signs Vital signs: Vital Signs Temp 97.7 F 11/14/23 07:36 Pulse 87 11/14/23 07:36 Resp 18 11/14/23 07:36 BP 119/78 11/14/23 07:36 Pulse Ox 100 11/14/23 08:28 FiO2 40 11/10/23 07:57 Intake & Output 11/13/23 11/14/23 11/14/23 18:59 06:59 18:59 Intake Total 120 Output Total 300 200 Balance -180 -200 Weight 137.5 kg Intake: Oral 120 Output: Urine 300 200 Uretheral (Beach) 200 Other: Voiding Method Indwelling Catheter Indwelling Catheter # Bowel Movements 1 - Exam GENERAL DESCRIPTION: An elderly female lying in bed in no distress RESPIRATORY SYSTEM: Unlabored breathing , decreased breath sounds at bases HEART: S1 S2 regular rate and rhythm , ABDOMEN: Soft , mild distention but no tenderness EXTREMITIES: No edema feet - Labs CBC & Chem 7: 11/13/23 06:32 11/13/23 06:32 Labs: Microbiology - Last 24 Hours (Table) 11/08/23 14:53 Blood Culture - Final Blood Assessment and Plan (1) Leukocytosis Current Visit: Yes Status: Acute Code(s): D72.829 - ELEVATED WHITE BLOOD CELL COUNT, UNSPECIFIED SNOMED Code(s): 562674857 (2) Proctocolitis Current Visit: Yes Status: Acute Code(s): K52.9 - NONINFECTIVE GASTROEN TERITIS AND COLITIS, UNSPECIFIED SNOMED Code(s): 216631994 Plan: 1patient with elevated white count of 25,000 and this patient presented to the hospital with abdominal pain patient did have a elevated lactic acid CT abdominal pelvis was done but apparently without any oral contrast that will decrease the sensitivity concern is likely for abdominal source with a question of diverticulitis versus ischemic bowel with elevated lactic acid chest x-ray was reported negative however the patient did have a large lateral hernia with gastric content and high risk of aspiration 2-blood cultures has been negative so far 3-patient repeat CT did shows evidence of fecal status rectosigmoid region with mild thickening correlate for proctocolitis 4-patient white count has normalized and blood culture has been negative so far, patient is currently covered with Zosyn will transition to oral antibiotic on discharge Dictation was produced using [employer] dictation software. please excuse any grammatical, word or spelling errors. Time with Patient: Less than 30
--- NOTE | 2023-11-15 15:14 | P.PN ---
Subjective Progress Note Date: 11/15/23 Principal diagnosis: Reason for follow-up is leukocytosis Patient is a 73-year-old female with a past medical history significant for atrial fibrillation hypertension reflux DVT and dementia with initially presented to the hospital with shortness of breath abdominal pain weakness did have a CT abdominal pelvis reported negative did have worsening of the white prompting this consultation. On today's evaluation that is 11/15/2023,the patient denies any fever or any c hills, patient is breathing comfortably on room air, the patient denies chest pain shortness of breath and no significant cough, patient still has some crampy abdominal pain when having a bowel movement denies any loose stools no nausea no vomiting. No new labs were obtained today Objective - Vital Signs Vital signs: Vital Signs Temp 97.9 F 11/15/23 07:02 Pulse 60 11/15/23 07:02 Resp 19 11/15/23 07:02 BP 106/65 11/15/23 07:02 Pulse Ox 97 11/15/23 07:02 FiO2 40 11/10/23 07:57 Intake & Output 11/14/23 11/15/23 11/15/23 18:59 06:59 18:59 Output Total 600 375 510 Balance -600 -375 -510 Weight 135 kg Output: Urine 600 375 510 Other: Voiding Method Indwelling Catheter Indwelling Catheter Indwelling Catheter # Bowel Movements 1 - Exam GENERAL DESCRIPTION: An elderly female lying in bed in no distress RESPIRATORY SYSTEM: Unlabored breathing , decreased breath sounds at bases HEART: S1 S2 regular rate and rhythm , ABDOMEN: Soft , mild distention but no tenderness EXTREMITIES: No edema feet - Labs CBC & Chem 7: 11/13/23 06:32 11/13/23 06:32 Assessment and Plan (1) Leukocytosis Current Visit: Yes Status: Acute Code(s): D72.829 - ELEVATED WHITE BLOOD CELL COUNT, UNSPECIFIED SNOMED Code(s): 339318637 (2) Proctocolitis Current Visit: Yes Status: Acute Code(s): K52.9 - NONINFECTIVE GASTROENTERITIS AND COLITIS, UNSPECIFIED SNOMED Code(s): 782151769 Plan: 1patient with elevated white count of 25,000 and this patient presented to the hospital with abdominal pain patient did have a elevated lactic acid CT abdominal pelvis was done but apparently without any oral contrast that will de crease the sensitivity concern is likely for abdominal source with a question of diverticulitis versus ischemic bowel with elevated lactic acid chest x-ray was reported negative however the patient did have a large lateral hernia with gastric content and high risk of aspiration 2-blood cultures has been negative so far 3-patient repeat CT did shows evidence of fecal status rectosigmoid region with mild thickening correlate for proctocolitis 4-patient white count has normalized and blood culture has been negative so far, 5-patient is currently covered with Zosyn will transition to oral antibiotic on discharge Dictation was produced using [employer] dictation software. please excuse any grammatical, word or spelling errors. Time with Patient: Less than 30
[2023-11-15] MEDS: FERROUS SULFATE 325 MG TAB PO SCH (19:49)
[2023-11-15] MEDS: WARFARIN 3 MG TAB PO ONE (19:49)
[2023-11-16 10:18] LABS: INR 1.01 sec (0.93-1.11); Prothrombin Time 10.9 sec (9.9-11.9)
[2023-11-16 10:23] LABS: HCT 23.6 % (37.2-46.3); HGB 6.7 g/dL (12.0-15.0); MCH 29.3 pg (27.0-32.0); MCHC 28.4 g/dL (32.0-37.0); MCV 103.1 FL (80.0-97.0); Mean Platelet Volume 10.6 FL (9.5-12.2); Platelet Count 241 X 10*3/uL (140-440); RBC 2.29 X 10*6/uL (4.10-5.20); RDW 25.8 % (11.5-14.5); WBC 5.28 X 10*3/uL (4.50-10.00)
[2023-11-16 10:44] LABS: Anisocytosis (M) 2+; Basophils # (A) 0.03 X 10*3/uL (0.00-0.10); Basophils % (A) 0.6 %; Eosinophils # (A) 0.24 X 10*3/uL (0.04-0.35); Eosinophils % (A) 4.5 %; Lymphocytes # (A) 1.32 X 10*3/uL (0.90-5.00); Monocytes # (A) 0.91 X 10*3/uL (0.20-1.00); Monocytes % (A) 17.2 %; Neutrophils % (A) 51.2 %; Polychromasia 2+
--- NOTE | 2023-11-16 13:20 | P.GSCN ---
History of Present Illness Consult date: 11/16/23 History of present illness: CHIEF COMPLAINT: Acute blood loss anemia HISTORY OF PRESENT ILLNESS: The patient is a 73-year-old female being followed for acute blood loss anemia. She has been here at least prior assessment for anemia 10 days ago with GI team who reported outpatient endoscopies. During the hospitalization, her blood count dropped to 6.7 now she receiving 1 unit of blood. Healthcare team including nurse and aide reports that patient has dark stools. Her Coumadin has now been discontinued. Patient reports no prior upper endoscopy. Last colonoscopy over 1 year ago to the best of her recollection. She reports getting yearly blood transfusions. She denies acute abdominal pain. PAST MEDICAL HISTORY: See list and reviewed PAST SURGICAL HISTORY: See list and reviewed MEDICATIONS: See list and reviewed ALLERGIES: See list and reviewed SOCIAL HISTORY: See list and reviewed FAMILY HISTORY: See list and reviewed REVIEW OF ORGAN SYSTEMS: CONSTITUTIONAL: No fevers or chills. Morbid obesity due to excess calories, BMI 51.6. EYES: Denies any trouble with vision. No glasses. HEENT: No difficulties with hearing. No nosebleeds. No difficulty swallowing. RESPIRATORY: Denies pneumonia. Denies any troubles with breathing or dyspnea on exertion. CARDIOVASCULAR: Denies any chest pain, palpitations, or recent heart attacks. Has hypertensive heart disease with cardiomyopathy. GASTROINTESTINAL: Denies fatty food intolerance. Has dark stools. Has gastroesophageal reflux disease. GENITOURINARY: Denies any blood in urine or increased urinary frequency. NEUROLOGICAL: Denies any numbness or tingling along the distal extremities. No seizure disorders or headaches. MUSCULOSKELETAL: Has back pain, stiffness or joint arthritis. On methotrexate psoriatic arthritis. On Celebrex. On Humira. SKIN: No current skin cancer. No rash. PSYCHIATRIC: Has depression or suicidal thoughts. Dementia. ENDOCRINE: Denies current thyroid disorders. Denies any blood sugar glucose intolerance. HEME/LYMPHATIC: Denies any lumps and bumps around the neck. Past deep venous thrombosis. Multiple blood transfusions, yearly. On chronic anticoagulation. ALLERGY/IMMUNOLOGY: No immunoglobulin therapy. No immune deficiencies. BREAST: Denies current breast lumps, pain or nipple discharge. PHYSICAL EXAM: VITALS: Reviewed CONSTITUTIONAL: Well developed and in no acute distress. EYES: Conjuctivae without sclera icterus. Extraocular movements grossly intact. HEAD, EARS, NOSE, THROAT: Moist buccal mucosa. Head is atraumatic, normocepha lic. Hears conversational speech. No nasal drainage. NECK: Supple. No JV distention. No thyroidomegaly. RESPIRATORY: Non-labored respirations and equal bilateral excursions. No gross wheezes. CARDIOVASCULAR: Palpable 2+ radial pulses. ABDOMEN: Obese, no peritonitis. LYMPH: No neck lymphadenopathy. MUSCULOSKELETAL: No clubbing cyanosis or edema SKIN: Warm and well perfused with good skin turgor. NEUROLOGIC: Cranial nerves II through XII grossly intact. No focal or lateralizing signs. PSYCH: Appropriate affect. Alert and oriented to person CLINCAL LABS: Reviewed. Hemoglobin down 7.6-6.7, acute blood loss anemia from admission hemoglobin 9.1. WBC normal 5.8. IMAGING: Independently reviewed. CT of the abdomen pelvis from 11/10/2023 reviewed demonstrates paraesophageal hiatal hernia with edema and thickening of the stomach. Thickening of the sigmoid colon with large stool with colitis. Presence of colonic distention. This is my independent interpretation. RADIOLOGY: Report reviewed of CT abdomen pelvis demonstrates proctocolitis. ASSESSMENT: 1. Acute blood loss anemia 2. Adverse reaction from methotrexate, Celebrex, Humira with high risk of GI bleed 3. Paraesophageal hiatal hernia 4. Chronic anticoagulation 5. Proctocolitis 6. Morbid obesity due to excess calories 7. Psoriatic arthritis 8. History of deep venous thrombosis PLAN: 1. She is taking Humira, Celebrex, methotrexate all of which increased risk for gastritis including upper GI bleed in the presence of a hiatal hernia. Recommend upper endoscopy. 2. CT scan demonstrates also proctocolitis and may benefit from colonoscopy while inpatient. 3. Hold all ulcerogenic medications including methotrexate, Celebrex, Humira including blood thinners. ADVANCE DIRECTIVE: CODE STATUS in chart Thank you for this kind consultation. Past Medical History Past Medical History: Atrial Fibrillation, Dementia, Deep Vein Thrombosis (DVT), GERD/Reflux, Hypertension Additional Past Medical History / Comment(s): PSORIATIC ARTHRITIS. mammogram indicated small cyst to have procedure 05/01/21 History of Any Multi-Drug Resistant Organisms: None Reported Past Surgical History: Appendectomy, Back Surgery, Bladder Surgery, Cholecystectomy, Hysterectomy, Orthopedic Surgery Additional Past Surgical History / Comment(s): vein stripping. ORIF OF RIGHT ANKLE with plate and wire,joint replacement lt great toe with titanium screw . rhizotomy and steroid injections lumbar, millicent knee steroid injection Past Anesthesia/Blood Transfusion Reactions: Previous Problems w/ Anesthesia, Motion Sickness, Postoperative Nausea & Vomiting (PONV) Past Psychological History: Anxiety, Depression Smoking Status: Never smoker Past Alcohol Use History: None Reported Past Drug Use History: None Reported Additional Drug Use History / Comment(s): cbd oil Medications and Allergies Home Medications Medication Instructions Recorded Confirmed Type ALPRAZolam [Xanax] 0.5 mg PO DAILY PRN 01/07/16 11/05/23 History Adalimumab [Humira Pen 40 mg SQ TU 01/07/16 11/05/23 History Crohn's-Uc-Hs] Folic Acid 1 mg PO DAILY 01/07/16 11/05/23 History Metoprolol Succinate (ER) [Toprol 100 mg PO BID 01/07/16 11/05/23 History XL] Pantoprazole Sodium [Protonix] 40 mg PO AC-BRKFST 01/07/16 11/05/23 History metHOTREXate sodium [Methotrexate] 15 mg PO FR 01/07/16 11/05/23 History Cbd Oil 1 dose PO HS 02/28/21 11/05/23 History DULoxetine HCL [Cymbalta] 90 mg PO DAILY 02/28/21 11/05/23 History Potassium Gluconate [Potassium 99 mg PO DAILY 02/28/21 11/05/23 History Gluconate ER] Betamethasone Dipropionate 1 applic TOPICAL BID 04/19/21 11/05/23 History [Betamethasone Dipropionate 0.05%] Losartan Potassium 50 mg PO BID 04/19/21 11/05/23 History Celecoxib [CeleBREX] 200 mg PO DAILY 06/17/23 11/05/23 History Furosemide [Lasix] 20 mg PO DAILY 06/17/23 11/05/23 History Gabapentin 800 mg PO TID 06/17/23 11/05/23 History Multivit-Min/FA/Lycopen/Lutein 1 tab PO DAILY 06/17/23 11/05/23 History [Centrum Silver Tablet] buPROPion HCL [Wellbutrin XL] 150 mg PO DAILY 06/17/23 11/05/23 History Cetirizine HCl [Zyrtec] 10 mg PO DAILY 10/23/23 11/05/23 History Glycopyrrolate [Robinul Forte] 2 mg PO BID 10/23/23 11/05/23 History Warfarin [Coumadin] 5 mg PO HS 10/23/23 11/05/23 History Zolpidem [Ambien] 10 mg PO HS 10/23/23 11/05/23 History Hydrocortisone [Anusol-Hc] 1 applic RECTAL QID 11/05/23 11/05/23 History Ponaris Nasal Emollient 1 - 2 drops EA NOSTRIL BID PRN 11/05/23 11/05/23 History Vitamin D3(Unknown Dose) 1 tab PO DAILY 11/05/23 11/05/23 History estradioL [Estrace] 0.5 mg PO DAILY 11/05/23 11/05/23 History Allergies Allergy/AdvReac Type Severity Reaction Status Date / Time adhesive Allergy Rash/Hives Verified 10/23/23 15:08 Surgical - Exam Vital Signs Temp Pulse Resp BP Pulse Ox 97.8 F 82 16 103/67 97 11/05/23 14:19 11/05/23 14:19 11/05/23 14:19 11/05/23 14:19 11/05/23 14:19 Results - Labs 11/16/23 04:14 11/13/23 06:32 Abnormal Lab Results - Last 24 Hours (Table) 11/16/23 11/16/23 Range/Units 04:14 10:43 RBC 2.29 L (4.10-5.20) X 10*6/uL Hgb 6.7 A* (12.0-15.0) g/dL Hct 23.6 L (37.2-46.3) % MCV 103.1 H (80.0-97.0) FL MCHC 28.4 L (32.0-37.0) g/dL RDW 25.8 H (11.5-14.5) % Immature Gran # 0.08 H (0.00-0.04) X 10*3/uL NRBC/100 WBC Diff 0.10 H (0.00-0.01) X 10*3/uL Polychromasia 2+ A Anisocytosis (manual) 2+ A Crossmatch See Detail
--- NOTE | 2023-11-16 17:26 | P.PN ---
Subjective Progress Note Date: 11/16/23 Principal diagnosis: Reason for follow-up is leukocytosis Patient is a 73-year-old female with a past medical history significant for atrial fibrillation hypertension reflux DVT and dementia with initially presented to the hospital with shortness of breath abdominal pain weakness did have a CT abdominal pelvis reported negative did have worsening of the white prompting this consultation. On today's evaluation that is 11/16/2023,the patient remains to be afebrile, p atient is on room air not requiring supplemental oxygen and denies any shortness of breath no chest pain or cough.Patient has been complaining of feeling nauseated with the smell of the food but no vomiting no abdominal pain and no diarrhea. Patient white count is 5.28 hemoglobin was down to 6.7 creatinine 0.89 Objective - Vital Signs Vital signs: Vital Signs Temp 97.7 F 11/16/23 16:10 Pulse 53 L 11/16/23 16:10 Resp 16 11/16/23 16:10 BP 130/66 11/16/23 16:10 Pulse Ox 98 11/16/23 16:10 FiO2 40 11/10/23 07:57 Intake & Output 11/15/23 11/16/23 11/16/23 18:59 06:59 18:59 Intake Total 310 Output Total 510 1100 501 Balance -510 -1100 -191 Weight 132.2 kg Intake: Blood Product 310 Rc As-1 Unit 310 [id number] Output: Urine 510 1100 500 Stool 1 Other: Voiding Method Indwelling Catheter Indwelling Catheter Indwelling Catheter # Bowel Movements 1 4 1 - Exam GENERAL DESCRIPTION: An elderly female lying in bed in no distress RESPIRATORY SYSTEM: Unlabored breathing , decreased breath sounds at bases HEART: S1 S2 regular rate and rhythm , ABDOMEN: Soft , mild distention but no tenderness EXTREMITIES: No edema feet - Labs CBC & Chem 7: 11/16/23 04:14 11/13/23 06:32 Labs: Abnormal Lab Results - Last 24 Hours (Table) 11/16/23 11/16/23 Range/Units 04:14 10:43 RBC 2.29 L (4.10-5.20) X 10*6/uL Hgb 6.7 A* (12.0-15.0) g/dL Hct 23.6 L (37.2-46.3) % MCV 103.1 H (80.0-97.0) FL MCHC 28.4 L (32.0-37.0) g/dL RDW 25.8 H (11.5-14.5) % Immature Gran # 0.08 H (0.00-0.04) X 10*3/uL NRBC/100 WBC Diff 0.10 H (0.00-0.01) X 10*3/uL Polychromasia 2+ A Anisocytosis (manual) 2+ A Crossmatch See Detail Assessment and Plan (1) Leukocytosis Current Visit: Yes Status: Acute Code(s): D72.829 - ELEVATED WHITE BLOOD CELL COUNT, UNSPECIFIED SNOMED Code(s): 465893260 (2) Proctocolitis Current Visit: Yes Status: Acute Code(s): K52.9 - NONINFECTIVE GASTROENTERITIS AND COLITIS, UNSPECIFIED SNOMED Code(s): 028370659 Plan: 1patient with elevated white count of 25,000 and this patient presented to the hospital with abdominal pain patient did have a elevated lactic acid CT abdominal pelvis was done but apparently without any oral contrast that will decrease the sensitivity concern is likely for abdominal source with a question of diverticulitis versus ischemic bowel with elevated lactic acid chest x-ray was reported negative however the patient did have a large lateral hernia with gastric content and high risk of aspiration 2-blood cultures has been negative so far 3-patient repeat CT did shows evidence of fecal status rectosigmoid region with mild thickening correlate for proctocolitis 4-patient white count has normalized and blood culture has been negative so far, noticed to have drop in hemoglobin General surgery has been consulted will continue Zosyn at this point Dictation was produced using [employer] dictation software. please excuse any grammatical, word or spelling errors.
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
[2023-11-17 04:49] LABS: INR 1.1 (<1.2); Prothrombin Time 11.5 sec (10.0-12.5)
[2023-11-17 08:45] LABS: Basophils # (A) 0.03 X 10*3/uL (0.00-0.10); Basophils % (A) 0.7 %; Eosinophils % (A) 4.5 %; HCT 27.7 % (37.2-46.3); HGB 8.1 g/dL (12.0-15.0); Lymphocytes # (A) 1.24 X 10*3/uL (0.90-5.00); Lymphocytes % (A) 27.7 %; MCH 29.8 pg (27.0-32.0); MCHC 29.2 g/dL (32.0-37.0); MCV 101.8 FL (80.0-97.0); Mean Platelet Volume 10.8 FL (9.5-12.2); Monocytes # (A) 0.78 X 10*3/uL (0.20-1.00); Monocytes % (A) 17.4 %; NRBC Per 100 WBC 0.02 X 10*3/uL (0.00-0.01); Neutrophils # (A) 2.19 X 10*3/uL (1.80-7.70); Platelet Count 236 X 10*3/uL (140-440); RBC 2.72 X 10*6/uL (4.10-5.20); RDW 24.6 % (11.5-14.5); WBC 4.47 X 10*3/uL (4.50-10.00)
[2023-11-17 08:59] LABS: BUN/Creat Ratio 6.22 Ratio (12.00-20.00); Blood Urea Nitrogen 5.6 mg/dL (9.0-27.0); Calcium 8.2 mg/dL (8.7-10.3); Carbon Dioxide 20.1 mmol/L (21.6-31.8); Chloride 115 mmol/L (96-109); Glucose 90 mg/dL (70-110); Potassium 3.5 mmol/L (3.5-5.5); Sodium 145 mmol/L (135-145)
[2023-11-17] MEDS ORDERED: PROPOFOL 10 MG/ML 20 ML VIAL IV ONE (09:49)
[2023-11-17] MEDS: IV FLUID CONTINUATION 1,000 ML IV ONE ×2 (09:52→10:20)
--- NOTE | 2023-11-17 10:24 | P.PCN ---
Date of Procedure: 11/17/23 Description of Procedure: PREOPERATIVE DIAGNOSIS: Acute gastrointestinal bleeding Status post blood transfusions POSTOPERATIVE DIAGNOSIS: Acute gastrointestinal bleeding Bleeding gastric tubular adenoma Multiple gastric polyps Diaphragmatic hiatal hernia OPERATION: Esophagogastroduodenoscopy with hot snare polypectomy bleeding gastric polyp SURGEON: Abigail Bautista MD ANESTHESIA: MAC. INDICATIONS: The patient is a 73-year-old female who presents with gastrointestinal bleeding. Benefits and risks of the procedure were described. Informed consent was obtained. DESCRIPTION: The patient was brought into the endoscopy suite and laid in the left lateral decubitus position. An Olympus gastroscope was passed along the posterior oropharynx down to the distal esophagus where the squamocolumnar junction was encountered at 36 cm from the incisors. The stomach was entered and no bile reflux was found. Additional findings are listed below. The first through third portion of the duodenum was examined and unremarkable. Retroflexion of the scope confirmed Hill grade 3 lower esophageal valve. The squamocolumnar junction demonstrated LA grade B erosive esophagitis. The stomach was desufflated. The patient tolerated the procedure well. FINDINGS: Squamocolumnar junction 36 cm from the incisors. Diaphragmatic hiatus at 41 cm. Hiatal hernia, 5 cm, sliding to Hill grade 3 lower esophageal valve. LA grade B erosive esophagitis. No active duodenitis. Active stigmata from bleeding from large gastric polyp, resected by hot snare RECOMMENDATIONS: 1. Diet as tolerated 2. Upper endoscopy as needed 3. May benefit from lower endoscopy
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
[2023-11-18 08:43] LABS: Basophils # (A) 0.01 X 10*3/uL (0.00-0.10); Basophils % (A) 0.2 %; Eosinophils # (A) 0.16 X 10*3/uL (0.04-0.35); Eosinophils % (A) 3.4 %; HCT 30.3 % (37.2-46.3); HGB 8.9 g/dL (12.0-15.0); Lymphocytes # (A) 1.28 X 10*3/uL (0.90-5.00); Lymphocytes % (A) 27.2 %; MCH 29.9 pg (27.0-32.0); MCHC 29.4 g/dL (32.0-37.0); MCV 101.7 FL (80.0-97.0); Mean Platelet Volume 10.7 FL (9.5-12.2); Monocytes # (A) 0.78 X 10*3/uL (0.20-1.00); Monocytes % (A) 16.6 %; NRBC Per 100 WBC 0 X 10*3/uL (0.00-0.01); Neutrophils # (A) 2.46 X 10*3/uL (1.80-7.70); Neutrophils % (A) 52.2 %; Platelet Count 265 X 10*3/uL (140-440); RBC 2.98 X 10*6/uL (4.10-5.20); RDW 24.4 % (11.5-14.5); WBC 4.71 X 10*3/uL (4.50-10.00)
[2023-11-18 09:04] LABS: BUN/Creat Ratio 5.56 Ratio (12.00-20.00); Calcium 8.4 mg/dL (8.7-10.3); Chloride 113 mmol/L (96-109); Glucose 86 mg/dL (70-110); Potassium 3.3 mmol/L (3.5-5.5); Sodium 144 mmol/L (135-145)
--- NOTE | 2023-11-18 14:38 | P.PN ---
Subjective Progress Note Date: 11/18/23 CHIEF COMPLAINT: Acute blood loss anemia HISTORY OF PRESENT ILLNESS: Patient is status post EGD yesterday with results reporting bleeding gastric tubular adenoma, multiple gastric polyps and diaphragmatic hiatal hernia. Nursing staff reports that patient's stools are still dark. Patient denies any abdominal pain. Denies any nausea or vomiting. Hemoglobin stable at 8.9 potassium 3.3 and being replaced PHYSICAL EXAM: VITAL SIGNS: Reviewed GENERAL: Well-developed in no acute distress. HEENT: No sclera icterus. Extraocular movements grossly intact. Moist buccal mucosa. Head is atraumatic, normocephalic. Hears conversational speech. No nasal drainage. NECK: Supple without lymphadenopathy. CHEST: Non-labored respirations and equal bilateral excursions. CARDIOVASCULAR: Palpable 2+ radial pulses. ABDOMEN: Soft. Nondistended. Nontender. MUSCULOSKELETAL: No clubbing or cyanosis. NEUROLOGIC: No focal or lateralizing signs. Cranial nerves II through XII grossly intact. PSYCH: Appropriate affect. Alert and oriented to person, place and time. SKIN: Well perfused. Good skin turgor. ASSESSMENT: 1. Acute blood loss anemia 2. Bleeding gastric tubular adenoma, multiple gastric polyps and diaphragmatic hiatal hernia noted on EGD PLAN: -Patient scheduled for colonoscopy tomorrow with Dr. Bautista -Clear liquid diet today -Start GoLytely bowel prep with lactulose -N.p.o. after midnight -Replace potassium -Repeat labs in a.m. -Continue to monitor for any signs or symptoms of bleeding Physician [employer] Employee note has been reviewed by physician. Signing provider agrees with the documented findings, assessment, and plan of care. Objective - Vital Signs Vital signs: Vital Signs Temp 97.8 F 11/18/23 07:00 Pulse 76 11/18/23 07:00 Resp 16 11/18/23 07:00 BP 153/98 11/18/23 07:00 Pulse Ox 97 11/18/23 07:00 FiO2 40 11/10/23 07:57 Intake & Output 11/17/23 11/18/23 11/18/23 18:59 06:59 18:59 Intake Total 200 Output Total 1100 Balance -900 Weight 129 kg Intake: IV 200 Output: Urine 1100 Uretheral (Beach) 300 Other: Voiding Method Indwelling Catheter Toilet Toilet Incontinent # Voids 1 4 1 # Bowel Movements 3 4 1 - Labs CBC & Chem 7: 11/18/23 04:08 11/18/23 04:08 Labs: Abnormal Lab Results - Last 24 Hours (Table) 11/18/23 11/18/23 Range/Units 04:08 04:08 RBC 2.98 L (4.10-5.20) X 10*6/uL Hgb 8.9 L (12.0-15.0) g/dL Hct 30.3 L (37.2-46.3) % MCV 101.7 H (80.0-97.0) FL MCHC 29.4 L (32.0-37.0) g/dL RDW 24.4 H (11.5-14.5) % Potassium 3.3 L (3.5-5.5) mmol/L Chloride 113 H (96-109) mmol/L Carbon Dioxide 20.0 L (21.6-31.8) mmol/L BUN 5.0 L (9.0-27.0) mg/dL BUN/Creatinine Ratio 5.56 L (12.00-20.00) Ratio Calcium 8.4 L (8.7-10.3) mg/dL
--- NOTE | 2023-11-18 14:50 | P.PN ---
Subjective Progress Note Date: 11/18/23 Principal diagnosis: Reason for follow-up is leukocytosis Patient is a 73-year-old female with a past medical history significant for atrial fibrillation hypertension reflux DVT and dementia with initially presented to the hospital with shortness of breath abdominal pain weakness did have a CT abdominal pelvis reported negative did have worsening of the white prompting this consultation. On today's evaluation that is 11/18/2023, Patient is afebrile patient is curre ntly on room air and denies having any shortness of breath, the patient denies any chest pain or cough, the patient denies any nausea vomiting did not have any abdominal pain and no diarrhea mention overall decreased appetite. Patient white count is 4.71, creatinine 0.9 Objective - Vital Signs Vital signs: Vital Signs Temp 97.8 F 11/18/23 07:00 Pulse 76 11/18/23 07:00 Resp 16 11/18/23 07:00 BP 153/98 11/18/23 07:00 Pulse Ox 97 11/18/23 07:00 FiO2 40 11/10/23 07:57 Intake & Output 11/17/23 11/18/23 11/18/23 18:59 06:59 18:59 Intake Total 200 Output Total 1100 Balance -900 Weight 129 kg Intake: IV 200 Output: Urine 1100 Uretheral ([place]) 300 Other: Voiding Method Indwelling Catheter Toilet Toilet Incontinent # Voids 1 4 1 # Bowel Movements 3 4 1 - Exam GENERAL DESCRIPTION: An elderly female lying in bed in no distress RESPIRATORY SYSTEM: Unlabored breathing , decreased breath sounds at bases HEART: S1 S2 regular rate and rhythm , ABDOMEN: Soft , mild distention but no tenderness EXTREMITIES: No edema feet - Labs CBC & Chem 7: 11/18/23 04:08 11/18/23 04:08 Labs: Abnormal Lab Results - Last 24 Hours (Table) 11/18/23 11/18/23 Range/Units 04:08 04:08 RBC 2.98 L (4.10-5.20) X 10*6/uL Hgb 8.9 L (12.0-15.0) g/dL Hct 30.3 L (37.2-46.3) % MCV 101.7 H (80.0-97.0) FL MCHC 29.4 L (32.0-37.0) g/dL RDW 24.4 H (11.5-14.5) % Potassium 3.3 L (3.5-5.5) mmol/L Chloride 113 H (96-109) mmol/L Carbon Dioxide 20.0 L (21.6-31.8) mmol/L BUN 5.0 L (9.0-27.0) mg/dL BUN/Creatinine Ratio 5.56 L (12.00-20.00) Ratio Calcium 8.4 L (8.7-10.3) mg/dL Assessment and Plan (1) Leukocytosis Current Visit: Yes Status: Acute Code(s): D72.829 - ELEVATED WHITE BLOOD CELL COUNT, UNSPECIFIED SNOMED Code(s): 510820673 (2) Proctocolitis Current Visit: Yes Status: Acute Code(s): K52.9 - NONINFECTIVE GASTROENTERITIS AND COLITIS, UNSPECIFIED SNOMED Code(s): 883487264 Plan: 1patient with elevated white count of 25,000 and this patient presented to the hospital with abdominal pain patient did have a elevated lactic acid CT abdominal pelvis was done but apparently without any oral contrast that will decrease the sensitivity concern is likely for abdominal source with a question of diverticulitis versus ischemic bowel with elevated lactic acid chest x-ray was reported negative however the patient did have a large lateral hernia with gastric content and high risk of aspiration 2-blood cultures has been negative so far 3-patient repeat CT did shows evidence of fecal status rectosigmoid region with mild thickening correlate for proctocolitis 4-patient white count has normalized and blood culture has been negative so far, 5-patient to continue with Zosyn while inpatient, will transition to oral antibiotics on discharge Dictation was produced using [employer] dictation software. please excuse any grammatical, word or spelling errors. Time with Patient: Less than 30
--- NOTE | 2023-11-18 14:50 | P.PN ---
Subjective Progress Note Date: 11/17/23 Principal diagnosis: Reason for follow-up is leukocytosis Patient is a 73-year-old female with a past medical history significant for atrial fibrillation hypertension reflux DVT and dementia with initially presented to the hospital with shortness of breath abdominal pain weakness did have a CT abdominal pelvis reported negative did have worsening of the white prompting this consultation. On today's evaluation that is 11/17/2023, the patient continues to be afebrile, the patient is on room air and breathing comfortably, the Pt denies having any chest pain or cough, the patient denies having any abdominal pain did have some nausea but no vomiting or any diarrhea has been reported by the nursing staff Patient white count is 4.47 creatinine 0.9 blood culture has been negative Objective - Vital Signs Vital signs: Vital Signs Temp 98.9 F 11/17/23 10:41 Pulse 70 11/17/23 10:41 Resp 18 11/17/23 10:41 BP 139/82 11/17/23 10:41 Pulse Ox 100 11/17/23 10:41 FiO2 40 11/10/23 07:57 Intake & Output 11/16/23 11/17/23 11/17/23 18:59 06:59 18:59 Intake Total 310 200 Output Total 826 600 Balance -516 -600 200 Weight 130.2 kg Intake: IV 200 Blood Product 310 Rc As-1 Unit 310 [id number] Output: Urine 825 600 Stool 1 Other: Voiding Method Indwelling Catheter Indwelling Catheter # Bowel Movements 1 2 - Exam GENERAL DESCRIPTION: An elderly female lying in bed in no distress RESPIRATORY SYSTEM: Unlabored breathing , decreased breath sounds at bases HEART: S1 S2 regular rate and rhythm , ABDOMEN: Soft , mild distention but no tenderness EXTREMITIES: No edema feet - Labs CBC & Chem 7: 11/18/23 04:08 11/18/23 04:08 Labs: Abnormal Lab Results - Last 24 Hours (Table) 11/16/23 11/17/23 11/17/23 Range/Units 10:43 04:01 04:01 WBC 4.47 L (4.50-10.00) X 10*3/uL RBC 2.72 L (4.10-5.20) X 10*6/uL Hgb 8.1 L (12.0-15.0) g/dL Hct 27.7 L (37.2-46.3) % MCV 101.8 H (80.0-97.0) FL MCHC 29.2 L (32.0-37.0) g/dL RDW 24.6 H (11.5-14.5) % NRBC/100 WBC Diff 0.02 H (0.00-0.01) X 10*3/uL Chloride 115 H (96-109) mmol/L Carbon Dioxide 20.1 L (21.6-31.8) mmol/L BUN 5.6 L (9.0-27.0) mg/dL BUN/Creatinine Ratio 6.22 L (12.00-20.00) Ratio Calcium 8.2 L (8.7-10.3) mg/dL Crossmatch See Detail Assessment and Plan (1) Leukocytosis Current Visit: Yes Status: Acute Code(s): D72.829 - ELEVATED WHITE BLOOD CELL COUNT, UNSPECIFIED SNOMED Code(s): 980226080 (2) Proctocolitis Current Visit: Yes Status: Acute Code(s): K52.9 - NONINFECTIVE GASTROENTERITIS AND COLITIS, UNSPECIFIED SNOMED Code(s): 295142200 Plan: 1patient with elevated white count of 25,000 and this patient presented to the hospital with abdominal pain patient did have a elevated lactic acid CT abdominal pelvis was done but apparently without any oral contrast that will decrease the sensitivity concern is likely for abdominal source with a question of diverticulitis versus ischemic bowel with elevated lactic acid chest x-ray was reported negative however the patient did have a large lateral hernia with gastric content and high risk of aspiration 2-blood cultures has been negative so far 3-patient repeat CT did shows evidence of fecal status rectosigmoid region with mild thickening correlate for proctocolitis 4-patient white count has normalized and blood culture has been negative so far, 5-patient to continue with Zosyn while waiting for completion of GI workup by surgery Dictation was produced using [employer] dictation software. please excuse any grammatical, word or spelling errors. Time with Patient: Less than 30
[2023-11-18] MEDS: PEG 3350 (236 GM/BTL) + LYTES 4,000 ML BOTTLE PO ONE (15:18)
[2023-11-18] MEDS: LACTULOSE 20 GM/30 ML CUP PO ONE (17:20)
[2023-11-18] MEDS: POTASSIUM CHLORIDE ER 20 MEQ TAB.ER PO STA (17:21)
[2023-11-19 07:44] LABS: African American GFR (CKD) >90 (>60 ml/min/1.73 sqM); Anion Gap 4 mmol/L; Blood Urea Nitrogen 3 mg/dL (7-17); Calcium 8.5 mg/dL (8.4-10.2); Carbon Dioxide 21 mmol/L (22-30); Chloride 113 mmol/L (98-107); Glucose 83 mg/dL (74-99); Non-African American GFR(CKD) 80 (>60 ml/min/1.73 sqM); Potassium 3.4 mmol/L (3.5-5.1); Sodium 138 mmol/L (137-145)
[2023-11-19 07:49] LABS: Anisocytosis Moderate; HCT 29.7 % (34.0-46.0); HGB 8.9 gm/dL (11.4-16.0); Hypochromasia Marked; MCHC 30.1 g/dL (31.0-37.0); MCV 99.5 fL (80.0-100.0); Macrocytosis Moderate; Mean Platelet Volume 8.2; Platelet Count 278 k/uL (150-450); Poikilocytosis Moderate; RBC 2.98 m/uL (3.80-5.40); RDW 21.5 % (11.5-15.5); WBC 3.5 k/uL (3.8-10.6)
--- NOTE | 2023-11-19 15:09 | P.PN ---
Subjective Progress Note Date: 11/19/23 CHIEF COMPLAINT: Acute blood loss anemia HISTORY OF PRESENT ILLNESS: Patient is status post EGD yesterday with results reporting bleeding gastric tubular adenoma, multiple gastric polyps and diaphragmatic hiatal hernia. Patient refused the colonoscopy prep yesterday. Therefore colonoscopy for today was canceled. Per nursing staff stools are brown and liquidy. Patient has eaten regular food for breakfast and lunch. Afebrile. WBC 3.5 Hgb stable 8.9 platelets 278 potassium 3.4 creatinine 0.74 PHYSICAL EXAM: VITAL SIGNS: Reviewed GENERAL: Well-developed in no acute distress. HEENT: No sclera icterus. Extraocular movements grossly intact. Moist buccal mucosa. Head is atraumatic, normocephalic. Hears conversational speech. No nasal drainage. NECK: Supple without lymphadenopathy. CHEST: Non-labored respirations and equal bilateral excursions. CARDIOVASCULAR: Palpable 2+ radial pulses. ABDOMEN: Soft. Nondistended. Nontender. MUSCULOSKELETAL: No clubbing or cyanosis. NEUROLOGIC: No focal or lateralizing signs. Cranial nerves II through XII grossly intact. PSYCH: Appropriate affect. Alert and oriented to person, place and time. SKIN: Well perfused. Good skin turgor. ASSESSMENT: 1. Acute blood loss anemia 2. Bleeding gastric tubular adenoma, multiple gastric polyps and diaphragmatic hiatal hernia noted on EGD PLAN: -Patient refused bowel prep. Colonoscopy canceled for today -Colonoscopy is not recommended. Unfortunately patient cannot tolerate the bowel prep. Will await medicine services recommendations if they want a colonoscopy to be completed during her admission. -Replace potassium -Continue to monitor for any signs or symptoms of bleeding Physician [employer] Equipment Operator note has been reviewed by physician. Signing provider agrees with the documented findings, assessment, and plan of care. Objective - Vital Signs Vital signs: Vital Signs Temp 98.1 F 11/19/23 14:14 Pulse 74 11/19/23 14:14 Resp 16 11/19/23 14:14 BP 144/62 11/19/23 14:14 Pulse Ox 99 11/19/23 14:14 FiO2 40 11/10/23 07:57 Intake & Output 11/18/23 11/19/23 11/19/23 18:59 06:59 18:59 Weight 129 kg 128.5 kg Other: Voiding Method Toilet Toilet Toilet Incontinent Incontinent # Voids 1 6 # Bowel Movements 1 2 2 - Labs CBC & Chem 7: 11/19/23 06:29 11/19/23 06:29 Labs: Abnormal Lab Results - Last 24 Hours (Table) 11/19/23 11/19/23 Range/Units 06:29 06:29 WBC 3.5 L (3.8-10.6) k/uL RBC 2.98 L (3.80-5.40) m/uL Hgb 8.9 L (11.4-16.0) gm/dL Hct 29.7 L (34.0-46.0) % MCHC 30.1 L (31.0-37.0) g/dL RDW 21.5 H (11.5-15.5) % Potassium 3.4 L (3.5-5.1) mmol/L Chloride 113 H (98-107) mmol/L Carbon Dioxide 21 L (22-30) mmol/L BUN 3 L (7-17) mg/dL
[2023-11-19] MEDS: POTASSIUM CHLORIDE ER 20 MEQ TAB.ER PO STA (15:11)
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
[2023-11-20 09:16] LABS: Basophils # (A) 0.03 X 10*3/uL (0.00-0.10); Basophils % (A) 0.8 %; Eosinophils # (A) 0.14 X 10*3/uL (0.04-0.35); Eosinophils % (A) 3.8 %; HCT 31.1 % (37.2-46.3); HGB 9.1 g/dL (12.0-15.0); Lymphocytes # (A) 1.14 X 10*3/uL (0.90-5.00); Lymphocytes % (A) 31.1 %; MCH 29.6 pg (27.0-32.0); MCHC 29.3 g/dL (32.0-37.0); MCV 101.3 FL (80.0-97.0); Mean Platelet Volume 10.3 FL (9.5-12.2); Monocytes % (A) 19.1 %; NRBC Per 100 WBC 0 X 10*3/uL (0.00-0.01); Neutrophils # (A) 1.65 X 10*3/uL (1.80-7.70); Neutrophils % (A) 44.9 %; Platelet Count 271 X 10*3/uL (140-440); RBC 3.07 X 10*6/uL (4.10-5.20); RDW 23.9 % (11.5-14.5); WBC 3.67 X 10*3/uL (4.50-10.00)
[2023-11-20 10:57] LABS: Blood Urea Nitrogen 3.6 mg/dL (9.0-27.0); Calcium 8.4 mg/dL (8.7-10.3); Carbon Dioxide 20.9 mmol/L (21.6-31.8); Chloride 113 mmol/L (96-109); Glucose 95 mg/dL (70-110); Potassium 3.6 mmol/L (3.5-5.5); Sodium 145 mmol/L (135-145)
--- NOTE | 2023-11-20 12:25 | P.PN ---
Subjective Progress Note Date: 11/19/23 Principal diagnosis: Reason for follow-up is leukocytosis Patient is a 73-year-old female with a past medical history significant for atrial fibrillation hypertension reflux DVT and dementia with initially presented to the hospital with shortness of breath abdominal pain weakness did have a CT abdominal pelvis reported negative did have worsening of the white prompting this consultation. On today's evaluation that is 11/19/2023, patient has been afebrile, patient is breathing comfortably and is currently on room air, patient denies having any significant cough no chest pain shortness of breath, patient did have decreased oral intake but no vomiting or diarrhea and no abdominal pain Patient white count is 3.5, creatinine 0.74 Objective - Vital Signs Vital signs: Vital Signs Temp 98.0 F 11/19/23 07:28 Pulse 69 11/19/23 07:28 Resp 16 11/19/23 07:28 BP 151/71 11/19/23 07:28 Pulse Ox 97 11/19/23 07:28 FiO2 40 11/10/23 07:57 Intake & Output 11/18/23 11/19/23 11/19/23 18:59 06:59 18:59 Weight 129 kg 128.5 kg Other: Voiding Method Toilet Toilet Toilet Incontinent Incontinent # Voids 1 6 # Bowel Movements 1 2 2 - Exam GENERAL DESCRIPTION: An elderly female lying in bed in no distress RESPIRATORY SYSTEM: Unlabored breathing , decreased breath sounds at bases HEART: S1 S2 regular rate and rhythm , ABDOMEN: Soft , mild distention but no tenderness EXTREMITIES: Diffuse swelling bilateral lower extremity no redness - Labs CBC & Chem 7: 11/20/23 05:36 11/20/23 05:32 Labs: Abnormal Lab Results - Last 24 Hours (Table) 11/19/23 11/19/23 Range/Units 06:29 06:29 WBC 3.5 L (3.8-10.6) k/uL RBC 2.98 L (3.80-5.40) m/uL Hgb 8.9 L (11.4-16.0) gm/dL Hct 29.7 L (34.0-46.0) % MCHC 30.1 L (31.0-37.0) g/dL RDW 21.5 H (11.5-15.5) % Potassium 3.4 L (3.5-5.1) mmol/L Chloride 113 H (98-107) mmol/L Carbon Dioxide 21 L (22-30) mmol/L BUN 3 L (7-17) mg/dL Assessment and Plan (1) Leukocytosis Current Visit: Yes Status: Acute Code(s): D72.829 - ELEVATED WHITE BLOOD CELL COUNT, UNSPECIFIED SNOMED Code(s): 603911967 (2) Proctocolitis Current Visit: Yes Status: Acute Code(s): K52.9 - NONINFECTIVE GASTROENTERITIS AND COLITIS, UNSPECIFIED SNOMED Code(s): 722226456 Plan: 1patient with elevated white count of 25,000 and this patient presented to the hospital with abdominal pain patient did have a elevated lactic acid CT abdominal pelvis was done but apparently without any oral contrast that will decrease the sensitivity concern is likely for abdominal source with a question of diverticulitis versus ischemic bowel with elevated lactic acid chest x-ray was reported negative however the patient did have a large lateral hernia with gastric content and high risk of aspiration 2-blood cultures has been negative so far 3-patient repeat CT did shows evidence of fecal status rectosigmoid region with mild thickening correlate for proctocolitis 4-patient white count has normalized and blood culture has been negative so far, 5-patient to continue with Zosyn while inpatient, awaiting completion of her GI workup when the patient supposed to go for colonoscopy the patient seem to have refused bowel prep Dictation was produced using [employer] dictation software. please excuse any grammatical, word or spelling errors. Time with Patient: Less than 30
--- NOTE | 2023-11-20 12:26 | P.PN ---
Subjective Progress Note Date: 11/20/23 Principal diagnosis: Reason for follow-up is leukocytosis Patient is a 73-year-old female with a past medical history significant for atrial fibrillation hypertension reflux DVT and dementia with initially presented to the hospital with shortness of breath abdominal pain weakness did have a CT abdominal pelvis reported negative did have worsening of the white prompting this consultation. On today's evaluation that is 11/20/2023, Patient is afebrile this morning pat ient denies having any chest pain shortness of breath or cough, the patient is breathing comfortably and currently on room air, patient denies any abdominal pain no diarrhea no nausea no vomiting, no new symptoms. Patient white count is 3.67, creatinine 0.9 Objective - Vital Signs Vital signs: Vital Signs Temp 98.1 F 11/20/23 07:28 Pulse 72 11/20/23 07:28 Resp 16 11/20/23 07:28 BP 169/84 11/20/23 07:28 Pulse Ox 96 11/20/23 07:28 FiO2 40 11/10/23 07:57 Intake & Output 11/19/23 11/20/23 11/20/23 18:59 06:59 18:59 Weight 129.6 kg Other: Voiding Method Toilet Toilet Toilet # Voids 2 3 1 # Bowel Movements 4 1 1 - Exam GENERAL DESCRIPTION: An elderly female lying in bed in no distress RESPIRATORY SYSTEM: Unlabored breathing , decreased breath sounds at bases HEART: S1 S2 regular rate and rhythm , ABDOMEN: Soft , mild distention but no tenderness EXTREMITIES: Diffuse swelling bilateral lower extremity no redness - Labs CBC & Chem 7: 11/20/23 05:36 11/20/23 05:32 Labs: Abnormal Lab Results - Last 24 Hours (Table) 11/20/23 11/20/23 Range/Units 05:32 05:36 WBC 3.67 L (4.50-10.00) X 10*3/uL RBC 3.07 L (4.10-5.20) X 10*6/uL Hgb 9.1 L (12.0-15.0) g/dL Hct 31.1 L (37.2-46.3) % MCV 101.3 H (80.0-97.0) FL MCHC 29.3 L (32.0-37.0) g/dL RDW 23.9 H (11.5-14.5) % Neutrophils # 1.65 L (1.80-7.70) X 10*3/uL Chloride 113 H (96-109) mmol/L Carbon Dioxide 20.9 L (21.6-31.8) mmol/L BUN 3.6 L (9.0-27.0) mg/dL BUN/Creatinine Ratio 4.00 L (12.00-20.00) Ratio Calcium 8.4 L (8.7-10.3) mg/dL Assessment and Plan (1) Leukocytosis Current Visit: Yes Status: Acute Code(s): D72.829 - ELEVATED WHITE BLOOD CELL COUNT, UNSPECIFIED SNOMED Code(s): 094010813 (2) Proctocolitis Current Visit: Yes Status: Acute Code(s): K52.9 - NONINFECTIVE GASTROENTERITIS AND COLITIS, UNSPECIFIED SNOMED Code(s): 759045555 Plan: 1patient with elevated white count of 25,000 and this patient presented to the hospital with abdominal pain patient did have a elevated lactic acid CT abdominal pelvis was done but apparently without any oral contrast that will decrease the sensitivity concern is likely for abdominal source with a question of diverticulitis versus ischemic bowel with elevated lactic acid chest x-ray was reported negative however the patient did have a large lateral hernia with gastric content and high risk of aspiration 2-blood cultures has been negative so far 3-patient repeat CT did shows evidence of fecal status rectosigmoid region with mild thickening correlate for proctocolitis 4-patient white count has normalized and blood culture has been negative so far, 5-patient apparently has refused prep for colonoscopy has been canceled as no further GI workup we will switch antibiotic repeat oral Ceftin and Flagyl and discontinue Zosyn Dictation was produced using [employer] dictation software. please excuse any grammatical, word or spelling errors. Time with Patient: Less than 30
--- NOTE | 2023-11-20 15:23 | P.PN ---
Subjective Progress Note Date: 11/20/23 CHIEF COMPLAINT: Acute blood loss anemia HISTORY OF PRESENT ILLNESS: Patient is status post EGD yesterday with results reporting bleeding gastric tubular adenoma, multiple gastric polyps and diaphragmatic hiatal hernia. Patient refused the colonoscopy prep and colonoscopy canceled. Hemoglobin i has been trending up at 9.1. Patient reports her stools are becoming less dark. Denies any abdominal pain. PHYSICAL EXAM: VITAL SIGNS: Reviewed GENERAL: Well-developed in no acute distress. HEENT: No sclera icterus. Extraocular movements grossly intact. Moist buccal mucosa. Head is atraumatic, normocephalic. Hears conversational speech. No nasal drainage. NECK: Supple without lymphadenopathy. CHEST: Non-labored respirations and equal bilateral excursions. CARDIOVASCULAR: Palpable 2+ radial pulses. ABDOMEN: Soft. Nondistended. Nontender. MUSCULOSKELETAL: No clubbing or cyanosis. NEUROLOGIC: No focal or lateralizing signs. Cranial nerves II through XII grossly intact. PSYCH: Appropriate affect. Alert and oriented to person, place and time. SKIN: Well perfused. Good skin turgor. ASSESSMENT: 1. Acute blood loss anemia 2. Bleeding gastric tubular adenoma, multiple gastric polyps and diaphragmatic hiatal hernia noted on EGD PLAN: -Recommend outpatient colonoscopy. Patient is stable for discharge from surgical standpoint when medically cleared. Physician Account Service Representative note has been reviewed by physician. Signing provider agrees with the documented findings, assessment, and plan of care. Objective - Vital Signs Vital signs: Vital Signs Temp 98.4 F 11/20/23 14:00 Pulse 70 11/20/23 14:00 Resp 15 11/20/23 14:00 BP 141/66 11/20/23 14:00 Pulse Ox 96 11/20/23 14:00 FiO2 40 11/10/23 07:57 Intake & Output 11/19/23 11/20/23 11/20/23 18:59 06:59 18:59 Weight 129.6 kg Other: Voiding Method Toilet Toilet Toilet # Voids 2 3 2 # Bowel Movements 4 1 2 - Labs CBC & Chem 7: 11/20/23 05:36 11/20/23 05:32 Labs: Abnormal Lab Results - Last 24 Hours (Table) 11/20/23 11/20/23 Range/Units 05:32 05:36 WBC 3.67 L (4.50-10.00) X 10*3/uL RBC 3.07 L (4.10-5.20) X 10*6/uL Hgb 9.1 L (12.0-15.0) g/dL Hct 31.1 L (37.2-46.3) % MCV 101.3 H (80.0-97.0) FL MCHC 29.3 L (32.0-37.0) g/dL RDW 23.9 H (11.5-14.5) % Neutrophils # 1.65 L (1.80-7.70) X 10*3/uL Chloride 113 H (96-109) mmol/L Carbon Dioxide 20.9 L (21.6-31.8) mmol/L BUN 3.6 L (9.0-27.0) mg/dL BUN/Creatinine Ratio 4.00 L (12.00-20.00) Ratio Calcium 8.4 L (8.7-10.3) mg/dL
[2023-11-20] MEDS: metroNIDAZOLE 500 MG TAB PO SCH (16:18)
[2023-11-20] MEDS: CEFDINIR 300 MG CAP PO SCH (21:02)
[2023-11-21 07:44] VITALS: BP 161/93; PULSE 75; RESP 16; TEMP 98.4
[2023-11-21 08:34] LABS: Basophils # (A) 0.03 X 10*3/uL (0.00-0.10); Basophils % (A) 0.8 %; Eosinophils # (A) 0.14 X 10*3/uL (0.04-0.35); Eosinophils % (A) 3.6 %; HCT 30.3 % (37.2-46.3); Immature Grans, Automated 0 %; Lymphocytes # (A) 1.24 X 10*3/uL (0.90-5.00); Lymphocytes % (A) 31.7 %; MCHC 29.7 g/dL (32.0-37.0); Mean Platelet Volume 10.4 FL (9.5-12.2); Monocytes # (A) 0.81 X 10*3/uL (0.20-1.00); Monocytes % (A) 20.7 %; NRBC Per 100 WBC 0 X 10*3/uL (0.00-0.01); Neutrophils # (A) 1.69 X 10*3/uL (1.80-7.70); Neutrophils % (A) 43.2 %; Platelet Count 272 X 10*3/uL (140-440); RDW 22.9 % (11.5-14.5); WBC 3.91 X 10*3/uL (4.50-10.00)
[2023-11-21 09:24] LABS: BUN/Creat Ratio 4.67 Ratio (12.00-20.00); Blood Urea Nitrogen 4.2 mg/dL (9.0-27.0); Glucose 93 mg/dL (70-110)
[2023-11-21 09:25] LABS: Calcium 8.4 mg/dL (8.7-10.3); Carbon Dioxide 22.8 mmol/L (21.6-31.8); Chloride 111 mmol/L (96-109); Potassium 3.3 mmol/L (3.5-5.5); Sodium 144 mmol/L (135-145)
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
[2023-11-21 14:05] VITALS: BMI 50.5
[2023-11-21] MEDS: POTASSIUM CHLORIDE ER 20 MEQ TAB.ER PO STA (14:11)
[2023-11-21] MEDS: POTASSIUM CHLORIDE ER 20 MEQ TAB.ER PO SCH (16:24)
--- NOTE | 2023-11-21 17:10 | P.PN ---
Subjective Progress Note Date: 11/21/23 Principal diagnosis: Reason for follow-up is leukocytosis Patient is a 73-year-old female with a past medical history significant for atrial fibrillation hypertension reflux DVT and dementia with initially presented to the hospital with shortness of breath abdominal pain weakness did have a CT abdominal pelvis reported negative did have worsening of the white prompting this consultation. On today's evaluation that is 11/21/2023,the patient denies any fever or any c hills, patient is breathing comfortably on room air, the patient denies chest pain shortness of breath and no significant cough, patient denies abdominal pain, no nausea vomiting or diarrhea. Patient mention feeling better. Patient white count 3.91, creatinine 0.9 Objective - Vital Signs Vital signs: Vital Signs Temp 98.4 F 11/21/23 07:44 Pulse 75 11/21/23 07:44 Resp 16 11/21/23 07:44 BP 161/93 11/21/23 07:44 Pulse Ox 96 11/21/23 07:44 FiO2 40 11/10/23 07:57 Intake & Output 11/20/23 11/21/23 11/21/23 18:59 06:59 18:59 Output Total 1 Balance -1 Weight 129.5 kg 129.5 kg Output: Stool 1 Other: Voiding Method Toilet Toilet # Voids 3 6 # Bowel Movements 2 3 - Exam GENERAL DESCRIPTION: An elderly female lying in bed in no distress RESPIRATORY SYSTEM: Unlabored breathing , decreased breath sounds at bases HEART: S1 S2 regular rate and rhythm , ABDOMEN: Soft , mild distention but no tenderness EXTREMITIES: Diffuse swelling bilateral lower extremity no redness - Labs CBC & Chem 7: 11/21/23 04:00 11/21/23 04:00 Labs: Abnormal Lab Results - Last 24 Hours (Table) 11/21/23 11/21/23 Range/Units 04:00 04:00 WBC 3.91 L (4.50-10.00) X 10*3/uL RBC 3.00 L (4.10-5.20) X 10*6/uL Hgb 9.0 L (12.0-15.0) g/dL Hct 30.3 L (37.2-46.3) % MCV 101.0 H (80.0-97.0) FL MCHC 29.7 L (32.0-37.0) g/dL RDW 22.9 H (11.5-14.5) % Neutrophils # 1.69 L (1.80-7.70) X 10*3/uL Potassium 3.3 L (3.5-5.5) mmol/L Chloride 111 H (96-109) mmol/L BUN 4.2 L (9.0-27.0) mg/dL BUN/Creatinine Ratio 4.67 L (12.00-20.00) Ratio Calcium 8.4 L (8.7-10.3) mg/dL Assessment and Plan (1) Leukocytosis Current Visit: Yes Status: Acute Code(s): D72.829 - ELEVATED WHITE BLOOD CELL COUNT, UNSPECIFIED SNOMED Code(s): 137702709 (2) Proctocolitis Current Visit: Yes Status: Acute Code(s): K52.9 - NONINFECTIVE GASTROENTERITIS AND COLITIS, UNSPECIFIED SNOMED Code(s): 677931237 Plan: 1patient with elevated white count of 25,000 and this patient presented to the hospital with abdominal pain patient did have a elevated lactic acid CT abdominal pelvis was done but apparently without any oral contrast that will decrease the sensitivity concern is likely for abdominal source with a question of diverticulitis versus ischemic bowel with elevated lactic acid chest x-ray was reported negative however the patient did have a large lateral hernia with gastric content and high risk of aspiration 2-blood cultures has been negative so far 3-patient repeat CT did shows evidence of fecal status rectosigmoid region with mild thickening correlate for proctocolitis 4-patient white count has normalized and blood culture has been negative so far, 5-patient patient to finish therapy with a short course of oral Ceftin and Flagyl on discharge and close outpatient follow-up Dictation was produced using [employer] dictation software. please excuse any grammatical, word or spelling errors. Time with Patient: Less than 30
--- NOTE | 2023-12-15 18:37 | CDI ---
Documentation Clarification Form Date: 12/15/2023 06:28:25 PM From: Luh Schmidt Phone: Admit Date: 11/07/2023 08:33:00 AM Patient Name: Jessi Skinner Visit Number: [id number] Discharge Date: 11/21/2023 06:27:00 PM ATTENTION: The Clinical Documentation Specialists (CDI) and [facility] Coding Staff appreciate your assistance in clarifying documentation. Please respond to the clarification below the line at the bottom and electronically sign. The CDI & [facility] Coding staff will review the response and follow-up if needed. Please note: Queries are made part of the Legal Health Record. If you have any questions, please contact the author of this message via ITS. Doctor/Provider: Benjamín Hollingsworth There is documentation of Acute Proctocolitis per Progress Note 11/09. Additional clarification is requested. History/Risk Factors: 73yo F, acuteproctocolitis, ABLA, bleedinggastrictubular adenoma, multiplegastric polyps, diaphragmatichiatal hernia, dementia, tox/met encephalopathy, A Fib, diverticulosis, Hx DVT, morbid obesitywithBMI of 50.6 Clinical Indicators: RepeatCT abd/pelvis done showed fecalstasis rectosigmoid region and mild wallthickeningcorrelate forproctocolitis Treatment: antibiotics Can you please clarify cause of proctocolitis? [ ] Food induced Proctocolitis [ ] Mucosal Proctocolitis [ x ] Other Proctocolitis, please specify possible infectious [ ] Unable to determine (Template Last Revised: June 2020) MTDD
--- NOTE | 2023-12-16 15:46 | CDI ---
Documentation Clarification Form Date: 12/16/2023 03:32:50 PM From: Luh Schmidt Phone: Admit Date: 11/07/2023 08:33:00 AM Patient Name: Jessi Skinner Visit Number: [id number] Discharge Date: 11/21/2023 06:27:00 PM ATTENTION: The Clinical Documentation Specialists (CDI) and [facility] Coding Staff appreciate your assistance in clarifying documentation. Please respond to the clarification below the line at the bottom and electronically sign. The CDI & [facility] Coding staff will review the response and follow-up if needed. Please note: Queries are made part of the Legal Health Record. If you have any questions, please contact the author of this message via ITS. Doctor/Provider: Abigail Bautista There is documentation of adverse reactionfrom methotrexate, Celebrex, Humira with high risk ofGI bleed. Based on this information and the findings below, is there an additional diagnosis that is clinically appropriate for this patient? History/Risk Factors: 73yo F, ABLA, adverse reactionfrom methotrexate, Celebrex, Humira with high risk ofGI bleed, paraesophagealhiatal hernia, chronic anticoagulation, infectious proctocolitis, morbid obesity, psoriatic arthritis, Hx DVT, PAF on Warfarin [Coumadin] 5 mg PO HS Clinical Indicators: INR: 11/04 2.6 11/05 2.4 11/06 1.6 11/07 1.2 Occult blood in stool. Treatment: Give a bolus of 500 cc continue with IV fluids. [id number] PRBC. GI consult. Monitor warfarin. Continue with warfarin for now withclosemonitoringof INR, if more evidence of activebleedingthen we may consider holding it. IV Protonix. Hold Celebrex and NSAIDs Is there an additional diagnosis that is clinically appropriate for this patient? [ X] Hemorrhage due to Warfarin [ ] Coagulopathy due to Warfarin [ ] Abnormal coagulation profile [ ] Other, please specify [ ] Unable to determine (Template Last Revised: January 2022) MTDD
--- NOTE | 2023-12-31 16:21 | CDI ---
Documentation Clarification Form Date: 12/31/2023 03:48:37 PM From: Stacey Maria RN, CCDS Phone: [phone] Admit Date: 11/07/2023 08:33:00 AM Patient Name: Jessi Skinner Visit Number: [id number] Discharge Date: 11/21/2023 06:27:00 PM ATTENTION: The Clinical Documentation Specialists (CDI) and [facility] Coding Staff appreciate your assistance in clarifying documentation. Please respond to the clarification below the line at the bottom and electronically sign. The CDI & [facility] Coding staff will review the response and follow-up if needed. Please note: Queries are made part of the Legal Health Record. If you have any questions, please contact the author of this message via ITS. Doctor Akash E Sheet The patient had acute proctocolitis, leukocytosis, lactic acidosis and low-grade fever. Based on this information and the findings below, is there an additional diagnosis that is clinically appropriate for this patient? History/Risk Factors: Atrial Fibrillation, Deep Vein Thrombosis (DVT), GERD/Reflux, Hypertension and psyche. Presented with AMS, abdominal pain and nausea. Admitted with proctocolitis. Clinical Indicators: 11/04-11/20 WBC: 7.5-10.68-18.9-25.3-19.6-12.9-7.4-3.5 11/04-11/06 Lactic acid: 1.8-2.7-3.4-2.5-2.6-1.8 11/04-11/20 Cr: 1.02-1.60-1.99-1.71-1.35-0.9 11/06 Procalcitonin: 0.81 11/06 Temp: 100.0, HR 139 11/04 HR 108 11/05 RR 26, BP 91/60 11/04 CT A/P: Scattered colonic diverticulosis. 11/09 CT A/P: At least moderate fecal stasis rectosigmoid region and mild wall thickening. Correlate for proctocolitis. Discharge summary: "Acute proctocolitis patient is on antibiotics. Altered mental status possible metabolic encephalopathy. Patient is back to baseline." Treatment: 11/07 ID Consult: "Leukocytosis. Patient with elevated white count of 25,000 and this patient presented to the hospital with abdominal pain patient did have an elevated lactic acid CT abdominal pelvis was done but apparently without any oral contrast that will decrease the sensitivity concern is likely for abdominal source with a question of diverticulitis versus ischemic bowel with elevated lactic acid." Antibiotics: IV Zosyn 3.375 gm Q8H 11/07-11/19; IV Rocephin 2gm Q24H 11/05-11/07; Flagyl 500mg po TID 11/19-11/20 IV Bolus: 1L 0.9 NS IV bolus x1 on 11/04; 1L 0.9 NS IV bolus x1 on 11/05 Is there an additional diagnosis that is clinically appropriate for this patient? [ x] Sepsis, present on admission [ ] Sepsis, developed during stay, not present on admission [ ] Severe Sepsis with organ failure [ ] SIRS, without underlying infectious process with acute organ dysfunction [ ] No additional diagnosis/not clinically significant [ ] Other, please specify [ ] Unable to determine SIRS Criteria: 2 or more of the following may indicate SIRS Temperature < 96.8F (36C) or > 101.0F (38.3C) Heart Rate > 90 bpm Respiratory Rate > 20 breaths/min or PaCO2 < 32 mmHg White Blood Cell Count > 12,000 or < 4,000 cells/mm3 or > 10% bands MTDD
== END 2023-11-21 18:27 | DRG 871 ==
LOC: EC 14:15 → 6NMEDSUR 20:39 → 4SSUR 21:57 → 6NMEDSUR 22:05 → 3SCARD 11-06 16:16 → OBSVTOIN 11-07 08:33 → 2SICU 11-08 22:58 → 3SCARD 11-10 21:57 → 4SSUR 11-13 13:52
PROVIDERS: ADMIT Internal Medicine; ATTEND Internal Medicine
PROC: 30233N1 Transfusion of Nonautologous Red Blood Cells into Peripheral Vein, Percutaneous Approach (ICD-10-PCS; 2023-11-06)
PROC: 5A09357 Assistance with Respiratory Ventilation, Less than 24 Consecutive Hours, Continuous Positive Airway Pressure (ICD-10-PCS; 2023-11-09)
PROC: 3E033XZ Introduction of Vasopressor into Peripheral Vein, Percutaneous Approach (ICD-10-PCS; 2023-11-09)
PROC: 0DB68ZZ Excision of Stomach, Via Natural or Artificial Opening Endoscopic (ICD-10-PCS; principal; 2023-11-17 07:30)
DX: A41.9 Sepsis, unspecified organism (principal); G92.8 Other toxic encephalopathy; J96.01 Acute respiratory failure with hypoxia; K22.11 Ulcer of esophagus with bleeding; K92.1 Melena; I42.9 Cardiomyopathy, unspecified; Z68.43 Body mass index [BMI] 50.0-59.9, adult; F03.94 Unspecified dementia, unspecified severity, with anxiety; F03.93 Unspecified dementia, unspecified severity, with mood disturbance; E87.29 Other acidosis; D62 Acute posthemorrhagic anemia; M96.0 Pseudarthrosis after fusion or arthrodesis; A09 Infectious gastroenteritis and colitis, unspecified; D68.32 Hemorrhagic disorder due to extrinsic circulating anticoagulants; D13.1 Benign neoplasm of stomach; L40.50 Arthropathic psoriasis, unspecified; I48.0 Paroxysmal atrial fibrillation; E66.01 Morbid (severe) obesity due to excess calories; I95.89 Other hypotension; E87.8 Other disorders of electrolyte and fluid balance, not elsewhere classified; I11.9 Hypertensive heart disease without heart failure; G89.29 Other chronic pain; T45.1X5A Adverse effect of antineoplastic and immunosuppressive drugs, initial encounter; T45.515A Adverse effect of anticoagulants, initial encounter; Z79.1 Long term (current) use of non-steroidal anti-inflammatories (NSAID); Z79.01 Long term (current) use of anticoagulants; T39.395A Adverse effect of other nonsteroidal anti-inflammatory drugs [NSAID], initial encounter; T39.4X5A Adverse effect of antirheumatics, not elsewhere classified, initial encounter; K44.9 Diaphragmatic hernia without obstruction or gangrene; I25.10 Atherosclerotic heart disease of native coronary artery without angina pectoris; K21.9 Gastro-esophageal reflux disease without esophagitis; D72.829 Elevated white blood cell count, unspecified; M51.36 Other intervertebral disc degeneration, lumbar region; K57.30 Diverticulosis of large intestine without perforation or abscess without bleeding; Z96.60 Presence of unspecified orthopedic joint implant; Z91.81 History of falling; Z86.718 Personal history of other venous thrombosis and embolism; Z79.899 Other long term (current) drug therapy; Z91.048 Other nonmedicinal substance allergy status; Z78.1 Physical restraint status; Z91.89 Other specified personal risk factors, not elsewhere classified
CPT/HCPCS: 36410; 36415; 36430; 43251; 51702; 70450; 71045; 71046; 74176; 74177; 80048; 80053; 80076; 81001; 82272; 82607; 82728; 82746; 82805; 83540; 83550; 83605; 83735; 84145; 84484; 85025; 85027; 85610; 86850; 86900; 86901; 86920; 87040; 87086; 87636; 88305; 93005; 94660; 94760; 96361; 96365; 96366; 96367; 96375; 96376; 99285

== ENCOUNTER 2023-12-20 21:08 | Emergency (ER) | payer MEDICARE, BC ==
--- NOTE | 2023-12-20 22:13 | ED ---
Psych HPI - General Stated Complaint: Mental health Time Seen by Provider: 12/20/23 21:12 Source: patient Mode of arrival: EMS Limitations: no limitations - History of Present Illness Initial Comments: Patient is a 73-year-old woman who is brought by ambulance to have evaluation for possible suicidal ideation. The patient states that she had been arguing with her and then the next thing that she knew police were entering the home and she was brought here against her will. The patient does appear angry and she is not forthcoming about the episode. Complaint: other -: hour(s) Associated Psychiatric Symptoms: suicidal ideation Improves With: none Worsens With: none Associated Symptoms: denies other symptoms - Related Data Home Medications Medication Instructions Recorded Confirmed Adalimumab [Humira Pen 40 mg SQ TU 01/07/16 12/21/23 Crohn's-Uc-Hs] Folic Acid 1 mg PO DAILY 01/07/16 12/21/23 metHOTREXate sodium [Methotrexate] 15 mg PO FR 01/07/16 12/21/23 Betamethasone Dipropionate 1 applic TOPICAL BID 04/19/21 12/21/23 [Betamethasone Dipropionate 0.05%] Losartan Potassium 50 mg PO BID 04/19/21 12/21/23 buPROPion HCL [Wellbutrin XL] 150 mg PO DAILY 06/17/23 12/21/23 Glycopyrrolate [Robinul Forte] 2 mg PO BID 10/23/23 12/21/23 Warfarin [Coumadin] 7.5 mg PO MOFR@2100 10/23/23 12/21/23 estradioL [Estrace] 0.5 mg PO DAILY 11/05/23 12/21/23 DULoxetine HCL [Cymbalta] 60 mg PO DAILY 12/21/23 12/21/23 Furosemide [Lasix] 40 mg PO DAILY 12/21/23 12/21/23 Metoprolol Succinate [Toprol XL] 50 mg PO DAILY 12/21/23 12/21/23 Pregabalin [Lyrica] 75 mg PO BID 12/21/23 12/21/23 Warfarin [Coumadin] 5 mg PO SUTUWETHSA@2100 12/21/23 12/21/23 Zolpidem [Ambien] 10 mg PO HS 12/21/23 12/21/23 Previous Rx's Medication Instructions Recorded Pantoprazole Sodium [Protonix] 40 mg PO BID #60 tab 11/21/23 Potassium Chloride [Klor-Con M10] 10 meq PO DAILY #30 tab 11/21/23 Allergies Allergy/AdvReac Type Severity Reaction Status Date / Time adhesive Allergy Rash/Hives Verified 12/21/23 12:11 Review of Systems ROS Statement: Those systems with pertinent positive or pertinent negative responses have been documented in the HPI. ROS Other: All systems not noted in ROS Statement are negative. Constitutional: Denies: fever Respiratory: Denies: cough, dyspnea Cardiovascular: Denies: chest pain Gastrointestinal: Denies: abdominal pain, vomiting, diarrhea Genitourinary: Denies: dysuria Musculoskeletal: Denies: back pain Neurological: Denies: headache Psychiatric: Reports: as per HPI Past Medical History Past Medical History: Atrial Fibrillation, Dementia, Deep Vein Thrombosis (DVT), GERD/Reflux, Hypertension Additional Past Medical History / Comment(s): PSORIATIC ARTHRITIS. mammogram indicated small cyst to have procedure 05/01/21 History of Any Multi-Drug Resistant Organisms: None Reported Past Surgical History: Appendectomy, Back Surgery, Bladder Surgery, Cholecystectomy, Hysterectomy, Orthopedic Surgery Additional Past Surgical History / Comment(s): vein stripping. ORIF OF RIGHT ANKLE with plate and wire,joint replacement lt great toe with titanium screw . rhizotomy and steroid injections lumbar, millicent knee steroid injection Past Anesthesia/Blood Transfusion Reactions: Previous Problems w/ Anesthesia, Motion Sickness, Postoperative Nausea & Vomiting (PONV) Past Psychological History: Anxiety, Depression Smoking Status: Never smoker Past Alcohol Use History: None Reported Past Drug Use History: None Reported Additional Drug Use History / Comment(s): cbd oil General Exam General appearance: alert, in no apparent distress Head exam: Present: atraumatic, normocephalic Eye exam: Present: normal appearance. Absent: scleral icterus, conjunctival injection Neck exam: Present: normal inspection, full ROM Respiratory exam: Present: normal lung sounds bilaterally. Absent: respiratory distress, wheezes, rales, rhonchi, stridor, accessory muscle use Cardiovascular Exam: Present: regular rate, normal rhythm, normal heart sounds. Absent: systolic murmur, diastolic murmur, rubs, gallop GI/Abdominal exam: Present: soft. Absent: distended, tenderness, guarding, rebound, rigid, mass Extremities exam: Present: normal inspection, normal capillary refill. Absent: pedal edema, calf tenderness Back exam: Present: normal inspection. Absent: CVA tenderness (R), CVA tenderness (L) Neurological exam: Present: alert Psychiatric exam: Present: agitated Skin exam: Present: warm, dry, intact, normal color. Absent: rash Course Vital Signs 12/20/23 12/20/23 12/21/23 21:46 23:12 00:00 Temperature 98.3 F Pulse Rate 85 90 Respiratory 20 20 20 Rate Blood Pressure 121/85 140/86 O2 Sat by Pulse 97 98 Oximetry 12/21/23 12/21/23 12/21/23 07:57 10:50 11:49 Temperature 98.4 F Pulse Rate 87 86 83 Respiratory 15 16 16 Rate Blood Pressure 158/90 149/72 O2 Sat by Pulse 96 97 96 Oximetry 12/21/23 12/21/23 15:02 19:22 Temperature 98.4 F 97.9 F Pulse Rate 94 76 Respiratory 18 16 Rate Blood Pressure 142/66 117/57 O2 Sat by Pulse 93 L 97 Oximetry Medical Decision Making - Medical Decision Making Was pt. sent in by a medical professional or institution (, PA, CIVIL PROCESS SERVER, urgent care, hospital, or fci...) When possible be specific @ -[No] Did you speak to anyone other than the patient for history (EMS, parent, family, police, friend...)? What history was obtained from this source @ -[No] Did you review nursing and triage notes (agree or disagree)? Why? @ -[I reviewed and agree with nursing and triage notes] Were old charts reviewed (outside hosp., previous admission, EMS record, old EKG, old radiological studies, urgent care reports/EKG's, fci records)? Report findings @ -[No old charts were reviewed] Differential Diagnosis (chest pain, altered mental status, abdominal pain women, abdominal pain men, vaginal bleeding, weakness, fever, dyspnea, syncope, headache, dizziness, GI bleed, back pain, seizure, CVA, palpatations, mental health, musculoskeletal)? @ -[Differential Mental Health Depression, anxiety, bipolar, psychosis, schizophrenia, borderline personality, situational depression, adjustment disorder, behavioral disorder, brain tumor, malingering, substance abuse, encephalopathy, medication reaction, dementia, hypothyroidism, degenerative neurologic disorder, lupus.... This is not meant to be all-inclusive list EKG interpreted by me (3pts min.). @ -[As above] X-rays interpreted by me (1pt min.). @ -[None done] CT interpreted by me (1pt min.). @ -[None done] U/S interpreted by me (1pt. min.). @ -[None done] What testing was considered but not performed or refused? (CT, X-rays, U/S, labs)? Why? @ -[None] What meds were considered but not given or refused? Why? @ -[None] Did you discuss the management of the patient with other professionals (marilu dawson i.e. , PA, CIVIL PROCESS SERVER, lab, RT, psych nurse, pediatric social worker, near [place] [employer] lecturer, teacher, policy officer, case worker)? Give summary @ -[Case was discussed with EPS Was smoking cessation discussed for >3mins.? @ -[No] Was critical care preformed (if so, how long)? @ -[No] Were there social determinants of health that impacted care today? How? (Homelessness, low income, unemployed, alcoholism, drug addiction, transportation, low edu. Level, literacy, decrease access to med. care, alf, rehab)? @ -[No] Was there de-escalation of care discussed even if they declined (Discuss DNR or withdrawal of care, Hospice)? DNR status @ -[No] What co-morbidities impacted this encounter? (DM, HTN, Smoking, COPD, CAD, Cancer, CVA, ARF, Chemo, Hep., AIDS, mental health diagnosis, sleep apnea, morbid obesity)? @ -[None] Was patient admitted / discharged? Hospital course, mention meds given and route, prescriptions, significant lab abnormalities, going to OR and other pertinent info. @ -[This patient is a 73-year-old woman here for psychiatric evaluation. She is seen by EPS and after they staffed with psychiatrist, the patient will be transferred to have further inpatient psychiatric care Undiagnosed new problem with uncertain prognosis? @ -[No] Drug Therapy requiring intensive monitoring for toxicity (Heparin, Nitro, Insulin, Cardizem)? @ -[No] Were any procedures done? @ -[No] Diagnosis/symptom? @ -[Acute mood disorder Acute, or Chronic, or Acute on Chronic? @ -[Acute Uncomplicated (without systemic symptoms) or Complicated (systemic symptoms)? @ -[default] Side effects of treatment? @ -[No] Exacerbation, Progression, or Severe Exacerbation? @ -[No] Poses a threat to life or bodily function? How? (Chest pain, USA, NC, pneumonia, PE, COPD, DKA, ARF, appy, cholecystitis, CVA, Diverticulitis, Homicidal, Suicidal, threat to staff... and all critical care pts) @ -[Yes - Lab Data Result diagrams: 12/21/23 00:43 12/21/23 11:30 Lab Results 12/21/23 12/21/23 12/21/23 Range/Units 00:43 00:43 00:43 WBC 5.7 (3.8-10.6) k/uL RBC 4.36 (3.80-5.40) m/uL Hgb 13.0 D (11.4-16.0) gm/dL Hct 41.1 (34.0-46.0) % MCV 94.2 D (80.0-100.0) fL MCH 29.9 (25.0-35.0) pg MCHC 31.8 (31.0-37.0) g/dL RDW 16.7 H (11.5-15.5) % Plt Count 234 (150-450) k/uL MPV 8.3 Neutrophils % 41 % Lymphocytes % 42 % Monocytes % 10 % Eosinophils % 4 % Basophils % 1 % Neutrophils # 2.3 (1.3-7.7) k/uL Lymphocytes # 2.4 (1.0-4.8) k/uL Monocytes # 0.6 (0-1.0) k/uL Eosinophils # 0.2 (0-0.7) k/uL Basophils # 0.0 (0-0.2) k/uL Anisocytosis Slight PT (10.0-12.5) sec INR (<1.2) Sodium 138 (137-145) mmol/L Potassium 5.8 H (3.5-5.1) mmol/L Chloride 107 (98-107) mmol/L Carbon Dioxide 27 (22-30) mmol/L Anion Gap 4 mmol/L BUN 15 (7-17) mg/dL Creatinine 0.94 (0.52-1.04) mg/dL Est GFR (CKD-EPI)AfAm 69 (>60 ml/min/1.73 sqM) Est GFR (CKD-EPI)NonAf 60 (>60 ml/min/1.73 sqM) Glucose 82 (74-99) mg/dL Calcium 9.4 (8.4-10.2) mg/dL Total Bilirubin 1.4 H (0.2-1.3) mg/dL AST 71 H (14-36) U/L ALT 19 (4-34) U/L Alkaline Phosphatase 33 L (38-126) U/L Total Protein 6.8 (6.3-8.2) g/dL Albumin 3.9 (3.5-5.0) g/dL TSH 0.017 L (0.465-4.680) mIU/L Urine Color Urine Appearance (Clear) Urine pH (5.0-8.0) Ur Specific Imperial (1.001-1.035) Urine Protein (Negative) Urine Glucose (UA) (Negative) Urine Ketones (Negative) Urine Blood (Negative) Urine Nitrite (Negative) Urine Bilirubin (Negative) Urine Urobilinogen (<2.0) mg/dL Ur Leukocyte Esterase (Negative) Urine Opiates Screen Not Detected (NotDetected) Ur Oxycodone Screen Not Detected (NotDetected) Urine Methadone Screen Not Detected (NotDetected) Ur Barbiturates Screen Not Detected (NotDetected) U Tricyclic Antidepress Not Detected (NotDetected) Ur Phencyclidine Scrn Not Detected (NotDetected) Ur Amphetamines Screen Not Detected (NotDetected) U Methamphetamines Scrn Not Detected (NotDetected) U Benzodiazepines Scrn Detected H (NotDetected) Urine Cocaine Screen Not Detected (NotDetected) U Marijuana (THC) Screen Not Detected (NotDetected) Influenza Type A (PCR) (Not Detectd) Influenza Type B (PCR) (Not Detectd) RSV (PCR) (Not Detectd) SARS-CoV-2 (PCR) (Not Detectd) 12/21/23 12/21/23 12/21/23 Range/Units 00:43 00:53 11:30 WBC (3.8-10.6) k/uL RBC (3.80-5.40) m/uL Hgb (11.4-16.0) gm/dL Hct (34.0-46.0) % MCV (80.0-100.0) fL MCH (25.0-35.0) pg MCHC (31.0-37.0) g/dL RDW (11.5-15.5) % Plt Count (150-450) k/uL MPV Neutrophils % % Lymphocytes % % Monocytes % % Eosinophils % % Basophils % % Neutrophils # (1.3-7.7) k/uL Lymphocytes # (1.0-4.8) k/uL Monocytes # (0-1.0) k/uL Eosinophils # (0-0.7) k/uL Basophils # (0-0.2) k/uL Anisocytosis PT (10.0-12.5) sec INR (<1.2) Sodium (137-145) mmol/L Potassium 4.0 (3.5-5.1) mmol/L Chloride (98-107) mmol/L Carbon Dioxide (22-30) mmol/L Anion Gap mmol/L BUN (7-17) mg/dL Creatinine (0.52-1.04) mg/dL Est GFR (CKD-EPI)AfAm (>60 ml/min/1.73 sqM) Est GFR (CKD-EPI)NonAf (>60 ml/min/1.73 sqM) Glucose (74-99) mg/dL Calcium (8.4-10.2) mg/dL Total Bilirubin (0.2-1.3) mg/dL AST (14-36) U/L ALT (4-34) U/L Alkaline Phosphatase (38-126) U/L Total Protein (6.3-8.2) g/dL Albumin (3.5-5.0) g/dL TSH (0.465-4.680) mIU/L Urine Color Colorless Urine Appearance Clear (Clear) Urine pH 6.5 (5.0-8.0) Ur Specific [place] 1.011 (1.001-1.035) Urine Protein Negative (Negative) Urine Glucose (UA) Negative (Negative) Urine Ketones Negative (Negative) Urine Blood Negative (Negative) Urine Nitrite Negative (Negative) Urine Bilirubin Negative (Negative) Urine Urobilinogen <2.0 (<2.0) mg/dL Ur Leukocyte Esterase Negative (Negative) Urine Opiates Screen (NotDetected) Ur Oxycodone Screen (NotDetected) Urine Methadone Screen (NotDetected) Ur Barbiturates Screen (NotDetected) U Tricyclic Antidepress (NotDetected) Ur Phencyclidine Scrn (NotDetected) Ur Amphetamines Screen (NotDetected) U Methamphetamines Scrn (NotDetected) U Benzodiazepines Scrn (NotDetected) Urine Cocaine Screen (NotDetected) U Marijuana (THC) Screen (NotDetected) Influenza Type A (PCR) Not Detected (Not Detectd) Influenza Type B (PCR) Not Detected (Not Detectd) RSV (PCR) Not Detected (Not Detectd) SARS-CoV-2 (PCR) Not Detected (Not Detectd) 12/21/23 Range/Units 15:14 WBC (3.8-10.6) k/uL RBC (3.80-5.40) m/uL Hgb (11.4-16.0) gm/dL Hct (34.0-46.0) % MCV (80.0-100.0) fL MCH (25.0-35.0) pg MCHC (31.0-37.0) g/dL RDW (11.5-15.5) % Plt Count (150-450) k/uL MPV Neutrophils % % Lymphocytes % % Monocytes % % Eosinophils % % Basophils % % Neutrophils # (1.3-7.7) k/uL Lymphocytes # (1.0-4.8) k/uL Monocytes # (0-1.0) k/uL Eosinophils # (0-0.7) k/uL Basophils # (0-0.2) k/uL Anisocytosis PT 23.8 H (10.0-12.5) sec INR 2.4 H (<1.2) Sodium (137-145) mmol/L Potassium (3.5-5.1) mmol/L Chloride (98-107) mmol/L Carbon Dioxide (22-30) mmol/L Anion Gap mmol/L BUN (7-17) mg/dL Creatinine (0.52-1.04) mg/dL Est GFR (CKD-EPI)AfAm (>60 ml/min/1.73 sqM) Est GFR (CKD-EPI)NonAf (>60 ml/min/1.73 sqM) Glucose (74-99) mg/dL Calcium (8.4-10.2) mg/dL Total Bilirubin (0.2-1.3) mg/dL AST (14-36) U/L ALT (4-34) U/L Alkaline Phosphatase (38-126) U/L Total Protein (6.3-8.2) g/dL Albumin (3.5-5.0) g/dL TSH (0.465-4.680) mIU/L Urine Color Urine Appearance (Clear) Urine pH (5.0-8.0) Ur Specific [place] (1.001-1.035) Urine Protein (Negative) Urine Glucose (UA) (Negative) Urine Ketones (Negative) Urine Blood (Negative) Urine Nitrite (Negative) Urine Bilirubin (Negative) Urine Urobilinogen (<2.0) mg/dL Ur Leukocyte Esterase (Negative) Urine Opiates Screen (NotDetected) Ur Oxycodone Screen (NotDetected) Urine Methadone Screen (NotDetected) Ur Barbiturates Screen (NotDetected) U Tricyclic Antidepress (NotDetected) Ur Phencyclidine Scrn (NotDetected) Ur Amphetamines Screen (NotDetected) U Methamphetamines Scrn (NotDetected) U Benzodiazepines Scrn (NotDetected) Urine Cocaine Screen (NotDetected) U Marijuana (THC) Screen (NotDetected) Influenza Type A (PCR) (Not Detectd) Influenza Type B (PCR) (Not Detectd) RSV (PCR) (Not Detectd) SARS-CoV-2 (PCR) (Not Detectd) Disposition Clinical Impression: Mood disorder Disposition: TRANSFER TO PSYCH HOSP/UNIT Condition: Fair Referrals: Marlon Eugene DO [Primary Care Provider] - 1-2 days - Out of Hospital Transfer - Req. Specs Out of Hospital Transfer - Requested Specifics: Psychiatric Non-ICU
[2023-12-21 00:54] LABS: Anisocytosis Slight; Basophils % (A) 1 %; Eosinophils # (A) 0.2 k/uL (0-0.7); Eosinophils % (A) 4 %; HCT 41.1 % (34.0-46.0); Lymphocytes # (A) 2.4 k/uL (1.0-4.8); Lymphocytes % (A) 42 %; MCH 29.9 pg (25.0-35.0); MCHC 31.8 g/dL (31.0-37.0); Mean Platelet Volume 8.3; Monocytes # (A) 0.6 k/uL (0-1.0); Monocytes % (A) 10 %; Neutrophils # (A) 2.3 k/uL (1.3-7.7); Neutrophils % (A) 41 %; Platelet Count 234 k/uL (150-450); RBC 4.36 m/uL (3.80-5.40); RDW 16.7 % (11.5-15.5); WBC 5.7 k/uL (3.8-10.6)
[2023-12-21 01:05] LABS: ALT 19 U/L (4-34); AST 71 U/L (14-36); African American GFR (CKD) 69 (>60 ml/min/1.73 sqM); Albumin 3.9 g/dL (3.5-5.0); Alkaline Phosphatase 33 U/L (38-126); Anion Gap 4 mmol/L; Blood Urea Nitrogen 15 mg/dL (7-17); Calcium 9.4 mg/dL (8.4-10.2); Carbon Dioxide 27 mmol/L (22-30); Chloride 107 mmol/L (98-107); Glucose 82 mg/dL (74-99); Non-African American GFR(CKD) 60 (>60 ml/min/1.73 sqM); Sodium 138 mmol/L (137-145); Total Bilirubin 1.4 mg/dL (0.2-1.3); Total Protein 6.8 g/dL (6.3-8.2)
[2023-12-21 01:07] LABS: MCV 94.2 fL (80.0-100.0)
[2023-12-21 01:50] LABS: Appearance,Urine Clear (Clear); Bilirubin,Urine Negative (Negative); Blood,Urine Negative (Negative); Color,Urine Colorless; Glucose,Urine (UA) Negative (Negative); Ketones,Urine Negative (Negative); Leukocyte Esterase,Urine Negative (Negative); Nitrite,Urine Negative (Negative); PH, Urine 6.5 (5.0-8.0); Protein,Urine Negative (Negative); Specific Gravity,Urine 1.011 (1.001-1.035); Urobilinogen,Urine <2.0 mg/dL (<2.0)
[2023-12-21 01:53] LABS: Potassium 5.8 mmol/L (3.5-5.1)
[2023-12-21 01:58] LABS: Amphetamine Screen,Urine Not Detected (NotDetected); Barbiturate Screen,Urine Not Detected (NotDetected); Benzodiazepines Screen,Urine Detected (NotDetected); Cocaine Screen,Urine Not Detected (NotDetected); Methadone Screen, Urine Not Detected (NotDetected); Opiate Screen,Urine Not Detected (NotDetected); Oxycodone Screen, Urine Not Detected (NotDetected); Phencyclidine Screen,Urine Not Detected (NotDetected); Tricyclic Antidepressant,Urine Not Detected (NotDetected); Urn Cannabinoid Scrn Not Detected (NotDetected)
[2023-12-21] MEDS: PREGABALIN 75 MG CAP PO STA (03:51)
[2023-12-21] MEDS: HYDROmorphone 0.5 MG/0.5 ML SYRINGE IVP STA (10:55)
[2023-12-21] MEDS: ONDANSETRON 4 MG/2 ML VIAL IVP STA (12:30)
[2023-12-21] MEDS: METOPROLOL SUCCINATE (ER) 50 MG TAB.ER.24H PO SCH (15:04)
[2023-12-21] MEDS: PREGABALIN 75 MG CAP PO SCH (15:05)
[2023-12-21] MEDS: LOSARTAN 50 MG TAB PO SCH (15:05)
[2023-12-21] MEDS: FUROSEMIDE 40 MG TAB PO SCH (15:05)
[2023-12-21 15:39] LABS: INR 2.4 (<1.2); Prothrombin Time 23.8 sec (10.0-12.5)
[2023-12-21] MEDS: buPROPion XL 150 MG TAB.ER.24H PO SCH (16:54)
[2023-12-21] MEDS: DULoxetine HCL 60 MG CAPSULE.DR PO SCH (16:54)
[2023-12-21] MEDS: WARFARIN 5 MG TAB PO ONE (18:01)
[2023-12-21 19:22] VITALS: BP 117/57; PULSE 76; RESP 16; TEMP 97.9
[2023-12-21] MEDS ORDERED: ZOLPIDEM 5 MG TAB PO SCH (21:00)
[2023-12-23] MEDS ORDERED: ADALIMUMAB 40 MG/0.8 ML SQ SCH (09:00)
[2023-12-26] MEDS ORDERED: metHOTREXate sodium 2.5 MG TAB PO SCH (09:00)
== END 2023-12-21 20:40 ==
LOC: EC 21:08
DX: F39 Unspecified mood [affective] disorder (principal); Z11.52 Encounter for screening for COVID-19; Z91.048 Other nonmedicinal substance allergy status
CPT/HCPCS: 82075; 36415; 93005; 80053; 84132; 84443; 85025; 85610; 81003; 80306; 87636; 99285; 96374; 96375; J2405; J1170

== ENCOUNTER 2024-01-13 14:56 | Observation (INO) | payer MEDICARE, BC ==
--- NOTE | 2024-01-13 15:30 | ED ---
Chest Pain HPI - General Source: patient, family, RN notes reviewed Mode of arrival: wheelchair Limitations: no limitations <Maggy Adrian - Last Filed: 01/13/24 15:30> - General Source: patient, family, RN notes reviewed Mode of arrival: ambulatory Limitations: no limitations <Charly Chaudhari - Last Filed: 01/13/24 18:21> - General Chief Complaint: Chest Pain Stated Complaint: Shoulder Pain Time Seen by Provider: 01/13/24 15:30 - History of Present Illness Initial Comments: Quick note: 71-year-old female presented to the ER with a chief complaint of chest discomfort. She also reports radiation to bilateral shoulder blades. She describes the pain as sharp and stabbing. Worse with movement. Patient also is reporting shortness of breath. History of A-fib and hypertension. (Maggy Pitts) 71-year-old female presents emergency department complaint of chest pain, pain in her shoulder blades. Patient states it is worse with movement in her back but states her chest pain is persistent pressure type pain. Patient states that she also has some shortness of breath she has a history of A-fib and hypertension on Coumadin. Patient states she has no leg pain or leg swelling. No abdominal pain. Patient states that she had a tumor removed here 6 weeks ago. (Charly Chaudhari) - Related Data Home Medications Medication Instructions Recorded Confirmed Adalimumab [Humira Pen 40 mg SQ TU 01/07/16 12/21/23 Crohn's-Uc-Hs] Folic Acid 1 mg PO DAILY 01/07/16 12/21/23 metHOTREXate sodium [Methotrexate] 15 mg PO FR 01/07/16 12/21/23 Betamethasone Dipropionate 1 applic TOPICAL BID 04/19/21 12/21/23 [Betamethasone Dipropionate 0.05%] Losartan Potassium 50 mg PO BID 04/19/21 12/21/23 buPROPion HCL [Wellbutrin XL] 150 mg PO DAILY 06/17/23 12/21/23 Glycopyrrolate [Robinul Forte] 2 mg PO BID 10/23/23 12/21/23 Warfarin [Coumadin] 7.5 mg PO MOFR@2100 10/23/23 12/21/23 estradioL [Estrace] 0.5 mg PO DAILY 11/05/23 12/21/23 DULoxetine HCL [Cymbalta] 60 mg PO DAILY 12/21/23 12/21/23 Furosemide [Lasix] 40 mg PO DAILY 12/21/23 12/21/23 Metoprolol Succinate [Toprol XL] 50 mg PO DAILY 12/21/23 12/21/23 Pregabalin [Lyrica] 75 mg PO BID 12/21/23 12/21/23 Warfarin [Coumadin] 5 mg PO SUTUWETHSA@2100 12/21/23 12/21/23 Zolpidem [Ambien] 10 mg PO HS 12/21/23 12/21/23 Previous Rx's Medication Instructions Recorded Pantoprazole Sodium [Protonix] 40 mg PO BID #60 tab 11/21/23 Potassium Chloride [Klor-Con M10] 10 meq PO DAILY #30 tab 11/21/23 Allergies Allergy/AdvReac Type Severity Reaction Status Date / Time adhesive Allergy Rash/Hives Verified 01/13/24 15:25 Review of Systems ROS Other: All systems not noted in ROS Statement are negative. <Maggy Adrian - Last Filed: 01/13/24 15:30> ROS Other: All systems not noted in ROS Statement are negative. <Charly Chaudhari - Last Filed: 01/13/24 18:21> ROS Statement: Those systems with pertinent positive or pertinent negative responses have been documented in the HPI. EKG Findings - EKG Comments: EKG Findings:: EKG performed at 15: 50 A-fib with a rate of 86 QRS 93 QT/QTc 3 89/433 - EKG Results: EKG: interpreted by ERMD <Charly Chaudhari - Last Filed: 01/13/24 18:21> Past Medical History Past Medical History: Atrial Fibrillation, Dementia, Deep Vein Thrombosis (DVT), GERD/Reflux, Hypertension Additional Past Medical History / Comment(s): PSORIATIC ARTHRITIS. mammogram indicated small cyst to have procedure 05/01/21 History of Any Multi-Drug Resistant Organisms: None Reported Past Surgical History: Appendectomy, Back Surgery, Bladder Surgery, Cholecystectomy, Hysterectomy, Orthopedic Surgery Additional Past Surgical History / Comment(s): vein stripping. ORIF OF RIGHT ANKLE with plate and wire,joint replacement lt great toe with titanium screw . rhizotomy and steroid injections lumbar, millicent knee steroid injection Past Anesthesia/Blood Transfusion Reactions: Previous Problems w/ Anesthesia, Motion Sickness, Postoperative Nausea & Vomiting (PONV) Past Psychological History: Anxiety, Depression Smoking Status: Never smoker Past Alcohol Use History: None Reported Past Drug Use History: None Reported <Maggy Adrian - Last Filed: 01/13/24 15:30> General Exam Limitations: no limitations <Maggy Adrian - Last Filed: 01/13/24 15:30> General appearance: alert, in no apparent distress Head exam: Present: atraumatic, normocephalic, normal inspection Eye exam: Present: normal appearance, PERRL, EOMI. Absent: scleral icterus, conjunctival injection, periorbital swelling ENT exam: Present: normal exam, mucous membranes moist Neck exam: Present: normal inspection. Absent: tenderness, meningismus, lymphadenopathy Respiratory exam: Present: normal lung sounds bilaterally. Absent: respiratory distress, wheezes, rales, rhonchi, stridor Cardiovascular Exam: Present: irregular rhythm, normal heart sounds. Absent: regular rate, systolic murmur, diastolic murmur, rubs, gallop, clicks GI/Abdominal exam: Present: soft, normal bowel sounds. Absent: distended, tenderness, guarding, rebound, rigid <Charly Chaudhari - Last Filed: 01/13/24 18:21> - General Exam Comments Initial Comments: Visual Physical Exam Vital signs reviewed General: Well-appearing, nontoxic, no acute distress. Head: Normocephalic, atraumatic Eyes: PERRLA, EOMI ENT: Airway patent Chest: Nonlabored breathing Skin: No visual rash, normal skin tone Neuro: Alert and oriented 3 Musculoskeletal: No gross abnormalities (Maggy Adrian) Course Vital Signs 01/13/24 01/13/24 15:22 17:49 Temperature 97.9 F Pulse Rate 83 83 Pulse Rate [ 83 Media Relations Intern ] Respiratory 18 18 Rate Blood Pressure 131/67 124/77 O2 Sat by Pulse 93 L 98 Oximetry Chest Pain [facility] <Maggy Adrian - Last Filed: 01/13/24 15:30> <Charly Chaudhari - Last Filed: 01/13/24 18:21> - [facility] I performed the quick note portion of this chart. Electronically signed by Maggy Adrian PA-C (Maggy Adrian) Was pt. sent in by a medical professional or institution (, [facility], [employer]IN [employer], urgent care, hospital, or skilled nursing...) When possible be specific @ -No Did you speak to anyone other than the patient for history (EMS, parent, family, police, friend...)? What history was obtained from this source @ -No Did you review nursing and triage notes (agree or disagree)? Why? @ -I reviewed and agree with nursing and triage notes Were old charts reviewed (outside hosp., previous admission, EMS record, old EKG, old radiological studies, urgent care reports/EKG's, skilled nursing records)? Report findings @ -Prior EKG, CBC and CMP Differential Diagnosis (chest pain, altered mental status, abdominal pain women, abdominal pain men, vaginal bleeding, weakness, fever, dyspnea, syncope, headache, dizziness, GI bleed, back pain, seizure, CVA, palpatations, mental health, musculoskeletal)? @ -Differential Chest Pain: Stable Angina, Unstable Angina, STEMI, NSTEMI Aortic Dissection, Pneumothorax, Musculoskeletal, Esophageal Spasm GERD, Cholecystitis, Pancreatitis, Zoster, this is not meant to be an all-inclusive list. EKG interpreted by me (3pts min.). @ -As above X-rays interpreted by me (1pt min.). @ -X-ray shows no acute cardiopulmonary process. CT interpreted by me (1pt min.). @ -None done U/S interpreted by me (1pt. min.). @ -None done What testing was considered but not performed or refused? (CT, X-rays, U/S, labs)? Why? @ -None What meds were considered but not given or refused? Why? @ -None Did you discuss the management of the patient with other professionals (professionals i.e. , [facility], BASIN TENDER, lab, RT, psych nurse, pediatric social worker, traveling secretary, teacher, medical laboratory technical officer, therapeutic case manager)? Give summary @ -EMH for admission Was smoking cessation discussed for >3mins.? @ -No Was critical care preformed (if so, how long)? @ -No Were there social determinants of health that impacted care today? How? (Homelessness, low income, unemployed, alcoholism, drug addiction, transportation, low edu. Level, literacy, decrease access to med. care, custodial, rehab)? @ -No Was there de-escalation of care discussed even if they declined (Discuss DNR or withdrawal of care, Hospice)? DNR status @ -No What co-morbidities impacted this encounter? (DM, HTN, Smoking, COPD, CAD, Cancer, CVA, ARF, Chemo, Hep., AIDS, mental health diagnosis, sleep apnea, morbid obesity)? @ -[A-fib hypertension Was patient admitted / discharged? Hospital course, mention meds given and route, prescriptions, significant lab abnormalities, going to OR and other pertinent info. @ -Admitted patient presented for chest pain, shoulder pain. There is some reproducible pain but concerning for ACS symptoms. Patient will be admitted for cardiac rule out Undiagnosed new problem with uncertain prognosis? @ -No Drug Therapy requiring intensive monitoring for toxicity (Heparin, Nitro, Insulin, Cardizem)? @ -No Were any procedures done? @ -No Diagnosis/symptom? @ -Chest pain Acute, or Chronic, or Acute on Chronic? @ -Acute Uncomplicated (without systemic symptoms) or Complicated (systemic symptoms)? @ -Complicated Side effects of treatment? @ -No Exacerbation, Progression, or Severe Exacerbation? @ -No Poses a threat to life or bodily function? How? (Chest pain, [place], [place], pneumonia, PE, COPD, DKA, ARF, appy, cholecystitis, CVA, Diverticulitis, Homicidal, Suicidal, threat to staff... and all critical care pts) @ - yes Possible ACS, cardiac arrest (Charly Chaudhari) Disposition <Maggy Adrian - Last Filed: 01/13/24 15:30> Time of Disposition: 18:19 <Charly Chaudhari - Last Filed: 01/13/24 18:21> Clinical Impression: Chest pain Disposition: ADMITTED IP TO THIS HOSP Condition: Fair Referrals: None,Stated [Primary Care Provider] - 1-2 days
[2024-01-13 16:25] LABS: Anisocytosis Slight; Basophils % (A) 0 %; Eosinophils # (A) 0.3 k/uL (0-0.7); Eosinophils % (A) 2 %; HCT 41.9 % (34.0-46.0); HGB 13.3 gm/dL (11.4-16.0); Hypochromasia Moderate; Lymphocytes # (A) 1.3 k/uL (1.0-4.8); Lymphocytes % (A) 13 %; MCH 30.2 pg (25.0-35.0); MCHC 31.8 g/dL (31.0-37.0); Mean Platelet Volume 7.9; Monocytes # (A) 0.7 k/uL (0-1.0); Monocytes % (A) 7 %; Neutrophils # (A) 7.9 k/uL (1.3-7.7); Neutrophils % (A) 76 %; Platelet Count 265 k/uL (150-450); RBC 4.41 m/uL (3.80-5.40); RDW 16.7 % (11.5-15.5); WBC 10.3 k/uL (3.8-10.6)
[2024-01-13 16:36] LABS: INR 2.3 (<1.2); Partial Thromboplastin Time 25.4 sec (22.0-30.0); Prothrombin Time 22.5 sec (10.0-12.5)
[2024-01-13 16:41] LABS: ALT 19 U/L (4-34); African American GFR (CKD) 70 (>60 ml/min/1.73 sqM); Anion Gap 8 mmol/L; Blood Urea Nitrogen 17 mg/dL (7-17); Calcium 9.5 mg/dL (8.4-10.2); Carbon Dioxide 28 mmol/L (22-30); Chloride 102 mmol/L (98-107); Glucose 104 mg/dL (74-99); Non-African American GFR(CKD) 61 (>60 ml/min/1.73 sqM); Sodium 138 mmol/L (137-145); Total Bilirubin 0.7 mg/dL (0.2-1.3)
--- NOTE | 2024-01-13 16:43 | XR ---
EXAMINATION TYPE: XR chest 2V DATE OF EXAM: 01/13/2024 COMPARISON: 11/08/2023 HISTORY: Chest pain TECHNIQUE: Frontal and lateral views of the chest are obtained. FINDINGS: There is no focal air space opacity. No evidence for pneumothorax. No pleural effusion. The cardiac silhouette size is within normal limits. The osseous structures are grossly intact. IMPRESSION: 1. No acute cardiopulmonary process. [facility], , 01/13/2024 4:41 PM
[2024-01-13 16:58] LABS: AST 42 U/L (14-36); Alkaline Phosphatase 54 U/L (38-126); Potassium 4.4 mmol/L (3.5-5.1)
[2024-01-13 16:59] LABS: Albumin 4.2 g/dL (3.5-5.0); Magnesium 1.9 mg/dL (1.6-2.3); Total Protein 7.4 g/dL (6.3-8.2)
[2024-01-13] MEDS: ONDANSETRON 4 MG/2 ML VIAL IVP STA (17:54)
[2024-01-13] MEDS: MORPHINE SULFATE 4 MG/ML SYRINGE IVP STA (17:57)
[2024-01-13] MEDS ORDERED: NITROGLYCERIN SL TABS 0.4 MG TAB SUBLINGUAL PRN (18:21)
[2024-01-13] MEDS: ASPIRIN 81 MG PO STA (18:59)
[2024-01-13] MEDS: ACETAMINOPHEN TAB 500 MG TAB PO STA (23:10)
[2024-01-13] MEDS: MELATONIN 5 MG TABLET PO SCH ×2 (23:11→23:22)
[2024-01-13] MEDS: GABAPENTIN 400 MG CAP PO SCH (23:12)
[2024-01-13] MEDS: WARFARIN 5 MG TAB PO SCH (23:13)
[2024-01-13] MEDS: traZODone HCL 50 MG TAB PO SCH (23:13)
--- NOTE | 2024-01-14 07:08 | P.HPIM ---
History of Present Illness This is a pleasant 73 years old female with past medical history of multiple medical problems She has history of chronic atrial fibrillation on Coumadin. She presents because of chest pain of 1 day duration, rated as 10/10 in severi ty, currently completely resolved 0/10. Actually patient states it was in the back. [place] nonspecific in character by the patient increased by deep breathing. No cough or dyspnea. She does not use oxygen at home She denies abdominal pain vomiting or diarrhea No dysuria urgency No headache dizziness weakness or numbness or tingling She denies smoking alcohol or illicit drugs Review of Systems Review of systems CONSTITUTIONAL: No fever, no malaise, no fatigue. HEENT: No recent visual problems or hearing problems. Denied any sore throat. CARDIOVASCULAR: No orthopnea, PND, no palpitations, no syncope. PULMONARY: No shortness of breath, no cough, no hemoptysis. GASTROINTESTINAL: No diarrhea, no nausea, no vomiting, no abdominal pain. Normoactive bowel sounds. NEUROLOGICAL: No headaches, no weakness, no numbness. HEMATOLOGICAL: Denies any bleeding or petechiae. GENITOURINARY: Denies any burning micturition, frequency, or urgency. MUSCULOSKELETAL/RHEUMATOLOGICAL: Denies any joint pain, swelling, or any muscle pain. ENDOCRINE: Denies any polyuria or polydipsia. Past Medical History Past Medical History: Atrial Fibrillation, Dementia, Deep Vein Thrombosis (DVT), GERD/Reflux, Hypertension Additional Past Medical History / Comment(s): PSORIATIC ARTHRITIS. mammogram indicated small cyst to have procedure 05/01/21 History of Any Multi-Drug Resistant Organisms: None Reported Past Surgical History: Appendectomy, Back Surgery, Bladder Surgery, Cholecystectomy, Hysterectomy, Orthopedic Surgery Additional Past Surgical History / Comment(s): vein stripping. ORIF OF RIGHT ANKLE with plate and wire,joint replacement lt great toe with titanium screw . rhizotomy and steroid injections lumbar, millicent knee steroid injection Past Anesthesia/Blood Transfusion Reactions: Previous Problems w/ Anesthesia, Motion Sickness, Postoperative Nausea & Vomiting (PONV) Past Psychological History: Anxiety, Depression Smoking Status: Never smoker Past Alcohol Use History: None Reported Past Drug Use History: None Reported Medications and Allergies Home Medications Medication Instructions Recorded Confirmed Type Adalimumab [Humira Pen 40 mg SQ TU 01/07/16 01/13/24 History Crohn's-Uc-Hs] Folic Acid 1 mg PO DAILY 01/07/16 01/13/24 History metHOTREXate sodium [Methotrexate] 15 mg PO FR 01/07/16 01/13/24 History Betamethasone Dipropionate 1 applic TOPICAL BID 04/19/21 01/13/24 History [Betamethasone Dipropionate 0.05%] Losartan Potassium 50 mg PO BID 04/19/21 01/13/24 History estradioL [Estrace] 0.5 mg PO DAILY 11/05/23 01/13/24 History Potassium Chloride [Klor-Con M10] 10 meq PO DAILY #30 tab 11/21/23 01/13/24 Rx Metoprolol Succinate [Toprol XL] 50 mg PO DAILY 12/21/23 01/13/24 History Warfarin [Coumadin] 5 mg PO HS 12/21/23 01/13/24 History Cholecalciferol (Vitamin D3) 50 mcg PO DAILY 01/13/24 01/13/24 History [Vitamin D3 (50 Mcg = 2000 Iu)] DULoxetine HCL [Cymbalta] 90 mg PO DAILY 01/13/24 01/13/24 History Ferrous Sulfate [Feosol] 325 mg PO DAILY 01/13/24 01/13/24 History Furosemide [Lasix] 40 mg PO DAILY 01/13/24 01/13/24 History Gabapentin 800 mg PO TID 01/13/24 01/13/24 History Hydrocortisone [Anusol-Hc] 1 applic RECTAL QID PRN 01/13/24 01/13/24 History L.acidoph,Paracasei, B.lactis 1 cap PO DAILY 01/13/24 01/13/24 History [Probiotic] Melatonin 10 mg PO HS 01/13/24 01/13/24 History Multivitamins, Thera [Multivitamin 1 tab PO DAILY 01/13/24 01/13/24 History (formulary)] Mupirocin 2% Oint [Bactroban 2% 1 applic NASAL BID PRN 01/13/24 01/13/24 History Oint] Pantoprazole Sodium [Protonix] 40 mg PO AC-BID 01/13/24 01/13/24 History Turmeric Root Extract [Turmeric] 1,000 mg PO DAILY 01/13/24 01/13/24 History buPROPion SR [Wellbutrin SR] 150 mg PO DAILY 01/13/24 01/13/24 History traZODone HCL [Desyrel] 50 mg PO HS 01/13/24 01/13/24 History Allergies Allergy/AdvReac Type Severity Reaction Status Date / Time adhesive Allergy Rash/Hives Verified 01/13/24 18:29 Physical Exam Vitals: Vital Signs Temp Pulse Pulse Resp BP Pulse Ox 01/14/24 06:33 81 16 124/65 96 01/14/24 05:00 76 18 101/50 97 01/14/24 04:26 95 01/14/24 04:25 90 L 01/14/24 02:21 80 16 95/52 94 L 01/13/24 23:25 71 17 110/75 95 01/13/24 21:00 79 18 107/66 94 L 01/13/24 19:46 80 14 115/48 94 L 01/13/24 18:58 82 18 112/69 94 L 01/13/24 17:49 83 83 18 124/77 98 01/13/24 15:22 97.9 F 83 18 131/67 93 L Intake and Output 01/13/24 01/14/24 01/14/24 22:59 06:59 14:59 Other: Weight 119.295 kg -GENERAL: The patient is alert and oriented x3, not in any acute distress. Well developed, well nourished. Obese HEENT: Pupils are round and equally reacting to light. EOMI. No scleral icterus. No conjunctival pallor. Normocephalic, atraumatic. No pharyngeal erythema. No thyromegaly. CARDIOVASCULAR: S1 and S2 present. No murmurs, rubs, or gallops. PULMONARY: Chest is clear to auscultation, no wheezing , no crackles. ABDOMEN: Soft, nontender, nondistended, normoactive bowel sounds. No palpable organomegaly. MUSCULOSKELETAL: No joint swelling or deformity. EXTREMITIES: No cyanosis, clubbing, or pedal edema. NEUROLOGICAL: Gross neurological examination did not reveal any focal deficits. SKIN: No rashes. no petechiae. Results CBC & Chem 7: 01/13/24 16:08 01/13/24 16:08 Labs: Abnormal Lab Results - Last 24 Hours (Table) 01/13/24 01/13/24 01/13/24 Range/Units 16:08 16:08 16:08 RDW 16.7 H (11.5-15.5) % Neutrophils # 7.9 H (1.3-7.7) k/uL PT 22.5 H (10.0-12.5) sec INR 2.3 H (<1.2) Glucose 104 H (74-99) mg/dL AST 42 H (14-36) U/L Assessment and Plan Assessment: Chest pain/back pain looks like more musculoskeletal, currently improved. Rule out cardiac causes Chronic A-fib on Coumadin with therapeutic INR and controlled rate History of deep venous thrombosis GERD Hypertension History of Psoriatec arthritis Dementia History of anxiety and depression Plan: Patient started on aspirin 325 mg Cardiology consult Currently chest pain resolved Continue with warfarin with goal INR 2-3 Patient also might follow-up with orthopedic team, which could be done as an outpatient Labs and medication were reviewed.. Continue same treatment. Continue with symptomatic treatment. Resume home medication. Monitor labs and vitals. DVT and GI prophylaxis. Further recommendations as per clinical course of the patient DVT prophylaxis: On warfarin GI Prophylaxis: Ppi PT/OT evaluation Prognosis is guarded
[2024-01-14] MEDS: PANTOPRAZOLE 40 MG TABLET PO SCH (08:24)
[2024-01-14] MEDS: CHOLECALCIFEROL 25 MCG (1000 IU) TABLET PO SCH (08:25)
[2024-01-14] MEDS: buPROPion SR 150 MG TABLET.ER PO SCH (08:25)
[2024-01-14] MEDS: DULoxetine HCL 30 MG CAPSULE.DR PO SCH (08:25)
[2024-01-14] MEDS: FOLIC ACID 1 MG TAB PO SCH (08:27)
[2024-01-14] MEDS: FERROUS SULFATE 325 MG TAB PO SCH (08:27)
[2024-01-14] MEDS: FUROSEMIDE 40 MG TAB PO SCH (08:28)
[2024-01-14] MEDS: METOPROLOL SUCCINATE (ER) 50 MG TAB.ER.24H PO SCH (08:28)
[2024-01-14] MEDS: LOSARTAN 50 MG TAB PO SCH (08:29)
[2024-01-14] MEDS: LACTOBACILLUS ACIDOPHILUS/PECT 1 EACH CAPSULE PO SCH (08:30)
[2024-01-14] MEDS: POTASSIUM CHLORIDE ER 10 MEQ TAB.ER.PRT PO SCH (08:31)
[2024-01-14] MEDS ORDERED: GABAPENTIN 400 MG CAP PO SCH (09:00)
[2024-01-14] MEDS ORDERED: ASPIRIN 325 MG TAB PO SCH (09:00)
[2024-01-14 09:25] LABS: INR 2.19 sec (0.93-1.11); Prothrombin Time 22.5 sec (9.9-11.9)
[2024-01-14 09:32] LABS: Chol/HDL Ratio 3.19 Ratio; LDL Cholesterol,Calculated 63.7 mg/dL (0.0-131.0)
--- NOTE | 2024-01-14 10:24 | P.CRDCN ---
History of Present Illness History of present illness: HISTORY OF PRESENT ILLNESS: This is a 73-year-old female with a past medical history significant for mild CAD, atrial fibrillation, hypertension, valvular heart disease, and enlarged ascending aorta. Patient follows with a auto wheel alignment specialist in [facility]. We have been asked to see the patient in consultation for chest pain. Patient examined at the bedside in the emergency room. Patient states yesterday she had an episode of chest discomfort that was worsened with deep inspiration. She denied any radiation of the pain. She denies any further episodes of chest pain or chest discomfort. She denies shortness of breath. Vital signs are stable. DIAGNOSTICS: - EKG reveals atrial fibrillation with controlled ventricular rate - Chest xray negative for acute process - Laboratory data: WBC 10.3. Hemoglobin 13.3. Platelet count 265. D-dimer 0.39. Sodium 138. Potassium 4.4. BUN 17. Creatinine 0.93. Troponin negative x 3. - Current home cardiac medications include warfarin 5 mg at night, metoprolol succinate 50 mg daily, losartan 50 mg twice a day, Lasix 40 mg daily - Most recent echocardiogram obtained in February 2021 revealed ejection fraction 55%, mild LVH, mild to moderate AR, enlarged ascending aorta, mild MR, mild TR - Cardiac catheterization history: April 2021 revealing mild to moderate CAD with 10 to 20% RCA stenosis, 50 to 60% LAD stenosis, LAD lesion IFR normal at 0.92. REVIEW OF SYSTEMS: At the time of my exam: CONSTITUTIONAL: Denies fever or chills. HEENT: Denies blurred vision, vision changes, or eye pain. Denies hemoptysis CARDIOVASCULAR: Denies chest pain. Denies orthopnea. Denies PND. Denies palpitations RESPIRATORY: Denies shortness of breath. GASTROINTESTINAL: Denies abdominal pain. Denies nausea or vomiting. HEMATOLOGIC: Denies bleeding disorders. GENITOURINARY: Denies any blood in urine. SKIN: Denies pruitis. Denies rash. PHYSICAL EXAM: VITAL SIGNS: Reviewed. GENERAL: Well-developed in no acute distress. HEENT: Head is normocephalic. Pupils are equal, round. Sclerae anicteric. Mucous membranes of the mouth are moist. Neck supple. No JVD or thyromegaly LUNGS: Respirations even and unlabored. Lungs essentially clear to auscultation bilaterally. HEART: Irregular rate and rhythm. S1 and S2 heard. ABDOMEN: Soft. Nondistended. Nontender. EXTREMITIES: Normal range of motion. No clubbing or cyanosis. Peripheral pulses intact. No lower extremity edema NEUROLOGIC: Awake and alert. Oriented x 3. ASSESSMENT: Chest pain, appears pleuritic, troponin negative x 3 Persistent atrial fibrillation Mild to moderate nonobstructive CAD per cath in April 2021 Hypertension Valvular heart disease including mild to moderate AR, mild MR, mild TR Enlarged ascending aorta, measuring 4.1 cm in 2020 PLAN: An acute coronary event has been ruled out. Patient's chest pain appears pleuritic. Resume home cardiac medications Continue anticoagulation with warfarin. Monitor INR. Obtain 2D echo to assess cardiac structure and function Patient may follow-up postdischarge with her primary auto wheel alignment specialist in [facility] Nurse practitioner note has been reviewed by physician. Signing provider agrees with the documented findings, assessment, and plan of care documented by STATISTICS PROFESSOR as a scribe. Past Medical History Past Medical History: Atrial Fibrillation, Dementia, Deep Vein Thrombosis (DVT), GERD/Reflux, Hypertension Additional Past Medical History / Comment(s): PSORIATIC ARTHRITIS. mammogram indicated small cyst to have procedure 05/01/21 History of Any Multi-Drug Resistant Organisms: None Reported Past Surgical History: Appendectomy, Back Surgery, Bladder Surgery, Cholecystectomy, Hysterectomy, Orthopedic Surgery Additional Past Surgical History / Comment(s): vein stripping. ORIF OF RIGHT ANKLE with plate and wire,joint replacement lt great toe with titanium screw . rhizotomy and steroid injections lumbar, millicent knee steroid injection Past Anesthesia/Blood Transfusion Reactions: Previous Problems w/ Anesthesia, Motion Sickness, Postoperative Nausea & Vomiting (PONV) Past Psychological History: Anxiety, Depression Smoking Status: Never smoker Past Alcohol Use History: None Reported Past Drug Use History: None Reported Medications and Allergies Home Medications Medication Instructions Recorded Confirmed Type Adalimumab [Humira Pen 40 mg SQ TU 01/07/16 01/13/24 History Crohn's-Uc-Hs] Folic Acid 1 mg PO DAILY 01/07/16 01/13/24 History metHOTREXate sodium [Methotrexate] 15 mg PO FR 01/07/16 01/13/24 History Betamethasone Dipropionate 1 applic TOPICAL BID 04/19/21 01/13/24 History [Betamethasone Dipropionate 0.05%] Losartan Potassium 50 mg PO BID 04/19/21 01/13/24 History estradioL [Estrace] 0.5 mg PO DAILY 11/05/23 01/13/24 History Potassium Chloride [Klor-Con M10] 10 meq PO DAILY #30 tab 11/21/23 01/13/24 Rx Metoprolol Succinate [Toprol XL] 50 mg PO DAILY 12/21/23 01/13/24 History Warfarin [Coumadin] 5 mg PO HS 12/21/23 01/13/24 History Cholecalciferol (Vitamin D3) 50 mcg PO DAILY 01/13/24 01/13/24 History [Vitamin D3 (50 Mcg = 2000 Iu)] DULoxetine HCL [Cymbalta] 90 mg PO DAILY 01/13/24 01/13/24 History Ferrous Sulfate [Feosol] 325 mg PO DAILY 01/13/24 01/13/24 History Furosemide [Lasix] 40 mg PO DAILY 01/13/24 01/13/24 History Gabapentin 800 mg PO TID 01/13/24 01/13/24 History Hydrocortisone [Anusol-Hc] 1 applic RECTAL QID PRN 01/13/24 01/13/24 History L.acidoph,Paracasei, B.lactis 1 cap PO DAILY 01/13/24 01/13/24 History [Probiotic] Melatonin 10 mg PO HS 01/13/24 01/13/24 History Multivitamins, Thera [Multivitamin 1 tab PO DAILY 01/13/24 01/13/24 History (formulary)] Mupirocin 2% Oint [Bactroban 2% 1 applic NASAL BID PRN 01/13/24 01/13/24 History Oint] Pantoprazole Sodium [Protonix] 40 mg PO AC-BID 01/13/24 01/13/24 History Turmeric Root Extract [Turmeric] 1,000 mg PO DAILY 01/13/24 01/13/24 History buPROPion SR [Wellbutrin SR] 150 mg PO DAILY 01/13/24 01/13/24 History traZODone HCL [Desyrel] 50 mg PO HS 01/13/24 01/13/24 History Allergies Allergy/AdvReac Type Severity Reaction Status Date / Time adhesive Allergy Rash/Hives Verified 01/13/24 18:29 Physical Exam Vitals: Vital Signs Temp Pulse Pulse Resp BP Pulse Ox 01/14/24 06:33 81 16 124/65 96 09/25/24 05:00 76 18 101/50 97 01/14/24 04:26 95 01/14/24 04:25 90 L 01/14/24 02:21 80 16 95/52 94 L 01/13/24 23:25 71 17 110/75 95 01/13/24 21:00 79 18 107/66 94 L 01/13/24 19:46 80 14 115/48 94 L 01/13/24 18:58 82 18 112/69 94 L 01/13/24 17:49 83 83 18 124/77 98 01/13/24 15:22 97.9 F 83 18 131/67 93 L Intake and Output 01/13/24 01/14/24 01/14/24 22:59 06:59 14:59 Other: Weight 119.295 kg Results 01/13/24 16:08 01/13/24 16:08 Cardiac Enzymes 01/13/24 01/13/24 01/13/24 Range/Units 16:08 16:08 19:39 AST 42 H (14-36) U/L Troponin I <0.012 <0.012 (0.000-0.034) ng/mL 01/13/24 Range/Units 22:52 AST (14-36) U/L Troponin I <0.012 (0.000-0.034) ng/mL Coagulation 01/13/24 Range/Units 16:08 PT 22.5 H (10.0-12.5) sec APTT 25.4 (22.0-30.0) sec CBC 01/13/24 Range/Units 16:08 WBC 10.3 (3.8-10.6) k/uL RBC 4.41 (3.80-5.40) m/uL Hgb 13.3 (11.4-16.0) gm/dL Hct 41.9 (34.0-46.0) % Plt Count 265 (150-450) k/uL Comprehensive Metabolic Panel 01/13/24 Range/Units 16:08 Sodium 138 (137-145) mmol/L Potassium 4.4 (3.5-5.1) mmol/L Chloride 102 (98-107) mmol/L Carbon Dioxide 28 (22-30) mmol/L BUN 17 (7-17) mg/dL Creatinine 0.93 (0.52-1.04) mg/dL Glucose 104 H (74-99) mg/dL Calcium 9.5 (8.4-10.2) mg/dL AST 42 H (14-36) U/L ALT 19 (4-34) U/L Alkaline Phosphatase 54 (38-126) U/L Total Protein 7.4 (6.3-8.2) g/dL Albumin 4.2 (3.5-5.0) g/dL Current Medications Generic Name Dose Route Start Last Admin Trade Name Freq PRN Reason Stop Dose Admin Aspirin 325 mg 01/14/24 09:00 Aspirin 325 Mg Tab PO DAILY [facility] Bupropion HCl 150 mg 01/14/24 09:00 Bupropion Sr 150 Mg Tablet.Er PO DAILY [facility] Cholecalciferol 50 mcg 01/14/24 09:00 Cholecalciferol 25 Mcg (1000 Iu) Tablet PO DAILY [facility] Duloxetine HCl 90 mg 01/14/24 09:00 Duloxetine Hcl 30 Mg Capsule.Dr PO DAILY [facility] Estradiol 0.5 mg 01/14/24 09:00 Estradiol 0.5 Mg Tab PO DAILY [facility] Ferrous Sulfate 325 mg 01/14/24 09:00 Ferrous Sulfate 325 Mg Tab PO DAILY [facility] Folic Acid 1 mg 01/14/24 09:00 Folic Acid 1 Mg Tab PO DAILY [facility] Furosemide 40 mg 01/14/24 09:00 Furosemide 40 Mg Tab PO DAILY [facility] Gabapentin 800 mg 01/13/24 22:45 01/13/24 23:12 Gabapentin 400 Mg Cap PO 800 mg TID [facility] Administration Lactobacillus Acidophilus 1 each 01/14/24 09:00 Lactobacillus Acidophilus/Pect 1 Each Capsule PO DAILY [facility] Losartan Potassium 50 mg 01/14/24 09:00 Losartan 50 Mg Tab PO BID [facility] Melatonin 10 mg 01/13/24 23:20 01/13/24 23:22 Melatonin 5 Mg Tablet PO 10 mg HS [facility] Administration Methotrexate 15 mg 01/16/24 09:00 Methotrexate Sodium 2.5 Mg Tab PO FR [facility] Metoprolol Succinate 50 mg 01/14/24 09:00 Metoprolol Succinate (Er) 50 Mg Tab.Er.24h PO DAILY [facility] Miscellaneous Information 0 each 01/13/24 23:22 Warfarin Per Pharmacy MISCELLANE DIRECTED PRN Per Protocol Nitroglycerin 0.4 mg 01/13/24 18:21 Nitroglycerin Sl Tabs 0.4 Mg Tab SUBLINGUAL Q5M PRN Chest Pain Pantoprazole Sodium 40 mg 01/14/24 07:30 Pantoprazole 40 Mg Tablet PO AC-BID [facility] Potassium Chloride 10 meq 01/14/24 09:00 Potassium Chloride Er 10 Meq Tab.Er.Prt PO DAILY [facility] Trazodone HCl 50 mg 01/13/24 22:35 01/13/24 23:13 Trazodone Hcl 50 Mg Tab PO 50 mg HS [facility] Administration Warfarin Sodium 5 mg 01/13/24 22:46 01/13/24 23:13 Warfarin 5 Mg Tab PO 5 mg HS [facility] Administration Protocol Intake and Output 01/13/24 01/14/24 01/14/24 22:59 06:59 14:59 Other: Weight 119.295 kg 01/13/24 16:08 01/13/24 16:08
[2024-01-14] MEDS: ACETAMINOPHEN TAB 500 MG TAB PO PRN (14:07)
[2024-01-14 15:39] VITALS: BP 137/79; PULSE 83; RESP 18; TEMP 98.1
--- NOTE | 2024-01-14 15:46 | CA ---
Transthoracic Echo Report Name: Jessi Skinner Age: 73 Gender: F : 1950 Exam Date: 01/14/2024 10:21 Exam Location: [place] Echo Ht (in): 63 Wt (lb): 263 Ordering Physician: Kim Hamilton Attending/Referring Phys: [id number], Alfonso [employer]ing Material Carrier Geneva Medeiros RDCS Procedure CPT: Indications: CP, LV function Cardiac Hx: Technical Quality: Good Contrast 1: Total Dose (mL): Contrast 2: Total Dose (mL): MEASUREMENTS (Male / Female) Normal Values 2D ECHO LV Diastolic Diameter PLAX 5.4 cm 4.2 - 5.9 / 3.9 - 5.3 cm LV Systolic Diameter PLAX 3.5 cm IVS Diastolic Thickness 0.8 cm 0.6 - 1.0 / 0.6 - 0.9 cm LVPW Diastolic Thickness 1.0 cm 0.6 - 1.0 / 0.6 - 0.9 cm LV Relative Wall Thickness 0.3 LVOT Diameter 2.0 cm LV Diastolic Volume MOD BP 127.0 cm??? 67 - 155 / 56 - 104 cm??? LV Systolic Volume MOD BP 55.2 cm??? 22 - 58 / 19 - 49 cm??? LV Ejection Fraction MOD BP 56.6 % >= 55 % LV Cardiac Index MOD BP 2329.0 cm???/min???m??? LV Diastolic Volume MOD 4C 130.9 cm??? LV Systolic Volume MOD 4C 58.2 cm??? LV Ejection Fraction MOD 4C 55.6 % LV Cardiac Index MOD 4C 2360.2 cm???/min???m??? LV Diastolic Length 4C 8.3 cm LV Systolic Length 4C 7.0 cm LV Diastolic Volume MOD 2C 123.8 cm??? LV Systolic Volume MOD 2C 49.6 cm??? LV Ejection Fraction MOD 2C 60.0 % LV Cardiac Index MOD 2C 2408.4 cm???/min???m??? LV Diastolic Length 2C 8.3 cm LV Systolic Length 2C 6.6 cm LA Volume 110.6 cm??? 18 - 58 / 22 - 52 cm??? LA Volume Index 46.6 cm???/m??? 16 - 28 cm???/m??? Ascending Aorta Diameter 4.0 cm DOPPLER AV Peak Velocity 141.7 cm/s AV Peak Gradient 8.0 mmHg AV Mean Velocity 99.7 cm/s AV Mean Gradient 4.5 mmHg AV Velocity Time Integral 31.7 cm LVOT Peak Velocity 130.2 cm/s LVOT Peak Gradient 6.8 mmHg LVOT Velocity Time Integral 25.7 cm LVOT Stroke Volume 80.7 cm??? LVOT Stroke Volume Index 37.2 ml/m??? LVOT Cardiac Index 2618.4 cm???/min???m??? AV Area Cont Eq vti 2.5 cm??? AV Area Cont Eq pk 2.9 cm??? TR Peak Velocity 223.3 cm/s TR Peak Gradient 19.9 mmHg Right Atrial Pressure 5.0 mmHg Pulmonary Artery Systolic Pressu 24.9 mmHg Right Ventricular Systolic Press 24.9 mmHg PV Peak Velocity 87.5 cm/s PV Peak Gradient 3.1 mmHg FINDINGS Left Ventricle Left ventricular ejection fraction is estimated at 55-60 %. Moderately increased left ventricular diastolic volume. Mildly increased left ventricular systolic volume. No obvious regional wall motion abnormalities. Right Ventricle Right ventricular dilatation with normal function. Right ventricular systolic pressure within normal limits. Right Atrium Right atrial dilatation. Left Atrium Severely increased left atrial volume. Moderately increased left atrial area. Mitral Valve Structurally normal mitral valve. No evidence for mitral valve prolapse. No mitral stenosis. Mild mitral regurgitation. Aortic Valve Trileaflet aortic valve. No aortic stenosis. Mild aortic regurgitation. Tricuspid Valve Structurally normal tricuspid valve. No tricuspid stenosis. Mild tricuspid regurgitation. Pulmonic Valve Structurally normal pulmonic valve. No pulmonic stenosis. Trace pulmonic regurgitation. Pericardium No pericardial effusion. Aorta Aortic annulus normal. Mildly enlarged ascending aorta. CONCLUSIONS Normal LV systolic function Mildly dilated right ventricle with normal function Mild aortic regurgitation Previewed by: Dr. Willian George MD (Electronically Signed) Final Date: 14 January 2024 15:45
[2024-01-14] MEDS ORDERED: traZODone HCL 50 MG TAB PO SCH (21:00)
[2024-01-14] MEDS ORDERED: WARFARIN 5 MG TAB PO SCH (21:00)
[2024-01-16] MEDS ORDERED: metHOTREXate sodium 2.5 MG TAB PO SCH (09:00)
== END 2024-01-14 17:45 | disposition home or self-care (01) ==
LOC: EC 14:56 → 6NMEDSUR 18:16
PROVIDERS: ADMIT Hospitalist; ATTEND Hospitalist
DX: R07.89 Other chest pain (principal); I48.19 Other persistent atrial fibrillation; I25.10 Atherosclerotic heart disease of native coronary artery without angina pectoris; I77.811 Abdominal aortic ectasia; I08.3 Combined rheumatic disorders of mitral, aortic and tricuspid valves; L40.50 Arthropathic psoriasis, unspecified; K21.9 Gastro-esophageal reflux disease without esophagitis; I10 Essential (primary) hypertension; F03.94 Unspecified dementia, unspecified severity, with anxiety; F03.93 Unspecified dementia, unspecified severity, with mood disturbance; M25.511 Pain in right shoulder; M25.512 Pain in left shoulder; M54.9 Dorsalgia, unspecified; Z79.01 Long term (current) use of anticoagulants; Z79.631 Long term (current) use of antimetabolite agent; Z79.620 Long term (current) use of immunosuppressive biologic; Z79.818 Long term (current) use of other agents affecting estrogen receptors and estrogen levels; Z79.899 Other long term (current) drug therapy; Z91.048 Other nonmedicinal substance allergy status; Z86.718 Personal history of other venous thrombosis and embolism
CPT/HCPCS: 36415; 71046; 80053; 80061; 83735; 84484; 85025; 85379; 85610; 85730; 93005; 93306; 96374; 96375; 99285

== ENCOUNTER 2024-04-15 23:49 | Emergency (ER) | payer MEDICARE, BC ==
[2024-04-16 00:07] VITALS: TEMP 98.7
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
[2024-04-16 01:07] LABS: Amorphous Sediment,Urine Occasional /hpf; Appearance,Urine Clear (Clear); Bacteria,Urine Occasional /hpf; Bilirubin,Urine Negative (Negative); Blood,Urine Trace (Negative); Color,Urine Light Yellow; Glucose,Urine (UA) Negative (Negative); Hyaline Casts,Urine 8 /lpf (0-2); Ketones,Urine Negative (Negative); Leukocyte Esterase,Urine Large (Negative); Mucus,Urine Rare /hpf; Nitrite,Urine Negative (Negative); PH, Urine 6.5 (5.0-8.0); Protein,Urine 2+ (Negative); RBC,Urine 5 /hpf (0-5); Specific Gravity,Urine 1.022 (1.001-1.035); Squamous Epithelial Cell,Urine 10 /hpf (0-4); Urobilinogen,Urine <2.0 mg/dL (<2.0); WBC,Urine 80 /hpf (0-5)
[2024-04-16 01:09] LABS: Amphetamine Screen,Urine Not Detected (NotDetected); Barbiturate Screen,Urine Not Detected (NotDetected); Benzodiazepines Screen,Urine Not Detected (NotDetected); Cocaine Screen,Urine Not Detected (NotDetected); Methadone Screen, Urine Not Detected (NotDetected); Opiate Screen,Urine Not Detected (NotDetected); Oxycodone Screen, Urine Not Detected (NotDetected); Phencyclidine Screen,Urine Not Detected (NotDetected); Tricyclic Antidepressant,Urine Not Detected (NotDetected); Urn Cannabinoid Scrn Detected (NotDetected)
[2024-04-16] MEDS: NITROFURANTOIN MONOHYD/M-CRYST 100 MG CAP PO STA (12:17)
[2024-04-16 12:31] VITALS: BP 159/99; PULSE 86; RESP 20
== END 2024-04-16 12:38 | disposition home or self-care (01) ==
LOC: EC 23:49
DX: N39.0 Urinary tract infection, site not specified (principal); F03.93 Unspecified dementia, unspecified severity, with mood disturbance; Z88.8 Allergy status to other drugs, medicaments and biological substances
CPT/HCPCS: 80306; 81001; 82075; 87086; 99285

== ENCOUNTER 2024-05-06 01:03 | Emergency (ER) | payer MEDICARE, BC ==
--- NOTE | 2024-05-06 01:14 | ED ---
Psych HPI <Whitney Foy Dayo - Last Filed: 05/07/24 12:57> - General Source: RN notes reviewed, old records reviewed Limitations: no limitations - History of Present Illness MD Complaint: suicidal ideation, feels depressed, altered mental status, other (Anger reaction) -: hour(s) Associated Psychiatric Symptoms: depression, racing thoughts Quality: constant Improves With: none Worsens With: none Associated Symptoms: denies other symptoms Treatments Prior to Arrival: placed on mental health hold If Self Harm: admits thoughts of self harm <Marlon Meier - Last Filed: 05/12/24 13:52> - General Stated Complaint: Mental Health Time Seen by Provider: 05/06/24 01:07 - History of Present Illness Initial Comments: This is a 74 female to the ER today. She presents today for evaluation of of psychiatric illness making suicidal statements per patient was walking around outside without a cold on and they had a significant argument tonight patient does admit to a significant argument tonight (Marlon Meier) - Related Data Home Medications Medication Instructions Recorded Confirmed metHOTREXate sodium [Methotrexate] 15 mg PO Q7D 01/07/16 05/06/24 Betamethasone Dipropionate 1 applic TOPICAL BID PRN 04/19/21 05/06/24 [Betamethasone Dipropionate 0.05%] Losartan Potassium 50 mg PO BID 04/19/21 05/06/24 estradioL [Estrace] 0.5 mg PO DAILY 11/05/23 05/06/24 Warfarin [Coumadin] 5 mg PO HS 12/21/23 05/06/24 DULoxetine HCL [Cymbalta] 90 mg PO DAILY 01/13/24 05/06/24 Gabapentin 800 mg PO TID 01/13/24 05/06/24 ALPRAZolam [Xanax] 0.5 mg PO BID PRN 05/06/24 05/06/24 Cetirizine HCl [Zyrtec] 10 mg PO DAILY PRN 05/06/24 05/06/24 Metoprolol Succinate (ER) [Toprol 100 mg PO BID 05/06/24 05/06/24 Xl] Zolpidem [Ambien] 10 mg PO HS 05/06/24 05/06/24 buPROPion XL [Wellbutrin XL] 150 mg PO DAILY 05/06/24 05/06/24 methocarbamoL [Robaxin] 500 mg PO TID PRN 05/06/24 05/06/24 Previous Rx's Medication Instructions Recorded Nitroglycerin Sl Tabs [Nitrostat] 0.4 mg SUBLINGUAL Q5M PRN #10 tab 01/14/24 Memantine [Namenda] 5 mg PO DAILY #30 tablet 05/07/24 OLANZapine [ZyPREXA] 5 mg PO DAILY #30 tablet 05/07/24 Allergies Allergy/AdvReac Type Severity Reaction Status Date / Time adhesive Allergy Rash/Hives Verified 05/06/24 18:42 Review of Systems ROS Other: All systems not noted in ROS Statement are negative. <Whitney Foy - Last Filed: 05/07/24 12:57> ROS Other: All systems not noted in ROS Statement are negative. <Marlon Meier - Last Filed: 05/12/24 13:52> ROS Statement: Those systems with pertinent positive or pertinent negative responses have been documented in the HPI. Past Medical History Past Medical History: Atrial Fibrillation, Dementia, Deep Vein Thrombosis (DVT), GERD/Reflux, Hypertension Additional Past Medical History / Comment(s): PSORIATIC ARTHRITIS. mammogram indicated small cyst to have procedure 05/01/21 History of Any Multi-Drug Resistant Organisms: None Reported Past Surgical History: Appendectomy, Back Surgery, Bladder Surgery, Cholecystectomy, Hysterectomy, Orthopedic Surgery Additional Past Surgical History / Comment(s): vein stripping. ORIF OF RIGHT ANKLE with plate and wire,joint replacement lt great toe with titanium screw . rhizotomy and steroid injections lumbar, millicent knee steroid injection Past Anesthesia/Blood Transfusion Reactions: Previous Problems w/ Anesthesia, Motion Sickness, Postoperative Nausea & Vomiting (PONV) Past Psychological History: Anxiety, Depression Smoking Status: Never smoker Past Alcohol Use History: None Reported Past Drug Use History: None Reported <Marlon Meier - Last Filed: 05/12/24 13:52> General Exam General appearance: alert, in no apparent distress Head exam: Present: atraumatic, normocephalic, normal inspection Eye exam: Present: normal appearance, PERRL, EOMI. Absent: scleral icterus, conjunctival injection, periorbital swelling ENT exam: Present: normal exam, mucous membranes moist Neck exam: Present: normal inspection. Absent: tenderness, meningismus, lymphadenopathy Respiratory exam: Present: normal lung sounds bilaterally. Absent: respiratory distress, wheezes, rales, rhonchi, stridor Cardiovascular Exam: Present: regular rate, normal rhythm, normal heart sounds. Absent: systolic murmur, diastolic murmur, rubs, gallop, clicks GI/Abdominal exam: Present: soft, normal bowel sounds. Absent: distended, tenderness, guarding, rebound, rigid Extremities exam: Present: normal inspection, full ROM, normal capillary refill. Absent: tenderness, pedal edema, joint swelling, calf tenderness Back exam: Present: normal inspection Neurological exam: Present: alert, oriented X3, CN II-XII intact Psychiatric exam: Present: normal affect, normal mood Skin exam: Present: warm, dry, intact, normal color. Absent: rash <Marlon Meier - Last Filed: 05/12/24 13:52> Course <Marlon Meier - Last Filed: 05/12/24 13:52> Vital Signs 05/06/24 05/06/24 05/06/24 01:09 07:00 09:04 Temperature 98.6 F 97.9 F Pulse Rate 76 77 73 Respiratory 18 18 18 Rate Blood Pressure 156/82 155/80 174/106 O2 Sat by Pulse 95 97 96 Oximetry 05/06/24 05/06/24 05/06/24 11:57 18:41 22:55 Temperature 97.7 F 98.5 F Pulse Rate 67 74 79 Respiratory 14 16 16 Rate Blood Pressure 162/82 181/95 172/75 O2 Sat by Pulse 97 97 97 Oximetry 05/07/24 05/07/24 05/07/24 04:27 08:25 16:49 Temperature 97.8 F 97.9 F Pulse Rate 60 79 76 Respiratory 18 16 20 Rate Blood Pressure 150/80 130/92 170/98 O2 Sat by Pulse 96 96 96 Oximetry - Reevaluation(s) Reevaluation #1: 05/06/24 01:14 Records reviewed (Marlon Meier) Reevaluation #2: 05/06/24 01:14 Clear for psychiatric evaluation 05/06/24 06:16 Patient was seen by psychiatry Psychiatry spoke with who wrote petition and states patient is no longer welcome at his house Patient does not have any place to go Patient herself states that the is the one with dementia and psychiatric illness (Marlon Meier) Reevaluation #3: Differential Mental Health Depression, anxiety, bipolar, psychosis, schizophrenia, borderline personality, situational depression, adjustment disorder, behavioral disorder, brain tumor, malingering, substance abuse, encephalopathy, medication reaction, dementia, hypothyroidism, degenerative neurologic disorder, lupus.... This is not meant to be all-inclusive list (Marlon Meier) Reevaluation #4: Was pt. sent in by a medical professional or institution (ANDREW Yousif, EQUIPMENT OPERATOR/LABORER, urgent care, hospital, or skilled nursing...) When possible be specific @ -no Did you speak to anyone other than the patient for history (EMS, parent, family, police, friend...)? What history was obtained from this source @ -no Did you review nursing and triage notes (agree or disagree)? Why? @ -agree Are old charts reviewed (outside hosp., previous admission, EMS record, old EKG, old radiological studies, urgent care reports/EKG's, skilled nursing records)? Report findings @ -yes Differential Diagnosis (chest pain, altered mental status, abdominal pain women, abdominal pain men, vaginal bleeding, weakness, fever, dyspnea, syncope, headache, dizziness, GI bleed, back pain, seizure, CVA, palpatations, mental health, musculoskeletal)? @ -prior EKG interpreted by me (3pts min.). @ -no X-rays interpreted by me (1pt min.). @ -no CT interpreted by me (1pt min.). @ -no U/S interpreted by me (1pt. min.). @ -no What testing was considered but not performed or refused? (CT, X-rays, U/S, labs)? Why? @ -none What meds were considered but not given or refused? Why? @ -none Did you discuss the management of the patient with other professionals (professionals i.e. ANDREW Yousif, EQUIPMENT OPERATOR/LABORER, lab, RT, psych nurse, social economist, graduate studies dean, teacher, nursing officer, family caseworker)? Give summary @ -no Was smoking cessation discussed for >3mins.? @ -no Was critical care preformed (if so, how long)? @ -no Were there social determinants of health that impacted care today? How? (Homelessness, low income, unemployed, alcoholism, drug addiction, transportation, low edu. Level, literacy, decrease access to med. care, senior living, rehab)? @ -none Was there de-escalation of care discussed even if they declined (Discuss DNR or withdrawal of care, Hospice)? DNR status @ -no What co-morbidities impacted this encounter? (DM, HTN, Smoking, COPD, CAD, Cancer, CVA, ARF, Chemo, Hep., AIDS, mental health diagnosis, sleep apnea, morbid obesity)? @ -none Was patient admitted / discharged? Hospital course, mention meds given and route, prescriptions, significant lab abnormalities, going to OR and other pertinent info. @ -74 female with dementia patient seen and evaluated here in the ER and can be discharged home Undiagnosed new problem with uncertain prognosis? @ -no Drug Therapy requiring intensive monitoring for toxicity (Heparin, Nitro, Insulin, Cardizem)? @ -no Were any procedures done? @ -no Diagnosis/symptom? @ -Dimension altered mental status Acute, or Chronic, or Acute on Chronic? @ -Acute Uncomplicated (without systemic symptoms) or Complicated (systemic symptoms)? @ -Complicated Side effects of treatment? @ -no Exacerbation, Progression, or Severe Exacerbation? @ -exacerbation Poses a threat to life or bodily function? How? (Chest pain, [place], [place], pneumonia, PE, COPD, DKA, ARF, appy, cholecystitis, CVA, Diverticulitis, Homicidal, Suicidal, threat to staff... and all critical care pts) @ -yes extremes of age (Marlon Meier) Medical Decision Making - Lab Data Result diagrams: 05/06/24 03:43 05/06/24 03:43 <Whitney Foy - Last Filed: 05/07/24 12:57> - Lab Data Result diagrams: 05/06/24 03:43 05/06/24 03:43 <Marlon Meier - Last Filed: 05/12/24 13:52> - Lab Data Lab Results 05/06/24 05/06/24 05/06/24 Range/Units 03:43 03:43 03:43 WBC 4.2 (3.8-10.6) k/uL RBC 4.10 (3.80-5.40) m/uL Hgb 13.4 (11.4-16.0) gm/dL Hct 41.1 (34.0-46.0) % MCV 100.2 H (80.0-100.0) fL MCH 32.7 (25.0-35.0) pg MCHC 32.6 (31.0-37.0) g/dL RDW 15.9 H (11.5-15.5) % Plt Count 193 (150-450) k/uL MPV 7.6 Neutrophils % 47 % Lymphocytes % 36 % Monocytes % 8 % Eosinophils % 5 % Basophils % 1 % Neutrophils # 2.0 (1.3-7.7) k/uL Lymphocytes # 1.5 (1.0-4.8) k/uL Monocytes # 0.4 (0-1.0) k/uL Eosinophils # 0.2 (0-0.7) k/uL Basophils # 0.0 (0-0.2) k/uL Macrocytosis Slight Sodium 138 (137-145) mmol/L Potassium 3.5 (3.5-5.1) mmol/L Chloride 107 (98-107) mmol/L Carbon Dioxide 26 (22-30) mmol/L Anion Gap 5 mmol/L BUN 17 (7-17) mg/dL Creatinine 0.98 (0.52-1.04) mg/dL Est GFR (CKD-EPI)AfAm 65 (>60 ml/min/1.73 sqM) Est GFR (CKD-EPI)NonAf 56 (>60 ml/min/1.73 sqM) Glucose 153 H (74-99) mg/dL Calcium 9.2 (8.4-10.2) mg/dL Phosphorus 3.1 (2.5-4.5) mg/dL Magnesium 1.8 (1.6-2.3) mg/dL Total Bilirubin 0.5 (0.2-1.3) mg/dL AST 22 (14-36) U/L ALT 19 (4-34) U/L Alkaline Phosphatase 44 (38-126) U/L Troponin I <0.012 (0.000-0.034) ng/mL Total Protein 6.3 (6.3-8.2) g/dL Albumin 3.6 (3.5-5.0) g/dL TSH 0.797 (0.465-4.680) mIU/L Urine Color Urine Appearance (Clear) Urine pH (5.0-8.0) Ur Specific [place] (1.001-1.035) Urine Protein (Negative) Urine Glucose (UA) (Negative) Urine Ketones (Negative) Urine Blood (Negative) Urine Nitrite (Negative) Urine Bilirubin (Negative) Urine Urobilinogen (<2.0) mg/dL Ur Leukocyte Esterase (Negative) Urine RBC (0-5) /hpf Urine WBC (0-5) /hpf Ur Squamous Epith Cells (0-4) /hpf Urine Mucus (None) /hpf Salicylates <1.0 mg/dL Acetaminophen <10.0 ug/mL Serum Alcohol <10 mg/dL 05/06/24 Range/Units 07:04 WBC (3.8-10.6) k/uL RBC (3.80-5.40) m/uL Hgb (11.4-16.0) gm/dL Hct (34.0-46.0) % MCV (80.0-100.0) fL MCH (25.0-35.0) pg MCHC (31.0-37.0) g/dL RDW (11.5-15.5) % Plt Count (150-450) k/uL MPV Neutrophils % % Lymphocytes % % Monocytes % % Eosinophils % % Basophils % % Neutrophils # (1.3-7.7) k/uL Lymphocytes # (1.0-4.8) k/uL Monocytes # (0-1.0) k/uL Eosinophils # (0-0.7) k/uL Basophils # (0-0.2) k/uL Macrocytosis Sodium (137-145) mmol/L Potassium (3.5-5.1) mmol/L Chloride (98-107) mmol/L Carbon Dioxide (22-30) mmol/L Anion Gap mmol/L BUN (7-17) mg/dL Creatinine (0.52-1.04) mg/dL Est GFR (CKD-EPI)AfAm (>60 ml/min/1.73 sqM) Est GFR (CKD-EPI)NonAf (>60 ml/min/1.73 sqM) Glucose (74-99) mg/dL Calcium (8.4-10.2) mg/dL Phosphorus (2.5-4.5) mg/dL Magnesium (1.6-2.3) mg/dL Total Bilirubin (0.2-1.3) mg/dL AST (14-36) U/L ALT (4-34) U/L Alkaline Phosphatase (38-126) U/L Troponin I (0.000-0.034) ng/mL Total Protein (6.3-8.2) g/dL Albumin (3.5-5.0) g/dL TSH (0.465-4.680) mIU/L Urine Color Colorless Urine Appearance Clear (Clear) Urine pH 5.5 (5.0-8.0) Ur Specific [place] 1.006 (1.001-1.035) Urine Protein Negative (Negative) Urine Glucose (UA) Negative (Negative) Urine Ketones Negative (Negative) Urine Blood Negative (Negative) Urine Nitrite Negative (Negative) Urine Bilirubin Negative (Negative) Urine Urobilinogen <2.0 (<2.0) mg/dL Ur Leukocyte Esterase Moderate H (Negative) Urine RBC 1 (0-5) /hpf Urine WBC 3 (0-5) /hpf Ur Squamous Epith Cells 1 (0-4) /hpf Urine Mucus Rare H (None) /hpf Salicylates mg/dL Acetaminophen ug/mL Serum Alcohol mg/dL Disposition Is patient prescribed a controlled substance at d/c from ED?: No Time of Disposition: 13:00 <Whitney Foy - Last Filed: 05/07/24 12:57> <Marlon Meier - Last Filed: 05/12/24 13:52> Clinical Impression: Dementia, Depression Disposition: HOME SELF-CARE Condition: Stable Instructions (If sedation given, give patient instructions): Depression (ED) Additional Instructions: Please take the following medications as they are prescribed. Take the Zyprexa at noon as well as the Namenda every day. Follow-up with the neurologist and return for any new or worsening symptoms Prescriptions: Memantine [Namenda] 5 mg PO DAILY #30 tablet OLANZapine [ZyPREXA] 5 mg PO DAILY #30 tablet Referrals: Whitney Gambino PAC [Primary Care Provider] - 1-2 days Forms: [facility] Pamphlet, Community Resources, Outpatient Counseling, Outpatient Therapy List
[2024-05-06 04:02] LABS: Basophils % (A) 1 %; Eosinophils # (A) 0.2 k/uL (0-0.7); Eosinophils % (A) 5 %; HCT 41.1 % (34.0-46.0); HGB 13.4 gm/dL (11.4-16.0); Lymphocytes # (A) 1.5 k/uL (1.0-4.8); Lymphocytes % (A) 36 %; MCH 32.7 pg (25.0-35.0); MCHC 32.6 g/dL (31.0-37.0); MCV 100.2 fL (80.0-100.0); Macrocytosis Slight; Mean Platelet Volume 7.6; Monocytes # (A) 0.4 k/uL (0-1.0); Monocytes % (A) 8 %; Neutrophils % (A) 47 %; Platelet Count 193 k/uL (150-450); RDW 15.9 % (11.5-15.5); WBC 4.2 k/uL (3.8-10.6)
[2024-05-06 04:42] LABS: ALT 19 U/L (4-34); AST 22 U/L (14-36); Acetaminophen <10.0 ug/mL; African American GFR (CKD) 65 (>60 ml/min/1.73 sqM); Albumin 3.6 g/dL (3.5-5.0); Alcohol <10 mg/dL; Alkaline Phosphatase 44 U/L (38-126); Anion Gap 5 mmol/L; Blood Urea Nitrogen 17 mg/dL (7-17); Calcium 9.2 mg/dL (8.4-10.2); Carbon Dioxide 26 mmol/L (22-30); Chloride 107 mmol/L (98-107); Glucose 153 mg/dL (74-99); Magnesium 1.8 mg/dL (1.6-2.3); Non-African American GFR(CKD) 56 (>60 ml/min/1.73 sqM); Phosphorus 3.1 mg/dL (2.5-4.5); Potassium 3.5 mmol/L (3.5-5.1); Salicylate <1.0 mg/dL; Sodium 138 mmol/L (137-145); Total Bilirubin 0.5 mg/dL (0.2-1.3); Total Protein 6.3 g/dL (6.3-8.2)
[2024-05-06] MEDS: LORazepam 2 MG/ML INJ IV STA (05:28)
[2024-05-06] MEDS: SODIUM CHLORIDE 0.9% 1,000 ML IV STA (05:28)
[2024-05-06 07:38] LABS: Appearance,Urine Clear (Clear); Bilirubin,Urine Negative (Negative); Blood,Urine Negative (Negative); Color,Urine Colorless; Glucose,Urine (UA) Negative (Negative); Ketones,Urine Negative (Negative); Leukocyte Esterase,Urine Moderate (Negative); Mucus,Urine Rare /hpf; Nitrite,Urine Negative (Negative); PH, Urine 5.5 (5.0-8.0); Protein,Urine Negative (Negative); RBC,Urine 1 /hpf (0-5); Specific Gravity,Urine 1.006 (1.001-1.035); Squamous Epithelial Cell,Urine 1 /hpf (0-4); Urobilinogen,Urine <2.0 mg/dL (<2.0); WBC,Urine 3 /hpf (0-5)
[2024-05-06] MEDS ORDERED: methocarbamoL 500 MG TAB PO PRN (22:39)
[2024-05-06] MEDS: GABAPENTIN 400 MG CAP PO SCH (22:56)
[2024-05-06] MEDS: METOPROLOL SUCCINATE (ER) 100 MG TAB.ER.24H PO SCH (22:57)
[2024-05-06] MEDS: ZOLPIDEM 5 MG TAB PO SCH (22:57)
[2024-05-06] MEDS: LOSARTAN 50 MG TAB PO SCH (22:57)
[2024-05-06] MEDS: ALPRAZolam 0.5 MG TAB PO STA (23:00)
[2024-05-07] MEDS: LORATADINE 10 MG TAB PO SCH (08:28)
[2024-05-07] MEDS: DULoxetine HCL 30 MG CAPSULE.DR PO SCH (08:29)
[2024-05-07] MEDS: buPROPion XL 150 MG TAB.ER.24H PO SCH (08:29)
--- NOTE | 2024-05-07 12:12 | P.CN ---
Psychiatric Consult - . Consult date: 05/07/24 Consult:: 05/07/24 12:00 IDENTIFYING DATA: This patient is a 74 year old female, with history of dementia, living at home with REASON FOR REFERRAL: Psychiatry was consulted for SI HISTORY OF PRESENT ILLNESS: The patient presented to the hospital with suicidal ideations and walking outside in the cold. Patient reportedly had an argument with her where she made suicidal statements. Patient seen and evaluated on the unit. She expresses being for over 40 years and has been having issues with her . Patient does appear to suffer from cognitive impairment, exhibiting confusion at times. She expresses saying things she did not mean whenever she has an argument with her and that he called the police. Patient did confirm that she has been having memory issues for the past year. She reports feeling sad due to her not listening however denied any sleep or appetite changes, hopelessness. She reports completing therapy but is open to this. She states her PCP prescribes her psychotropic medications. At this time patient denies any suicidal or homical ideations, intent or plan. Patient denies any auditory, visual hallucinations and denies any paranoia or delusions. Patients admits to using no substances. Talk to patient's Olegario who states that patient has been exhibiting sundowning behavior, at nighttime yelling and acting out. He states patient has been walking out the front door barefoot and that these behaviors started last year in the summer. He reports her being hospitalized in [facility] in December after she threatened to kill herself. He states patient has not followed up with outpatient appointments and has not in counseling. He states attempting to make an neurology appointment for her however the first opening was in June. Discussed with Olegario that inpatient psych does not feel appropriate for patient given underlying cognitive impairment and he was encouraged to seek guardianship and look at longterm placement if he is unable to care for patient. Discussed with the ideally patient being started on Rexulti for her behaviors however this is not on formulary at this hospital. PAST PSYCHIATRIC HISTORY: Patient has a a history of depression. She is currently on Cymbalta 90 mg, Wellbutrin SR 150 mg to which patient states is helpful. Patient reports 2 inpatient hospitalizations, most recent in December 2023. Patient denies any psychiatric outpatient follow-up. Patient denies any history of suicide attempts in the past. PAST MEDICAL HISTORY: Dementia, A-fib, hypertension, acid reflux. ALLERGIES: as per EMR. CHEMICAL DEPENDENCY HISTORY: as per HPI. FAMILY PSYCHIATRIC/SUBSTANCE USE HISTORY: Denies SOCIAL HISTORY: Patient is currently living at home with her and has 3 daughters. She completed high school. She is retired. MENTAL STATUS EXAM: General Appearance: Patient appears to be stated age is alert, pleasant, and cooperative. Patient appears to have fair hygiene and grooming wearing hospital gown with fair eye contact. Behavior: Patient is calmly sitting in chair without any agitated behavior. She is intermittently tearful Speech: Patient's speech is fluent and nonpressured. Mood/Affect: Patient reports their mood is "okay", affect is congruent, blunted Suicidality/Homicidality: Patient denies having any suicidal or homicidal ideation intent or plan. Perceptions: Patient denies any visual hallucinations and denies any auditory hallucinations Though content/process: There is no evidence of any delusional thought content and thought process is linear and goal-directed. Memory and concentration: AOX3, grossly intact for the purposes of this session. Can spell "WORLD" backwards Judgment and insight: Poor IMPRESSIONS: Unspecified neurocognitive disorder PLAN: -At this time patient DOES NOT meet criteria for inpatient psychiatric admission. -Would recommend the following medication changes/additions: Will start Zyprexa 5 mg at noon as patient's states she begins exhibiting symptoms around 4 PM, start Namenda 5 mg daily for cognitive impairment. Strongly encouraged to make a neurology appointment as patient does not have a formal dementia diagnosis. Also encouraged to obtain guardianship and look at assisted living if he is unable to care for his -Can discontinue 1:1 sitter at this time as patient is not currently an imminent threat to themselves -mold yard worker to provide patient with outpatient mental health/psychiatry resources for appropriate follow up upon discharge -Communicated plan to patient's nurse -Psychiatry will sign off at this time -Please contact with any questions.
[2024-05-07] MEDS: MEMANTINE 10 MG TAB PO SCH (13:11)
[2024-05-07] MEDS: OLANZapine 5 MG TAB PO SCH (13:11)
[2024-05-07] MEDS: ALPRAZolam 0.5 MG TAB PO PRN (16:36)
[2024-05-07 16:52] VITALS: BP 170/98; PULSE 76; RESP 20; TEMP 97.9
== END 2024-05-07 16:51 | disposition home or self-care (01) ==
LOC: EC 01:03
DX: F03.911 Unspecified dementia, unspecified severity, with agitation (principal); F32.A Depression, unspecified; R41.82 Altered mental status, unspecified; Z88.8 Allergy status to other drugs, medicaments and biological substances
CPT/HCPCS: 82075; 36415; 80053; 83735; 84100; 84443; 84484; 85025; 81001; 80143; 80179; 99285; 96374; 96361 ×4; G0480; J2060; 80320